=== PATIENT | male | born 1970 | race Caucasian/White ===

== ENCOUNTER 2019-08-08 18:19 | Inpatient (IN) | payer MEDICAID, SELFPAY ==
[2019-08-08] VITALS (9 sets, daily range): BP systolic 104–147; BP diastolic 73–96; PULSE 107–118; RESP 22–38; O2SAT 93–97; BMI 34.8
--- NOTE | 2019-08-08 18:52 | ED_ITS ---
Entered by Aisha Chamorro, acting as scribe for Jeff No MD, [facility] [place] HPI - SOB/Dyspnea General: Chief Complaint: Shortness of Breath/Dyspnea Stated Complaint: shortness of breath Time Seen by Provider: 08/08/19 18:45 Source: patient and family Mode of arrival: ambulatory Limitations: no limitations History of Present Illness: HPI Narrative: 49 yo male presents with shortness of breath. pt states this started 3 days ago. pt states his symptoms worsened. pt states walking and exertion makes this better or worse. pt has had sweating episodes. pt states he has had coughing. pt denies any other symptoms at this time. MD elicited complaint: shortness of breath and cough Context: recent illness Timing: constant and progressively worsening Severity: moderate Exacerbating factors: exertion, coughing and deep breaths Relieving factors: nothing Associated symptoms: Reports chest pain, cough and diaphoresis; Deny abdominal pain, nausea, palpitations, polydipsia, polyuria or vomiting Treatment prior to arrival: none Related Data: Home oxygen amount: none Review of Systems General: Reports: 10 or more systems reviewed and unremarkable except in HPI and below Const: Reports: diaphoresis Eyes: Denies: change in vision or blurry vision ENMT: Denies: throat pain, enlarged tonsils, painful swallowing, hoarseness, mouth pain or swelling of lips/tongue Card: Reports: chest pain; Denies: palpitations, irregular heart rhythm, edema or swelling of feet/ankles Resp: Reports: shortness of breath and productive cough GI: Denies: abdominal pain, nausea or vomiting : Denies: flank pain, painful urination, urinary frequency, urinary urgency or urinary hesitancy Musc: Denies: neck pain, back pain or extremity swelling Skin/Breast: Denies: rash, itching or redness Neuro: Denies: headache, numbness in extremities or weakness in extremities Endo: Denies: excessive urination, excessive thirst or tired all the time PFSH ED PFSH: Social History Smoking and tobacco status: current every day smoker Physical Exam Const: COMMON NORMALS: no apparent distress, average body habitus, oriented x3, no limitations, healthy appearing, alert and well nourished HENMT: COMMON NORMALS: normocephalic, head/scalp atraumatic and moist oral mucous membranes HEAD & SCALP: normocephalic and atraumatic Eye: COMMON NORMALS: PERRL, EOMs intact bilaterally, conjunctivae normal and no scleral icterus CONJUNCTIVA: Yes conjunctivae normal PUPIL: Yes PERRL Neck/C-Spine: COMMON NORMALS: full ROM, supple, no meningeal signs, no JVD and no carotid bruits Chest: COMMONS NORMALS: inspection of chest normal and palpation of chest normal Resp: COMMON NORMALS: percussion normal EFFORT & INSPECTION: Yes tachypneic AUSCULTATION: crackles (bilateral lungs) PERCUSSION: percussion normal Cardio: COMMON NORMALS: no JVD, regular rate, regular rhythm, S1 normal heart sound, S2 normal heart sound, no gallops, no clicks, no murmurs, no rub and peripheral pulses 2+ throughout RATE: regular rate RHYTHM: regular rhythm HEART SOUNDS: S1 normal and S2 normal PERIPHERAL PULSES: pulses 2+ throughout GI: COMMON NORMALS: normal to inspection, nondistended, normoactive bowel so unds, soft to palpation, non-tender, no hepatosplenomegaly, no masses and no bruits PALPATION: Yes soft and Yes no hepatosplenomegaly : COMMON NORMALS: Yes no CVA tenderness BLADDER/KIDNEY EXAM: Yes no CVA tenderness Back/Pelvis: COMMON NORMALS: no CVA tenderness Extremity: COMMON NORMALS: normal to inspection, full ROM, normal capillary refill, no calf tenderness and no pedal edema Neuro: COMMON NORMALS: oriented x3 SENSORIUM/ORIENTATION: Yes alert MENINGEAL SIGNS: Yes no meningeal signs Skin: COMMON NORMALS: no rashes or lesions noted, no wounds, skin turgor normal, no jaundice, no petechiae and no mottling GENERAL SKIN EXAM: no rashes or lesions noted and turgor normal Course Consultations: Consultation #1: Dr. Saavedra, kinder teacher. EKG pattern does not suggest ACS. Appears to be more of a pulmonary pattern. Rule out a PE. Time: 19:00 Consultation #2: Dr. Saavedra, kinder teacher. Discussed the results of the CTA of the lungs with him. Also discussed the troponin result which was critically elevated. He still did not feel this warranted an emergent PCI. Patient should be treated as a case of a non-STEMI. Time: 20:00 Consultation #3: Dr. Porras, hospitalist. She kindly accepted the patient to her service Vital Signs: Vital signs: Vital Signs Pulse Rate 108 H 08/08/19 23:36 Respiratory Rate 22 H 08/08/19 23:36 Blood Pressure 104/81 08/08/19 23:36 Pulse Oximetry 94 08/08/19 23:36 MDM - SOB/Dyspnea MDM Narrative: Medical decision making narrative: 49-year-old male who presented to the emergency department with shortness of breath. On arrival to the emergency department he was hypoxic, necessitating 4 to 5 L of oxygen to maintain his saturations. He was also tachycardic and tachypneic. A CTA of his lungs was negative for a PE, he did however show pulmonary edema. Patient has no prior history of CHF. High-sensitivity troponin was markedly elevated on this patient and he did have some EKG changes of ischemia. He is therefore being managed as a case of a non- STEMI and is admitted to the ICU for further evaluation and management. Differential Diagnosis: Shortness of Breath Differential Diagnosis: Likely congestive heart failure, community acquired pneumonia and pulmonary embolism Medical Records: Attestation: I reviewed the patient's medical records. Lab Data: Attestation: I reviewed the patient's lab results. Labs: Lab Results 08/08/19 08/08/19 08/08/19 Range/Units 19:17 19:17 19:17 WBC 22.1 H (4.0-10.0) 10^3/ uL RBC 5.01 (4.1-5.3) 10^6/u L Hgb 14.2 (11.7-16.6) g/dL Hct 43.4 (42.0-52.0) % MCV 86.6 (80-94) fL MCH 28.3 (28.0-34.0) pg MCHC 32.7 (30.0-36.0) g/dL RDW 12.3 (12.1-15.1) % Plt Count 458 H (130-400) 10^3/c mm MPV 8.4 (7.4-10.4) fL Neut % (Auto) 90.7 % Lymph % (Auto) 4.5 % [place] % (Auto) 3.4 % Eos % (Auto) 0.1 % Baso % (Auto) 0.2 % Neut # (Auto) 20.0 H (1.8-7.7) 10^3/u L Lymph # (Auto) 1.0 (0.8-4.8) 10^3/u L [place] # (Auto) 0.7 (0.2-0.9) 10^3/u L Eos # (Auto) 0.0 (0.0-0.8) 10^3/u L Baso # (Auto) 0.0 (0.0-0.1) 10^3/u L Nucleated RBC % (a uto) 0 % Nucleated RBCs # 0.0 /100WBC Sodium 124 L (136-145) mmol/L Potassium 5.2 H (3.5-5.1) mmol/L Chloride 86 L (98-107) mmol/L Carbon Dioxide 23 (22-29) mmol/L Anion Gap 20.2 H (5-19) BUN 19 (6-20) mg/dL Creatinine 1.2 (0.7-1.2) mg/dL GFR Calculation 64.9 L (90-130) mL/min Glucose 544 H* (65-115) mg/dL Lactate 2.2 (0.5-2.2) mmol/L Calcium 9.0 (8.5-10.5) mg/dL Total Bilirubin 0.4 (0.15-1.2) mg/dL AST 22 (0-40) U/L ALT 28 (0-41) U/L Alkaline Phosphata se 131 H (40-130) IU/L Troponin T Baselin e (0-15) ng/mL Troponin T 120 Min [place] (0-15) ng/mL Delta Troponin T (0-10) ABS# NT-Pro-B Natriuret Pep 2485 H (0-125) pg/mL Total Protein 7.0 (6.6-8.7) g/dL Albumin 2.9 L (3.5-5.2) g/dL Globulin 4.1 (1.3-4.6) g/dL 08/08/19 08/08/19 Range/Units 19:17 21:34 WBC (4.0-10.0) 10^3/ uL RBC (4.1-5.3) 10^6/u L Hgb (11.7-16.6) g/dL Hct (42.0-52.0) % MCV (80-94) fL MCH (28.0-34.0) pg MCHC (30.0-36.0) g/dL RDW (12.1-15.1) % Plt Count (130-400) 10^3/c mm MPV (7.4-10.4) fL Neut % (Auto) % Lymph % (Auto) % [place] % (Auto) % Eos % (Auto) % Baso % (Auto) % Neut # (Auto) (1.8-7.7) 10^3/u L Lymph # (Auto) (0.8-4.8) 10^3/u L [place] # (Auto) (0.2-0.9) 10^3/u L Eos # (Auto) (0.0-0.8) 10^3/u L Baso # (Auto) (0.0-0.1) 10^3/u L Nucleated RBC % (a uto) % Nucleated RBCs # /100WBC Sodium (136-145) mmol/L Potassium (3.5-5.1) mmol/L Chloride (98-107) mmol/L Carbon Dioxide (22-29) mmol/L Anion Gap (5-19) BUN (6-20) mg/dL Creatinine (0.7-1.2) mg/dL GFR Calculation (90-130) mL/min Glucose (65-115) mg/dL Lactate (0.5-2.2) mmol/L Calcium (8.5-10.5) mg/dL Total Bilirubin (0.15-1.2) mg/dL AST (0-40) U/L ALT (0-41) U/L Alkaline Phosphata se (40-130) IU/L Troponin T Baselin e 1942 H* (0-15) ng/mL Troponin T 120 Min [place] 1885 H (0-15) ng/mL Delta Troponin T -57 L (0-10) ABS# NT-Pro-B Natriuret Pep (0-125) pg/mL Total Protein (6.6-8.7) g/dL Albumin (3.5-5.2) g/dL Globulin (1.3-4.6) g/dL EKG Data^: EKG 1: Attestation: I personally reviewed and interpreted this EKG as follows: EKG Interpretation Date: 08/08/19 EKG interpretation time: 18:48 Ischemic changes: other (ST depression in leads V1 to V5) Interpretation: Sinus tachycardia. Heart rate [address] depression V1 to V6. EKG 2: Attestation: I personally reviewed and interpreted this EKG as follows: EKG Interpretation Date: 08/08/19 EKG interpretation time: 20:30 Interpretation: Unchanged from earlier EKG EKG 3: Attestation: I personally reviewed and interpreted this EKG as follows: EKG Interpretation Date: 08/08/19 EKG interpretation time: 22:02 Prior EKG tracings: available for review Interpretation: Unchanged EKG Discharge Plan Discharge Patient Disposition: Admitted As Inpatient Admit Provider: Liz Porras Clinical Impression: Non-ST elevated myocardial infarction (non-STEMI), Acute respiratory failure Condition: Stable Interventions: ED Discharge Assessment Last Done: 08/08/19 23:36 Coding Level of Care Code ED Restrooms Or Lounges Maid for Chg Fwd Exam Comprehensive The documentation recorded by the Pedro Pablo chapman Bridget Annette, accurately reflects the service I personally performed and the decisions made by Marybel zhao Adegoke I, MD, [facility] [place] Aug 08, 2019 18:19
--- NOTE | 2019-08-08 18:56 | CTR_ITS ---
PROCEDURE INFORMATION: Exam: CT Angiography Chest With Contrast Exam date and time: 08/08/2019 7:05 PM Age: 49 years old Clinical indication: Cough and tachypnea; Additional info: SOB, tachycardia TECHNIQUE: Imaging protocol: Computed tomographic angiography of the chest with intravenous contrast. 3D rendering: MIP and/or 3D reconstructed images were created by the technologist. Radiation optimization: All CT scans at this facility use at least one of these dose optimization techniques: automated exposure control; mA and/or kV adjustment per patient size (includes targeted exams where dose is matched to clinical indication); or iterative reconstruction. Contrast material: OMNI 350; Contrast volume: 95 ml; Contrast route: IV; COMPARISON: No relevant prior studies available. FINDINGS: Pulmonary arteries: Overall exam quality is moderate to good for evaluating the pulmonary arteries. There is some motion artifact in the lung bases. No intraluminal filling defects are seen to indicate pulmonary embolism. Aorta: Unremarkable. No aortic aneurysm. No aortic dissection. Lungs: Numerous bilateral central patchy and hazy airspace opacities with accompanying diffuse septal thickening occurs in a pattern most consistent with congestive heart failure and pulmonary edema. Pleural space: Bilateral moderate symmetric pleural effusions extend from the lung bases nearly to the apices. Heart: Overall heart size is normal but the left ventricle is slightly enlarged for the patient's age. Scattered calcified plaques are seen in the coronary arteries. Scattered calcified plaques are noted in the left coronary arteries. Liver: The visualized portions of the liver and spleen are unremarkable. Lymph nodes: Central mediastinal nodes are mildly enlarged and likely reactive. For example a prevascular node measures 1.8 cm and the paratracheal node measures 1.8 cm. Bones/joints: Mild degenerative changes are seen in the thoracic spine. Soft tissues: Unremarkable. CT/CT angio chest PE protcl [id number] IMPRESSION: 1. Congestive heart failure with moderate pleural effusions. 2. No pulmonary embolism. Radiation Dose CTDIVOL = (mGy): DLP = 701.39 (mGy-cm)
--- NOTE | 2019-08-08 18:56 | ECG_ITS ---
Measurements Intervals [place] Rate: 122 P: 64 VA: 184 QRS: -42 QRSD: 93 T: 41 QT: 418 QTc: 598 SINUS TACHYCARDIA INFERIOR MYOCARDIAL INFARCTION , POSSIBLY ACUTE [40+ ms Q WAVE AND/OR ST/T ABN ABNORMALITY IN II/aVF] ACUTE [place] No previous ECG available for comparison Electronically Signed On 08-09-2019 13:18:21 STORE STANDARDS ASSOCIATE by Sade Lawrence M.D. [id number]
[2019-08-08 19:28] LABS: Basophils % 0.2 %; Eosinophils % 0.1 %; Hematocrit 43.4 % (42.0-52.0); Hemoglobin 14.2 g/dL (11.7-16.6); Lymphocytes % 4.5 %; Mean Corpuscular HGB Conc 32.7 g/dL (30.0-36.0); Mean Corpuscular Hemoglobin 28.3 pg (28.0-34.0); Mean Corpuscular Volume 86.6 fL (80-94); Mean Platelet Volume 8.4 fL (7.4-10.4); Monocytes # 0.7 10^3/uL (0.2-0.9); Monocytes % 3.4 %; Neutrophils % 90.7 %; Nucleated Red Blood Cells % 0 %; Platelet Count 458 10^3/cmm (130-400); Red Blood Count 5.01 10^6/uL (4.1-5.3); Red Cell Distribution Width 12.3 % (12.1-15.1); White Blood Count 22.1 10^3/uL (4.0-10.0)
[2019-08-08] MEDS: iohexol 350 mg/mL 100 mL Btl 95 ML IV (19:42)
[2019-08-08 19:45] LABS: Lactate (Lactic Acid level) 2.2 mmol/L (0.5-2.2)
[2019-08-08 19:53] LABS: Troponin(5th) Baseline 1942 ng/mL (0-15)
--- NOTE | 2019-08-08 19:53 | PC.NURSE ---
Troponin 194
[2019-08-08 19:55] LABS: Alanine Aminotransferase 28 U/L (0-41); Albumin Level 2.9 g/dL (3.5-5.2); Alkaline Phosphatase 131 IU/L (40-130); Anion Gap 20.2 (5-19); Aspartate Amino Transferase 22 U/L (0-40); Blood Urea Nitrogen 19 mg/dL (6-20); Carbon Dioxide 23 mmol/L (22-29); Chloride 86 mmol/L (98-107); Creatinine Clr Calc Pharmacy 97.4554; Globulin 4.1 g/dL (1.3-4.6); Glomerular Filtration Rate 64.9 mL/min (90-130); NT Pro B Type Natriuretic Pept 2485 pg/mL (0-125); Potassium 5.2 mmol/L (3.5-5.1); Sodium 124 mmol/L (136-145); Total Bilirubin 0.4 mg/dL (0.15-1.2)
[2019-08-08 20:03] LABS: Glucose 544 mg/dL (65-115)
--- NOTE | 2019-08-08 20:03 | PC.NURSE ---
Glucose 544
[2019-08-08] MEDS: aspirin 81 mg Chew Tablet 324 MG PO (20:49)
[2019-08-08] MEDS: FUROsemide 10 mg/mL SDV 4mL 40 MG IVP (20:50)
[2019-08-08] MEDS: enoxaparin 120 mg/0.8 mL Syringe 110 MG SUBCUT (20:52)
--- NOTE | 2019-08-08 20:56 | ECG_ITS ---
Measurements Intervals [place] Rate: 113 P: 58 MO: 200 QRS: -46 QRSD: 97 T: 0 QT: 307 QTc: 422 SINUS TACHYCARDIA POSSIBLE LEFT ATRIAL ENLARGEMENT [-0.1mV P WAVE IN V1/V2] INFERIOR MYOCARDIAL INFARCTION , POSSIBLY ACUTE [40+ ms Q WAVE AND/OR ST/T ABNORMALITY IN II/aVF] ACUTE [place] No previous ECG available for comparison Electronically Signed On 08-09-2019 17:31:18 SAP ARCHITECT by Sade Lawrence M.D. [id number]
[2019-08-08 22:15] LABS: Troponin 5 2HR Delta -57 ABS# (0-10)
[2019-08-08 22:16] LABS: Troponin 5 2HR 1885 ng/mL (0-15)
[2019-08-08 22:33] LABS: Glucose Point of Care 375 mg/dL (70-110)
[2019-08-08 22:52] LABS: Alanine Aminotransferase 29 U/L (0-41); Albumin Level 3.1 g/dL (3.5-5.2); Alkaline Phosphatase 130 IU/L (40-130); Anion Gap 17.9 (5-19); Aspartate Amino Transferase 20 U/L (0-40); Blood Urea Nitrogen 19 mg/dL (6-20); Calcium 9.2 mg/dL (8.5-10.5); Carbon Dioxide 26 mmol/L (22-29); Chloride 89 mmol/L (98-107); Globulin 4.2 g/dL (1.3-4.6); Glomerular Filtration Rate 80.1 mL/min (90-130); Glucose 404 mg/dL (65-115); Potassium 4.9 mmol/L (3.5-5.1); Sodium 128 mmol/L (136-145); Total Bilirubin 0.4 mg/dL (0.15-1.2); Total Protein 7.3 g/dL (6.6-8.7)
--- NOTE | 2019-08-08 23:25 | PM.HP ---
Providers/Chief Complaint Admitting Physician: Liz Porras MD Chief Complaint: nstemi;chf;acute resp failure History of Present Illness Nimesh Prasad is a 49 year old male with a past medical history of hypertension, diabetes mellitus previously on metformin but now noncompliant with medications, chronic smoking, possibly dyslipidemia who is presenting today to the ED complaining of shortness of breath which started on Wednesday(today is Wednesday). Per patient he was in his usual state of health until Wednesday when he started to experience shortness of breath while sitting in his couch watching TV. He does not recall any inciting factor that brought it on. He thought he was having an anxiety attack and called 1 of his friends over. After chatting to this friend and using his albuterol inhaler this feeling subsided within 1 to 2 hours and he remained asymptomatic through Wednesday. He visited with his primary care doctor when he was still feeling well on Wednesday had some blood work done but does not know the results of this testing. On Wednesday he decided to go to work and while fixing himself something to eat, again started to develop similar shortness of breath. He uses inhalers been thinking that this may benefit him, however when he had no relief he decided to present to the ER. Symptoms were eventually relieved after receiving morphine. He denies any complaints of chest pain, however states that on Wednesday his chest felt funny when the symptoms first started. He has additionally noticed increased swelling of his lower extremity which he has never had before. At this present time of my evaluation he denies any feelings of chest pain or shortness of breath. He is saturating 95% on 2 L/min nasal cannula. He is however noted to be tachycardic with heart rate 103. Diagnostics in the ER were significant for ST elevation in leads III and aVF and ST-T depression in leads V1 through V4. His troponins are elevated with baseline at 1900, a 2-hour troponin at 1885 with a delta of -57. Blood sugar upon arrival was at 544, most recent fingerstick at 375 after which he has received 5 units of insulin. Serum ketones are negative. There is no anion gap overall to be suggestive of DKA. BNP is elevated at 2485. Renal and liver functions are within normal range. Thus far he has received aspirin 325, Lovenox subcutaneously and 40 mg of IV Lasix in the ED. He denies any past history of known CAD. Review of systems otherwise negative for cough, expectoration, fever chills, dysuria, nausea vomiting diarrhea or other altered bowel habits. Review of Systems General: Reports: 10 or more systems reviewed and unremarkable except in HPI and below Const: Denies: fever, chills or body aches Eyes: Denies: change in vision, blurry vision or photophobia ENMT: Reports: hoarseness; Denies: throat pain, enlarged tonsils, painful swallowing or nasal congestion Card: Reports: swelling of feet/ankles, shortness of breath on exertion and shortness of breath when lying down; Denies: chest pain, palpitations, irregular heart rhythm, edema, lightheadedness or pre-syncope Resp: Reports: shortness of breath; Denies: productive cough, non-productive cough, wheezing, stridor, pain on inspiration, change in phlegm color, coughing up blood or chest congestion GI: Denies: abdominal pain, nausea, vomiting, vomiting blood, coffee grounds in vomit, difficulty swallowing, heartburn/indigestion, diarrhea, constipation, cramping, change in stool character, blood in stool or black tarry stool : Denies: flank pain, painful urination, urinary frequency, urinary urgency, urinary hesitancy or blood in urine Musc: Denies: neck pain, back pain, extremity pain, joint swelling, joint warmth or deformity Neuro: Denies: headache, numbness in extremities, weakness in extremities, changes in sensation, difficulty walking, frequent falls, dizziness, vertigo, behavioral changes, slurred speech or seizure-like activity Psych: Denies: anxiety, depression, suicidal ideation or homicidal ideation Endo: Denies: excessive urination, excessive thirst, tired all the time, cold intolerance or hot flashes [place]/Lymph: Denies: easy bruising or easy bleeding Medications/Allergies Allergies Allergy/AdvReac Type Severity Reaction Status Date / Time No Known Allergies Allergy Verified 08/08/19 18:34 PFSH Acute PFSH: Medical History (Updated 08/09/19 @ 01:26 by Liz Porras MD) Congestive heart failure Diabetes mellitus Hypertension Family History (Updated 08/09/19 @ 01:26 by Liz Porras MD) Other CAD (coronary artery disease) Cancer Social History Smoking and tobacco status: current every day smoker Vitals/I&O/Wt Last Vital Signs Pulse 117 H 08/08/19 22:00 Resp 38 H 08/08/19 22:00 BP 111/82 08/08/19 22:00 Pulse Ox 96 08/08/19 22:00 Weight last 48 hrs Weight 113.398 kg Physical Exam Narrative: EXAM NARRATIVE: GEN: Awake, alert and oriented, no acute distress, sitting comfortbaly in bed CVS: S1S2 N RS: CTA B/L all areas Abd: Soft, nt/nd , bs+ CARBONATION EQUIPMENT TENDER: no focal neuro deficits EXT: 2+ pitting edema B/L lower extremities Data : 08/08/19 19:17 08/08/19 22:30 Micro: Microbiology 08/08/19 19:15 Blood Culture - Preliminary Blood SPECIMEN COLLECTED 08/08/19 19:17 Blood Culture - Preliminary Blood SPECIMEN COLLECTED A&P Assessment and plan (1) Non-ST elevated myocardial infarction (non-STEMI): Status: Acute Code(s): I21.4 - Non-ST elevation (NSTEMI) myocardial infarction (2) Hypertension: Status: Acute Code(s): I10 - Essential (primary) hypertension (3) Diabetes mellitus: Status: Acute Code(s): E11.9 - Type 2 diabetes mellitus without complications (4) Congestive heart failure: Status: Acute Code(s): I50.9 - Heart failure, unspecified Additional A&P Information Admit to ICU 1. Acute HI as suggested by ST-T changes as noted above and elevated troponins. Already received aspirin 325 mg in the ED. Continue aspirin 81 mg p.o. daily. Start atorvastatin 80 mg now followed by daily Started on full dose Lovenox 110 mg subcutaneous daily Metoprolol 12.5 p.o. twice daily originally ordered, but now being held blood pressure ranging 100/60 Cardiology consult placed in case discussed with mathematician Dr. Saavedra. He is currently being kept n.p.o. overnight in case he needs to go to the [facility] for angiogram in the morning. PRN morphine for pain control 2. Congestive heart failure as evident clinically. Already received 40 mg of IV Lasix with improvement in dyspnea. Start patient on 40 mg IV every 12 hours for now. Echocardiogram ordered. Supplemental O2 to keep SPO2 greater than 92%. 3. Hyperglycemia Patient has previously been diagnosed to have diabetes mellitus and was on metformin, however he has not taken this medication over the past year. Check HbA1c Start insulin aggressive sliding scale for now Serum ketones negative, no anion gap, not currently in DKA therefore holding off on insulin drip. 4.. Leukocytosis with white blood cell count of 22, likely to be reactive, no localizing signs or symptoms of infection at this time. Chest x-ray is without any gross infiltrates. Will send UA and blood culture. Hold off on antibiotics at this time. Repeat CBC in a.m. DVT ppx: on full dose lovenox Full code Attestations Medical Necessity Statement*: Anticipate greater than 2 midnight admission for HI, CHF,hyperglycemia work-up and management. Coding Level of Care Code Acute Manufacturing Engineering Manager for Chester Santos Diagnoses Non-ST elevated myocardial infarction (non-STEMI) I21.4 Hypertension I10 Diabetes mellitus E11.9 Congestive heart failure I50.9
[2019-08-09] VITALS (52 sets, daily range): BP systolic 96–141; BP diastolic 49–103; PULSE 73–114; RESP 13–38; TEMP 36.5–37.2; O2SAT 81–99
[2019-08-09 00:34] LABS: Ketone (Acetest) Serum Negative (Negative)
--- NOTE | 2019-08-09 00:56 | ECG_ITS ---
Measurements Intervals [place] Rate: 114 P: 58 MN: 194 QRS: -49 QRSD: 94 T: 0 QT: 297 QTc: 409 SINUS TACHYCARDIA LEFT ATRIAL ENLARGEMENT [-0.15mV P WAVE IN V1/V2] INFERIOR MYOCARDIAL INFARCTION , OF INDETERMINATE AGE ST DEPRESSION, CONSIDER SUBENDOCARDIAL INJURY [0.1+ mV ST DEPRESSION] No previous ECG available for comparison Electronically Signed On 08-09-2019 17:30:59 GAMING INVESTIGATOR by Sade Lawrence M.D. [id number]
[2019-08-09 00:59] LABS: Thyroid Stimulating Hormone 2.32 uIU/mL (0.27-4.20)
[2019-08-09 01:23] LABS: Troponin 5 6HR 1812 ng/mL (0-15)
--- NOTE | 2019-08-09 03:40 | PC.NURSE ---
patient sitting on aamra of bed c/o being hot and unable to catch breath. resp called to room o2 t 6 liters n/c. sats are wnl. patient is slightly diaphoretic, denies any chest pain. voiding copius amount per urinal. will keep NPO per Dr. Key, for possible cath in am. patient troponins are decreasing.
[2019-08-09 05:07] LABS: Basophils % 0.3 %; Eosinophils % 0.2 %; Hematocrit 43.6 % (42.0-52.0); Hemoglobin 14.4 g/dL (11.7-16.6); Lymphocytes # 2.4 10^3/uL (0.8-4.8); Lymphocytes % 16.4 %; Mean Corpuscular Hemoglobin 28.1 pg (28.0-34.0); Mean Corpuscular Volume 85.2 fL (80-94); Mean Platelet Volume 8.5 fL (7.4-10.4); Monocytes # 0.8 10^3/uL (0.2-0.9); Monocytes % 5.2 %; Neutrophils # 11.5 10^3/uL (1.8-7.7); Neutrophils % 77.4 %; Nucleated Red Blood Cells % 0 %; Platelet Count 495 10^3/cmm (130-400); Red Blood Count 5.12 10^6/uL (4.1-5.3); Red Cell Distribution Width 12.1 % (12.1-15.1); White Blood Count 14.9 10^3/uL (4.0-10.0)
[2019-08-09 05:33] LABS: Anion Gap 17.1 (5-19); Blood Urea Nitrogen 19 mg/dL (6-20); Calcium 9.1 mg/dL (8.5-10.5); Carbon Dioxide 25 mmol/L (22-29); Chloride 94 mmol/L (98-107); Glomerular Filtration Rate 90.4 mL/min (90-130); Glucose 296 mg/dL (65-115); Osmolality Calculated 281 mOsm/kg (285-295); Potassium 4.1 mmol/L (3.5-5.1); Sodium 132 mmol/L (136-145)
[2019-08-09 05:34] LABS: Cholesterol 206 mg/dL (0-200); HDL Cholesterol 29 mg/dL (60-100); LDL Cholesterol Calculated 156 mg/dL (50-129); LDL HDL Ratio 5.38 RATIO (0.00-3.22); Magnesium 2.1 mg/dL (1.7-2.3); Triglycerides 104 mg/dL (0-150)
[2019-08-09 05:36] LABS: Estmated Average Glucose 298
--- NOTE | 2019-08-09 06:44 | PM.CONSULT ---
Providers/Reason For Consult Consulting Physican/Specialty*: Cardiovascular medicine Reason for Consult*: Congestive heart failure Attending Physician: Liz Porras MD History of Present Illness History of Present Illness Nimesh Prasad is a 49 year old male who came to the emergency room late last night due to shortness of breath. Shortness of breath started 3 days ago while he was at home. He was having difficulty breathing. He called his neighbor and used his neighbors inhaler. He did not describe any chest discomfort. 2 days ago he went to see his primary care doctor who angela blood. Apparently an inhaler was prescribed. The shortness of breath would wax and wane. Yesterday he went to work and did not do any heavy lifting or heavy activity. Last evening he became very short of breath again and presented himself to the emergency room. His EKG showed a suggestion of minimal ST segment elevation in the inferior leads with some ST segment depression in leads V1 through V4. At no time has he had any chest pain. A CTA of his chest ruled out a pulmonary embolism. He was given aspirin 325 mg, Lovenox and 40 mg of Lasix. At the end of the history taking he admitted having some cold sweats 2 or 3 times over the last few days. He also states that is been difficult for him to lie flat because of shortness of breath and cough. Once again he reiterates that he is not had any chest pain. His glucose was over 500. He was noted to have some lower extremity edema. His BNP is almost 2500. His first troponin was 1942. He has been admitted and placed on aspirin, statin, full dose Lovenox, insulin, Lasix and a beta-tod. He has a history of hypertension and diabetes. He is a smoker and has been noncompliant. He takes no medications. He has been prescribed medications for diabetes and hypertension in the past but has chosen not to take them. Review of Systems General: Reports: 10 or more systems reviewed and unremarkable except in HPI and below Meds/Allergies Home Medications and Allergies Allergies Allergy/AdvReac Type Severity Reaction Status Date / Time No Known Allergies Allergy Verified 08/08/19 18:34 Current Medications Current Medications Generic Name Dose Route Start Last Admin Trade Name Freq PRN Reason Stop Dose Admin Atorvastatin Calcium 80 mg 08/08/19 23:20 08/09/19 01:45 Lipitor PO Not Given BEDTIME SAMANTHA Enoxaparin Sodium 110 mg 08/08/19 23:30 08/09/19 01:45 Lovenox SUBCUT Not Given Q12H SAMANTHA Furosemide 40 mg 08/08/19 23:30 08/09/19 01:46 Lasix IVP Not Given Q12H SAMANTHA PFSH Acute PFSH: Medical History (Updated 08/09/19 @ 06:53 by Ian Saavedra MD) Congestive heart failure Diabetes mellitus Hypertension Tobacco abuse Family History (Updated 08/09/19 @ 01:26 by Liz Porras MD) Other CAD (coronary artery disease) Cancer Social History Smoking and tobacco status: current every day smoker Vitals/I&O/Wt Last Vital Signs Temp 98.9 F 08/09/19 05:54 Pulse 93 08/09/19 05:54 Resp 18 08/09/19 05:54 BP 128/95 08/09/19 05:54 Pulse Ox 88 L 08/09/19 05:54 08/08/19 08/08/19 08/09/19 14:59 22:59 06:59 Intake Total 60 / 60 Output Total 750 / 750 Balance -690 / -690 Weight last 48 hrs Weight 250 lb Physical Exam Narrative: EXAM NARRATIVE: GENERAL: In general he is comfortable sitting upright but when he lies flat he begins to cough HEENT: Exam within normal limits. NECK: Supple without jugular vein distention. The carotid upstroke is normal without bruits. BACK: Exam normal. LUNGS: Clear. HEART: Regular rate and rhythm. ABDOMEN: Benign without organomegaly or tenderness. EXTREMITIES: No edema. NEUROLOGIC: Exam normal. SKIN: Unremarkable. Data Micro: Micro: Microbiology 08/08/19 19:15 Blood Culture - Pr eliminary Blood SPECIMEN [facility] 08/08/19 19:17 Blood Culture - Pr eliminary Blood SPECIMEN [facility] A&P Assessment and plan (1) Diabetes mellitus: Status: Acute Code(s): E11.9 - Type 2 diabetes mellitus without complications (2) Congestive heart failure: Status: Acute Code(s): I50.9 - Heart failure, unspecified (3) Hypertension: Status: Acute Code(s): I10 - Essential (primary) hypertension (4) Acute respiratory failure: Status: Acute Qualifiers: Respiratory failure complication: hypoxia Qualified Code(s): J96.01 - Acute respiratory failure with hypoxia Code(s): J96.00 - Acute respiratory failure, unspecified whether with hypoxia or hypercapnia (5) Non-ST elevated myocardial infarction (non-STEMI): Status: Acute Code(s): I21.4 - Non-ST elevation (NSTEMI) myocardial infarction (6) Tobacco abuse: Status: Acute Code(s): Z72.0 - Tobacco use Additional A&P Information The infarct was completed at least 3 days ago, perhaps longer. He likely had a silent myocardial infarction in the inferior wall 3 or more days ago. 3 days ago he began to develop symptoms of congestive heart failure. He seems to be better with the Lasix. He will need coronary angiography later this morning if I can get him on the schedule. Consult Attestations Medical Necessity Statement: Not applicable Coding Level of Care Code Acute Residential Manager for [facility] Medical Decision Making Moderate Complexity Diagnoses Diabetes mellitus E11.9 Congestive heart failure I50.9 Hypertension I10 Acute respiratory failure J96.01 Respiratory failure complication: hypoxia Non-ST elevated myocardial infarction (non-STEMI) I21.4 Tobacco abuse Z72.0
[2019-08-09] MEDS: diphenhydrAMINE 50 mg Capsule PO (07:33)
--- NOTE | 2019-08-09 07:37 | XACV_ITS ---
Exam Room: [facility] Ht: 180 cm Wt: 113 kg BSA: 2.42 m2 Gender: Male : 1970 Any Known Allergies: No known allergies Exam Priority: Routine Procedure(s): Procedure Description: Diagnostic procedure Procedure Description: PCI procedure Procedure Description: Left Heart Catheterization Procedure Description: PTCA Procedure Description: Coronary Angiography Diagnostic Cath Status: Urgent Diagnostic Findings 49-year-old male with diabetes, hypertension and tobacco abuse who is noncompliant and takes no medications. 3 days prior to presentation began having symptoms consistent with congestive heart failure. Upon arrival last evening initial troponin 1800. Trended down over the next 2 evaluations. Patient remained in mild congestive heart failure. Suspected the inferior myocardial infarction occurred at least 5 days prior to admission. Angiography recommended to assess coronary anatomy. Procedure done from the right radial artery. Patient has a right dominant system. Left main coronary artery is normal. Circumflex is a relatively small vessel. There is a high marginal branch which contains mild diffuse disease. In the AV groove branch or second marginal branch there is a 95 to 99% stenosis. In the ostium of the third marginal branch there is also an 80% stenosis. The vessels are relatively small typical of diabetic vessels. The LAD is a moderate size vessel and contains mild diffuse luminal irregularities. There are small diagonals and septal branches proximally. In the midportion at the takeoff of a fairly large diagonal branch there is a 90% discrete stenosis of the LAD. The right coronary artery is a large dominant vessel and is occluded beyond the acute margin. There is some concentration of contrast material at the occlusion point suggesting a relatively recent occlusion with thrombus. PCI Status: Urgent PCI LVEF Assessed: No PCI Indication: Other Interventional Findings Patient developed heart failure as a result of the recent MA and severe underlying coronary artery disease. He was short of breath on the table. Given the appearance of the right coronary artery I tried to perform an intervention to see if I can improve his overall left ventricular function. I was able to place a wire down the vessel through the thrombus and into the distal artery. Multiple attempts at balloon angioplasty failed to open the artery aside from being able to see a trickle of flow in the distal vessel. Patient had 2 episodes of ventricular tachycardia during the angiographic and interventional procedure. I decided to end the procedure and not perform ventriculography. Once the heart failure is compensated he will need to be considered for coronary bypass surgery. Decision for PCI with Surgical Consult: No PCI for Multi-vessel Disease: No Conclusions Three-vessel coronary artery disease with 5-day or greater old occlusion of the right coronary artery with left ventricular dysfunction and congestive heart failure. Recommendations Work to compensate congestive heart failure. Subsequently, referral for coronary bypass surgery. Interventional RX Recommendation: CABG Diagnostic RX Recommendation: CABG Anticoagulation: Heparin Pressures Phase:Rest AO : 82 mmHg / 45 mmHg ( 65 mmHg ) @ 2:13:00 AM 102 mmHg / 45 mmHg ( 68 mmHg ) @ 2:13:00 AM 156 mmHg / 84 mmHg ( 113 mmHg ) @ 2:16:00 AM 102 mmHg / 86 mmHg ( 93 mmHg ) @ 2:17:00 AM 76 mmHg / 26 mmHg ( 56 mmHg ) @ 2:18:00 AM 110 mmHg / 70 mmHg ( 86 mmHg ) @ 2:21:00 AM 88 mmHg / 60 mmHg ( 76 mmHg ) @ 2:26:00 AM 86 mmHg / 74 mmHg ( 76 mmHg ) @ 2:27:00 AM 85 mmHg / 69 mmHg ( 70 mmHg ) @ 2:30:00 AM Clinical Evaluation EBL: 5mL-10mL Procedural Details Procedure Consent Obtained. Pre-Procedure Time Out. Identified patient by full name and date of as verbalized by the patient/guarantor. Does the consent match the physician's order: Yes. Accurate & Complete Informed Consent: Yes. Inpatient/Outpatient History & Physical on Chart: Yes. If H&P is completed, is and addenduem needed: N/A; If yes, is the addendum complete: N/A. Visualize and Verify Site with Patient/Guarantor: N/A. Relevant Radiology Images available: Yes. Pre-op teaching completed and patient verbalized understanding. The risks, benefits, and alternatives of sedation and/or procedure were discussed by physician. The patient agrees to continue. Procedure started. PERRLA. Strong, equal hand client account specialist bilaterally. Lungs clear x 5 lobes. IV Site on Arrival: 20 gauge in the left anticubital. IV Fluids: 0.9% NaCl at KVO. 0 mL infused prior to cath lab nurse. Oxygen started at 4liters/min via nasal canula. bilateral groins was prepped with chloroprep then draped in the usual sterile fashion. right radial was prepped with chloroprep then draped in the usual sterile fashion. Physician notified. Baseline sample Acquired. HR: 92 BPM. Equipment: 6F - Radial. [employer] Manifold Kit Model BT 2000. Cardiac Cath Pack. Heparinized Saline (2 units/mL), 1000 mL bag. Physician arrived. Physician scrubbed in. Immediate Pre-Procedure Time Out. Correct Patient: Yes; Correct Procedure: Yes; Correct Site: Yes; Correct Patient Position: Yes; Correct Supplies: Yes; Dried Flammable Prep: Yes; Blood Products Available: No;. Lidocaine 1% infiltrated to the right radial. o2 to 5lpm nc. Arterial access obtained. A 6 icelandic TIG catheter in over wire. AP pads applied to pt. Multiple views taken of left coronary artery. Catheter redirected to the RCA. Multiple views taken of right coronary artery. Catheter out. 6 icelandic JR 4 guide catheter was inserted over the wire. Leonard guidewire was advanced through the guide catheter to lesion in the distal RCA. Balloon inserted to lesion in the distal RCA. Inflation number : 1 A AB TREK 3.00X15 RX BALLOON was prepped and advanced across the Dist RCA , then inflated to 8 VIGNESH for 0:30 seconds. Inflation number: 2 The AB TREK 3.00X15 RX BALLOON was reinflated across the Dist RCA, to 8 VIGNESH for 0:30 seconds. Inflation number: 3 The AB TREK 3.00X15 RX BALLOON was reinflated across the Dist RCA, to 8 VIGNESH for 0:20 seconds. Results checked. Balloon and wire out. Guide catheter out. A TR Band was successful obtaining hemostatsis at the Right Radial artery insertion site. TR band placed. Hemostasis obtained. Post Procedure: Pulses reassessed and unchanged. PERRLA. Strong, equal hand client account specialist bilaterally. No VTE prophylaxis required. Medication's Wasted: Lidocaine 1% = 18 mL. Medication's Wasted: Heparin = 1000 units. Total IV fluids: 100 mL. Fluoro: 9:00. Contrast type used: Omnipaque 300 mgI/mL, 500 mL bottle. [id number]. PCI Indication: NSTE/ACS. Post-op diagnosis: NSTEMI/CHF. Complications: none. Estimated blood loss: 5mL-10mL. Estimated blood loss: 5mL-10mL. Patient transferred by bed to ICU. [facility] Clinical Fraility Score: 4: Vulnerable. Communications Professional Indications: ACS > 24 hours. Chest Pain Symptom Assessment: Atypical Angina. Cardiovascular Instability: Yes, if yes, Ventricular Arrhythmias. Vital chart was stopped. Site: Right Radial artery Sheath Size: 6 Fr Hemostasis Method: TR Band Hemostasis Success: Successful Procedure Medications Start: 8:04 AM Stop: 8:04 AM Medication: Versed Amount: 1 mg Route: I.V. Start: 8:04 AM Stop: 8:04 AM Medication: Fentanyl Amount: 50 mcg Route: I.V. Start: 8:10 AM Stop: 8:10 AM Medication: Verapamil Amount: 5 mg Route: I.A. Start: 8:10 AM Stop: 8:10 AM Medication: Nitrogylcerin Amount: 200 mcg Route: I.A. Start: 8:12 AM Stop: 8:12 AM Medication: Heparin Amount: 5000 units Route: I.V. I, the attending physician, have reviewed and verified all procedure medications. Yes, all medications given per verbal order History/Risk Factors Hypertension: No Dyslipidemia: No Peripheral Arterial Disease (PAD): No Myocardial Infarction (MA): No Obesity: No Renal Disease: No Prior Interventions PCI: No CABG: No Valve Surgery: No Report Signatures Finalized by:Dr. Ian Saavedra MD on 08/09/2019 9:00:10 AM
--- NOTE | 2019-08-09 07:47 | PC.NURSE ---
to director of labor relations
[2019-08-09] MEDS: metoprolol tartrate 25 mg Tablet 12.5 MG PO ×2 (09:09→17:52)
[2019-08-09] MEDS: aspirin 81 mg EC Tablet PO (09:10)
--- NOTE | 2019-08-09 10:23 | PC.NURSE ---
slowly releasing air from tr band. 2cc at a time.
--- NOTE | 2019-08-09 10:39 | PM.PN ---
Subjective Subjective: Interval history: Chart reviewed, AM labs noted, had coronary angiogram done earlier this morning by Dr. Saavedra with noted three-vessel CAD, 5+ days with occlusion of RCA with left ventricular dysfunction and CHF. He is on IV diuresis, so far is at 750 mL urine output. Echo noted below. Patient seen and examined, multiple family members at bedside, sitting up in bed as he cannot maintain even a reclining position due to increased exertional shortness of breath. He is quite diaphoretic and ill-appearing, intermittently tachycardic and tachypneic, currently requiring 5 L nasal cannula. Emphasized need for medication compliance once discharged particularly in light of need for CABG. Medications: Reviewed: Yes Medication Review Details: Current Medications Generic Name Dose Route Start Last Admin Trade Name Aaronq PRN Reason Stop Dose Admin Aspirin 81 mg 08/09/19 09:00 08/09/19 09:10 Aspirin Ec PO 81 mg DAILY SAMANTHA Administration Atorvastatin Calci um 80 mg 08/08/19 23:20 08/09/19 01:45 Lipitor PO Not Given BEDTIME SAMANTHA Furosemide 40 mg 08/08/19 23:30 08/09/19 01:46 Lasix IVP Not Given Q12H SAMANTHA Insulin Aspart 0 unit 08/09/19 08:00 08/09/19 09:10 Novolog SUBCUT 1 unit WM&BEDTIME SAMANTHA Administration Protocol Metoprolol Tartrat e 12.5 mg 08/08/19 23:25 08/09/19 09:09 Lopressor PO 12.5 mg BID SAMANTHA Administration Vitals/I&O/Wt Last Vital Signs Temp 97.7 F 08/09/19 07:30 Pulse 101 H 08/09/19 09:25 Resp 37 H 08/09/19 07:30 BP 96/49 08/09/19 07:30 Pulse Ox 96 08/09/19 09:25 08/08/19 08/09/19 08/09/19 22:59 06:59 14:59 Intake Total 60 / 60 Output Total 750 / 750 Balance -690 / -690 Weight last 48 hrs Weight 113.398 kg Physical Exam Const: COMMON NORMALS: no apparent distress and oriented x3 GENERAL APPEARANCE: cooperative, comfortable, disheveled, ill appearing, appears older than stated age and diaphoretic ORIENTATION/CONSCIOUSNESS: Yes awake HENMT: COMMON NORMALS: normocephalic, head/scalp atraumatic, hearing grossly normal bilaterally and moist oral mucous membranes HEAD & SCALP: normocephalic and atraumatic Eye: COMMON NORMALS: PERRL, EOMs intact bilaterally and conjunctivae normal CONJUNCTIVA: Yes conjunctivae normal PUPIL: Yes PERRL Neck/C-Spine: COMMON NORMALS: full ROM GENERAL: Yes normal visual inspection and Yes trachea midline Resp: COMMON NORMALS: no retractions and no use of accessory muscles EFFORT & INSPECTION: Yes able to speak in complete sentences, Yes symmetric chest movement and Yes tachypneic (Intermittently) AUSCULTATION: crackles OTHER: -Exertional shortness of breath, orthopnea Cardio: COMMON NORMALS: regular rate, regular rhythm, S1 normal heart sound, S2 normal heart sound and no murmurs RATE: regular rate and tachycardic (Intermittently) RHYTHM: regular rhythm HEART SOUNDS: S1 normal and S2 normal GI: COMMON NORMALS: normal to inspection, nondistended, normoactive bowel sounds, soft to palpation and non-tender PALPATION: Yes soft Extremity: COMMON NORMALS: normal to inspection and full ROM; negative for no pedal edema GENERAL: Yes edema (1-2 + pitting edema of bilateral LE) Neuro: COMMON NORMALS: oriented x3, moves all extremities, no focal motor deficits and no sensory deficits noted Psych: COMMON NORMALS: mental status grossly normal, thought process normal, cooperative, affect normal and speech normal APPEARANCE: Yes unkempt SPEECH: Yes normal speech THOUGHT PROCESS: normal thought process Skin: COMMON NORMALS: no rashes or lesions noted, no jaundice, no petechiae and no mottling GENERAL SKIN EXAM: no rashes or lesions noted Data : 08/09/19 04:25 08/09/19 04:25 Micro: Microbiology 08/08/19 19:15 Blood Culture - Preliminary Blood SPECIMEN COLLECTED 08/08/19 19:17 Blood Culture - Preliminary Blood SPECIMEN COLLECTED A&P Assessment and plan (1) Non-ST elevated myocardial infarction (non-STEMI): -Noted to have significantly elevated troponins with ST elevation noted in leads III and aVF on EKG; delta greater than 100 -received full dose ASA, therapeutic Lovenox, statin -s/p coronary angiogram earlier this AM: 3-vessel CAD with 5+ days old occlusion of RCA with LV dysfunction and CHF. Will need referral for CABG once CHF is compensated -Cardiology consult by Dr. Saavedra appreciated -CTA negative for PE; noted moderate bilateral pleural effusions Status: Acute Code(s): I21.4 - Non-ST elevation (NSTEMI) myocardial infarction (2) Congestive heart failure: -Appears to have a new onset, acutely decompensated CHF as evidenced by orthopnea, lower extremity edema, shortness of breath, elevated BNP (2485) and evidence of fluid overload on imaging -Echo: EF=45%, G2DD, + RWMA, moderate-severe MR, trace TR, akinesis of mid inferior wall and inferior base of LV -continue IV diuresis with Lasix; titrate as needed for optimal response -monitor Is & Os, daily weights -monitor renal function, lytes with diuresis -Intermittently hypertensive throughout the night, normotensive currently, continue to monitor vital signs -Supplemental oxygen as needed, continue to monitor respiratory status -Has had minimal urine output so far today even with diuretics on board, will place Barnard catheter in case he has some element of incomplete emptying versus retention particularly with need for continued aggressive diuresis Status: Acute Qualifiers: Heart failure chronicity: acute Heart failure type: combined systolic and diastolic Qualified Code(s): I50.41 - Acute combined systolic (congestive) and diastolic (congestive) heart failure Code(s): I50.9 - Heart failure, unspecified (3) Diabetes mellitus: -Has known history of [id number] diabetes mellitus type 2, previously on metformin which she has been noncompliant with -A1c is 12, will likely require insulin therapy if agreeable on discharge -Accu-Cheks, ISS -Cardiac diabetic diet as tolerated Status: Acute Qualifiers: Diabetes mellitus complication status: without complication Diabetes mellitus terminal manager insulin use: without terminal manager use Diabetes mellitus type: type 2 Qualified Code(s): E11.9 - Type 2 diabetes mellitus without complications Code(s): E11.9 - Type 2 diabetes mellitus without complications (4) Tobacco abuse: -Chronic smoker Status: Acute Code(s): Z72.0 - Tobacco use (5) Hypertension: -has known hx of HTN, non-compliant with meds -continue to monitor vital signs -continue BB Status: Acute Qualifiers: Hypertension type: essential hypertension Qualified Code(s): I10 - Essential (primary) hypertension Code(s): I10 - Essential (primary) hypertension Additional A&P Information -Morbid obesity -hx of polysubstance abuse: THC, benzodiazepines -Clinically quite ill-appearing, diaphoretic, intermittently tachypneic and tachycardic; no evidence of infection on CT chest, pending UA. Decreasing leukocytosis, lactic acid of 2.2 -DVT ppx with SCDs, may add AC once appropriate, received therapeutic Lovenox late last night and heparin during cath -Dispo: home -Code status: FULL code -continue ICU care given recent cath; high risk for decompensation Attestations Medical Necessity Statement*: Patient requires hospitalization for continued management of acutely decompensated CHF, requiring IV diuresis as well as medical management of CAD s/p coronary angiogram showing three-vessel CAD. Time Spent in Patient Care: Greater than 35 minutes (>than 50% of time spent in counselling and/or direct pt care on unit). Critical Care Time: The high probability of a clinically significant, sudden or life threatening deterioration of the patient's [cardiovascular, respiratory] system(s) required my full and direct attention, intervention and personal management. The critical care time is as shown. This time is in addition to time spent performing any reported procedures but includes the following: [x] Data and vital sign review and interpretation [x] Patient assessment, examination and intervention [x] Documentation [x] Medication orders and management Critical Care Time (min): 30 Coding Level of Care Code Acute Accounts Payable Specialist for [facility] Fwd Exam Comprehensive Diagnoses Non-ST elevated myocardial infarction (non-STEMI) I21.4 Congestive heart failure I50.41 Heart failure chronicity: acute Heart failure type: combined systolic and diastolic Diabetes mellitus E11.9 Diabetes mellitus complication status: without complication Diabetes mellitus senior care insulin use: without terminal manager use Diabetes mellitus type: type 2 Tobacco abuse Z72.0 Hypertension I10 Hypertension type: essential hypertension
[2019-08-09] MEDS: FUROsemide 10 mg/mL SDV 4mL 40 MG IVP (10:52)
[2019-08-09 11:01] LABS: Glucose Point of Care 310 mg/dL (70-110)
[2019-08-09] MEDS: LORazepam 2 mg/mL INJ 1 mL 1 MG IVP ×2 (11:21→20:32)
--- NOTE | 2019-08-09 11:32 | PC.RESP ---
Patient was given information on Smoking Cessation and offered a schedule of available classes.
--- NOTE | 2019-08-09 12:04 | PC.CHAP ---
Pastoral Care Encounter/Spiritual Assessment Type of Contact [] Declined employee benefits coordinator visit [] Patient/Family/Request visit [] Outpatient visit [] Follow-up visit [] Physician referral [] Code/Alert [x] Routine visit [] Staff referral [] Actively dying [] Patient sleeping [x] Family support [] [] Out of room [] Palliative care [] [] Receiving care in room [] Pre-surgical visit [] Trauma [] Long length of stay [x] ICU visit [] Other: Relational/Emotional Strength [] Patient feels connected with others/family/visitors/staff [] Distress [] Loneliness/isolation [] Abandonment Spirituality of Patient [x] Person of Tala [] Attends Catholic of their Tala [x] Believes in Prayer [] Reads Bible or Adventism materials [] There are Spiritual issues to be addressed [employer] Interventions [x] Prayer [] Active listening [] Non-anxious presence [] Spiritual/emotional support [] Crisis/trauma care [] Spiritual counseling [] Bereavement support [] Provided bereavement packet [] Provided Bible/devotional materials [] Provided toy/stuffed animal, coloring book to patient or family member [] Provided Communion [] Anointing/[place] [] Salvation [x] Completed spiritual assessment [] Other: Impact on Illness or Injury [] Angry [] Fearful [] Anxious [] Often cries [] Exhaustion [] Unable to work [] Unable to attend anabaptist [] Unable to walk/stand [] Unable to read [] Unable to drive [] Unable to eat/drink [] Unable to sleep [] Unable to be with family [] Patient intubated [] Other: Summary Patients mother and sister present. Time spent with patient 15min
--- NOTE | 2019-08-09 12:51 | PC.NURSE ---
pt. having difficulty breathing joseph. resting back in bed. unable to rest on either side, some diaphoresis. fixed overbed table and propped pt. up on it. has not voided since lasix
--- NOTE | 2019-08-09 13:32 | PC.NURSE ---
dr. irwin here
--- NOTE | 2019-08-09 15:16 | PC.NURSE ---
12 fr. westfall inserted with 8cc to balloon d/t leakage with 5 cc. clear return. 16 fr. met resistance after only 1-2 inch insertion, unable to advance any farther. 250cc immediate return.
[2019-08-09] MEDS: acetaminophen 325 mg Tablet 650 MG PO (15:32)
[2019-08-09] MEDS: nicotine 7 mg Patch 1 PATCH TRANSDERMA (15:33)
[2019-08-09 15:46] LABS: Glucose Point of Care 222 mg/dL (70-110)
--- NOTE | 2019-08-09 16:28 | PC.NURSE ---
0855-back from cathlab. tr . no oozzing at site. cap refil 4sec.band in place
--- NOTE | 2019-08-09 16:31 | PC.NURSE ---
0915- no change in cath site to right wrist.
--- NOTE | 2019-08-09 16:32 | PC.NURSE ---
0930-no change in cath site
--- NOTE | 2019-08-09 16:32 | PC.NURSE ---
0945-no change in cath site
[2019-08-09 16:42] LABS: Glucose Point of Care 125 mg/dL (70-110)
[2019-08-09] MEDS: enoxaparin 40 mg/0.4 mL Syringe SUBCUT (17:51)
--- NOTE | 2019-08-09 18:08 | PC.NURSE ---
1000- no change in cath site. will be going slowly d/t pts. restlessness.
--- NOTE | 2019-08-09 18:09 | PC.NURSE ---
1100-no change in cath site. releasing pressure slowly.
[2019-08-09 19:29] LABS: Glucose Point of Care 246 mg/dL (70-110)
--- NOTE | 2019-08-09 19:34 | XRR_ITS ---
PROCEDURE INFORMATION: Exam: XR Chest, 1 View Exam date and time: 08/09/2019 7:56 PM Age: 49 years old Clinical indication: Dyspnea; Patient HX: Respiratory distress; Additional info: Shortness of breath TECHNIQUE: Imaging protocol: XR of the chest Views: 1 view. COMPARISON: CT angio chest PE protcl [id number] 08/08/2019 7:54 PM FINDINGS: Lungs: Bilateral perihilar and right lower lobe parenchymal density consistent with pulmonary edema. Interstitial congestion is seen in the left lower lobe. Pleural space: Bilateral lower lobe to pleural effusion. This finding was seen on CT examination. No pneumothorax. Heart/Mediastinum: Unremarkable. No cardiomegaly. Bones/joints: Unremarkable. XR/XR chest 1V portable [id number] IMPRESSION: 1. Bilateral hilar and right lower lobe pulmonary edema 2. Bilateral pleural effusion.
[2019-08-09] MEDS: nitroglycerin drip 50 MG/250 ML PREMIX 15 MG IV (19:44)
[2019-08-09] MEDS: morphine 4 mg/mL SDV 1 mL 2 MG IVP (19:45)
[2019-08-09] MEDS: FUROsemide 10 mg/mL SDV 10mL 80 MG IVP (20:30)
[2019-08-09] MEDS: nitroglycerin drip 50 MG/250 ML PREMIX 22.5 MG IV (20:39)
--- NOTE | 2019-08-09 21:19 | ECG_ITS ---
Measurements Intervals [place] Rate: 84 P: 56 MA: 176 QRS: -48 QRSD: 105 T: 89 QT: 397 QTc: 471 SINUS RHYTHM POSSIBLE LEFT ATRIAL ENLARGEMENT [-0.1mV P WAVE IN V1/V2] LOW QRS VOLTAGE IN PRECORDIAL LEADS [QRS DEFLECTION < 1.0 mV IN CHEST LEADS] POSSIBLE RIGHT VENTRICULAR CONDUCTION DELAY [RSR (QR) IN V1/V2] INFERIOR MYOCARDIAL INFARCTION [40+ ms Q WAVE AND/OR ST/T ABNORMALITY IN II/aVF] OF INDETERMINATE AGE WITH POSTERIOR EXTENSION ST DEPRESSION, CONSIDER SUBENDOCARDIAL INJURY [0.1+ mV ST DEPRESSION] INTERPRETATION BASED ON A DEFAULT AGE OF 40 YEARS There is no significant change Electronically Signed On 08-10-2019 19:08:21 SUPERVISOR OF INSTRUCTION by Devante Dunn M.D. [id number]
--- NOTE | 2019-08-09 22:17 | ECG_ITS ---
Measurements Intervals [place] Rate: 89 P: 78 KS: 194 QRS: -72 QRSD: 103 T: 119 QT: 389 QTc: 475 SINUS RHYTHM LOW QRS VOLTAGE IN PRECORDIAL LEADS [QRS DEFLECTION < 1.0 mV IN CHEST LEADS] INFERIOR MYOCARDIAL INFARCTION [40+ ms Q WAVE AND/OR ST/T ABNORMALITY IN II/aVF], POSS INTERPRETATION BASED ON A DEFAULT AGE OF 40 YEARS Compared to ECG 08/08/2019 22:02:20 Low QRS voltage now present Sinus tachycardia no longer present Atrial abnormality no longer present ST (T wave) deviation no longer present Myocardial infarct finding still present Electronically Signed On 08-10-2019 19:08:41 SPORTS CARTOONIST by Devante Dunn M.D. [id number]
--- NOTE | 2019-08-09 23:16 | USCV_ITS ---
Nimesh Prasad Age: 49 Gender: M : 1970 Exam Date: 08/09/2019 07:00 Ordering Phys: Liz Porras MD Technologist: Saurav Palma [place] [facility] [place]: New CHF BP: 94 / 49 HR: 51 Rhythm: Sinus Technical Quality: Suboptimal MEASUREMENTS (Male / Female) Normal Values 2D ECHO LV Diastolic Diameter PLAX 6.4 cm 4.2 - 5.9 / 3.9 - 5.3 cm LV Systolic Diameter PLAX 4.7 cm IVS Diastolic Thickness 1.3 cm 0.6 - 1.0 / 0.6 - 0.9 cm IVS Systolic Thickness 1.4 cm LVPW Diastolic Thickness 1.3 cm 0.6 - 1.0 / 0.6 - 0.9 cm LVPW Systolic Thickness 1.7 cm LVOT Diameter 2.0 cm LV Ejection Fraction 2D Teich 50.5 % LV Ejection Fraction MOD 2C 50.6 % LV Ejection Fraction 2C AL 50.6 % LA Diameter 4.4 cm LA Width 3.7 cm LA Height 6.1 cm RA Width 2.7 cm RA Height 4.7 cm Aorta at Sinotubular Diameter 2.5 cm M-MODE LV Diastolic Diameter MM 6.1 cm 4.2 - 5.9 / 3.9 - 5.3 cm LV Systolic Diameter MM 5.0 cm LV Ejection Fraction MM Teich 38.3 % IVS Diastolic Thickness MM 1.1 cm 0.6 - 1.0 / 0.6 - 0.9 cm IVS Systolic Thickness MM 1.4 cm LVPW Diastolic Thickness MM 1.3 cm 0.6 - 1.0 / 0.6 - 0.9 cm LVPW Systolic Thickness MM 1.6 cm RV Diastolic Diameter MM 2.0 cm Aortic Annulus Diameter 3.1 cm LA Ao Ratio MM 1.4 MV E Point Septal Separation 1.6 cm DOPPLER AV Peak Velocity 127.0 cm/s LVOT Peak Velocity 88.0 cm/s AV Area Cont Eq vti 2.6 cm squared AV Area Cont Eq pk 2.3 cm squared MV Area PHT 5.1 cm squared Mitral E to A Ratio 2.0 MV E' Velocity 6.0 cm/s Mitral E to MV E' Ratio 18.5 Mitral E to LV E' Lateral Ratio 23.1 Mitral E to LV E' Septal Ratio 15.6 TR Peak Velocity 151.0 cm/s TR Peak Gradient 9.2 mmHg Right Atrial Pressure 3.0 mmHg Pulmonary Artery Systolic Pressu 12.1 mmHg PV Peak Velocity 90.0 cm/s FINDINGS Left Ventricle Normal left ventricular cavity size. Normal left ventricular wall thickness. Mildly decreased left ventricular systolic function. Regional wall motion abnormalities (see diagram). Akinesis of the mid inferior wall and inferior base. Grade 2 diastolic dysfunction. Ejection fraction 45%. Right Ventricle Normal right ventricular size and systolic function. Normal right ventricular systolic pressure. Right Atrium The right atrium is normal in size. Left Atrium Mildly increased left atrial size. Mitral Valve Structurally normal mitral valve. Moderate-severe mitral valve regurgitation. Aortic Valve Structurally normal aortic valve without significant sclerosis or stenosis. There is no aortic regurgitation. Tricuspid Valve Structurally normal tricuspid valve. Trace tricuspid valve regurgitation. Pulmonic Valve Pulmonic valve not well visualized. Pericardium Normal pericardium without effusion. Aorta Normal ascending aorta dimension. CONCLUSIONS Normal left ventricular cavity size. Normal left ventricular wall thickness. Mildly decreased left ventricular systolic function. Regional wall motion abnormalities (see diagram). Akinesis of the mid inferior wall and inferior base. Grade 2 diastolic dysfunction. Ejection fraction 45%. Mildly increased left atrial size. Structurally normal mitral valve. Moderate-severe mitral valve regurgitation. There are no prior echocardiogram studies to compare. Dr. Ian Saavedra MD (Electronically Signed) Final Date: 09 August 2019 10:39 S
[2019-08-10] VITALS (54 sets, daily range): BP systolic 84–136; BP diastolic 44–101; PULSE 73–99; RESP 16–43; TEMP 36.5–37; O2SAT 92–97
[2019-08-10] MEDS: metOLazone 5 MG Tablet 10 MG PO
[2019-08-10] MEDS: LORazepam 2 mg/mL INJ 1 mL 1 MG IVP ×2 (01:07→20:16)
--- NOTE | 2019-08-10 03:02 | PC.NURSE ---
194 patient started to because black and ashen in color with marked shortness of breath, unable to sit back in bed. o2 at 8 liters per n/c sats 87%. patient is extremely diaphoretic to the point of dripping and leads having hard time staying in place. tele still is showing st elevation from cath today. lungs are full and wet marked pulmonary edema noted. Dr. Dunn called and is here to evaluate patient due to pain starting in shoulder and neck with radiating effects. patient is so anxious at this time dr ordered morphine and ativan. x ray here to do chest xray. westfall checked for patency urine output is poor. patient received 80mg lasix . Also resp therapy here bipap placed 03/02 60 % EKG done and Dr. Dunn here reading it. patients pain gone and now is resting in bed with bipap in place. nitroglycerine drip initiated. 2219 patient had 8 second pause on monitor, patient was sleeping and aroused with no problem. went baljit to sinus rhythm and is having no pain. westfall has only put out 100 mls of urine at this time. very dark and concentrated. nitroglycerine remains at [address] Dunn called and is on way to see patient. EKG orderd and zaroxalyn [address] Dunn here to see patient no new orders at this time continue morphine for pain and ativan for anxiety. 0200 urine output t total is 600 mls, it is starting to clear up although still poor output. Bladder scnned to wnsure emptying of bladder, scan showed 0 mls in bladder. anxious so 1 mg ativan given patient is resting on bipap.
--- NOTE | 2019-08-10 05:38 | PC.NURSE ---
lab here to draw am labs bipap off n/c applied 5 n/c
--- NOTE | 2019-08-10 06:00 | XR_ITS ---
WS: [id number] XR chest 1V portable [id number] REASON FOR EXAM: progression of pulmonary edema FINDINGS: Comparisons were made to August 09, 2019. There is bilateral pleural effusion now seen in the lower lung porter. The pulmonary edema has resolved in the perihilar areas and upper lung porter. There is no pneumothorax seen. XR/XR chest 1V portable [id number] IMPRESSION: Persistent bilateral pleural effusion Resolution of acute pulmonary edema.
[2019-08-10 06:02] LABS: Basophils % 0.3 %; Eosinophils # 0.1 10^3/uL (0.0-0.8); Eosinophils % 0.4 %; Hematocrit 42.3 % (42.0-52.0); Hemoglobin 13.7 g/dL (11.7-16.6); Lymphocytes # 3.1 10^3/uL (0.8-4.8); Lymphocytes % 23.8 %; Mean Corpuscular HGB Conc 32.4 g/dL (30.0-36.0); Mean Corpuscular Volume 89.6 fL (80-94); Mean Platelet Volume 8.4 fL (7.4-10.4); Monocytes # 0.9 10^3/uL (0.2-0.9); Monocytes % 6.8 %; Neutrophils # 8.8 10^3/uL (1.8-7.7); Nucleated Red Blood Cells % 0 %; Platelet Count 462 10^3/cmm (130-400); Red Blood Count 4.72 10^6/uL (4.1-5.3); Red Cell Distribution Width 12.5 % (12.1-15.1)
[2019-08-10 06:23] LABS: Anion Gap 15.4 (5-19); Blood Urea Nitrogen 25 mg/dL (6-20); Carbon Dioxide 29 mmol/L (22-29); Chloride 94 mmol/L (98-107); Glomerular Filtration Rate 71.8 mL/min (90-130); Glucose 265 mg/dL (65-115); Osmolality Calculated 284 mOsm/kg (285-295); Potassium 4.4 mmol/L (3.5-5.1); Sodium 134 mmol/L (136-145)
[2019-08-10 08:36] LABS: Glucose Point of Care 215 mg/dL (70-110)
[2019-08-10] MEDS: aspirin 81 mg EC Tablet PO (08:57)
[2019-08-10] MEDS: FUROsemide 10 mg/mL SDV 4mL 40 MG IVP (08:57)
[2019-08-10] MEDS: metoprolol tartrate 25 mg Tablet 12.5 MG PO (08:58)
--- NOTE | 2019-08-10 10:32 | PM.PN ---
Subjective Subjective: Interval history: Since the angiogram was completed yesterday morning, Nimesh has had several episodes of profound shortness of breath with diaphoresis. He is not having chest pain. Last evening he was given more Lasix and a dose of metolazone. He is also been given anxiolytics. He struggles to breathe at times. His echo revealed an ejection fraction of about 45% but moderate to severe mitral regurgitation. He finally opened up and has had a fair amount of urine output overnight. He had 2200 mL since yesterday. He is much more comfortable today and is breathing much more easily. He is standing up today wanting to walk around the unit. He was also placed on intravenous nitroglycerin last evening. That continues. No angina today. Medications: Reviewed: Yes Vitals/I&O/Wt Last Vital Signs Temp 97.7 F 08/10/19 05:36 Pulse 82 08/10/19 10:00 Resp 31 H 08/10/19 05:36 BP 116/87 08/10/19 09:30 Pulse Ox 95 08/10/19 09:30 08/09/19 08/10/19 08/10/19 22:59 06:59 14:59 Intake Total 613.75 / 1493.75 780 / 2273.75 420 / 420 Output Total 300 / 300 600 / 900 1300 / 1300 Balance 313.75 / 1193.75 180 / 1373.75 -880 / -880 Weight last 48 hrs Weight 250 lb Physical Exam Narrative: EXAM NARRATIVE: GENERAL: In general he looks and feels much better today HEENT: Exam within normal limits. NECK: Supple without jugular vein distention. The carotid upstroke is normal without bruits. BACK: Exam normal. LUNGS: Clear. HEART: Regular rate and rhythm. ABDOMEN: Benign without organomegaly or tenderness. EXTREMITIES: No edema. NEUROLOGIC: Exam normal. SKIN: Unremarkable. Urinary Catheter Management^: Barnard: Cath Placed During This Visit: no Reason for Continuing Indwelling Catheter: Accurate Measurement of Urinary Output in Critically Ill Patients Data : 08/10/19 05:33 08/10/19 05:33 Micro: Microbiology 08/08/19 19:15 Blood Culture - Preliminary Blood NEGATIVE TO DATE 08/08/19 19:17 Blood Culture - Preliminary Blood NEGATIVE TO DATE A&P Assessment and plan (1) Tobacco abuse: Status: Acute Code(s): Z72.0 - Tobacco use (2) Congestive heart failure: Status: Acute Qualifiers: Heart failure type: combined systolic and diastolic Heart failure chronicity: acute Qualified Code(s): I50.41 - Acute combined systolic (congestive) and diastolic (congestive) heart failure Code(s): I50.9 - Heart failure, unspecified (3) Diabetes mellitus: Status: Acute Qualifiers: Diabetes mellitus type: type 2 Diabetes mellitus roasterman insulin use: without [place] [facility] use Diabetes mellitus complication status: without complication Qualified Code(s): E11.9 - Type 2 diabetes mellitus without complications Code(s): E11.9 - Type 2 diabetes mellitus without complications (4) Hypertension: Status: Acute Qualifiers: Hypertension type: essential hypertension Qualified Code(s): I10 - Essential (primary) hypertension Code(s): I10 - Essential (primary) hypertension (5) Non-ST elevated myocardial infarction (non-STEMI): Status: Acute Code(s): I21.4 - Non-ST elevation (NSTEMI) myocardial infarction (6) Acute respiratory failure: Status: Acute Qualifiers: Respiratory failure complication: hypoxia Qualified Code(s): J96.01 - Acute respiratory failure with hypoxia Code(s): J96.00 - Acute respiratory failure, unspecified whether with hypoxia or hypercapnia Additional A&P Information He is much improved today after the diuresis. His overall ischemic burden is relatively high however his left ventricular function is not bad. The ischemic burden combined with the mitral regurgitation is what is causing the problem with CHF. I think we finally have things stabilized. I am going to add an STEPHON inhibitor for afterload reduction to reduce the mitral regurgitation. I am going to change him over to Lasix by mouth, adjust his beta-tod dose, discontinue the intravenous nitroglycerin, add a p.o. long-acting nitrate. We will see how he does over the next day or so. I will need to review the films with Dr. Chance and see about revascularization. Attestations Medical Necessity Statement*: Not applicable Coding Level of Care Code Established Pt Acute Electromechanical Technologist for Chg Fwd Patient Type Established History Detailed Exam Detailed Medical Decision Making Moderate Complexity Diagnoses Tobacco abuse Z72.0 Congestive heart failure I50.41 Heart failure type: combined systolic and diastolic Heart failure chronicity: acute Diabetes mellitus E11.9 Diabetes mellitus type: type 2 Diabetes mellitus roasterman insulin use: without [place] [facility] use Diabetes mellitus complication status: without complication Hypertension I10 Hypertension type: essential hypertension Non-ST elevated myocardial infarction (non-STEMI) I21.4 Acute respiratory failure J96.01 Respiratory failure complication: hypoxia
[2019-08-10] MEDS: lisinopril 2.5 mg Tablet PO (11:02)
[2019-08-10] MEDS: isosorbide mononitrate ER 30 mg Tablet PO (11:02)
--- NOTE | 2019-08-10 11:18 | P.PN_ITS ---
Subjective Subjective: Interval history: Reviewed overnight nursing documentation including initiation of IV nitroglycerin, extra doses of diuretics given and Ativan. Able to diurese 700 mL of urine overnight. Switch to oral Lasix this morning by Dr. Saavedra. Weaning off nitroglycerin drip. Repeat chest x-ray shows resolution of pulmonary edema, persistent bilateral pleural effusions. Patient seen and examined, in good spirits, sitting up in bed, breathing much more comfortably, no evidence of diaphoresis. Has made remarkable progress overnight and prior documented events. Has been up and ambulatory in the hallway. Medications: Reviewed: Yes Medication Review Details: Active Medications Generic Name Dose Route Start Last Admin Trade Name Freq PRN Reason Stop Dose Admin Acetaminophen 650 mg 08/08/19 23:22 08/09/19 15:32 Tylenol PO 650 mg Q6H PRN Administration Mild/Mod Pain Or Temp >/= 101 Aspirin 81 mg 08/09/19 09:00 08/10/19 08:57 Aspirin Ec PO 81 mg DAILY SAMANTHA Administration Atorvastatin Calci um 80 mg 08/08/19 23:20 08/09/19 20:42 Lipitor PO Not Given BEDTIME SAMANTHA Enoxaparin Sodium 40 mg 08/09/19 16:15 08/09/19 17:51 Lovenox SUBCUT 40 mg Q24H SAMANTHA Administration Furosemide 40 mg 08/11/19 08:00 Lasix PO DAILY@0800 SAMANTHA Dextrose 500 mls @ 100 mls /hr 08/08/19 23:16 D5w IV ONCE PRN Adult Acute Hypog lycemia Prot Protocol Sodium Chloride 1,000 mls @ 100 m ls/hr 08/09/19 09:00 08/10/19 08:41 Sodium Chloride 0.9% IV Not Given .Q10H SAMANTHA Insulin Aspart 0 unit 08/09/19 08:00 08/09/19 22:36 Novolog SUBCUT Not Given WM&BEDTIME SAMANTHA Protocol Isosorbide Mononit rate 30 mg 08/10/19 11:00 08/10/19 11:02 Imdur PO 30 mg DAILY SAMANTHA Administration Lisinopril 2.5 mg 08/10/19 11:00 08/10/19 11:02 Prinivil PO 2.5 mg DAILY SAMANTHA Administration Lorazepam 0.25 mg 08/09/19 11:11 Ativan PO TID PRN ANXIETY Lorazepam 1 mg 08/10/19 00:47 08/10/19 01:07 Ativan IVP 08/11/19 23:59 1 mg Q2H PRN Administration ANXIETY Metoprolol Tartrat e 25 mg 08/10/19 18:00 Lopressor PO BID SAMANTHA Morphine Sulfate 2 mg 08/08/19 23:22 08/09/19 19:45 Morphine IVP 2 mg Q4H PRN Administration SEVERE PAIN Nicotine 1 patch 08/09/19 11:30 08/10/19 10:10 Nicoderm 7 Mg Pa tch TRANSDERMA Not Given DAILY [facility] Nitroglycerin 0.4 mg 08/09/19 09:00 Nitrostat SUBLINGUAL Q5M PRN CHEST PAIN No Known Allergies Allergy (Verified 08/08/19 18:34) Vitals/I&O/Wt Last Vital Signs Temp 97.7 F 08/10/19 05:36 Pulse 82 08/10/19 10:00 Resp 31 H 08/10/19 05:36 BP 116/87 08/10/19 09:30 Pulse Ox 95 08/10/19 09:30 08/09/19 08/10/19 08/10/19 22:59 06:59 14:59 Intake Total 613.75 / 1493.75 780 / 2273.75 420 / 420 Output Total 300 / 300 600 / 900 1300 / 1300 Balance 313.75 / 1193.75 180 / 1373.75 -880 / -880 Weight last 48 hrs Weight 113.398 kg Physical Exam Const: COMMON NORMALS: no apparent distress and oriented x3 GENERAL APPEARANCE: cooperative, comfortable and appears older than stated age; not ill appearing and not diaphoretic ORIENTATION/CONSCIOUSNESS: Yes awake HENMT: COMMON NORMALS: normocephalic, head/scalp atraumatic, hearing grossly normal bilaterally and moist oral mucous membranes HEAD & SCALP: normocephalic and atraumatic Eye: COMMON NORMALS: PERRL, EOMs intact bilaterally and conjunctivae normal CONJUNCTIVA: Yes conjunctivae normal PUPIL: Yes PERRL Neck/C-Spine: COMMON NORMALS: full ROM GENERAL: Yes normal visual inspection and Yes trachea midline Resp: COMMON NORMALS: no retractions and no use of accessory muscles EFFORT & INSPECTION: Yes able to speak in complete sentences, Yes symmetric chest m ovement and Yes tachypneic (Intermittently) AUSCULTATION: crackles OTHER: -Exertional shortness of breath, orthopnea has decreased -air entry has improved Cardio: COMMON NORMALS: regular rate, regular rhythm, S1 normal heart sound, S2 normal heart sound and no murmurs RATE: regular rate RHYTHM: regular rhythm HEART SOUNDS: S1 normal and S2 normal GI: COMMON NORMALS: normal to inspection, nondistended, normoactive bowel sounds, soft to palpation and non-tender PALPATION: Yes soft : BLADDER/KIDNEY EXAM: Yes catheter in place Catheter type (Male): urethral Extremity: COMMON NORMALS: normal to inspection and full ROM; negative for no pedal edema GENERAL: Yes edema (trace pitting edema of bilateral LE) Neuro: COMMON NORMALS: oriented x3, moves all extremities, no focal motor deficits and no sensory deficits noted Psych: COMMON NORMALS: mental status grossly normal, thought process normal, cooperative, affect normal and speech normal SPEECH: Yes normal speech THOUGHT PROCESS: normal thought process Skin: COMMON NORMALS: no rashes or lesions noted, no jaundice, no petechiae an d no mottling GENERAL SKIN EXAM: no rashes or lesions noted Urinary Catheter Management^: Barnard: Cath Placed During This Visit: yes Urethral Indwelling: Yes Reason for Continuing Indwelling Catheter: Accurate Measurement of Urinary Output in Critically Ill Patients Data : 08/10/19 05:33 08/10/19 05:33 Micro: Microbiology 08/08/19 19:15 Blood Culture - Preliminary Blood NEGATIVE TO DATE 08/08/19 19:17 Blood Culture - Preliminary Blood NEGATIVE TO DATE A&P Assessment and plan (1) Non-ST elevated myocardial infarction (non-STEMI): -Noted to have significantly elevated troponins with ST elevation noted in leads III and aVF on EKG; delta greater than 100 -received full dose ASA, therapeutic Lovenox, statin -s/p coronary angiogram earlier this AM: 3-vessel CAD with 5+ days old occlusion of RCA with LV dysfunction and CHF. Will need referral for CABG once CHF is compensated -Cardiology consult by Dr. Saavedra appreciated -CTA negative for PE; noted moderate bilateral pleural effusions -Imdur added, weaning off NTG drip -ACEi added Status: Acute Code(s): I21.4 - Non-ST elevation (NSTEMI) myocardial infarction (2) Congestive heart failure: -Appears to have a new onset, acutely decompensated CHF as evidenced by orthopnea, lower extremity edema, shortness of breath, elevated BNP (2485) and evidence of fluid overload on imaging -Echo: EF=45%, G2DD, + RWMA, moderate-severe MR, trace TR, akinesis of mid inferior wall and inferior base of LV -off IV diuresis; switched to oral Lasix; titrate as needed for optimal response. Received extra dose of Lasix and Metolazone overnight due to worsening SOB -continue to monitor Is & Os, daily weights -continue to monitor renal function, lytes with diuresis -VSS; continue to monitor -Supplemental oxygen as needed, continue to monitor respiratory status -Barnard catheter in place for accurate Is & Os; assess daily for removal Status: Acute Qualifiers: Heart failure chronicity: acute Heart failure type: combined systolic and diastolic Qualified Code(s): I50.41 - Acute combined systolic (congestive) and diastolic (congestive) heart failure Code(s): I50.9 - Heart failure, unspecified (3) Diabetes mellitus: -Has known history of bwt-dgwbhiw-bohjccemd diabetes mellitus type 2, previously on metformin which he has been noncompliant with -A1c is 12, will likely require insulin therapy if agreeable on discharge -Accu-Cheks, ISS -Cardiac diabetic diet as tolerated Status: Chronic Qualifiers: Diabetes mellitus complication status: without complication Diabetes mellitus buttermaker insulin use: without buttermaker use Diabetes mellitus type: type 2 Qualified Code(s): E11.9 - Type 2 diabetes mellitus without complications Code(s): E11.9 - Type 2 diabetes mellitus without complications (4) Tobacco abuse: -Chronic smoker Status: Chronic Code(s): Z72.0 - Tobacco use (5) Hypertension: -has known hx of HTN, non-compliant with meds -continue to monitor vital signs -continue BB Status: Chronic Qualifiers: Hypertension type: essential hypertension Qualified Code(s): I10 - Essential (primary) hypertension Code(s): I10 - Essential (primary) hypertension Additional A&P Information -Morbid obesity -hx of polysubstance abuse: THC, benzodiazepines -Clinically quite ill-appearing, diaphoretic, intermittently tachypneic and tachycardic; no evidence of infection on CT chest, pending UA. Decreasing leukocytosis, lactic acid of 2.2 -DVT ppx with SCDs, Lovenox -Dispo: home -Code status: FULL code -continue ICU care given recent cath; high risk for decompensation Attestations Medical Necessity Statement*: Patient requires hospitalization for continued management of acute CHF exacerbation, CAD, needs continued optimization of medication. Time Spent in Patient Care: Greater than 35 minutes (>than 50% of time spent in counselling and/or direct pt care on unit) . Coding Level of Care Code Acute Superintendent [employer] for [facility] Fwd Exam Comprehensive Diagnoses Non-ST elevated myocardial infarction (non-STEMI) I21.4 Congestive heart failure I50.41 Heart failure chronicity: acute Heart failure type: combined systolic and diastolic Diabetes mellitus E11.9 Diabetes mellitus complication status: without complication Diabetes mellitus half-way insulin use: without half-way use Diabetes mellitus type: type 2 Tobacco abuse Z72.0 Hypertension I10 Hypertension type: essential hypertension
[2019-08-10] MEDS: acetaminophen 325 mg Tablet 650 MG PO (14:45)
[2019-08-10 17:59] LABS: Glucose Point of Care 373 mg/dL (70-110)
[2019-08-10 17:59] LABS: Glucose Point of Care 193 mg/dL (70-110)
[2019-08-10] MEDS: enoxaparin 40 mg/0.4 mL Syringe SUBCUT (18:13)
[2019-08-10] MEDS: metoprolol tartrate 25 mg Tablet PO (18:13)
[2019-08-10] MEDS: atorvastatin 40 mg Tablet 80 MG PO (20:17)
[2019-08-10 20:51] LABS: Add Urine Microscopic? YES; Bilirubin Urine Neg (NEGATIVE); Blood Urine 3+ (Negative); Glucose Urine UA Norm (Normal); Ketones Urine Negative (Negative); Leukocyte Esterase Urine Negative (Negative); Nitrate Urine Negative (Negative); Protein Urine 2+ (Negative); Specific Gravity, Urine 1.025 (1.005-1.030); Urine Appearance Cloudy (CLEAR); Urine Color Dark Yellow (Yellow); Urobilinogen Urine 1 mg/dL (Negative); pH Urine 5 (5-7)
[2019-08-10 21:08] LABS: Bacteria Urine 1+; Hyaline Casts Urine 0-4; Mucus Urine 2+; RBC Urine >100 /hpf (0-2); Squamous Epithelial Cell Urine 0-4 (0-5)
[2019-08-10 21:09] LABS: Add Urine Culture? Yes; Fine Granular Casts Urine 0-4 /lpf
[2019-08-10] MEDS: LORazepam 0.5 mg Tablet 0.25 MG PO (21:37)
[2019-08-10] MEDS: morphine 4 mg/mL SDV 1 mL 2 MG IVP (21:37)
[2019-08-11] VITALS (60 sets, daily range): BP systolic 73–137; BP diastolic 43–100; PULSE 69–102; RESP 9–40; TEMP 36.8–37.1; O2SAT 85–98; BMI 34.9
[2019-08-11] MEDS: acetaminophen 325 mg Tablet 650 MG PO ×2 (01:33→08:47)
[2019-08-11] MEDS: FUROsemide 10 mg/mL SDV 10mL 60 MG IVP (02:06)
--- NOTE | 2019-08-11 02:11 | PC.NURSE ---
patient c/o shortness of breath despite bipap in use with fiO2 @ 40%, spo2@ 85%, assisted to sit up on side of bed, lungs with crackles heard, very diminished lung sounds bilateral lower lobes, RT contacted to also assess patient, FiO2 increased to 50% by RT, patient denies chest pain, skin warm and dry, notified Dr Reza at this time with new order for lasix 60mg IVP stat x 1. Patient informed of MD order and the reason medication is given, Lasix 60mg given IVP at this time. MMorgan RN
--- NOTE | 2019-08-11 02:21 | PC.NURSE ---
patient continues to sit up on side of bed, bipap on with FiO2 @ 50%, spo2 @ 91%, patient states breathing a little easier now. MMorgan RN
--- NOTE | 2019-08-11 04:36 | PC.NURSE ---
Dr Porras called to check patient's status, informed respiratory status had improved with 1000 ml urine output after IV Lasix given, patient breathing much easier with relief stated, also informed her of productive cough with thick freedom brown sputum in which she responded that is probably because of the pulmonary edema patient had experienced. MMorgan RN
[2019-08-11 04:53] LABS: Basophils % 0.2 %; Eosinophils % 0.2 %; Hematocrit 43.4 % (42.0-52.0); Hemoglobin 14.2 g/dL (11.7-16.6); Lymphocytes # 2.3 10^3/uL (0.8-4.8); Lymphocytes % 13.3 %; Mean Corpuscular HGB Conc 32.7 g/dL (30.0-36.0); Mean Corpuscular Hemoglobin 28.1 pg (28.0-34.0); Mean Corpuscular Volume 85.9 fL (80-94); Mean Platelet Volume 8.6 fL (7.4-10.4); Monocytes # 0.9 10^3/uL (0.2-0.9); Neutrophils # 13.7 10^3/uL (1.8-7.7); Neutrophils % 80.8 %; Nucleated Red Blood Cells % 0 %; Platelet Count 488 10^3/cmm (130-400); Red Blood Count 5.05 10^6/uL (4.1-5.3); Red Cell Distribution Width 12.3 % (12.1-15.1)
[2019-08-11 05:12] LABS: Blood Urea Nitrogen 33 mg/dL (6-20); Calcium 9.4 mg/dL (8.5-10.5); Carbon Dioxide 27 mmol/L (22-29); Chloride 86 mmol/L (98-107); Glomerular Filtration Rate 71.8 mL/min (90-130); Glucose 224 mg/dL (65-115); Osmolality Calculated 264 mOsm/kg (285-295); Sodium 125 mmol/L (136-145)
--- NOTE | 2019-08-11 07:38 | PM.PN ---
Subjective Subjective: Interval history: Nimesh has been much less short of breath in the last 24 hours. He was up and around yesterday without any difficulty. His congestive heart failure seems more compensated. Urine output yesterday 3600 mL. I changed him to Lasix by mouth yesterday. Other medications have remained the same. I added low-dose lisinopril for afterload reduction. He would like the Barnard catheter out. Medications: Reviewed: Yes Vitals/I&O/Wt Last Vital Signs Temp 98.4 F 08/11/19 06:00 Pulse 83 08/11/19 07:33 Resp 24 H 08/11/19 06:30 BP 100/55 08/11/19 06:30 Pulse Ox 95 08/11/19 07:33 08/10/19 08/11/19 08/11/19 22:59 06:59 14:59 Intake Total 400 / 1300 360 / 1660 Output Total 550 / 1850 1750 / 3600 Balance -150 / -550 -1390 / -1940 Physical Exam Narrative: EXAM NARRATIVE: GENERAL: In general he is comfortable at rest HEENT: Exam within normal limits. NECK: Supple without jugular vein distention. The carotid upstroke is normal without bruits. BACK: Exam normal. LUNGS: Clear. HEART: Regular rate and rhythm. ABDOMEN: Benign without organomegaly or tenderness. EXTREMITIES: No edema. NEUROLOGIC: Exam normal. SKIN: Unremarkable. Urinary Catheter Management^: Barnard: Cath Placed During This Visit: yes Urethral Indwelling: Yes Reason for Continuing Indwelling Catheter: Accurate Measurement of Urinary Output in Critically Ill Patients Urinary Catheter Date of Insertion: 08/09/19 Data : 08/11/19 04:00 08/11/19 04:00 A&P Assessment and plan (1) Acute respiratory failure: Status: Acute Qualifiers: Respiratory failure complication: hypoxia Qualified Code(s): J96.01 - Acute respiratory failure with hypoxia Code(s): J96.00 - Acute respiratory failure, unspecified whether with hypoxia or hypercapnia (2) Non-ST elevated myocardial infarction (non-STEMI): Status: Acute Code(s): I21.4 - Non-ST elevation (NSTEMI) myocardial infarction (3) Hypertension: Status: Chronic Qualifiers: Hypertension type: essential hypertension Qualified Code(s): I10 - Essential (primary) hypertension Code(s): I10 - Essential (primary) hypertension (4) Diabetes mellitus: Status: Chronic Qualifiers: Diabetes mellitus type: type 2 Diabetes mellitus terminal computer operator insulin use: without half-way use Diabetes mellitus complication status: without complication Qualified Code(s): E11.9 - Type 2 diabetes mellitus without complications Code(s): E11.9 - Type 2 diabetes mellitus without complications (5) Congestive heart failure: Status: Acute Qualifiers: Heart failure type: combined systolic and diastolic Heart failure chronicity: acute Qualified Code(s): I50.41 - Acute combined systolic (congestive) and diastolic (congestive) heart failure Code(s): I50.9 - Heart failure, unspecified (6) Tobacco abuse: Status: Chronic Code(s): Z72.0 - Tobacco use (7) Mitral regurgitation: Status: Acute Code(s): I34.0 - Nonrheumatic mitral (valve) insufficiency Additional A&P Information Today I will sit down with Dr. Chance and review the films. We will come up with an appropriate plan to move forward for revascularization. The choices as I see it are two-vessel intervention of the LAD and circumflex versus three-vessel coronary bypass surgery. He may be transferred out of the ICU today. Currently his medications are appropriate. Attestations Medical Necessity Statement*: Not applicable Coding Level of Care Code Acute Talent Development [facility] Diagnoses Acute respiratory failure J96.01 Respiratory failure complication: hypoxia Non-ST elevated myocardial infarction (non-STEMI) I21.4 Hypertension I10 Hypertension type: essential hypertension Diabetes mellitus E11.9 Diabetes mellitus type: type 2 Diabetes mellitus terminal computer operator insulin use: without half-way use Diabetes mellitus complication status: without complication Congestive heart failure I50.41 Heart failure type: combined systolic and diastolic Heart failure chronicity: acute Tobacco abuse Z72.0 Mitral regurgitation I34.0
[2019-08-11 07:44] LABS: Glucose Point of Care 210 mg/dL (70-110)
[2019-08-11] MEDS: aspirin 81 mg EC Tablet PO (08:37)
[2019-08-11] MEDS: FUROsemide 40 mg Tablet PO (08:37)
[2019-08-11] MEDS: polyethylene glycol 3350 Pkt 17 gm PO (08:38)
[2019-08-11] MEDS: metoprolol tartrate 25 mg Tablet PO (08:38)
[2019-08-11] MEDS: isosorbide mononitrate ER 30 mg Tablet PO (08:38)
[2019-08-11] MEDS: lisinopril 2.5 mg Tablet PO (08:40)
--- NOTE | 2019-08-11 10:22 | PC.CHAP ---
Pastoral Care Encounter/Spiritual Assessment Type of Contact [] Declined licensed real estate broker visit [] Patient/Family/Request visit [] Outpatient visit [] Follow-up visit [] Physician referral [] Code/Alert [x] Routine visit [] Staff referral [] Actively dying [] Patient sleeping [x] Family support [] [] Out of room [] Palliative care [] [] Receiving care in room [] Pre-surgical visit [] Trauma [] Long length of stay [x] ICU visit [] Other: Relational/Emotional Strength [] Patient feels connected with others/family/visitors/staff [] Distress [] Loneliness/isolation [] Abandonment Spirituality of Patient [x] Person of Tala [] Attends Sabianist of their Tala [x] Believes in Prayer [] Reads Bible or Yarsani materials [] There are Spiritual issues to be addressed Deep Submergence Vehicle Operator Interventions [x] Prayer [] Active listening [] Non-anxious presence [] Spiritual/emotional support [] Crisis/trauma care [] Spiritual counseling [] Bereavement support [] Provided bereavement packet [] Provided Bible/devotional materials [] Provided toy/stuffed animal, coloring book to patient or family member [] Provided Communion [] Anointing/Sylva [] Salvation [x] Completed spiritual assessment [] Other: Impact on Illness or Injury [] Angry [] Fearful [] Anxious [] Often cries [] Exhaustion [] Unable to work [] Unable to attend protestant [] Unable to walk/stand [] Unable to read [] Unable to drive [] Unable to eat/drink [] Unable to sleep [] Unable to be with family [] Patient intubated [] Other: Summary [place] familiar with patient. Patient awaiting surgery this afternoon. Family on their way to stay with him. Time spent with patient 10min
[2019-08-11] MEDS: sodium chloride 0.9% 1,000 ML 50 ML IV (11:42)
--- NOTE | 2019-08-11 11:47 | PM.PN ---
Subjective Subjective: Interval history: Received a 60 mg IV dose of Lasix overnight due to increased shortness of breath. Had 2100 mL urine output overnight. Plan for return to [facility] [employer] today by Dr. Saavedra. Had stenting of LAD and OM. Sitting up in bed following return from [facility]. Seems tired, otherwise no complaints currently. Medications: Reviewed: Yes Medication Review Details: Active Medications Generic Name Dose Route Start Last Admin Trade Name Freq PRN Reason Stop Dose Admin Acetaminophen 650 mg 08/08/19 23:22 08/11/19 08:47 Tylenol PO 650 mg Q6H PRN Administration Mild/Mod Pain Or Temp >/= 101 Aspirin 81 mg 08/09/19 09:00 08/11/19 08:37 Aspirin Ec PO 81 mg DAILY SAMANTHA Administration Atorvastatin Calci um 80 mg 08/08/19 23:20 08/10/19 20:17 Lipitor PO 80 mg BEDTIME SAMANTHA Administration Enoxaparin Sodium 40 mg 08/09/19 16:15 08/10/19 18:13 Lovenox SUBCUT 40 mg Q24H SAMANTHA Administration Furosemide 40 mg 08/11/19 08:00 08/11/19 08:37 Lasix PO 40 mg DAILY@0800 SAMANTHA Administration Dextrose 500 mls @ 100 mls /hr 08/08/19 23:16 D5w IV ONCE PRN Adult Acute Hypog lycemia Prot Protocol Sodium Chloride 1,000 mls @ 100 m ls/hr 08/09/19 09:00 08/11/19 01:10 Sodium Chloride 0.9% IV Not Given .Q10H SAMANTHA Sodium Chloride 1,000 mls @ 50 ml s/hr 08/11/19 08:25 08/11/19 11:42 Sodium Chloride 0.9% IV 08/12/19 04:24 50 mls/hr .Q20H ONE Administration Insulin Aspart 0 unit 08/09/19 08:00 08/11/19 08:41 Novolog SUBCUT 8 unit WM&BEDTIME SAMANTHA Administration Protocol Isosorbide Mononit rate 30 mg 08/10/19 11:00 08/11/19 08:38 Imdur PO 30 mg DAILY SAMANTHA Administration Lisinopril 2.5 mg 08/10/19 11:00 08/11/19 08:40 Prinivil PO 2.5 mg DAILY SAMANTHA Administration Lorazepam 0.25 mg 08/09/19 11:11 08/10/19 21:37 Ativan PO 0.25 mg TID PRN Administration ANXIETY Lorazepam 1 mg 08/10/19 00:47 08/10/19 20:16 Ativan IVP 08/11/19 23:59 1 mg Q2H PRN Administration ANXIETY Metoprolol Tartrat e 25 mg 08/10/19 18:00 08/11/19 08:38 Lopressor PO 25 mg BID SAMANTHA Administration Morphine Sulfate 2 mg 08/08/19 23:22 08/10/19 21:37 Morphine IVP 2 mg Q4H PRN Administration SEVERE PAIN Nicotine 1 patch 08/09/19 11:30 08/10/19 10:10 Nicoderm 7 Mg Pa tch TRANSDERMA Not Given DAILY [facility] Nitroglycerin 0.4 mg 08/09/19 09:00 Nitrostat SUBLINGUAL Q5M PRN CHEST PAIN Polyethylene Glyco l 17 gm 08/11/19 09:00 08/11/19 08:38 Miralax PO 17 gm DAILY SAMANTHA Administration No Known Allergies Allergy (Verified 08/08/19 18:34) Vitals/I&O/Wt Last Vital Signs Temp 98.7 F 08/11/19 08:30 Pulse 92 08/11/19 10:00 Resp 19 H 08/11/19 10:00 BP 120/72 08/11/19 10:00 Pulse Ox 97 08/11/19 10:00 08/10/19 08/11/19 08/11/19 22:59 06:59 14:59 Intake Total 400 / 1300 360 / 1660 320 / 320 Output Total 550 / 1850 1750 / 3600 Balance -150 / -550 -1390 / -1940 320 / 320 Weight last 48 hrs Weight 113.511 kg Weight 113.511 kg Physical Exam Const: COMMON NORMALS: no apparent distress and oriented x3 GENERAL APPEARANCE: cooperative, comfortable and appears older than stated age; not ill appearing and not diaphoretic ORIENTATION/CONSCIOUSNESS: Yes awake HENMT: COMMON NORMALS: normocephalic, head/scalp atraumatic, hearing grossly normal bilaterally and moist oral mucous membranes HEAD & SCALP: normocephalic and atraumatic Eye: COMMON NORMALS: PERRL, EOMs intact bilaterally and conjunctivae normal CONJUNCTIVA: Yes conjunctivae normal PUPIL: Yes PERRL Neck/C-Spine: COMMON NORMALS: full ROM GENERAL: Yes normal visual inspection and Yes trachea midline Resp: COMMON NORMALS: no retractions and no use of accessory muscles EFFORT & INSPECTION: Yes able to speak in complete sentences, Yes symmetric chest movement and Yes tachypneic (Intermittently) AUSCULTATION: crackles OTHER: -Exertional shortness of breath, orthopnea has decreased -air entry has improved Cardio: COMMON NORMALS: regular rate, regular rhythm, S1 normal heart sound, S2 normal heart sound and no murmurs RATE: regular rate RHYTHM: regular rhythm HEART SOUNDS: S1 normal and S2 normal GI: COMMON NORMALS: normal to inspection, nondistended, normoactive bowel sounds, soft to palpation and non-tender PALPATION: Yes soft : BLADDER/KIDNEY EXAM: Yes catheter in place Extremity: COMMON NORMALS: normal to inspection and full ROM; negative for no pedal edema GENERAL: Yes edema (trace pitting edema of bilateral LE) OTHER: -has noted thick callues on bilateral great toes; unroofed blister on L anterior great toe Neuro: COMMON NORMALS: oriented x3, moves all extremities, no focal motor deficits and no sensory deficits noted Psych: COMMON NORMALS: mental status grossly normal, thought process normal, cooperative, affect normal and speech normal APPEARANCE: Yes unkempt SPEECH: Yes normal speech THOUGHT PROCESS: normal thought process Skin: COMMON NORMALS: no rashes or lesions noted, no jaundice, no petechiae and no mottling GENERAL SKIN EXAM: no rashes or lesions noted Urinary Catheter Management^: Barnard: Cath Placed During This Visit: yes Urethral Indwelling: Yes Reason for Continuing Indwelling Catheter: Accurate Measurement of Urinary Output in Critically Ill Patients Urinary Catheter Date of Insertion: 08/09/19 Data : 08/11/19 04:00 08/11/19 04:00 A&P Assessment and plan (1) Non-ST elevated myocardial infarction (non-STEMI): -Noted to have significantly elevated troponins with ST elevation noted in leads III and aVF on EKG; delta greater than 100 -received full dose ASA, therapeutic Lovenox, statin -s/p coronary angiogram earlier this AM: 3-vessel CAD with 5+ days old occlusion of RCA with LV dysfunction and CHF. Will need referral for CABG once CHF is compensated -Cardiology consult by Dr. Saavedra appreciated; return to [facility] [facility] today to try for stenting of circumflex and LAD -CTA negative for PE; noted moderate bilateral pleural effusions -Imdur added, weaned off NTG drip -ACEi added Status: Acute Code(s): I21.4 - Non-ST elevation (NSTEMI) myocardial infarction (2) Congestive heart failure: -Appears to have a new onset, acutely decompensated CHF as evidenced by orthopnea, lower extremity edema, shortness of breath, elevated BNP (2485) and evidence of fluid overload on imaging -Echo: EF=45%, G2DD, + RWMA, moderate-severe MR, trace TR, akinesis of mid inferior wall and inferior base of LV -off IV diuresis; switched to oral Lasix; titrate as needed for optimal response. Received extra dose of Lasix and Metolazone overnight due to worsening SOB -continue to monitor Is & Os, daily weights -continue to monitor renal function, lytes with diuresis -VSS; continue to monitor -Supplemental oxygen as needed, continue to monitor respiratory status -Barnard catheter in place for accurate Is & Os; may consider removal today Status: Acute Qualifiers: Heart failure chronicity: acute Heart failure type: combined systolic and diastolic Qualified Code(s): I50.41 - Acute combined systolic (congestive) and diastolic (congestive) heart failure Code(s): I50.9 - Heart failure, unspecified (3) Diabetes mellitus: -Has known history of [id number] diabetes mellitus type 2, previously on metformin which he has been noncompliant with -A1c is 12, will likely require insulin therapy if agreeable on discharge -Accu-Cheks, ISS -Cardiac diabetic diet as tolerated Status: Chronic Qualifiers: Diabetes mellitus complication status: without complication 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 mellitus termite control technician insulin use: without care home use Diabetes mellitus type: type 2 Qualified Code(s): E11.9 - Type 2 diabetes mellitus without complications Code(s): E11.9 - Type 2 diabetes mellitus without complications (4) Tobacco abuse: -Chronic smoker Status: Chronic Code(s): Z72.0 - Tobacco use (5) Hypertension: -has known hx of HTN, non-compliant with meds -continue to monitor vital signs -continue BB Status: Chronic Qualifiers: Hypertension type: essential hypertension Qualified Code(s): I10 - Essential (primary) hypertension Code(s): I10 - Essential (primary) hypertension Additional A&P Information -Morbid obesity: BMI-35 kg/m2 -hx of polysubstance abuse: THC, benzodiazepines -Clinically quite ill-appearing, diaphoretic, intermittently tachypneic and tachycardic; no evidence of infection on CT chest, pending UA. Decreasing leukocytosis, lactic acid of 2.2 -DVT ppx with SCDs, Lovenox -Dispo: home -Code status: FULL code -continue ICU care given recent cath; high risk for decompensation Attestations Medical Necessity Statement*: Patient requires hospitalization for continued management of NSTEMI, CAD, pending cath today with potential stenting. Time Spent in Patient Care: Greater than 35 minutes (>than 50% of time spent in counselling and/or direct pt care on unit). Coding Level of Care Code Acute Laborer Driver for g Fwd Exam Comprehensive Diagnoses Non-ST elevated myocardial infarction (non-STEMI) I21.4 Congestive heart failure I50.41 Heart failure chronicity: acute Heart failure type: combined systolic and diastolic Diabetes mellitus E11.9 Diabetes mellitus complication status: without complication Diabetes mellitus care home insulin use: without termite control technician use Diabetes mellitus type: type 2 Tobacco abuse Z72.0 Hypertension I10 Hypertension type: essential hypertension
[2019-08-11] MEDS: diphenhydrAMINE 50 mg Capsule PO (12:25)
--- NOTE | 2019-08-11 12:26 | XACV_ITS ---
Exam Room: [facility] Ht: 180 cm Wt: 113 kg BSA: 2.42 m2 Gender: Male : 1970 Any Known Allergies: No known allergies Exam Priority: Routine Procedure(s): Procedure Description: Diagnostic procedure Procedure Description: PCI procedure Procedure Description: Drug Eluting Coronary Stent Procedure Description: PTCA Procedure Description: Coronary Angiography Diagnostic Cath Status: Elective Diagnostic Findings Patient was admitted 2 days ago with a completed inferior wall TN which had occurred at least 6 days prior. He developed congestive heart failure and mitral regurgitation 3 days prior to admission. Angiography yesterday morning revealed a occluded distal right coronary artery which is the dominant vessel. Attempts to angioplasty this were unsuccessful due to the significant residual thrombus burden. Patient also had a 95% mid LAD lesion at the takeoff of the diagonal branch and a 95% second obtuse marginal branch and 99% third obtuse marginal branch stenoses. After discussion with cardiac surgery it was decided because of his young age (49), noncompliance, obesity, diabetes and tobacco abuse that we would be better served with intervention to the circumflex distribution and LAD as opposed to attempting coronary bypass surgery. Angiography reveals persistent complete occlusion of the distal right coronary artery. There is severe diffuse disease of the ostial and proximal first obtuse marginal branch, 99% stenosis of the second obtuse marginal branch in the proximal portion and a 99% stenosis of the proximal third obtuse marginal branch. No left ventriculogram was performed. PCI Status: Elective PCI LVEF Assessed: No PCI Indication: NSTE - ACS Interventional Findings First, the third obtuse marginal branch which is a small vessel underwent plain old balloon angioplasty with a 2 mm balloon. Second, the second obtuse marginal branch underwent primary stenting with a 2.75 mm stent. Third, the mid LAD was stented primarily with a 2.75 mm stent. This caused plaque shifting into the adjacent diagonal branch. The diagonal was then angioplastied with a 2.5 mm balloon. All resulted in adequate angiographic appearance. The right coronary artery did not undergo further intervention due to continued complete closure and heavy well-formed thrombus burden. Decision for PCI with Surgical Consult: Yes CV Treatment Decision: Surgery Not Recommended PCI for Multi-vessel Disease: Yes Multi-vessel Procedure Type: Staged PCI Conclusions Angiography of the right coronary artery only reveals continued closure of the distal right. Angioplasty of the third obtuse marginal branch, stenting of the second obtuse marginal branch, stenting of the mid LAD and angioplasty of the first diagonal branch. No ventriculogram performed. Interventional RX Recommendation: medical therapy and/or counseling Diagnostic RX Recommendation: medical therapy and/or counseling Anticoagulation: Heparin Pressures Phase:Rest AO : 94 mmHg / 48 mmHg ( 58 mmHg ) @ 6:56:00 AM Clinical Evaluation EBL: 5mL-10mL Procedural Details Procedure Consent Obtained. Pre-Procedure Time Out. Identified patient by full name and date of as verbalized by the patient/guarantor. Does the consent match the physician's order: Yes. Accurate & Complete Informed Consent: Yes. Inpatient/Outpatient History & Physical on Chart: Yes. If H&P is completed, is and addenduem needed: No; If yes, is the addendum complete: N/A. Visualize and Verify Site with Patient/Guarantor: N/A. Relevant Radiology Images available: Yes. The risks, benefits, and alternatives of sedation and/or procedure were discussed by physician. The patient agrees to continue. Procedure started. Correct patient, site and procedure confirmed by cath team. Current diagnosis: Chest Pain. PERRLA. Strong, equal hand brush clearing laborer bilaterally. Lungs clear x 5 lobes. IV Site on Arrival: 18 gauge in the right wrist. IV Fluids: 0.9% NaCl at KVO. 0 mL infused prior to rangelands conservation laborer. Pre Procedural Pulses: bilateral dorsalis pedis was Doppled. Pre Procedural Pulses: bilateral posterior tibial was Doppled. Pre Procedural Pulses: bilateral radial was 2+. Oxygen started at 2liters/min via nasal canula. bilateral groins was prepped with chloroprep then draped in the usual sterile fashion. right radial was prepped with chloroprep then draped in the usual sterile fashion. Physician notified. AP pads placed on patient. IV Site on Arrival: 18 gauge in the left forearm. Equipment: 6F - Radial. Cardiac Cath Pack. ACFarecast Manifold Kit Model BT 2000. Heparinized Saline (2 units/mL), 1000 mL bag. Physician arrived. Baseline sample Acquired. HR: 58 BPM. Physician scrubbed in. Immediate Pre-Procedure Time Out. Correct Patient: Yes; Correct Procedure: Yes; Correct Site: Yes; Correct Patient Position: Yes; Correct Supplies: Yes; Dried Flammable Prep: Yes; Blood Products Available: No;. Lidocaine 1% infiltrated to the right radial. Arterial access obtained. 6 faroese XB 3.5 guide catheter was inserted over the wire. Multiple views taken of left coronary artery. No sedation, only local, per MD due to hypotension. Inflation number : 1 A AB MINI TREK 2.00X12 RX BALLOON was prepped and advanced across the 3rd Ob Sandra , then inflated to 10 VIGNESH for 0:32 seconds. Inflation number: 2 The AB MINI TREK 2.00X12 RX BALLOON was reinflated across the 3rd Ob Sandra, to 10 VIGNESH for 0:33 seconds. Balloon out. [place] guidewire was advanced through the guide catheter to lesion in the prox Circ. Inflation Number : 1 A MDT R TAWANA 2.75X12 HUNG -Lot Number# [id number] was prepped and advanced across the 2nd Ob Sandra. The stent was deployed at 12 VIGNESH for 0:46 seconds. Stent expiration date: 04/12/2021. Stent balloon out over wire. Wire redirected. Inflation Number : 1 A MDT R TAWANA 2.75X8 HUNG -Lot Number# [id number] was prepped and advanced across the Mid LAD. The stent was deployed at 15 VIGNESH for 0:47 seconds. Stent expiration date: 02/19/2021. Stent balloon out over wire. Inflation number : 1 A AB TREK 2.50X12 RX BALLOON was prepped and advanced across the 1st Diag , then inflated to 12 VIGNESH for 0:34 seconds. Balloon out. Wire out. Guide catheter out. A 6 faroese JR4 catheter in over wire. Multiple views taken of right coronary artery. Catheter out. TR band placed. Hemostasis obtained. A TR Band was successful obtaining hemostatsis at the Right Radial artery insertion site. Post Procedure: Pulses reassessed and unchanged. PERRLA. Strong, equal hand brush clearing laborer bilaterally. No VTE prophylaxis required. Medication's Wasted: Lidocaine 1% = 18 mL. Medication's Wasted: Heparin = 1000 units. Total IV fluids: 50 mL. Contrast type used: Omnipaque 300 mgI/mL, 500 mL bottle. Post-op diagnosis: CAD. Complications: None. Estimated blood loss: 5mL-10mL. Procedure completed. Patient transferred by wheelchair to ICU. [facility] Clinical Fraility Score: 4: Vulnerable. Senior International Tax Manager Indications: ACS > 24 hours. Chest Pain Symptom Assessment: Typical Angina Symptoms. Cardiovascular Instability: No. PCI Indication: NSTE. Vital chart was stopped. Site: Right Radial artery Sheath Size: 6 Fr Hemostasis Method: TR Band Hemostasis Success: Successful Procedure Medications Start: 12:57 PM Stop: 12:57 PM Medication: Verapamil Amount: 5 mg Route: I.A. Start: 12:59 PM Stop: 12:59 PM Medication: Heparin Amount: 5000 units Route: I.V. Start: 1:40 PM Stop: 1:40 PM Medication: Plavix Amount: 600 mg Route: P.O. I, the attending physician, have reviewed and verified all procedure medications. Yes, all medications given per verbal order History/Risk Factors Hypertension: Yes Dyslipidemia: No Diabetic Therapy: Diet Peripheral Arterial Disease (PAD): No Myocardial Infarction (TN): No Obesity: No Renal Disease: No Tobacco Use: Current/Recent(w/in 1 year) Prior Interventions PCI: No CABG: No Valve Surgery: No Report Signatures Finalized by:Dr. Ian Saavedra MD on 08/11/2019 2:00:48 PM
--- NOTE | 2019-08-11 12:47 | PC.NURSE ---
1230- 18 gauge IV started in left forearm. landscaping and groundskeeping laborer came to take pt. Left as nurse was gathering glucometer. Called Greg at [facility] to notify pt was taken prior to glucose stick. Offered to go to [facility] to check glucose. Dr Saavedra, via Greg, stated it wasn't necessary. Pt was in good spirits and voiced no complaints prior to departure.
[2019-08-11] MEDS: FUROsemide 10 mg/mL SDV 4mL 40 MG IVP (14:19)
[2019-08-11 17:33] LABS: Glucose Point of Care 208 mg/dL (70-110)
[2019-08-11 17:33] LABS: Glucose Point of Care 224 mg/dL (70-110)
[2019-08-11] MEDS: enoxaparin 40 mg/0.4 mL Syringe SUBCUT (17:39)
[2019-08-11] MEDS: EPINEPHrine 2.5 MG in sodium chloride 0.9% 250 ML 12.1 MG IV (18:18)
[2019-08-11] MEDS: nicotine 7 mg Patch 1 PATCH TRANSDERMA (19:43)
--- NOTE | 2019-08-11 19:44 | PC.NURSE ---
Pt requesting to hold off on Nicotine patch until he felt it necessary. Pt requested patch now. Administered per order. Dr Saavedra aware of schedule change. Removed westfall without difficulty per order.
--- NOTE | 2019-08-11 19:50 | PC.NURSE ---
Pt's SBP 90-110's since arrival from [facility]. At 1800 SBP dropped to 60. Repositioned pt and cuff. SBP 80. Pt asymptomatic. No S/S of distress. TR band site looks good. Dr Saavedra notified. Orders received.
[2019-08-11 21:30] LABS: Glucose Point of Care 333 mg/dL (70-110)
[2019-08-11] MEDS: LORazepam 0.5 mg Tablet 0.25 MG PO (21:39)
[2019-08-11] MEDS: atorvastatin 40 mg Tablet 80 MG PO (21:39)
--- NOTE | 2019-08-11 23:01 | PC.NURSE ---
TR completely removed at this time from R wirst. Insertion site w/o hematoma or bruising. Bruising present proximal to insertion site. Site painted with betadine and covered with gauze and tegaderm. Pt reports SOB while laying, states he feels fine when sitting up. Lungs are clear to auscultation, +1 non pitting edema to bilateral legs. Pt denies pain. Epi gtt @ 2 mcg. B/P 90's sys HR 90 sinus.
[2019-08-12] VITALS (52 sets, daily range): BP systolic 84–141; BP diastolic 54–81; PULSE 67–108; RESP 14–38; TEMP 36.6–36.8; O2SAT 89–98
[2019-08-12 04:44] LABS: Basophils % 0.3 %; Eosinophils % 0.1 %; Hematocrit 36.9 % (42.0-52.0); Hemoglobin 12.5 g/dL (11.7-16.6); Lymphocytes # 1.7 10^3/uL (0.8-4.8); Lymphocytes % 14.6 %; Mean Corpuscular HGB Conc 33.9 g/dL (30.0-36.0); Mean Corpuscular Hemoglobin 28.1 pg (28.0-34.0); Mean Corpuscular Volume 82.9 fL (80-94); Mean Platelet Volume 8.7 fL (7.4-10.4); Monocytes # 0.7 10^3/uL (0.2-0.9); Monocytes % 5.8 %; Neutrophils # 9.3 10^3/uL (1.8-7.7); Neutrophils % 78.7 %; Nucleated Red Blood Cells % 0 %; Platelet Count 486 10^3/cmm (130-400); Red Blood Count 4.45 10^6/uL (4.1-5.3); Red Cell Distribution Width 12.1 % (12.1-15.1); White Blood Count 11.9 10^3/uL (4.0-10.0)
[2019-08-12] MEDS: acetaminophen 325 mg Tablet 650 MG PO (05:00)
[2019-08-12 05:14] LABS: Anion Gap 17.6 (5-19); Blood Urea Nitrogen 34 mg/dL (6-20); Calcium 9.1 mg/dL (8.5-10.5); Carbon Dioxide 27 mmol/L (22-29); Chloride 82 mmol/L (98-107); Glomerular Filtration Rate 80.1 mL/min (90-130); Glucose 401 mg/dL (65-115); Osmolality Calculated 270 mOsm/kg (285-295); Potassium 3.6 mmol/L (3.5-5.1); Sodium 123 mmol/L (136-145)
--- NOTE | 2019-08-12 05:42 | PC.NURSE ---
Left great toe has large popped blister, wound bed is white maceration surrounded with red, warm tissue.
[2019-08-12 07:55] LABS: Glucose Point of Care 362 mg/dL (70-110)
[2019-08-12] MEDS: FUROsemide 40 mg Tablet PO (08:00)
[2019-08-12] MEDS: aspirin 81 mg EC Tablet PO (08:00)
[2019-08-12] MEDS: clopidogrel 75 mg Tablet PO (08:00)
[2019-08-12] MEDS: metoprolol tartrate 25 mg Tablet PO ×2 (08:00→18:08)
--- NOTE | 2019-08-12 09:21 | PC.NURSE ---
PATIENT ATTEMPTED TO LAY BACK IN RECLINER AND BECAME SHORT OF BREATH, REQUESTED BIPAP. O2 SAT 98%. PATIENT STATES I CAN'T LAY BACK AT ALL ANYMORE WITHOUT GETTING SUPER SHORT OF BREATH.
--- NOTE | 2019-08-12 09:48 | PM.PN ---
Subjective Subjective: Interval history: Nimesh Prasad is a 49 year old male who was admitted 3 days ago with a completed inferior wall MA, CHF and MR. Angiography revealed occluded distal right coronary artery. Attempts to angioplasty were unsuccessful due to the significant residual thrombus burden. Patient also had a 95% mid LAD lesion at the takeoff of the diagonal branch and a 95% second obtuse marginal branch and 99% third obtuse marginal branch stenoses. After discussion with cardiac surgery it was decided because of his young age (49 yo), noncompliance, obesity, diabetes and tobacco abuse decision of PCI was made. Yesterday, patient underwent repeat coronary angiogram with persistent complete occlusion of distal RCA and underwent angioplasty of OM 3 and D1 and stenting of OM 2 and m LAD. Medications: Reviewed: Yes Medication Review Details: Current Medications Acetaminophen (Tylenol) 650 mg PO Q6H PRN PRN Reason: Mild/Mod Pain Or Temp >/= 101 Last Admin: 08/12/19 05:00 Dose: 650 mg Documented by: Aspirin (Aspirin Ec) 81 mg PO DAILY [facility] Last Admin: 08/12/19 08:00 Dose: 81 mg Documented by: Atorvastatin Calcium (Lipitor) 80 mg PO BEDTIME [facility] Last Admin: 08/11/19 21:39 Dose: 80 mg Documented by: Clopidogrel Bisulfate (Plavix) 75 mg PO DAILY [facility] Last Admin: 08/12/19 08:00 Dose: 75 mg Documented by: Enoxaparin Sodium (Lovenox) 40 mg SUBCUT Q24H [facility] Last Admin: 08/11/19 17:39 Dose: 40 mg Documented by: Furosemide (Lasix) 40 mg PO DAILY@0800 [facility] Last Admin: 08/12/19 08:00 Dose: 40 mg Documented by: Sodium Chloride (Sodium Chloride 0.9%) 1,000 mls @ 100 mls/hr IV .Q10H [facility] Last Admin: 08/11/19 23:46 Dose: Not Given Documented by: Epinephrine HCl 2.5 mg/ Sodium (Chloride) 252.5 mls @ 0 mls/hr IV .Q0M [facility]; Protocol Last Titration: 08/12/19 05:13 Dose: 0 mcg/min, 0 mls/hr Documented by: Insulin Aspart (Novolog) 0 unit SUBCUT WM&BEDTIME [facility]; Protocol Last Admin: 08/12/19 11:55 Dose: 8 unit Documented by: Lisinopril (Prinivil) 2.5 mg PO DAILY [facility] Last Admin: 08/11/19 08:40 Dose: 2.5 mg Documented by: Lorazepam (Ativan) 0.25 mg PO TID PRN PRN Reason: ANXIETY Last Admin: 08/11/19 21:39 Dose: 0.25 mg Documented by: Metoprolol Tartrate (Lopressor) 25 mg PO BID [facility] Last Admin: 08/12/19 08:00 Dose: 25 mg Documented by: Nicotine (Nicoderm 7 Mg Patch) 1 patch TRANSDERMA DAILY [facility] Last Admin: 08/11/19 19:43 Dose: 1 patch Documented by: Nitroglycerin (Nitrostat) 0.4 mg SUBLINGUAL Q5M PRN PRN Reason: CHEST PAIN Nitroglycerin (Nitrostat) 0.4 mg SUBLINGUAL Q5M PRN PRN Reason: CHEST PAIN Polyethylene Glycol (Miralax) 17 gm PO DAILY [facility] Last Admin: 08/12/19 08:04 Dose: Not Given Documented by: Vitals/I&O/Wt Last Vital Signs Temp 98.1 F 08/12/19 05:00 Pulse 82 08/12/19 08:00 Resp 27 H 08/12/19 08:00 BP 112/71 08/12/19 08:00 Pulse Ox 98 08/12/19 04:00 08/11/19 08/12/19 08/12/19 22:59 06:59 14:59 Intake Total 619.891 / 939.891 Output Total 1010 / 1860 1000 / 2860 Balance -1010 / -1540 -380.109 / -1920.109 Weight last 48 hrs Weight 248 lb 6.4 oz Weight 250 lb 4 oz Weight 250 lb 4 oz Physical Exam Const: COMMON NORMALS: no apparent distress, oriented x3 and alert GENERAL APPEARANCE: cooperative, comfortable, well kempt and well hydrated HENMT: COMMON NORMALS: hearing grossly normal bilaterally, external ears normal and moist oral mucous membranes EXTERNAL EAR: Yes external ears normal Eye: COMMON NORMALS: EOMs intact bilaterally and no scleral icterus GENERAL EYE: normal appearance of both eyes Neck/C-Spine: COMMON NORMALS: no lymphadenopathy, supple and no JVD CAROTIDS: Yes normal carotid upstroke Resp: COMMON NORMALS: clear to auscultation bilaterally (except at bilateral bases) AUSCULTATION: clear to auscultation bilaterally (except at bilateral bases), crackles Laterality: bilateral (basal), no rales, no rhonchi and no wheezes Cardio: COMMON NORMALS: no JVD, regular rate, regular rhythm, S1 normal heart sound, S2 normal heart sound and peripheral pulses 2+ throughout PALPATION: normal PMI RATE: regular rate RHYTHM: regular rhythm HEART SOUNDS: S1 normal, S2 normal, no click, no gallops and no murmurs BRUITS: no carotid bruits PERIPHERAL PULSES: pulses 2+ throughout, radial pulses present and dorsalis pedis pulses present Extremity: GENERAL: No clubbing, No cyanosis, Yes edema (trace bilateral edema) and No pallor Neuro: COMMON NORMALS: oriented x3, CN's II-XII intact bilaterally and no focal motor deficits SENSORIUM/ORIENTATION: Yes alert Psych: APPEARANCE: Yes well kempt Urinary Catheter Management^: Barnard: Cath Placed During This Visit: yes Urethral Indwelling: Yes Reason for Continuing Indwelling Catheter: Accurate Measurement of Urinary Output in Critically Ill Patients Urinary Catheter Date of Insertion: 08/09/19 Data : 08/12/19 04:08 08/12/19 04:08 Echo: Radiologist's impression: CONCLUSIONS Normal left ventricular cavity size. Normal left ventricular wall thickness. Mildly decreased left ventricular systolic function. Regional wall motion abnormalities (see diagram). Akinesis of the mid inferior wall and inferior base. Grade 2 diastolic dysfunction. Ejection fraction 45%. Mildly increased left atrial size. Structurally normal mitral valve. Moderate-severe mitral valve regurgitation. There are no prior echocardiogram studies to compare. A&P Assessment and plan (1) Acute respiratory failure: Acute respiratory failure in setting of decompensated congestive heart failure. Currently on oxygen 4 L by nasal cannula and using BiPAP at night. Status: Acute Qualifiers: Respiratory failure complication: hypoxia Qualified Code(s): J96.01 - Acute respiratory failure with hypoxia Code(s): J96.00 - Acute respiratory failure, unspecified whether with hypoxia or hypercapnia (2) Non-ST elevated myocardial infarction (non-STEMI): Status post drug-eluting stent placement to mid LAD and OM 2 with balloon angioplasty of D1 and OM 3. -Continue aspirin, Plavix, statin and metoprolol. Status: Acute Code(s): I21.4 - Non-ST elevation (NSTEMI) myocardial infarction (3) Congestive heart failure: Left ventricle ejection fraction estimated at 45%. Moderate to severe mitral regurgitation noted on echocardiogram likely ischemic. -On low-dose lisinopril. -Currently on Lasix 40 mg p.o. daily with good urine output. -May how to administer additional Lasix depending on his symptoms and urine output. Status: Acute Qualifiers: Heart failure type: combined systolic and diastolic Heart failure chronicity: acute Qualified Code(s): I50.41 - Acute combined systolic (congestive) and diastolic (congestive) heart failure Code(s): I50.9 - Heart failure, unspecified (4) Mitral regurgitation: Status: Acute Qualifiers: Cardiac valve disease etiology: etiology unspecified Qualified Code(s): I34.0 - Nonrheumatic mitral (valve) insufficiency Code(s): I34.0 - Nonrheumatic mitral (valve) insufficiency (5) Diabetes mellitus: Status: Chronic Qualifiers: Diabetes mellitus type: type 2 Diabetes mellitus residential insulin use: without software test engineer use Diabetes mellitus complication status: without complication Qualified Code(s): E11.9 - Type 2 diabetes mellitus without complications Code(s): E11.9 - Type 2 diabetes mellitus without complications (6) Hypertension: Status: Chronic Qualifiers: Hypertension type: essential hypertension Qualified Code(s): I10 - Essential (primary) hypertension Code(s): I10 - Essential (primary) hypertension (7) Tobacco abuse: Status: Chronic Code(s): Z72.0 - Tobacco use Attestations Medical Necessity Statement*: Patient needs hospital stay for management of NSTEMI and congestive heart failure. Coding Level of Care Code Acute [employer] [facility] Diagnoses Acute respiratory failure J96.01 Respiratory failure complication: hypoxia Non-ST elevated myocardial infarction (non-STEMI) I21.4 Congestive heart failure I50.41 Heart failure type: combined systolic and diastolic Heart failure chronicity: acute Mitral regurgitation I34.0 Cardiac valve disease etiology: etiology unspecified Diabetes mellitus E11.9 Diabetes mellitus type: type 2 Diabetes mellitus software test engineer insulin use: without software test engineer use Diabetes mellitus complication status: without complication Hypertension I10 Hypertension type: essential hypertension Tobacco abuse Z72.0
[2019-08-12 11:51] LABS: Glucose Point of Care 219 mg/dL (70-110)
--- NOTE | 2019-08-12 13:11 | PM.PN ---
Subjective Subjective: Interval history: Had 1010 mL urine output overnight, still requiring supplemental oxygen, currently on 4 L. AM labs noted, decreasing leukocytosis, stable renal function. Patient seen and examined, unfortunately has been unable to get comfortable as continues to be unable to lay down. Each time he tries to recline he gets quite short of breath. As such he has not had much rest. He is quite concerned about left great toe ulcer with noted increased purulence and tenderness. Discussed with Dr. Will who will assess the patient tomorrow for further recommendations. Has been off epinephrine since early this AM. Medications: Reviewed: Yes Medication Review Details: Active Medications Generic Name Dose Route Start Last Admin Trade Name Freq PRN Reason Stop Dose Admin Acetaminophen 650 mg 08/08/19 23:22 08/12/19 05:00 Tylenol PO 650 mg Q6H PRN Administration Mild/Mod Pain Or Temp >/= 101 Aspirin 81 mg 08/09/19 09:00 08/12/19 08:00 Aspirin Ec PO 81 mg DAILY [facility] Administration Atorvastatin Calci um 80 mg 08/08/19 23:20 08/11/19 21:39 Lipitor PO 80 mg BEDTIME [facility] Administration Clopidogrel Bisulf ate 75 mg 08/12/19 09:00 08/12/19 08:00 Plavix PO 75 mg DAILY [facility] Administration Enoxaparin Sodium 40 mg 08/09/19 16:15 08/11/19 17:39 Lovenox SUBCUT 40 mg Q24H [facility] Administration Furosemide 40 mg 08/11/19 08:00 08/12/19 08:00 Lasix PO 40 mg DAILY@0800 [facility] Administration Sodium Chloride 1,000 mls @ 100 m ls/hr 08/11/19 14:10 08/11/19 23:46 Sodium Chloride 0.9% IV Not Given .Q10H [facility] Epinephrine HCl 2. 5 mg/ Sodium 252.5 mls @ 0 mls /hr 08/11/19 18:15 08/12/19 05:13 Chloride IV 0 mcg/min .Q0M [facility] 0 mls/hr Titration Protocol Per Protocol Insulin Aspart 0 unit 08/09/19 08:00 08/12/19 11:55 Novolog SUBCUT 8 unit WM&BEDTIME [facility] Administration Protocol Insulin Aspart 10 unit 08/12/19 17:00 Novolog SUBCUT TIDAC [facility] Insulin Glargine 10 unit 08/12/19 21:00 Lantus SUBCUT BEDTIME [facility] Lisinopril 2.5 mg 08/10/19 11:00 08/11/19 08:40 Prinivil PO 2.5 mg DAILY [facility] Administration Lorazepam 0.25 mg 08/09/19 11:11 08/11/19 21:39 Ativan PO 0.25 mg TID PRN Administration ANXIETY Metoprolol Tartrat e 25 mg 08/10/19 18:00 08/12/19 08:00 Lopressor PO 25 mg BID [facility] Administration Nicotine 1 patch 08/11/19 18:30 08/11/19 19:43 Nicoderm 7 Mg Pa tch TRANSDERMA 1 patch DAILY [facility] Administration Nitroglycerin 0.4 mg 08/09/19 09:00 Nitrostat SUBLINGUAL Q5M PRN CHEST PAIN Nitroglycerin 0.4 mg 08/11/19 14:10 Nitrostat SUBLINGUAL Q5M PRN CHEST PAIN Polyethylene Glyco l 17 gm 08/11/19 09:00 08/12/19 08:04 Miralax PO Not Given DAILY [facility] No Known Allergies Allergy (Verified 08/08/19 18:34) Vitals/I&O/Wt Last Vital Signs Temp 98.1 F 08/12/19 05:00 Pulse 74 08/12/19 10:34 Resp 34 H 08/12/19 10:00 BP 97/61 08/12/19 10:00 Pulse Ox 96 08/12/19 10:34 08/11/19 08/12/19 08/12/19 22:59 06:59 14:59 Intake Total 619.891 / 939.891 Output Total 1010 / 1860 1000 / 2860 Balance -1010 / -1540 -380.109 / -1920.109 Weight last 48 hrs Weight 112.672 kg Weight 113.511 kg Weight 113.511 kg Physical Exam Const: COMMON NORMALS: no apparent distress and oriented x3 GENERAL APPEARANCE: cooperative, comfortable and appears older than stated age; not ill appearing and not diaphoretic ORIENTATION/CONSCIOUSNESS: Yes awake HENMT: COMMON NORMALS: normocephalic, head/scalp atraumatic, hearing grossly normal bilaterally and moist oral mucous membranes HEAD & SCALP: normocephalic and atraumatic Eye: COMMON NORMALS: PERRL, EOMs intact bilaterally and conjunctivae normal CONJUNCTIVA: Yes conjunctivae normal PUPIL: Yes PERRL Neck/C-Spine: COMMON NORMALS: full ROM GENERAL: Yes normal visual inspection and Yes trachea midline Resp: COMMON NORMALS: no retractions and no use of accessory muscles EFFORT & INSPECTION: Yes able to speak in complete sentences and Yes symmetric chest movement AUSCULTATION: diminished lung sounds OTHER: -Exertional shortness of breath, orthopnea has decreased -air entry has improved Cardio: COMMON NORMALS: regular rate, regular rhythm, S1 normal heart sound, S2 normal heart sound and no murmurs RATE: regular rate RHYTHM: regular rhythm HEART SOUNDS: S1 normal and S2 normal GI: COMMON NORMALS: normal to inspection, nondistended, normoactive bowel sounds, soft to palpation and non-tender PALPATION: Yes soft : BLADDER/KIDNEY EXAM: Yes catheter in place Extremity: COMMON NORMALS: normal to inspection and full ROM; negative for no pedal edema GENERAL: No edema OTHER: -has noted thick callues on bilateral great toes; unroofed blister on L anterior great toe Neuro: COMMON NORMALS: oriented x3, moves all extremities, no focal motor deficits and no sensory deficits noted Psych: COMMON NORMALS: mental status grossly normal, thought process normal, cooperative, affect normal and speech normal APPEARANCE: Yes unkempt SPEECH: Yes normal speech THOUGHT PROCESS: normal thought process Skin: COMMON NORMALS: no rashes or lesions noted, no jaundice, no petechiae and no mottling GENERAL SKIN EXAM: no rashes or lesions noted OTHER: -L great toe has thick callus with unroofed blister anteriorly with noted maceration, erythema and purulent drainage, minimal tenderness to palpation due to neuropathy Urinary Catheter Management^: Barnard: Cath Placed During This Visit: yes Urethral Indwelling: Yes Reason for Continuing Indwelling Catheter: Accurate Measurement of Urinary Output in Critically Ill Patients Urinary Catheter Date of Insertion: 08/09/19 Data : 08/12/19 04:08 08/12/19 04:08 A&P Assessment and plan (1) Non-ST elevated myocardial infarction (non-STEMI): -Noted to have significantly elevated troponins with ST elevation noted in leads III and aVF on EKG; delta greater than 100 -s/p coronary angiogram earlier this AM: 3-vessel CAD with 5+ days old occlusion of RCA with LV dysfunction and CHF. Decided against CABG given patient's young age, comorbidities and hx of non-compliance -Cardiology consult by Dr. Saavedra appreciated; s/p angioplasty of OM 3 and D 1 as well as stenting of OM 2 and LAD -CTA negative for PE; noted moderate bilateral pleural effusions -Imdur added, weaned off NTG drip -low dose ACEi added -continue ASA, statin, Plavix Status: Acute Code(s): I21.4 - Non-ST elevation (NSTEMI) myocardial infarction (2) Congestive heart failure: -Appears to have a new onset, acutely decompensated CHF as evidenced by orthopnea, lower extremity edema, shortness of breath, elevated BNP (2485) and evidence of fluid overload on imaging -Echo: EF=45%, G2DD, + RWMA, moderate-severe MR, trace TR, akinesis of mid inferior wall and inferior base of LV -off IV diuresis; switched to oral Lasix; titrate as needed for optimal response. Received extra dose of Lasix and Metolazone due to worsening SOB -continue to monitor Is & Os, daily weights -continue to monitor renal function, lytes with diuresis -VSS; continue to monitor -Supplemental oxygen as needed, continue to monitor respiratory status -Barnard catheter in place for accurate Is & Os; may consider removal today Status: Acute Qualifiers: Heart failure chronicity: acute Heart failure type: combined systolic and diastolic Qualified Code(s): I50.41 - Acute combined systolic (congestive) and diastolic (congestive) heart failure Code(s): I50.9 - Heart failure, unspecified (3) Diabetes mellitus: -Has known history of [id number] diabetes mellitus type 2, previously on metformin which he has been noncompliant with -complicated by peripheral neuropathy -A1c is 12, will likely require insulin therapy if agreeable on discharge -will add long acting and meal time insulin for more optimal BG control -Accu-Cheks, ISS -Cardiac diabetic diet as tolerated Status: Chronic Qualifiers: Diabetes mellitus complication status: without complication Diabetes mellitus rat exterminator insulin use: without penitentiary use Diabetes mellitus type: type 2 Qualified Code(s): E11.9 - Type 2 diabetes mellitus without complications Code(s): E11.9 - Type 2 diabetes mellitus without complications (4) Tobacco abuse: -Chronic smoker Status: Chronic Code(s): Z72.0 - Tobacco use (5) Hypertension: -has known hx of HTN, non-compliant with meds -continue to monitor vital signs -continue BB Status: Chronic Qualifiers: Hypertension type: essential hypertension Qualified Code(s): I10 - Essential (primary) hypertension Code(s): I10 - Essential (primary) hypertension Additional A&P Information -Morbid obesity: BMI-35 kg/m2 -hx of polysubstance abuse: THC, benzodiazepines -Clinically no longer ill-appearing, diaphoretic, though remains intermittently tachypneic and tachycardic; no evidence of infection on CT chest, UA negative for infection. Decreasing leukocytosis, lactic acid of 2.2 -L great toe diabetic ulcer; consult by Dr. Will requested, will see patient tomorrow for further recommendations -DVT ppx with SCDs, Lovenox -Dispo: home -Code status: FULL code -continue ICU care given recent cath with intervention; high risk for decompensation Attestations Medical Necessity Statement*: Patient requires hospitalization for continued management of NSTEMI s/p intervention as well as CHF exacerbation, optimization of medications. Time Spent in Patient Care: Greater than 35 minutes (>than 50% of time spent in counselling and/or direct pt care on unit). Coding Level of Care Code Acute [employer] for [facility] Fwd Exam Comprehensive Diagnoses Non-ST elevated myocardial infarction (non-STEMI) I21.4 Congestive heart failure I50.41 Heart failure chronicity: acute Heart failure type: combined systolic and diastolic Diabetes mellitus E11.9 Diabetes mellitus complication status: without complication Diabetes mellitus rat exterminator insulin use: without rat exterminator use Diabetes mellitus type: type 2 Tobacco abuse Z72.0 Hypertension I10 Hypertension type: essential hypertension
[2019-08-12 17:08] LABS: Glucose Point of Care 264 mg/dL (70-110)
[2019-08-12] MEDS: enoxaparin 40 mg/0.4 mL Syringe SUBCUT (17:11)
[2019-08-12] MEDS: nicotine 7 mg Patch 1 PATCH TRANSDERMA (18:08)
[2019-08-12 21:10] LABS: Glucose Point of Care 265 mg/dL (70-110)
[2019-08-12] MEDS: atorvastatin 40 mg Tablet 80 MG PO (21:15)
[2019-08-12] MEDS: insulin glargine 100 units/1 mL 10 UNIT SUBCUT (21:16)
[2019-08-12] MEDS: LORazepam 0.5 mg Tablet 0.25 MG PO (22:40)
[2019-08-13] VITALS (28 sets, daily range): BP systolic 92–123; BP diastolic 54–77; PULSE 35–89; RESP 16–32; TEMP 36.6–36.9; O2SAT 91–99
[2019-08-13 00:45] LABS: Glucose Point of Care 98 mg/dL (70-110)
--- NOTE | 2019-08-13 01:47 | PC.NURSE ---
At 0030 patient stated that he was feeling nauseous at this time. notified and PRN order for zofran was given verbally. patient states that he does not have any chest pain and vital signs are stable at this time. RAMIRO Pearson observed patient to be diaphoretic and checked patients blood sugar. patients blood sugar is 98. a sprite and orange juice was given to patient. 0050 patient states that he is feeling better. patient sitting comfortably in chair with NS on.
[2019-08-13 05:04] LABS: Glucose Point of Care 133 mg/dL (70-110)
[2019-08-13 05:23] LABS: Anion Gap 16.7 (5-19); Blood Urea Nitrogen 27 mg/dL (6-20); Calcium 9.5 mg/dL (8.5-10.5); Carbon Dioxide 30 mmol/L (22-29); Chloride 83 mmol/L (98-107); Glomerular Filtration Rate 80.1 mL/min (90-130); Glucose 119 mg/dL (65-115); Osmolality Calculated 260 mOsm/kg (285-295); Potassium 3.7 mmol/L (3.5-5.1); Sodium 126 mmol/L (136-145)
--- NOTE | 2019-08-13 06:30 | PC.NURSE ---
Urine output Nurse has not noted any urine output in the urinal at bedside. spoke with hospitalist about no UA output. verbal order to bladder scan patient to see residual amount. This nurse bladder scanned patient and got approximately 130mls of urine in the bladder. While doing bladder scanner, patient stated that he has been getting out of bed throughout the night to go to the bathroom and flushing the toilet. Nurse notified patient that he needed to urinate in the urinal at bedside so measurements could be made. patient verbalized this understanding.
[2019-08-13 07:45] LABS: Glucose Point of Care 181 mg/dL (70-110)
[2019-08-13] MEDS: FUROsemide 40 mg Tablet PO (08:01)
[2019-08-13] MEDS: clopidogrel 75 mg Tablet PO (08:01)
[2019-08-13] MEDS: metoprolol tartrate 25 mg Tablet PO ×2 (08:01→17:19)
[2019-08-13] MEDS: aspirin 81 mg EC Tablet PO (08:01)
[2019-08-13] MEDS: nicotine 7 mg Patch 1 PATCH TRANSDERMA (08:29)
--- NOTE | 2019-08-13 10:28 | PM.PN ---
Subjective Subjective: Interval history: No documented urine output overnight though it seems patient was getting up and voiding on his own. VSS. Currently on BiPAP. AM labs noted, improving hyponatremia. Patient seen and examined, on BiPAP. To be seen by Dr. Will this afternoon. Case discussed with Dr. Lawrence, will increase Lasix dose due to continued bouts of acutely worsening SOB requiring BiPAP use. Medications: Reviewed: Yes Medication Review Details: Active Medications Generic Name Dose Route Start Last Admin Trade Name Freq PRN Reason Stop Dose Admin Aspirin 81 mg 08/09/19 09:00 08/13/19 08:01 Aspirin Ec PO 81 mg DAILY SAMANTHA Administration Atorvastatin Calci um 80 mg 08/08/19 23:20 08/12/19 21:15 Lipitor PO 80 mg BEDTIME SAMANTHA Administration Clopidogrel Bisulf ate 75 mg 08/12/19 09:00 08/13/19 08:01 Plavix PO 75 mg DAILY SAMANTHA Administration Enoxaparin Sodium 40 mg 08/09/19 16:15 08/12/19 17:11 Lovenox SUBCUT 40 mg Q24H SAMANTHA Administration Furosemide 40 mg 08/11/19 08:00 08/13/19 08:01 Lasix PO 40 mg DAILY@0800 SAMANTHA Administration Sodium Chloride 1,000 mls @ 100 m ls/hr 08/11/19 14:10 08/13/19 05:57 Sodium Chloride 0.9% IV Not Given .Q10H SAMANTHA Epinephrine HCl 2. 5 mg/ Sodium 252.5 mls @ 0 mls /hr 08/11/19 18:15 08/12/19 05:13 Chloride IV 0 mcg/min .Q0M SAMANTHA 0 mls/hr Titration Protocol Per Protocol Insulin Aspart 0 unit 08/09/19 08:00 08/13/19 08:00 Novolog SUBCUT 8 unit WM&BEDTIME SAMANTHA Administration Protocol Insulin Aspart 10 unit 08/12/19 17:00 08/13/19 08:01 Novolog SUBCUT 10 unit TIDAC SAMANTHA Administration Insulin Glargine 10 unit 08/12/19 21:00 08/12/19 21:16 Lantus SUBCUT 10 unit BEDTIME SAMANTHA Administration Lisinopril 2.5 mg 08/10/19 11:00 08/11/19 08:40 Prinivil PO 2.5 mg DAILY SAMANTHA Administration Lorazepam 0.25 mg 08/09/19 11:11 08/12/19 22:40 Ativan PO 0.25 mg TID PRN Administration ANXIETY Metoprolol Tartrat e 25 mg 08/10/19 18:00 08/13/19 08:01 Lopressor PO 25 mg BID SAMANTHA Administration Nicotine 1 patch 08/11/19 18:30 08/13/19 08:29 Nicoderm 7 Mg Pa tch TRANSDERMA 1 patch DAILY SAMANTHA Administration Nitroglycerin 0.4 mg 08/09/19 09:00 Nitrostat SUBLINGUAL Q5M PRN CHEST PAIN Ondansetron HCl 4 mg 08/13/19 00:31 Zofran IVP Q6H PRN NAUSEA AND VOMITI NG Polyethylene Glyco l 17 gm 08/11/19 09:00 08/13/19 08:05 Miralax PO Not Given DAILY [facility] No Known Allergies Allergy (Verified 08/08/19 18:34) Vitals/I&O/Wt Last Vital Signs Temp 98.2 F 08/13/19 00:00 Pulse 73 08/13/19 10:01 Resp 20 H 08/13/19 09:00 BP 103/62 08/13/19 09:00 Pulse Ox 95 08/13/19 10:01 08/12/19 08/13/19 08/13/19 22:59 06:59 14:59 Intake Total 400 / 700 600 / 1300 360 / 360 Output Total 300 / 875 300 / 300 Balance 100 / -175 600 / 425 60 / 60 Weight last 48 hrs Weight 112.672 kg Physical Exam Const: COMMON NORMALS: no apparent distress and oriented x3 GENERAL APPEARANCE: cooperative, comfortable and appears older than stated age; not ill appearing and not diaphoretic ORIENTATION/CONSCIOUSNESS: Yes awake HENMT: COMMON NORMALS: normocephalic, head/scalp atraumatic, hearing grossly normal bilaterally and moist oral mucous membranes HEAD & SCALP: normocephalic and atraumatic Eye: COMMON NORMALS: PERRL, EOMs intact bilaterally and conjunctivae normal CONJUNCTIVA: Yes conjunctivae normal PUPIL: Yes PERRL Neck/C-Spine: COMMON NORMALS: full ROM GENERAL: Yes normal visual inspection and Yes trachea midline Resp: COMMON NORMALS: no retractions and no use of accessory muscles EFFORT & INSPECTION: Yes able to speak in complete sentences and Yes symmetric chest movement AUSCULTATION: diminished lung sounds OTHER: -Exertional shortness of breath, orthopnea has decreased -air entry has improved -intermittently requiring BiPAP due to acutely worsening bouts of SOB Cardio: COMMON NORMALS: regular rate, regular rhythm, S1 normal heart sound, S2 normal heart sound and no murmurs RATE: regular rate RHYTHM: regular rhythm HEART SOUNDS: S1 normal and S2 normal GI: COMMON NORMALS: normal to inspection, nondistended, normoactive bowel sounds, soft to palpation and non-tender PALPATION: Yes soft : BLADDER/KIDNEY EXAM: Yes catheter in place Extremity: COMMON NORMALS: normal to inspection and full ROM; negative for no pedal edema GENERAL: No edema OTHER: -has noted thick callues on bilateral great toes; unroofed blister on L anterior great toe with surrounding erythema -diminished sensation in bilateral LE Neuro: COMMON NORMALS: oriented x3, moves all extremities and no focal motor deficits Psych: COMMON NORMALS: mental status grossly normal, thought process normal, cooperative, affect normal and speech normal APPEARANCE: Yes unkempt SPEECH: Yes normal speech THOUGHT PROCESS: normal thought process Skin: COMMON NORMALS: no rashes or lesions noted, no jaundice, no petechiae and no mottling GENERAL SKIN EXAM: no rashes or lesions noted OTHER: -L great toe has thick callus with unroofed blister anteriorly with noted maceration, erythema and purulent drainage, minimal tenderness to palpation due to neuropathy Urinary Catheter Management^: Barnard: Cath Placed During This Visit: yes Urethral Indwelling: Yes Reason for Continuing Indwelling Catheter: Accurate Measurement of Urinary Output in Critically Ill Patients Urinary Catheter Date of Insertion: 08/09/19 Data : 08/12/19 04:08 08/13/19 04:44 Micro: Microbiology 08/10/19 20:30 Urine Culture - Final Urine,Clean Catch A&P Assessment and plan (1) Non-ST elevated myocardial infarction (non-STEMI): -Noted to have significantly elevated troponins with ST elevation noted in leads III and aVF on EKG; delta greater than 100 -s/p coronary angiogram earlier this AM: 3-vessel CAD with 5+ days old occlusion of RCA with LV dysfunction and CHF. Decided against CABG given patient's young age, comorbidities and hx of non-compliance -Cardiology consult by Dr. Saavedra appreciated; s/p angioplasty of OM 3 and D 1 as well as stenting of OM 2 and LAD (08/11) -CTA negative for PE; noted moderate bilateral pleural effusions -Imdur added, weaned off NTG drip -low dose ACEi added -continue ASA, statin, Plavix Status: Acute Code(s): I21.4 - Non-ST elevation (NSTEMI) myocardial infarction (2) Congestive heart failure: -Appears to have a new onset, acutely decompensated CHF as evidenced by orthopnea, lower extremity edema, shortness of breath, elevated BNP (2485) and evidence of fluid overload on imaging -Echo: EF=45%, G2DD, + RWMA, moderate-severe MR, trace TR, akinesis of mid inferior wall and inferior base of LV -off IV diuresis; switched to oral Lasix; titrate as needed for optimal response. Received extra dose of Lasix and Metolazone due to worsening SOB -continue to monitor Is & Os, daily weights -continue to monitor renal function, lytes with diuresis -VSS; continue to monitor -Supplemental oxygen as needed, continue to monitor respiratory status -Barnard catheter removed and able to void independently Status: Acute Qualifiers: Heart failure chronicity: acute Heart failure type: combined systolic and diastolic Qualified Code(s): I50.41 - Acute combined systolic (congestive) and diastolic (congestive) heart failure Code(s): I50.9 - Heart failure, unspecified (3) Diabetes mellitus: -Has known history of [id number] diabetes mellitus type 2, previously on metformin which he has been noncompliant with -complicated by peripheral neuropathy -A1c is 12, will likely require insulin therapy if agreeable on discharge -will add long acting and meal time insulin for more optimal BG control -Accu-Cheks, ISS -Cardiac diabetic diet as tolerated Status: Chronic Qualifiers: Diabetes mellitus complication status: without complication Diabetes mellitus exterminator termite insulin use: without fpc use Diabetes mellitus type: type 2 Qualified Code(s): E11.9 - Type 2 diabetes mellitus without complications Code(s): E11.9 - Type 2 diabetes mellitus without complications (4) Tobacco abuse: -Chronic smoker Status: Chronic Code(s): Z72.0 - Tobacco use (5) Hypertension: -has known hx of HTN, non-compliant with meds -continue to monitor vital signs -continue BB Status: Chronic Qualifiers: Hypertension type: essential hypertension Qualified Code(s): I10 - Essential (primary) hypertension Code(s): I10 - Essential (primary) hypertension Additional A&P Information -Morbid obesity: BMI-35 kg/m2 -hx of polysubstance abuse: THC, benzodiazepines -Clinically no longer ill-appearing, diaphoretic, though remains intermittently tachypneic and tachycardic; no evidence of infection on CT chest, UA negative for infection. Decreasing leukocytosis, lactic acid of 2.2 -L great toe diabetic ulcer; consult by Dr. Will requested, will see patient today for further recommendations -DVT ppx with SCDs, Lovenox -Dispo: home -Code status: FULL code -continue ICU care given recent cath with intervention; high risk for decompensation Attestations Medical Necessity Statement*: Patient requires hospitalization for continued management of NSTEMI, CAD s/p stenting, and CHF exacerbation with intermittently worsening episodes of shortness of breath requiring additional diuretics and BiPAP. Time Spent in Patient Care: Greater than 35 minutes (>than 50% of time spent in counselling and/or direct pt care on unit). Coding Level of Care Code Acute Silver Steward for g Fwd Exam Comprehensive Diagnoses Non-ST elevated myocardial infarction (non-STEMI) I21.4 Congestive heart failure I50.41 Heart failure chronicity: acute Heart failure type: combined systolic and diastolic Diabetes mellitus E11.9 Diabetes mellitus complication status: without complication Diabetes mellitus exterminator termite insulin use: without fpc use Diabetes mellitus type: type 2 Tobacco abuse Z72.0 Hypertension I10 Hypertension type: essential hypertension
[2019-08-13 10:59] LABS: Glucose Point of Care 313 mg/dL (70-110)
--- NOTE | 2019-08-13 11:55 | PC.CHAP ---
Pastoral Care Encounter/Spiritual Assessment Type of Contact [] Declined water filter cleaner visit [] Patient/Family/Request visit [] Outpatient visit [] Follow-up visit [] Physician referral [] Code/Alert [] Routine visit [] Staff referral [] Actively dying [] Patient sleeping [] Family support [] [] Out of room [] Palliative care [] [] Receiving care in room [] Pre-surgical visit [] Trauma [] Long length of stay [] ICU visit [] Other: Relational/Emotional Strength [] Patient feels connected with others/family/visitors/staff [] Distress [] Loneliness/isolation [] Abandonment Spirituality of Patient [] Person of Tala [] Attends [employer] of their Tala [] Believes in Prayer [] Reads Bible or Confucianist materials [] There are Spiritual issues to be addressed Lead Generation Representative Interventions [] Prayer [] Active listening [] Non-anxious presence [] Spiritual/emotional support [] Crisis/trauma care [] Spiritual counseling [] Bereavement support [] Provided bereavement packet [] Provided Bible/devotional materials [] Provided toy/stuffed animal, coloring book to patient or family member [] Provided Communion [] Anointing/[place] [] Salvation [] Completed spiritual assessment [] Other: Impact on Illness or Injury [] Angry [] Fearful [] Anxious [] Often cries [] Exhaustion [] Unable to work [] Unable to attend zoroastrianism [] Unable to walk/stand [] Unable to read [] Unable to drive [] Unable to eat/drink [] Unable to sleep [] Unable to be with family [] Patient intubated [] Other: Summary Follow up, patient sleeping. Time spent with patient
[2019-08-13] MEDS: isosorbide mononitrate ER 30 mg Tablet 15 MG PO (12:08)
--- NOTE | 2019-08-13 12:13 | P.PN_ITS ---
Subjective Subjective: Interval history: Nimesh Prasad is a 49 year old male who was admitted 3 days ago with a completed inferior wall ID, CHF and MR. Angiography revealed occluded distal right coronary artery. Attempts to angioplasty were unsuccessful due to the significant residual thrombus burden. Patient also had a 95% mid LAD lesion at the takeoff of the diagonal branch and a 95% second obtuse marginal branch and 99% third obtuse marginal branch stenoses. After discussion with cardiac surgery it was decided because of his young age (49 yo), noncompliance, obesity, diabetes and tobacco abuse decision of PCI was made. He patient underwent repeat coronary angiogram with persistent complete occlusion of distal RCA and underwent angioplasty of OM 3 and D1 and stenting of OM 2 and m LAD. He continues to complain of problems with his toe and as well as intermittent episodes of shortness of breath. He slept better yesterday with BiPAP. He does give history of intermittent episodes of not breathing for a long time. Medications: Reviewed: Yes Medication Review Details: Current Medications Aspirin (Aspirin Ec) 81 mg PO DAILY [facility] Last Admin: 08/13/19 08:01 Dose: 81 mg Documented by: Atorvastatin Calcium (Lipitor) 80 mg PO BEDTIME [facility] Last Admin: 08/12/19 21:15 Dose: 80 mg Documented by: Clopidogrel Bisulfate (Plavix) 75 mg PO DAILY [facility] Last Admin: 08/13/19 08:01 Dose: 75 mg Documented by: Enoxaparin Sodium (Lovenox) 40 mg SUBCUT Q24H [facility] Last Admin: 08/12/19 17:11 Dose: 40 mg Documented by: Furosemide (Lasix) 40 mg PO DAILY@0800 [facility] Last Admin: 08/13/19 08:01 Dose: 40 mg Documented by: Furosemide (Lasix) 20 mg PO DAILY [facility] Epinephrine HCl 2.5 mg/ Sodium (Chloride) 252.5 mls @ 0 mls/hr IV .Q0M [facility]; Protocol Last Titration: 08/12/19 05:13 Dose: 0 mcg/min, 0 mls/hr Documented by: Insulin Aspart (Novolog) 0 unit SUBCUT WM&BEDTIME [facility]; Protocol Last Admin: 08/13/19 11:40 Dose: 14 unit Documented by: Insulin Aspart (Novolog) 10 unit SUBCUT TIDAC [facility] Last Admin: 08/13/19 11:41 Dose: 10 unit Documented by: Insulin Glargine (Lantus) 10 unit SUBCUT BEDTIME [facility] Last Admin: 08/12/19 21:16 Dose: 10 unit Documented by: Isosorbide Mononitrate (Imdur) 15 mg PO DAILY [facility] Last Admin: 08/13/19 12:08 Dose: 15 mg Documented by: Lisinopril (Prinivil) 2.5 mg PO DAILY [facility] Last Admin: 08/11/19 08:40 Dose: 2.5 mg Documented by: Lorazepam (Ativan) 0.25 mg PO TID PRN PRN Reason: ANXIETY Last Admin: 08/12/19 22:40 Dose: 0.25 mg Documented by: Metoprolol Tartrate (Lopressor) 25 mg PO BID [facility] Last Admin: 08/13/19 08:01 Dose: 25 mg Documented by: Nicotine (Nicoderm 7 Mg Patch) 1 patch TRANSDERMA DAILY [facility] Last Admin: 08/13/19 08:29 Dose: 1 patch Documented by: Nitroglycerin (Nitrostat) 0.4 mg SUBLINGUAL Q5M PRN PRN Reason: CHEST PAIN Ondansetron HCl (Zofran) 4 mg IVP Q6H PRN PRN Reason: NAUSEA AND VOMITING Polyethylene Glycol (Miralax) 17 gm PO DAILY [facility] Last Admin: 08/13/19 08:05 Dose: Not Given Documented by: Vitals/I&O/Wt Last Vital Signs Temp 98.2 F 08/13/19 00:00 Pulse 73 08/13/19 10:01 Resp 32 H 08/13/19 10:00 BP 114/70 08/13/19 10:00 Pulse Ox 95 08/13/19 10:01 08/12/19 08/13/19 08/13/19 22:59 06:59 14:59 Intake Total 400 / 700 600 / 1300 360 / 360 Output Total 300 / 875 300 / 300 Balance 100 / -175 600 / 425 60 / 60 Intake & Output 08/11/19 08/12/19 08/13/19 08/14/19 06:59 06:59 06:59 06:59 Intake Total 1660 / 1660 939.891 / 396.341 9242 / 1300 360 / 360 Output Total 3600 / 3600 2860 / 2860 875 / 875 300 / 300 Balance -1940 / -1940 -1920.109 / -192.109 425 / 425 60 / 60 Weight 248 lb 6.4 oz Weight last 48 hrs Weight 248 lb 6.4 oz Physical Exam Narrative: EXAM NARRATIVE: Const COMMON NORMALS: no apparent distress, oriented x3 and alert GENERAL APPEARANCE: cooperative, comfortable, well kempt and well hydrated HENMT COMMON NORMALS: hearing grossly normal bilaterally, external ears normal and moist oral mucous membranes EXTERNAL EAR: Yes external ears normal Eye COMMON NORMALS: EOMs intact bilaterally and no scleral icterus GENERAL EYE: normal appearance of both eyes Neck/C-Spine COMMON NORMALS: no lymphadenopathy, supple and no JVD CAROTIDS: Yes normal carotid upstroke Resp COMMON NORMALS: clear to auscultation bilaterally (except at bilateral bases) AUSCULTATION: clear to auscultation bilaterally (except at bilateral bases), crackles Laterality: bilateral (basal), no rales, no rhonchi and no wheezes Cardio COMMON NORMALS: no JVD, regular rate, regular rhythm, S1 normal heart sound, S2 normal heart sound and peripheral pulses 2+ throughout PALPATION: normal PMI RATE: regular rate RHYTHM: regular rhythm HEART SOUNDS: S1 normal, S2 normal, no click, no gallops and no murmurs BRUITS: no carotid bruits PERIPHERAL PULSES: pulses 2+ throughout, radial pulses present and dorsalis pedis pulses present Extremity GENERAL: No clubbing, No cyanosis, Yes edema (1-2+ bilateral leg edema) and No pallor Neuro COMMON NORMALS: oriented x3, CN's II-XII intact bilaterally and no focal motor deficits SENSORIUM/ORIENTATION: Yes alert Psych APPEARANCE: Yes well kempt Urinary Catheter Management^: Barnard: Cath Placed During This Visit: yes Urethral Indwelling: Yes Reason for Continuing Indwelling Catheter: Accurate Measurement of Urinary Output in Critically Ill Patients Urinary Catheter Date of Insertion: 08/09/19 Data : 08/12/19 04:08 08/13/19 04:44 Micro: Microbiology 08/10/19 20:30 Urine Culture - Final Urine,Clean Catch Other data: Echo: Radiologist's impression: CONCLUSIONS Normal left ventricular cavity size. Normal left ventricular wall thickness. Mildly decreased left ventricular systolic function. Regional wall motion abnormalities (see diagram). Akinesis of the mid inferior wall and inferior base. Grade 2 diastolic dysfunction. Ejection fraction 45%. Mildly increased left atrial size. Structurally normal mitral valve. Moderate-severe mitral valve regurgitation. There are no prior echocardiogram studies to compare. A&P Assessment and plan (1) Non-ST elevated myocardial infarction (non-STEMI): Status post drug-eluting stent placement to mid LAD and OM 2 with balloon angioplasty of D1 and OM 3. -Continue aspirin, Plavix, statin and metoprolol. Status: Acute Code(s): I21.4 - Non-ST elevation (NSTEMI) myocardial infarction (2) Acute respiratory failure: Acute respiratory failure in setting of decompensated congestive heart failure. Currently on oxygen by nasal cannula and using BiPAP at night. Status: Acute Qualifiers: Respiratory failure complication: hypoxia Qualified Code(s): J96.01 - Acute respiratory failure with hypoxia Code(s): J96.00 - Acute respiratory failure, unspecified whether with hypoxia or hypercapnia (3) Congestive heart failure: Left ventricle ejection fraction estimated at 45%. Moderate to severe mitral regurgitation noted on echocardiogram likely ischemic. -On low-dose lisinopril. -Currently on Lasix 40 mg p.o. daily. I will add Lasix 20 mg in the afternoon as well as low-dose Imdur for his intermittent episodes of dyspnea. Status: Acute Qualifiers: Heart failure type: combined systolic and diastolic Heart failure chronicity: acute Qualified Code(s): I50.41 - Acute combined systolic (congestive) and diastolic (congestive) heart failure Code(s): I50.9 - Heart failure, unspecified (4) Mitral regurgitation: Status: Acute Qualifiers: Cardiac valve disease etiology: etiology unspecified Qualified Code(s): I34.0 - Nonrheumatic mitral (valve) insufficiency Code(s): I34.0 - Nonrheumatic mitral (valve) insufficiency (5) Diabetes mellitus: Uncontrolled diabetes mellitus with hemoglobin A1c of 12. Status: Chronic Qualifiers: Diabetes mellitus type: type 2 Diabetes mellitus nursing home insulin use: without bell person use Diabetes mellitus complication status: without complication Qualified Code(s): E11.9 - Type 2 diabetes mellitus without complications Code(s): E11.9 - Type 2 diabetes mellitus without complications (6) Hypertension: Blood pressure running low normal. Status: Chronic Qualifiers: Hypertension type: essential hypertension Qualified Code(s): I10 - Essential (primary) hypertension Code(s): I10 - Essential (primary) hypertension (7) Tobacco abuse: He is a heavy smoker and used to smoke 2 pack/day. Counseled on smoking cessation. Patient seems motivated to quit smoking. Currently using nicotine patch. Status: Chronic Code(s): Z72.0 - Tobacco use Attestations Medical Necessity Statement*: Needs hospital stay for management post ACS and CHF. Coding Level of Care Code Acute Social Science Professor for [facility] Fwd Diagnoses Non-ST elevated myocardial infarction (non-STEMI) I21.4 Acute respiratory failure J96.01 Respiratory failure complication: hypoxia Congestive heart failure I50.41 Heart failure type: combined systolic and diastolic Heart failure chronicity: acute Mitral regurgitation I34.0 Cardiac valve disease etiology: etiology unspecified Diabetes mellitus E11.9 Diabetes mellitus type: type 2 Diabetes mellitus bell person insulin use: without bell person use Diabetes mellitus complication status: without complication Hypertension I10 Hypertension type: essential hypertension Tobacco abuse Z72.0
--- NOTE | 2019-08-13 12:23 | PC.NURSE ---
Addendum entered by Eva Kemp RN 08/13/19 12:28: site cleansed, maxorb applied, covered with gauze, and wrapped with kerlix. Original Note: Dr. Goodman Dr. Will at bedside to assess wound. educated patient on wound care, foot care, and overall health and control of blood glucose. Patient verbalizes understanding.
[2019-08-13] MEDS: FUROsemide 20 mg Tablet PO (15:21)
[2019-08-13] MEDS: enoxaparin 40 mg/0.4 mL Syringe SUBCUT (15:21)
--- NOTE | 2019-08-13 16:24 | P.CONIM_ITS ---
Providers/Reason For Consult Consulting Physican/Specialty*: Dr. Tonia Montilla MD Reason for Consult*: Left hallux wound, right hallux hemorrhagic callus Attending Physician: Tonia Montilla MD History of Present Illness History of Present Illness Nimesh Prasad is a 49 year old poorly controlled diabetic male admitted to the hospital service for non-ST elevated myocardial infarction. He experienced shortness of breath last Wednesday while sedentary watching TV and reported to the emergency department. He also complains of a wound to his left great toe and a large callus to his right great toe. Left great toe wound began draining recently. He is not well-established with a primary care, does not manage his health or perform routine follow-up with a healthcare provider. [place] a [employer] spends long hours on his feet. He does not wear diabetic shoes, last A1c 12.0 performed August 09, 2019. He denies history of poor healing wounds at his feet. Denies history of revascularization of the lower extremities. He does endorse recent onset of swelling of both legs. Review of Systems General: Reports: 10 or more systems reviewed and unremarkable except in HPI and below Const: Denies: fever or chills Card: Denies: chest pain or palpitations Resp: Denies: productive cough GI: Denies: abdominal pain, nausea or vomiting : Denies: flank pain Musc: Reports: extremity swelling, joint pain, joint stiffness, limited range of motion and deformity Skin/Breast: Reports: sores, nail changes and change in hair; Denies: rash Neuro: Reports: numbness in extremities and changes in sensation; Denies: difficulty walking Psych: Denies: suicidal ideation Olegario/Lymph: Denies: easy bruising Meds/Allergies Home Medications and Allergies Allergies Allergy/AdvReac Type Severity Reaction Status Date / Time No Known Allergies Allergy Verified 08/08/19 18:34 Current Medications Current Medications Generic Name Dose Route Start Last Admin Trade Name Freq PRN Reason Stop Dose Admin Aspirin 81 mg 08/09/19 09:00 08/13/19 08:01 Aspirin Ec PO 81 mg DAILY SAMANTHA Administration Atorvastatin Calcium 80 mg 08/08/19 23:20 08/12/19 21:15 Lipitor PO 80 mg BEDTIME SAMANTHA Administration Clopidogrel Bisulfate 75 mg 08/12/19 09:00 08/13/19 08:01 Plavix PO 75 mg DAILY SAMANTHA Administration Enoxaparin Sodium 40 mg 08/09/19 16:15 08/13/19 15:21 Lovenox SUBCUT 40 mg Q24H SAMANTHA Administration Furosemide 40 mg 08/11/19 08:00 08/13/19 08:01 Lasix PO 40 mg DAILY@0800 SAMANTHA Administration Furosemide 20 mg 08/13/19 15:00 08/13/19 15:21 Lasix PO 20 mg DAILY SAMANTHA Administration Epinephrine HCl 2.5 mg/ Sodium 252.5 mls @ 0 mls/hr 08/11/19 18:15 08/12/19 05:13 Chloride IV 0 mcg/min .Q0M SAMANTHA 0 mls/hr Titration Protocol Per Protocol Insulin Aspart 0 unit 08/09/19 08:00 08/13/19 11:40 Novolog SUBCUT 14 unit WM&BEDTIME SAMANTHA Administration Protocol Insulin Aspart 10 unit 08/12/19 17:00 08/13/19 11:41 Novolog SUBCUT 10 unit TIDAC SAMANTHA Administration Insulin Glargine 10 unit 08/12/19 21:00 08/12/19 21:16 Lantus SUBCUT 10 unit BEDTIME SAMANTHA Administration Isosorbide Mononitrate 15 mg 08/13/19 12:00 08/13/19 12:08 Imdur PO 15 mg DAILY SAMANTHA Administration Lisinopril 2.5 mg 08/10/19 11:00 08/11/19 08:40 Prinivil PO 2.5 mg DAILY SAMANTHA Administration Lorazepam 0.25 mg 08/09/19 11:11 08/12/19 22:40 Ativan PO 0.25 mg TID PRN Administration ANXIETY Metoprolol Tartrate 25 mg 08/10/19 18:00 08/13/19 08:01 Lopressor PO 25 mg BID SAMANHTA Administration Nicotine 1 patch 08/11/19 18:30 08/13/19 08:29 Nicoderm 7 Mg Patch TRANSDERMA 1 patch DAILY SAMANTHA Administration Polyethylene Glycol 17 gm 08/11/19 09:00 08/13/19 08:05 Miralax PO Not Given DAILY SAMANTHA PFSH Acute PFSH: Medical History (Updated 08/13/19 @ 16:59 by Carlos Will DPM) Congestive heart failure Diabetes mellitus Hypertension Mitral regurgitation Tobacco abuse Family History (Updated 08/09/19 @ 01:26 by Liz Porras MD) Other CAD (coronary artery disease) Cancer Social History Smoking and tobacco status: current every day smoker Vitals/I&O/Wt Last Vital Signs Temp 98.2 F 08/13/19 16:00 Pulse 71 08/13/19 16:00 Resp 16 08/13/19 16:00 BP 92/64 08/13/19 16:00 Pulse Ox 96 08/13/19 16:00 08/13/19 08/13/19 08/13/19 06:59 14:59 22:59 Intake Total 600 / 1300 360 / 360 Output Total 300 / 300 Balance 600 / 425 60 / 60 Weight last 48 hrs Weight 248 lb 6.4 oz Physical Exam Narrative: EXAM NARRATIVE: GENERAL: Patient is alert and oriented ?3 and in no acute distress. The following is a focused bilateral lower extremity exam. VASCULAR: Dorsalis pedis and posterior tibial arteries at palpable. Capillary refill time less than 3 seconds to the distal hallux bilaterally. Calf is supple and nontender proximally and distally. Decreased pedal hair growth bilaterally. Edema to the lower extremities. NEUROLOGICAL: Protective sensation intact 7/10 sites, tested with [place] Sera monofilament to bilateral feet. +2 Achilles reflex bilaterally. DERMATOLOGICAL: Hemorrhagic hyperkeratotic buildup at the plantar medial aspect of the right hallux interphalangeal joint. Hyperkeratotic buildup with ulceration at plantar medial aspect of left hallux interphalangeal joint with serous drainage. Does not probe to tendon, capsule or bone. Fat layer exposed. No periwound erythema, no purulence, no proximal lymphangitic streaking, no tunneling or undermining. MUSCULOSKELETAL: First metatarsal phalangeal joint dorsiflexion 20 degrees bilaterally this is decreased when loading the first ray consistent with functional hallux limitus. Ankle joint dorsiflexion to neutral bilaterally. No significant pain to palpation or with debridement of calluses and wound secondary to neuropathy. Muscle strength is 5 out of 5 in all 3 cardinal planes to bilateral foot and ankle. 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: without mcc use Diabetes mellitus complication status: without complication Qualified Code(s): E11.9 - Type 2 diabetes mellitus without complications Code(s): E11.9 - Type 2 diabetes mellitus without complications (2) Chronic ulcer of great toe of left foot with fat layer exposed: Status: Acute Code(s): L97.522 - Non-pressure chronic ulcer of other part of left foot with fat layer exposed (3) Hallux rigidus of both feet: Status: Acute Code(s): M20.21 - Hallux rigidus, right foot; M20.22 - Hallux rigidus, left foot Patient examined and evaluated, findings and treatment options were discussed with patient at length. Wound to left hallux was sharply debrided with a dermal curette this was excisional in nature including and down to level subcutaneous tissue. Hemostasis achieved via manual pressure. No anesthesia required secondary to neuropathy. Wound was debrided of a hyperkeratotic buildup, fibrin, slough and biofilm down to granular base. Actual wound post debridement measures 3 mm x 3 mm x 2 mm at the plantar medial aspect of the left hallux interphalangeal joint without clinical signs of infection. Dressed with alginate and gauze, this will continue with daily dressing change. Will order x-ray of the left hallux for a baseline evaluation. Callus at right hallux sharply pared with a dermal curette without incident. Discussed with patient the importance of establishing with a primary care doctor with routine follow-up to manage his diabetes. Educated him on the progression of calluses at his feet in the presence of neuropathy that put him at risk for wound formation and infection. He expressed good understanding. At this time he does not have insurance, social work is involved during this hospitalization to assist with insurance applications. Patient would benefit from extra-depth diabetic shoes with molded inserts to help offload his left and right hallux due to hallux rigidus. Patient to follow-up in podiatry clinic within 2 weeks of discharge from this hospitalization. Will send a prescription to his pharmacy of choice electronically for mupirocin, he is to apply this twice daily with a Band-Aid to his left great toe wound until his follow-up in podiatry clinic. Consult Attestations Medical Necessity Statement: Uncontrolled diabetic male with wound exposed to fat layer left hallux Coding Level of Care Code Acute Char Conveyor Tender Cellar for Chg Fwd Diagnoses Diabetes mellitus E11.9 Diabetes mellitus type: type 2 Diabetes mellitus mcc insulin use: without mcc use Diabetes mellitus complication status: without complication Chronic ulcer of great toe of left foot with fat layer exposed L97.522 Hallux rigidus of both feet M20.21; M20.22 Comment CPT code 26056 CPT code 69993 Callus paring CPT code 30991
--- NOTE | 2019-08-13 16:41 | XR_ITS ---
WS: [id number] FOOT LEFT TECHNIQUE: 3 views of the left foot CLINICAL INFORMATION: left hallux ulcer, non infected COMPARISON: None. FINDINGS: No evidence of acute fracture or dislocation. Normal tarsal metatarsal alignment. Normal calcaneus. N ormal visualized talar dome. Mild soft tissue edema. No evidence of osteomyelitis. IMPRESSION: Mild soft tissue edema. No evidence of osteomyelitis.
[2019-08-13 17:12] LABS: Glucose Point of Care 173 mg/dL (70-110)
[2019-08-13] MEDS: atorvastatin 40 mg Tablet 80 MG PO (20:34)
[2019-08-13] MEDS: LORazepam 0.5 mg Tablet 0.25 MG PO (20:34)
[2019-08-13] MEDS: insulin glargine 100 units/1 mL 10 UNIT SUBCUT (20:51)
[2019-08-13] MEDS: trazodone 50 mg Tablet PO (22:19)
[2019-08-14] VITALS (12 sets, daily range): BP systolic 98–123; BP diastolic 51–83; PULSE 65–85; RESP 16–31; TEMP 36.9; O2SAT 94–100
[2019-08-14 05:10] LABS: Anion Gap 14.8 (5-19); Basophils % 0.3 %; Blood Urea Nitrogen 23 mg/dL (6-20); Calcium 9.1 mg/dL (8.5-10.5); Carbon Dioxide 29 mmol/L (22-29); Chloride 84 mmol/L (98-107); Eosinophils # 0.1 10^3/uL (0.0-0.8); Glomerular Filtration Rate 80.1 mL/min (90-130); Glucose 217 mg/dL (65-115); Hematocrit 39.6 % (42.0-52.0); Hemoglobin 13.3 g/dL (11.7-16.6); Lymphocytes # 2.6 10^3/uL (0.8-4.8); Lymphocytes % 22.8 %; Mean Corpuscular HGB Conc 33.6 g/dL (30.0-36.0); Mean Corpuscular Hemoglobin 29.2 pg (28.0-34.0); Mean Corpuscular Volume 86.8 fL (80-94); Mean Platelet Volume 8.6 fL (7.4-10.4); Monocytes # 0.7 10^3/uL (0.2-0.9); Monocytes % 5.9 %; Neutrophils # 7.8 10^3/uL (1.8-7.7); Neutrophils % 69.3 %; Nucleated Red Blood Cells % 0 %; Osmolality Calculated 261 mOsm/kg (285-295); Platelet Count 520 10^3/cmm (130-400); Potassium 3.8 mmol/L (3.5-5.1); Red Blood Count 4.56 10^6/uL (4.1-5.3); Red Cell Distribution Width 12.1 % (12.1-15.1); Sodium 124 mmol/L (136-145); White Blood Count 11.3 10^3/uL (4.0-10.0)
[2019-08-14 07:11] LABS: Glucose Point of Care 242 mg/dL (70-110)
[2019-08-14] MEDS: FUROsemide 40 mg Tablet PO (07:22)
--- NOTE | 2019-08-14 07:30 | P.PN_ITS ---
Subjective Subjective: Interval history: Events of weekend noted. Still having SOB when lying down, requiring BIPAP. EPI gtt was started Wednesday night for hypotension and weaned quickly. Today comfortable as long as sitting up. Now on statin, ASA plavix BB, daily lasix with prn additions, Imdur and low dose lisinopril. BP has been stable. Medications: Reviewed: Yes Vitals/I&O/Wt Last Vital Signs Temp 98 F 08/13/19 20:00 Pulse 74 08/14/19 06:00 Resp 17 08/14/19 06:00 BP 114/73 08/14/19 06:00 Pulse Ox 94 08/13/19 22:26 08/13/19 08/14/19 08/14/19 22:59 06:59 14:59 Intake Total 750 / 1110 Output Total 625 / 925 275 / 1200 Balance 125 / 185 -275 / -90 Physical Exam Const: COMMON NORMALS: no apparent distress and oriented x3 GENERAL APPEARANCE: cooperative NUTRITIONAL APPEARANCE: obese HENMT: COMMON NORMALS: normocephalic HEAD & SCALP: normal to inspection and normocephalic Eye: COMMON NORMALS: PERRL PUPIL: Yes PERRL Neck/C-Spine: COMMON NORMALS: full ROM and no JVD Chest: COMMONS NORMALS: inspection of chest normal Resp: COMMON NORMALS: normal respiratory effort and clear to auscultation bilaterally EFFORT & INSPECTION: Yes able to speak in complete sentences AUSCULTATION: clear to auscultation bilaterally Cardio: COMMON NORMALS: no JVD and regular rhythm JUGULAR VENOUS DISTENTION: no JVD RHYTHM: regular rhythm GI: COMMON NORMALS: normal to inspection, nondistended, normoactive bowel sounds Extremity: COMMON NORMALS: normal to inspection Neuro: COMMON NORMALS: oriented x3 Urinary Catheter Management^: Barnard: Cath Placed During This Visit: yes Urethral Indwelling: Yes Reason for Continuing Indwelling Catheter: Accurate Measurement of Urinary Output in Critically Ill Patients Urinary Catheter Date of Insertion: 08/09/19 Data : 08/14/19 04:07 08/14/19 04:07 Micro: Microbiology 08/08/19 19:15 Blood Culture - Final Blood NO GROWTH AFTER 5 DAYS 08/08/19 19:17 Blood Culture - Final Blood NO GROWTH AFTER 5 DAYS 08/10/19 20:30 Urine Culture - Final Urine,Clean Catch A&P Assessment and plan (1) Mitral regurgitation: Status: Acute Qualifiers: Cardiac valve disease etiology: etiology unspecified Qualified Code(s): I34.0 - Nonrheumatic mitral (valve) insufficiency Code(s): I34.0 - Nonrheumatic mitral (valve) insufficiency (2) Tobacco abuse: Status: Chronic Code(s): Z72.0 - Tobacco use (3) Congestive heart failure: Status: Acute Qualifiers: Heart failure type: combined systolic and diastolic Heart failure chronicity: acute Qualified Code(s): I50.41 - Acute combined systolic (congestive) and diastolic (congestive) heart failure Code(s): I50.9 - Heart failure, unspecified (4) Diabetes mellitus: Status: Chronic Qualifiers: Diabetes mellitus type: type 2 Diabetes mellitus residential insulin use: without oil heaterman use Diabetes mellitus complication status: without complication Qualified Code(s): E11.9 - Type 2 diabetes mellitus without complications Code(s): E11.9 - Type 2 diabetes mellitus without complications (5) Hypertension: Status: Chronic Qualifiers: Hypertension type: essential hypertension Qualified Code(s): I10 - Essential (primary) hypertension Code(s): I10 - Essential (primary) hypertension (6) Non-ST elevated myocardial infarction (non-STEMI): Status: Acute Code(s): I21.4 - Non-ST elevation (NSTEMI) myocardial infarction (7) Acute respiratory failure: Status: Acute Qualifiers: Respiratory failure complication: hypoxia Qualified Code(s): J96.01 - Acute respiratory failure with hypoxia Code(s): J96.00 - Acute respiratory failure, unspecified whether with hypoxia or hypercapnia (8) JIMMY (obstructive sleep apnea): Status: Acute Code(s): G47.33 - Obstructive sleep apnea (adult) (pediatric) (9) COPD (chronic obstructive pulmonary disease): Status: Acute Code(s): J44.9 - Chronic obstructive pulmonary disease, unspecified Additional A&P Information Repaeat CXR. I am sure he has sleep apnea. The SOB is multifactorial (JIMMY, COPD, MR, CAD, smoker). Will likely need BIPAP at home. Attestations Medical Necessity Statement*: Not applicable Coding Level of Care Code Established Pt Acute Radio Division Officer for Chester Santos Patient Type Established History Detailed Exam Comprehensive Medical Decision Making Moderate Complexity Diagnoses Mitral regurgitation I34.0 Cardiac valve disease etiology: etiology unspecified Tobacco abuse Z72.0 Congestive heart failure I50.41 Heart failure type: combined systolic and diastolic Heart failure chronicity: acute Diabetes mellitus E11.9 Diabetes mellitus type: type 2 Diabetes mellitus residential insulin use: without residential use Diabetes mellitus complication status: without complication Hypertension I10 Hypertension type: essential hypertension Non-ST elevated myocardial infarction (non-STEMI) I21.4 Acute respiratory failure J96.01 Respiratory failure complication: hypoxia JIMMY (obstructive sleep apnea) G47.33 COPD (chronic obstructive pulmonary disease) J44.9
--- NOTE | 2019-08-14 07:55 | XR_ITS ---
WS: [id number] CHEST XRAY TECHNIQUE: Portable chest. CLINICAL INFORMATION: CHF, COPD COMPARISON: August 10, 2019 FINDINGS: Heart: Normal cardiac silhouette. Lungs: Improved small bilateral pleural effusions. Stable pulmonary edema. No focal pneumonia. Bones: Normal visualized bony structures. XR/XR chest 1V portable [id number] IMPRESSION: 1. Cardiomegaly with pulmonary edema. 2. Small bilateral pleural effusions with bibasilar atelectasis slightly impro juvencio.
[2019-08-14] MEDS: clopidogrel 75 mg Tablet PO (08:10)
[2019-08-14] MEDS: nicotine 7 mg Patch 1 PATCH TRANSDERMA (08:10)
[2019-08-14] MEDS: metoprolol tartrate 25 mg Tablet PO ×2 (08:11→17:03)
[2019-08-14] MEDS: mupirocin oint 22 gm 1 APPLIC TOPICAL (08:11)
[2019-08-14] MEDS: aspirin 81 mg EC Tablet PO (08:11)
[2019-08-14] MEDS: isosorbide mononitrate ER 30 mg Tablet 15 MG PO (08:11)
[2019-08-14 11:19] LABS: Glucose Point of Care 259 mg/dL (70-110)
--- NOTE | 2019-08-14 11:56 | P.PN_ITS ---
Subjective Subjective: Interval history: Had 550 mL urine output overnight. Hemodynamically stable, still requiring BiPAP off and on. AM labs noted, stable renal function. Repeat CXR noted with evidence of pulmonary edema and small bilateral pleural effusions. Case discussed with Dr. Saavedra this AM. Is currently on RA, denies SOB though was unable to get much sleep last night, required BiPAP. Medications: Reviewed: Yes Medication Review Details: Active Medications Generic Name Dose Route Start Last Admin Trade Name Freq PRN Reason Stop Dose Admin Aspirin 81 mg 08/09/19 09:00 08/14/19 08:11 Aspirin Ec PO 81 mg DAILY SAMANTHA Administration Atorvastatin Calci um 80 mg 08/08/19 23:20 08/13/19 20:34 Lipitor PO 80 mg BEDTIME SAMANTHA Administration Clopidogrel Bisulf ate 75 mg 08/12/19 09:00 08/14/19 08:10 Plavix PO 75 mg DAILY SAMANTHA Administration Enoxaparin Sodium 40 mg 08/09/19 16:15 08/13/19 15:21 Lovenox SUBCUT 40 mg Q24H SAMANTHA Administration Furosemide 40 mg 08/11/19 08:00 08/14/19 07:22 Lasix PO 40 mg DAILY@0800 SAMANTHA Administration Furosemide 20 mg 08/14/19 15:00 Lasix PO DAILY@1500 SAMANTHA Insulin Aspart 0 unit 08/09/19 08:00 08/14/19 11:32 Novolog SUBCUT 10 unit WM&BEDTIME SAMANTHA Administration Protocol Insulin Aspart 10 unit 08/12/19 17:00 08/14/19 11:32 Novolog SUBCUT 10 unit TIDAC SAMANTHA Administration Insulin Glargine 10 unit 08/12/19 21:00 08/13/19 20:51 Lantus SUBCUT 10 unit BEDTIME SAMANTHA Administration Isosorbide Mononit rate 15 mg 08/13/19 12:00 08/14/19 08:11 Imdur PO 15 mg DAILY SAMANTHA Administration Lisinopril 2.5 mg 08/10/19 11:00 08/11/19 08:40 Prinivil PO 2.5 mg DAILY SAMANTHA Administration Lorazepam 0.25 mg 08/09/19 11:11 08/13/19 20:34 Ativan PO 0.25 mg TID PRN Administration ANXIETY Metoprolol Tartrat e 25 mg 08/10/19 18:00 08/14/19 08:11 Lopressor PO 25 mg BID SAMANTHA Administration Mupirocin 1 applic 08/14/19 09:00 08/14/19 08:11 Bactroban TOPICAL 1 applic DAILY SAMANTHA Administration Nicotine 1 patch 08/11/19 18:30 08/14/19 08:10 Nicoderm 7 Mg Pa tch TRANSDERMA 1 patch DAILY SAMANTHA Administration Nitroglycerin 0.4 mg 08/09/19 09:00 Nitrostat SUBLINGUAL Q5M PRN CHEST PAIN Ondansetron HCl 4 mg 08/13/19 00:31 Zofran IVP Q6H PRN NAUSEA AND VOMITI NG Polyethylene Glyco l 17 gm 08/11/19 09:00 08/14/19 08:14 Miralax PO Not Given DAILY SAMANTHA Trazodone HCl 50 mg 08/13/19 19:12 08/13/19 22:19 Desyrel PO 50 mg BEDTIME PRN Administration INSOMNIA No Known Allergies Allergy (Verified 08/08/19 18:34) Vitals/I&O/Wt Last Vital Signs Temp 98.4 F 08/14/19 08:00 Pulse 83 08/14/19 10:00 Resp 19 H 08/14/19 10:00 BP 98/57 08/14/19 10:00 Pulse Ox 94 08/14/19 10:00 08/13/19 08/14/19 08/14/19 22:59 06:59 14:59 Intake Total 750 / 1110 240 / 240 Output Total 625 / 925 275 / 1200 Balance 125 / 185 -275 / -90 240 / 240 Weight last 48 hrs Weight 114.759 kg Physical Exam Const: COMMON NORMALS: no apparent distress and oriented x3 GENERAL APPEARANCE: cooperative, comfortable and appears older than stated age; not ill appearing and not diaphoretic ORIENTATION/CONSCIOUSNESS: Yes awake HENMT: COMMON NORMALS: normocephalic, head/scalp atraumatic, hearing grossly n ormal bilaterally and moist oral mucous membranes HEAD & SCALP: normocephalic and atraumatic Eye: COMMON NORMALS: PERRL, EOMs intact bilaterally and conjunctivae normal CONJUNCTIVA: Yes conjunctivae normal PUPIL: Yes PERRL Neck/C-Spine: COMMON NORMALS: full ROM GENERAL: Yes normal visual inspection and Yes trachea midline Resp: COMMON NORMALS: no retractions and no use of accessory muscles EFFORT & INSPECTION: Yes able to speak in complete sentences and Yes symmetric chest movement AUSCULTATION: diminished lung sounds OTHER: -Exertional shortness of breath, orthopnea has decreased -air entry has improved -intermittently requiring BiPAP due to acutely worsening bouts of SOB Cardio: COMMON NORMALS: regular rate, regular rhythm, S1 normal heart sound, S2 normal heart sound and no murmurs RATE: regular rate RHYTHM: regular rhythm HEART SOUNDS: S1 normal and S2 normal GI: COMMON NORMALS: normal to inspection, nondistended, normoactive bowel sounds, soft to palpation and non-tender PALPATION: Yes soft : BLADDER/KIDNEY EXAM: Yes catheter in place Extremity: COMMON NORMALS: normal to inspection and full ROM; negative for no pedal edema GENERAL: No edema OTHER: -has noted thick callues on bilateral great toes; unroofed blister on L anterior great toe with surrounding erythema -diminished sensation in bilateral LE Neuro: COMMON NORMALS: oriented x3, moves all extremities and no focal motor deficits Psych: COMMON NORMALS: mental status grossly normal, thought process normal, cooperative, affect normal and speech normal APPEARANCE: Yes unkempt SPEECH: Yes normal speech THOUGHT PROCESS: normal thought process Skin: COMMON NORMALS: no rashes or lesions noted, no jaundice, no petechiae and no mottling GENERAL SKIN EXAM: no rashes or lesions noted OTHER: -L great toe has thick callus with unroofed blister anteriorly with noted maceration, erythema and purulent drainage, minimal tenderness to palpation due to neuropathy Urinary Catheter Management^: Barnard: Cath Placed During This Visit: yes Urethral Indwelling: Yes Reason for Continuing Indwelling Catheter: Accurate Measurement of Urinary Output in Critically Ill Patients Urinary Catheter Date of Insertion: 08/09/19 Data : 08/14/19 04:07 08/14/19 04:07 Micro: Microbiology 08/08/19 19:15 Blood Culture - Final Blood NO GROWTH AFTER 5 DAYS 08/08/19 19:17 Blood Culture - Final Blood NO GROWTH AFTER 5 DAYS 08/10/19 20:30 Urine Culture - Final Urine,Clean Catch A&P Assessment and plan (1) Non-ST elevated myocardial infarction (non-STEMI): -Noted to have significantly elevated troponins with ST elevation noted in leads III and aVF on EKG; delta greater than 100 -s/p coronary angiogram earlier this AM: 3-vessel CAD with 5+ days old occlusion of RCA with LV dysfunction and CHF. Decided against CABG given patient's young age, comorbidities and hx of non-compliance -Cardiology consult by Dr. Saavedra appreciated; s/p angioplasty of OM 3 and D 1 as well as stenting of OM 2 and LAD (08/11) -CTA negative for PE; noted moderate bilateral pleural effusions -on Imdur, weaned off NTG drip -on low dose ACEi -continue ASA, statin, Plavix Status: Acute Code(s): I21.4 - Non-ST elevation (NSTEMI) myocardial infarction (2) Congestive heart failure: -Appears to have a new onset, acutely decompensated CHF as evidenced by orthopnea, lower extremity edema, shortness of breath, elevated BNP (2485) and evidence of fluid overload on imaging -Echo: EF=45%, G2DD, + RWMA, moderate-severe MR, trace TR, akinesis of mid inferior wall and inferior base of LV -off IV diuresis; switched to oral Lasix; titrate as needed for optimal response. Received extra dose of Lasix and Metolazone due to worsening SOB -continue to monitor Is & Os, daily weights -continue to monitor renal function, lytes with diuresis -VSS; continue to monitor -Supplemental oxygen as needed, continue to monitor respiratory status -Barnard catheter removed and able to void independently -repeat CXR today shows small bilateral pleural effusions and pulmonary edema Status: Acute Qualifiers: Heart failure chronicity: acute Heart failure type: combined systolic and diastolic Qualified Code(s): I50.41 - Acute combined systolic (congestive) and diastolic (congestive) heart failure Code(s): I50.9 - Heart failure, unspecified (3) Diabetes mellitus: -Has known history of [id number] diabetes mellitus type 2, previously on metformin which he has been noncompliant with -complicated by peripheral neuropathy -A1c is 12, will likely require insulin therapy if agreeable on discharge -on long acting and meal time insulin for more optimal BG control -Accu-Cheks, ISS -Cardiac diabetic diet as tolerated Status: Chronic Qualifiers: Diabetes mellitus complication status: without complication Diabetes mellitus extermination inspector insulin use: without extermination inspector use Diabetes mellitus type: type 2 Qualified Code(s): E11.9 - Type 2 diabetes mellitus without complications Code(s): E11.9 - Type 2 diabetes mellitus without complications (4) Tobacco abuse: -Chronic smoker Status: Chronic Code(s): Z72.0 - Tobacco use (5) Hypertension: -has known hx of HTN, non-compliant with meds -continue to monitor vital signs -continue BB Status: Chronic Qualifiers: Hypertension type: essential hypertension Qualified Code(s): I10 - Essential (primary) hypertension Code(s): I10 - Essential (primary) hypertension Additional A&P Information -Morbid obesity: BMI-35 kg/m2 -hx of polysubstance abuse: THC, benzodiazepines -Clinically no longer ill-appearing, diaphoretic, though remains intermittently tachypneic and tachycardic; no evidence of infection on CT chest, UA negative for infection. Decreasing leukocytosis, lactic acid of 2.2 -L great toe diabetic ulcer; consult by Dr. Will appreciated, wound debrided at bedside, daily dressing change with alginate and gauze -DVT ppx with SCDs, Lovenox -Dispo: home -Code status: FULL code -transfer to CSU once bed available. Attestations Medical Necessity Statement*: Patient requires hospitalization for continued diuresis, monitoring of respiratory and hemodynamic status s/p catherization with intervention. Time Spent in Patient Care: Greater than 35 minutes (>than 50% of time spent in counselling and/or direct pt care on unit) . Coding Level of Care Code Acute Director Information Security for [facility] Fwd Exam Comprehensive Diagnoses Non-ST elevated myocardial infarction (non-STEMI) I21.4 Congestive heart failure I50.41 Heart failure chronicity: acute Heart failure type: combined systolic and diastolic Diabetes mellitus E11.9 Diabetes mellitus complication status: without complication Diabetes mellitus senior care insulin use: without extermination inspector use Diabetes mellitus type: type 2 Tobacco abuse Z72.0 Hypertension I10 Hypertension type: essential hypertension
[2019-08-14] MEDS: FUROsemide 20 mg Tablet PO (15:33)
[2019-08-14] MEDS: enoxaparin 40 mg/0.4 mL Syringe SUBCUT (15:33)
[2019-08-14] MEDS: acetaminophen 325 mg Tablet 650 MG PO (15:53)
[2019-08-14 16:41] LABS: Glucose Point of Care 171 mg/dL (70-110)
[2019-08-14 16:52] LABS: Glucose Point of Care 232 mg/dL (70-110)
--- NOTE | 2019-08-14 17:18 | PC.CHAP ---
Pastoral Care Encounter/Spiritual Assessment Type of Contact [] Declined waitstaff visit [] Patient/Family/Request visit [] Outpatient visit [] Follow-up visit [] Physician referral [] Code/Alert [] Routine visit [] Staff referral [] Actively dying [] Patient sleeping [] Family support [] [] Out of room [] Palliative care [] [x] Receiving care in room [] Pre-surgical visit [] Trauma [] Long length of stay [x] ICU visit [] Other: Relational/Emotional Strength [] Patient feels connected with others/family/visitors/staff [] Distress [] Loneliness/isolation [] Abandonment Spirituality of Patient [] Person of Tlaa [] Attends Taoism of their Tala [] Believes in Prayer [] Reads Bible or Oriental Orthodox materials [] There are Spiritual issues to be addressed Pm Head Cook Interventions [] Prayer [] Active listening [] Non-anxious presence [] Spiritual/emotional support [] Crisis/trauma care [] Spiritual counseling [] Bereavement support [] Provided bereavement packet [] Provided Bible/devotional materials [] Provided toy/stuffed animal, coloring book to patient or family member [] Provided Communion [] Anointing/[place] [] Salvation [] Completed spiritual assessment [] Other: Impact on Illness or Injury [] Angry [] Fearful [] Anxious [] Often cries [] Exhaustion [] Unable to work [] Unable to attend jew [] Unable to walk/stand [] Unable to read [] Unable to drive [] Unable to eat/drink [] Unable to sleep [] Unable to be with family [] Patient intubated [] Other: Summary Patient had nursing staff in the room changing dressings. Referred patient to next waitstaff for a follow up visit. Visit attempted by Pm Head Cook Nimesh Benavidez. Time spent with patient 3 minutes
--- NOTE | 2019-08-14 20:00 | PC.NURSE ---
Shift report Received patient AAOx3. Sitting up in recliner wearing bipap. States that when he sits back without the bipap on he has a continuous cough. Also note at this time that patient is grossly diaphoretic. POC glucose reveals glucose of 98. Pt also c/o feeling shaky. Apple juice given per patient request.
[2019-08-14] MEDS: atorvastatin 40 mg Tablet 80 MG PO (21:37)
[2019-08-14] MEDS: insulin glargine 100 units/1 mL 20 UNIT SUBCUT (21:38)
[2019-08-14] MEDS: trazodone 50 mg Tablet PO (21:49)
--- NOTE | 2019-08-14 22:00 | PC.NURSE ---
POC glucose 168. Diaphoresis and shakiness has resolved. Scheduled Lantus 20 units given however ss insulin not given as patient declined at this time due to earlier s/s of hypoglycemia
[2019-08-15] VITALS (11 sets, daily range): BP systolic 98–118; BP diastolic 56–72; PULSE 69–87; RESP 10–27; TEMP 36.4–37; O2SAT 93–100
[2019-08-15 00:18] LABS: Glucose Point of Care 163 mg/dL (70-110)
[2019-08-15 00:18] LABS: Glucose Point of Care 98 mg/dL (70-110)
[2019-08-15 07:32] LABS: Glucose Point of Care 205 mg/dL (70-110)
[2019-08-15] MEDS: FUROsemide 40 mg Tablet PO ×2 (08:31→17:18)
[2019-08-15] MEDS: isosorbide mononitrate ER 30 mg Tablet 15 MG PO (08:31)
[2019-08-15] MEDS: aspirin 81 mg EC Tablet PO (08:31)
[2019-08-15] MEDS: metoprolol tartrate 25 mg Tablet PO ×2 (08:31→17:19)
[2019-08-15] MEDS: clopidogrel 75 mg Tablet PO (08:31)
[2019-08-15] MEDS: mupirocin oint 22 gm 1 APPLIC TOPICAL (08:35)
[2019-08-15] MEDS: nicotine 7 mg Patch 1 PATCH TRANSDERMA (08:35)
--- NOTE | 2019-08-15 09:08 | PM.PN ---
Subjective Subjective: Interval history: Nimesh is doing okay for the most part. He still struggles at night to breathe and requires the BiPAP mask. Chest x-ray yesterday showed some persistence of the pulmonary edema and small bilateral pleural effusions. Yesterday, he had 2200 mL urine output. His hemoglobin is stable. BUN and creatinine are stable. Blood sugars low to mid 100s. He does not seem to desaturate at night or when he becomes short of breath. Medications: Reviewed: Yes Vitals/I&O/Wt Last Vital Signs Temp 97.6 F 08/15/19 08:44 Pulse 85 08/15/19 08:44 Resp 15 08/15/19 08:44 BP 106/61 08/15/19 08:44 Pulse Ox 94 08/15/19 08:23 08/14/19 08/15/19 08/15/19 22:59 06:59 14:59 Intake Total 1082 / 1442 600 / 2042 240 / 240 Output Total 750 / 750 1150 / 1900 300 / 300 Balance 332 / 692 -550 / 142 -60 / -60 Weight last 48 hrs Weight 253 lb Physical Exam Narrative: EXAM NARRATIVE: GENERAL: In general he looks and feels well. HEENT: Exam within normal limits. NECK: Supple without jugular vein distention. The carotid upstroke is normal without bruits. BACK: Exam normal. LUNGS: Clear. HEART: Regular rate and rhythm. ABDOMEN: Benign without organomegaly or tenderness. EXTREMITIES: No edema. NEUROLOGIC: Exam normal. SKIN: Unremarkable. Urinary Catheter Management^: Barnard: Cath Placed During This Visit: yes Urethral Indwelling: Yes Reason for Continuing Indwelling Catheter: Accurate Measurement of Urinary Output in Critically Ill Patients Urinary Catheter Date of Insertion: 08/09/19 Data : 08/14/19 04:07 08/14/19 04:07 A&P Assessment and plan (1) COPD (chronic obstructive pulmonary disease): Status: Acute Code(s): J44.9 - Chronic obstructive pulmonary disease, unspecified (2) JIMMY (obstructive sleep apnea): Status: Acute Code(s): G47.33 - Obstructive sleep apnea (adult) (pediatric) (3) Mitral regurgitation: Status: Acute Qualifiers: Cardiac valve disease etiology: etiology unspecified Qualified Code(s): I34.0 - Nonrheumatic mitral (valve) insufficiency Code(s): I34.0 - Nonrheumatic mitral (valve) insufficiency (4) Tobacco abuse: Status: Chronic Code(s): Z72.0 - Tobacco use (5) Congestive heart failure: Status: Acute Qualifiers: Heart failure type: combined systolic and diastolic Heart failure chronicity: acute Qualified Code(s): I50.41 - Acute combined systolic (congestive) and diastolic (congestive) heart failure Code(s): I50.9 - Heart failure, unspecified (6) Diabetes mellitus: Status: Chronic Qualifiers: Diabetes mellitus type: type 2 Diabetes mellitus creping machine operator insulin use: without care home use Diabetes mellitus complication status: without complication Qualified Code(s): E11.9 - Type 2 diabetes mellitus without complications Code(s): E11.9 - Type 2 diabetes mellitus without complications (7) Hypertension: Status: Chronic Qualifiers: Hypertension type: essential hypertension Qualified Code(s): I10 - Essential (primary) hypertension Code(s): I10 - Essential (primary) hypertension (8) Non-ST elevated myocardial infarction (non-STEMI): Status: Acute Code(s): I21.4 - Non-ST elevation (NSTEMI) myocardial infarction (9) Acute respiratory failure: Status: Acute Qualifiers: Respiratory failure complication: hypoxia Qualified Code(s): J96.01 - Acute respiratory failure with hypoxia Code(s): J96.00 - Acute respiratory failure, unspecified whether with hypoxia or hypercapnia Additional A&P Information If we can find a bed outside the ICU we should be able to transfer him. He still seems to be somewhat volume overloaded. Need to get him up and around. I will try to diurese him a little bit more by increasing his Lasix in the afternoon. I am going to add some potassium. His blood pressure seems to be tolerating the medications. There is a possibility that the mitral regurgitation is causing the persistent volume overload. If we can get the volume overload cleared up and he still short of breath then we should have pulmonary see him. Attestations Medical Necessity Statement*: Not applicable Coding Level of Care Code Acute Quality Assurance Qa Lab Analyst for [place] Fwd History Detailed Exam Detailed Medical Decision Making Moderate Complexity Diagnoses COPD (chronic obstructive pulmonary disease) J44.9 JIMMY (obstructive sleep apnea) G47.33 Mitral regurgitation I34.0 Cardiac valve disease etiology: etiology unspecified Tobacco abuse Z72.0 Congestive heart failure I50.41 Heart failure type: combined systolic and diastolic Heart failure chronicity: acute Diabetes mellitus E11.9 Diabetes mellitus type: type 2 Diabetes mellitus creping machine operator insulin use: without creping machine operator use Diabetes mellitus complication status: without complication Hypertension I10 Hypertension type: essential hypertension Non-ST elevated myocardial infarction (non-STEMI) I21.4 Acute respiratory failure J96.01 Respiratory failure complication: hypoxia
--- NOTE | 2019-08-15 10:09 | PC.CHAP ---
Pastoral Care Encounter/Spiritual Assessment Type of Contact [] Declined semiconductor technician visit [] Patient/Family/Request visit [] Outpatient visit [] Follow-up visit [] Physician referral [] Code/Alert [x] Routine visit [] Staff referral [] Actively dying [x] Patient sleeping [] Family support [] [] Out of room [] Palliative care [] [] Receiving care in room [] Pre-surgical visit [] Trauma [] Long length of stay [x] ICU visit [] Other: Relational/Emotional Strength [] Patient feels connected with others/family/visitors/staff [] Distress [] Loneliness/isolation [] Abandonment Spirituality of Patient [] Person of Tala [] Attends Sikhism of their Tala [] Believes in Prayer [] Reads Bible or Faith materials [] There are Spiritual issues to be addressed Lap Cutter Interventions [] Prayer [] Active listening [] Non-anxious presence [] Spiritual/emotional support [] Crisis/trauma care [] Spiritual counseling [] Bereavement support [] Provided bereavement packet [] Provided Bible/devotional materials [] Provided toy/stuffed animal, coloring book to patient or family member [] Provided Communion [] Anointing/[place] [] Salvation [x] Completed spiritual assessment [] Other: Impact on Illness or Injury [] Angry [] Fearful [] Anxious [] Often cries [] Exhaustion [] Unable to work [] Unable to attend congregation [] Unable to walk/stand [] Unable to read [] Unable to drive [] Unable to eat/drink [] Unable to sleep [] Unable to be with family [] Patient intubated [] Other: Summary patient resting Time spent with patient
--- NOTE | 2019-08-15 10:54 | P.PN_ITS ---
Subjective Subjective: Interval history: AM labs noted, stable renal function, had 1600 mL urine output overnight, negative fluid balance of 3.2 L. Increased afternoon dose of Lasix for more diuresis per Dr. Saavedra. Intermittently required BiPAP last night, on RA currently. Patient seen and examined, feels well right now, ambulated around the ICU earlier but felt SOB after. Present for dressing change of L great toe which has much less purulence and shaved area is healing well. Will transfer to CSU. Medications: Reviewed: Yes Medication Review Details: Active Medications Generic Name Dose Route Start Last Admin Trade Name Freq PRN Reason Stop Dose Admin Acetaminophen 650 mg 08/14/19 15:45 08/14/19 15:53 Tylenol PO 650 mg Q6H PRN Administration MILD PAIN Aspirin 81 mg 08/09/19 09:00 08/15/19 08:31 Aspirin Ec PO 81 mg DAILY SAMANTHA Administration Atorvastatin Calci um 80 mg 08/08/19 23:20 08/14/19 21:37 Lipitor PO 80 mg BEDTIME SAMANTHA Administration Clopidogrel Bisulf ate 75 mg 08/12/19 09:00 08/15/19 08:31 Plavix PO 75 mg DAILY SAMANTHA Administration Enoxaparin Sodium 40 mg 08/09/19 16:15 08/14/19 15:33 Lovenox SUBCUT 40 mg Q24H SAMANTHA Administration Furosemide 40 mg 08/11/19 08:00 08/15/19 08:31 Lasix PO 40 mg DAILY@0800 SAMANTHA Administration Furosemide 40 mg 08/15/19 15:00 Lasix PO DAILY@1500 SAMANTHA Insulin Aspart 0 unit 08/09/19 08:00 08/15/19 08:32 Novolog SUBCUT Not Given WM&BEDTIME SAMANTHA Protocol Insulin Aspart 15 unit 08/14/19 17:00 08/15/19 08:32 Novolog SUBCUT 15 unit TIDAC SAMANTHA Administration Insulin Glargine 20 unit 08/14/19 21:00 08/14/19 21:38 Lantus SUBCUT 20 unit BEDTIME SAMANTHA Administration Isosorbide Mononit rate 15 mg 08/13/19 12:00 08/15/19 08:31 Imdur PO 15 mg DAILY SAMANTHA Administration Lisinopril 2.5 mg 08/10/19 11:00 08/11/19 08:40 Prinivil PO 2.5 mg DAILY SAMANTHA Administration Lorazepam 0.25 mg 08/09/19 11:11 08/13/19 20:34 Ativan PO 0.25 mg TID PRN Administration ANXIETY Metoprolol Tartrat e 25 mg 08/10/19 18:00 08/15/19 08:31 Lopressor PO 25 mg BID SAMANTHA Administration Mupirocin 1 applic 08/14/19 09:00 08/15/19 08:35 Bactroban TOPICAL 1 applic DAILY SAMANTHA Administration Nicotine 1 patch 08/11/19 18:30 08/15/19 08:35 Nicoderm 7 Mg Pa tch TRANSDERMA 1 patch DAILY SAMANTHA Administration Nitroglycerin 0.4 mg 08/09/19 09:00 Nitrostat SUBLINGUAL Q5M PRN CHEST PAIN Ondansetron HCl 4 mg 08/13/19 00:31 Zofran IVP Q6H PRN NAUSEA AND VOMITI NG Polyethylene Glyco l 17 gm 08/11/19 09:00 08/15/19 08:32 Miralax PO Not Given DAILY SAMANTHA Potassium Chloride 20 meq 08/15/19 09:30 08/15/19 09:40 Klor-Con 10 PO 20 meq DAILY SAMANTHA Administration Trazodone HCl 50 mg 08/13/19 19:12 08/14/19 21:49 Desyrel PO 50 mg BEDTIME PRN Administration INSOMNIA No Known Allergies Allergy (Verified 08/08/19 18:34) Vitals/I&O/Wt Last Vital Signs Temp 97.6 F 08/15/19 08:44 Pulse 80 08/15/19 10:04 Resp 20 H 08/15/19 10:04 BP 107/56 08/15/19 10:04 Pulse Ox 93 08/15/19 10:04 08/14/19 08/15/19 08/15/19 22:59 06:59 14:59 Intake Total 1082 / 1442 600 / 2042 240 / 240 Output Total 750 / 750 1150 / 1900 750 / 750 Balance 332 / 692 -550 / 142 -510 / -510 Weight last 48 hrs Weight 114.759 kg Physical Exam Const: COMMON NORMALS: no apparent distress and oriented x3 GENERAL APPEARANCE: cooperative, comfortable and appears older than stated age; not ill appearing and not diaphoretic ORIENTATION/CONSCIOUSNESS: Yes awake HENMT: COMMON NORMALS: normocephalic, head/scalp atraumatic, hearing grossly normal bilaterally and moist oral mucous membranes HEAD & SCALP: normocephalic and atraumatic Eye: COMMON NORMALS: PERRL, EOMs intact bilaterally and conjunctivae normal CONJUNCTIVA: Yes conjunctivae normal PUPIL: Yes PERRL Neck/C-Spine: COMMON NORMALS: full ROM GENERAL: Yes normal visual inspection and Yes trachea midline Resp: COMMON NORMALS: no retractions and no use of accessory muscles EFFORT & INSPECTION: Yes able to speak in complete sentences and Yes symmetric chest movement AUSCULTATION: diminished lung sounds OTHER: -Exertional shortness of breath, orthopnea has decreased -air entry has improved -intermittently requiring BiPAP due to acutely worsening bouts of SOB Cardio: COMMON NORMALS: regular rate, regular rhythm, S1 normal heart sound, S2 normal heart sound and no murmurs RATE: regular rate RHYTHM: regular rhythm HEART SOUNDS: S1 normal and S2 normal GI: COMMON NORMALS: normal to inspection, nondistended, normoactive bowel sounds, soft to palpation and non-tender PALPATION: Yes soft : BLADDER/KIDNEY EXAM: Yes catheter in place Extremity: COMMON NORMALS: normal to inspection and full ROM; negative for no pedal edema GENERAL: No edema OTHER: -has noted thick callues on bilateral great toes now shaved, healing appropriately with some noted bleeding on R; unroofed blister on L anterior great toe with surrounding erythema now debrided with significantly less purulence -diminished sensation in bilateral LE secondary to neuropathy Neuro: COMMON NORMALS: oriented x3, moves all extremities and no focal motor deficits Psych: COMMON NORMALS: mental status grossly normal, thought process normal, cooperative, affect normal and speech normal APPEARANCE: Yes unkempt SPEECH: Yes normal speech THOUGHT PROCESS: normal thought process Skin: COMMON NORMALS: no rashes or lesions noted, no jaundice, no petechiae and no mottling GENERAL SKIN EXAM: no rashes or lesions noted OTHER: -L great toe has thick callus with unroofed blister anteriorly with noted maceration, erythema and purulent drainage, maceration resolved, minimal erythema and drainage, minimal tenderness to palpation due to neuropathy Urinary Catheter Management^: Barnard: Cath Placed During This Visit: yes Urethral Indwelling: Yes Reason for Continuing Indwelling Catheter: Accurate Measurement of Urinary Output in Critically Ill Patients Urinary Catheter Date of Insertion: 08/09/19 Data : 08/14/19 04:07 08/14/19 04:07 A&P Assessment and plan (1) Non-ST elevated myocardial infarction (non-STEMI): -Noted to have significantly elevated troponins with ST elevation noted in leads III and aVF on EKG; delta greater than 100 -s/p coronary angiogram earlier this AM: 3-vessel CAD with 5+ days old occlusion of RCA with LV dysfunction and CHF. Decided against CABG given patient's young age, comorbidities and hx of non-compliance -Cardiology consult by Dr. Saavedra appreciated; s/p angioplasty of OM 3 and D 1 as well as stenting of OM 2 and LAD (08/11) -CTA negative for PE; noted moderate bilateral pleural effusions -on Imdur, weaned off NTG drip -on low dose ACEi -continue ASA, statin, Plavix Status: Acute Code(s): I21.4 - Non-ST elevation (NSTEMI) myocardial infarction (2) Congestive heart failure: -Appears to have a new onset, acutely decompensated CHF as evidenced by orthopnea, lower extremity edema, shortness of breath, elevated BNP (2485) and evidence of fluid overload on imaging -Echo: EF=45%, G2DD, + RWMA, moderate-severe MR, trace TR, akinesis of mid inferior wall and inferior base of LV -off IV diuresis; switched to oral Lasix; titrate as needed for optimal response. -continue to monitor Is & Os, daily weights -continue to monitor renal function, lytes with diuresis -VSS; continue to monitor -Supplemental oxygen as needed, continue to monitor respiratory status -Barnard catheter removed and able to void independently -repeat CXR (08/14) shows small bilateral pleural effusions and pulmonary edema Status: Acute Qualifiers: Heart failure chronicity: acute Heart failure type: combined systolic and diastolic Qualified Code(s): I50.41 - Acute combined systolic (congestive) and diastolic (congestive) heart failure Code(s): I50.9 - Heart failure, unspecified (3) Diabetes mellitus: -Has known history of [id number] diabetes mellitus type 2, previously on metformin which he has been noncompliant with -complicated by peripheral neuropathy -A1c is 12, will likely require insulin therapy if agreeable on discharge -on long acting and meal time insulin for more optimal BG control -Accu-Cheks, ISS -Cardiac diabetic diet as tolerated Status: Chronic Qualifiers: Diabetes mellitus complication status: without complication Diabetes mellitus assisted insulin use: without assistant terminal manager use Diabetes mellitus type: type 2 Qualified Code(s): E11.9 - Type 2 diabetes mellitus without complications Code(s): E11.9 - Type 2 diabetes mellitus without complications (4) Tobacco abuse: -Chronic smoker Status: Chronic Code(s): Z72.0 - Tobacco use (5) Hypertension: -has known hx of HTN, non-compliant with meds -continue to monitor vital signs -continue BB Status: Chronic Qualifiers: Hypertension type: essential hypertension Qualified Code(s): I10 - Essential (primary) hypertension Code(s): I10 - Essential (primary) hypertension Additional A&P Information -Morbid obesity: BMI-35 kg/m2 -hx of polysubstance abuse: THC, benzodiazepines -Clinically no longer ill-appearing, diaphoretic, though remains intermittently tachypneic; no evidence of infection on CT chest, UA negative for infection. Increasing leukocytosis, lactic acid of 2.2 -L great toe diabetic ulcer; consult by Dr. Will appreciated, wound debrided at bedside, daily dressing change with alginate and gauze -DVT ppx with SCDs, Lovenox -Dispo: home; would not be able to pay for BiPAP (self-pay and expensive) -Code status: FULL code -transfer to CSU once bed available. Attestations Medical Necessity Statement*: Patient requires hospitalization for continued optimization of medication, particularly diuretics given continued bouts of increased shortness of breath requiring BiPAP use. Time Spent in Patient Care: Greater than 35 minutes (>than 50% of time spent in counselling and/or direct pt care on unit) . Coding Level of Care Code Acute Software Development Specialist for g Fwd Exam Comprehensive Diagnoses Non-ST elevated myocardial infarction (non-STEMI) I21.4 Congestive heart failure I50.41 Heart failure chronicity: acute Heart failure type: combined systolic and diastolic Diabetes mellitus E11.9 Diabetes mellitus complication status: without complication Diabetes mellitus assistant terminal manager insulin use: without assistant terminal manager use Diabetes mellitus type: type 2 Tobacco abuse Z72.0 Hypertension I10 Hypertension type: essential hypertension
[2019-08-15 11:35] LABS: Glucose Point of Care 216 mg/dL (70-110)
--- NOTE | 2019-08-15 13:29 | PC.NURSE ---
Transfer to floor Patient transferred to [facility] via wheelchair. Report called to RAMIRO Zaidi. Patient oriented to room and call light within reach. Chart given to nurse including stent placement card. All belongings sent with patient.
[2019-08-15 16:42] LABS: Glucose Point of Care 147 mg/dL (70-110)
[2019-08-15] MEDS: enoxaparin 40 mg/0.4 mL Syringe SUBCUT (17:17)
[2019-08-15] MEDS: LORazepam 0.5 mg Tablet 0.25 MG PO (17:17)
[2019-08-15 20:00] LABS: Glucose Point of Care 254 mg/dL (70-110)
--- NOTE | 2019-08-15 20:27 | XRR_ITS ---
PROCEDURE INFORMATION: Exam: XR Chest, 1 View Exam date and time: 08/15/2019 9:07 PM Age: 49 years old Clinical indication: Shortness of breath; Additional info: Resp distress post stent TECHNIQUE: Imaging protocol: XR of the chest Views: Frontal portable upright view of the chest. COMPARISON: CR XR chest 1V portable [id number] 08/14/2019 8:03 AM FINDINGS: Lungs: Stable heterogeneous air space opacities predominating in the parahilar regions and lung bases, greater on the right. The pulmonary vasculature remains congested. Pleural space: Increased small RIGHT pleural effusion. No pneumothorax. Heart/Mediastinum: The heart is normal in size and contour. Mediastinum: Stable. Bones/joints: Stable. XR/XR chest 1V portable [id number] IMPRESSION: 1. Stable bilateral pulmonary infiltrates, pneumonitis versus atypical pulmonary edema. Clinical correlation is recommended. 2. Persistent pulmonary vascular congestion. 3. Increased small RIGHT pleural effusion.
[2019-08-15 20:37] LABS: ABG PCO2 46.6 mmHg (35-45); ABG PH Result 7.41 (7.35-7.45); Arterial Blood Gas Hematocrit 44.8 % (42-52); Base Excess ABG 3.7 mmol/L (-2.0-2.0); Blood Gas Allen Test Pos; Blood Gas Sample Site Radial, right; Blood Gas Sample Type Arterial; Glucose Point of Care 315 mg/dL (70-110); HCO3 ABG 29.2 mmol/L (22-26); Oxygen Device BIPAP; PO2 ABG 63.7 mmHg (80.0-100.0)
[2019-08-15 20:37] LABS: Glucose Point of Care 266 mg/dL (70-110)
--- NOTE | 2019-08-15 20:46 | P.PNCC_ITS ---
Critical Care Event Note Critical Care Event The high probability of a clinically significant, sudden or life threatening deterioration of the patient's cardiopulmonary system(s) required my full and direct attention, intervention and personal management. The critical care time is as shown. This time is in addition to time spent performing any reported procedures but includes the following: x Data and vital sign review and interpretation x Patient assessment, examination and intervention x Documentation x Medication orders and management Called emergently yo bedside with patient diaphoretic, struggling to breath, ashen in appearance. Came on suddenly. BS around 300. Output last shift was 1900 but only negative about 150 from what I can ascertain. His Lasix was increased today to include 40mg of oral at around 3pm after the 40mg po this am. BP was 146/96, P 69 and 96% on 40% fio2 on bipap. RR 33. Sitting in tripod position. No chest pain. C/O back pain left side without radiation. No nausea but has a headache. Anxious. Stat EKG without obvious acute change on my interpretation but suboptimal quality due to position. Stat labs ordered. Lungs with some bibasilar tales, no wheezes, but is getting up some thick but clear looking yellowish phlegm. Stat ABG 7.406/46.6/63.7/29.2. Chart reviewed. Has had similar events at night while here. I am not sure that this one looks differently. He was moved out of ICU today. CXR . I will give an extra dose of Lasix IV for now. May benefit from some breathing treatments, but without current wheezes not sure the potential benefits outweighs the potential risks including tachycardia and worsening anxiety. Will add as prn only given then thick mucus. A flutter device may help break up the mucus. Clinically seems more volume related. I am going to repeat troponins and EKGs given the severity of the event and recent stent plus angioplasty. Stat CXR per my interpretation with increased opacity in right upper lobe, possibly edema but cannot rule out infiltrate at this point. Right base opacities persist but left base clearer. Still with perihilar fullness. Will cover with oral doxycycline. Had blood cultures collected earlier in hospital stay. No fevers. I did order one time dose of xanax as well. After watching patient for a while, he seems to be calming down and overall doing better though still sob. Sats are stable, respiratory rate into the 20s. Not diaphoretic anymore. Still with some back pain on left, but no acute EKG changes. On lovenox prophylaxis and received last dose around 5pm. Will continue close monitoring on CSU for now. Added strict I&Os to current orders. Weight up ~1 pound from admission. Cumulative I&Os -2849 since admit. Critical Care Time Critical Care Time: Code activated: No Critical Care Time (min): 38 Coding Level of Care Code Acute Inspector And Hand Packager for Chester Santos
--- NOTE | 2019-08-15 20:59 | PC.NURSE ---
At 2029 patient started c/o increased shortness of breath. Called respiratory to assess, patient on BIPAP sitting up in chair. On assessment, patient is extremely diaphoretic denies chest pain. Informed Dr Morris of patient condition. Dr placed orders and came to see patient. Patient remains on bipap and continues to c/o sob however does state, I am feeling better. Patient is coughing of yellow sputum in small amounts at this time. EKG, ABG, labs, and portable chest xray done. Waiting results. Will continue to monitor.
[2019-08-15 21:31] LABS: Lactic Sepsis W/Reflex 1.6 mmol/L (0.5-2.2)
[2019-08-15] MEDS: ALPRAZolam 0.25 mg Tablet PO (21:35)
[2019-08-15] MEDS: insulin glargine 100 units/1 mL 20 UNIT SUBCUT (21:35)
[2019-08-15] MEDS: FUROsemide 10 mg/mL SDV 4mL 40 MG IVP (21:35)
[2019-08-15] MEDS: atorvastatin 40 mg Tablet 80 MG PO (21:35)
[2019-08-15 21:43] LABS: Alanine Aminotransferase 26 U/L (0-41); Alkaline Phosphatase 124 IU/L (40-130); Anion Gap 18.3 (5-19); Aspartate Amino Transferase 18 U/L (0-40); Blood Urea Nitrogen 27 mg/dL (6-20); Calcium 9.4 mg/dL (8.5-10.5); Carbon Dioxide 27 mmol/L (22-29); Chloride 84 mmol/L (98-107); Glomerular Filtration Rate 64.9 mL/min (90-130); Glucose 273 mg/dL (65-115); NT Pro B Type Natriuretic Pept 1948 pg/mL (0-125); Potassium 4.3 mmol/L (3.5-5.1); Sodium 125 mmol/L (136-145); Total Bilirubin 0.4 mg/dL (0.15-1.2)
--- NOTE | 2019-08-15 21:47 | PC.NURSE ---
Patient remains up in chair. Bipap on. Medications given as ordered. Patient less distressed. Will continue to monitor.
[2019-08-15 21:48] LABS: Troponin(5th) Baseline 1514 ng/mL (0-15)
--- NOTE | 2019-08-15 22:28 | ECG_ITS ---
Measurements Intervals [place] Rate: 71 P: 68 WI: 190 QRS: -46 QRSD: 101 T: 0 QT: 389 QTc: 424 SINUS RHYTHM INFERIOR MYOCARDIAL INFARCTION [40+ ms Q WAVE AND/OR ST/T ABNORMALITY IN II/aVF], OF INDETERMINATE AGE Compared to ECG 08/09/2019 22:11:15 No significant changes Electronically Signed On 08-16-2019 15:20:14 TANK FARM OPERATOR by Ian Saavedra M.D. [email or web address]
--- NOTE | 2019-08-15 22:37 | PC.NURSE ---
Patient stood up to pee on the floor. Large volume observed. Housekeeping called.
[2019-08-15] MEDS: acetaminophen 325 mg Tablet 650 MG PO (23:26)
[2019-08-15 23:47] LABS: Troponin 5 2HR 1622 ng/mL (0-15); Troponin 5 2HR Delta 108 ABS# (0-10)
[2019-08-16] VITALS (14 sets, daily range): BP systolic 96–123; BP diastolic 57–81; PULSE 68–82; RESP 17–29; TEMP 36.5–37.2; O2SAT 94–100
--- NOTE | 2019-08-16 00:51 | PC.NURSE ---
Patient continues to sit in chair. Patient is currently off his bipap and on 2.5L O2 via NC with SpO2 at 98%. Patient stated, I am starving now. Provided jello, peanut butter and cracker. RT in to see patient and decreased O2 to 2L NC with SpO2 at 95%. Patient denies increased work of breathing at this time. Will continue to monitor.
--- NOTE | 2019-08-16 02:28 | ECG_ITS ---
Measurements Intervals [place] Rate: 67 P: 34 CA: 163 QRS: -20 QRSD: 97 T: 148 QT: 385 QTc: 408 SINUS RHYTHM LOW QRS VOLTAGE IN EXTREMITY LEADS [QRS DEFLECTION < 0.5 mV IN LIMB LEADS] INFERIOR MYOCARDIAL INFARCTION [40+ ms Q WAVE AND/OR ST/T ABNORMALITY IN II/aVF], OF INDETERMINATE AGE Compared to ECG 08/09/2019 22:11:15 No significant changes Electronically Signed On 08-16-2019 15:22:21 ART HISTORY INSTRUCTOR by Ian Saavedra M.D. [email or web address]
[2019-08-16 03:55] LABS: Basophils % 0.2 %; Eosinophils % 0.3 %; Hematocrit 37.6 % (42.0-52.0); Hemoglobin 12.4 g/dL (11.7-16.6); Lymphocytes # 2.8 10^3/uL (0.8-4.8); Lymphocytes % 21.8 %; Mean Corpuscular Hemoglobin 28.1 pg (28.0-34.0); Mean Corpuscular Volume 85.3 fL (80-94); Mean Platelet Volume 8.7 fL (7.4-10.4); Monocytes # 0.7 10^3/uL (0.2-0.9); Monocytes % 5.6 %; Neutrophils # 9.1 10^3/uL (1.8-7.7); Neutrophils % 71.5 %; Nucleated Red Blood Cells % 0 %; Platelet Count 580 10^3/cmm (130-400); Red Blood Count 4.41 10^6/uL (4.1-5.3); Red Cell Distribution Width 12.1 % (12.1-15.1); White Blood Count 12.8 10^3/uL (4.0-10.0)
--- NOTE | 2019-08-16 03:58 | PC.NURSE ---
Patient up to bathroom. Currently on 2L NC. No distress observed.
[2019-08-16 04:11] LABS: Anion Gap 16.7 (5-19); Blood Urea Nitrogen 26 mg/dL (6-20); Calcium 9.1 mg/dL (8.5-10.5); Carbon Dioxide 26 mmol/L (22-29); Chloride 88 mmol/L (98-107); Glomerular Filtration Rate 90.4 mL/min (90-130); Glucose 197 mg/dL (65-115); Osmolality Calculated 264 mOsm/kg (285-295); Potassium 4.7 mmol/L (3.5-5.1); Sodium 126 mmol/L (136-145)
[2019-08-16 05:44] LABS: Glucose Point of Care 193 mg/dL (70-110)
[2019-08-16] MEDS: LORazepam 0.5 mg Tablet 0.25 MG PO ×3 (05:49→21:29)
[2019-08-16 06:42] LABS: Glucose Point of Care 187 mg/dL (70-110)
[2019-08-16] MEDS: FUROsemide 40 mg Tablet PO ×2 (07:51→16:38)
[2019-08-16] MEDS: aspirin 81 mg EC Tablet PO (07:51)
[2019-08-16] MEDS: clopidogrel 75 mg Tablet PO (07:52)
[2019-08-16] MEDS: doxycycline 100 mg Tablet PO ×2 (07:52→18:26)
[2019-08-16] MEDS: metoprolol tartrate 25 mg Tablet PO ×2 (07:53→18:26)
[2019-08-16] MEDS: nicotine 7 mg Patch 1 PATCH TRANSDERMA (07:53)
--- NOTE | 2019-08-16 08:08 | PM.PN ---
Subjective Subjective: Interval history: Nimesh had another episode of shortness of breath last evening. He was asleep in the chair, had a bad dream and then woke up in a panic. He became short of breath and diaphoretic. Dr. Morris was called. Please see her detailed note in the chart which I appreciate. A blood gas was done which showed a PO2 of 63, PCO2 of 46 and a pH is 7.41.Another set of troponins were done. The baseline was 1514 and the 2-hour troponin was 1622. His admission troponin baseline was 1942, 2-hour was 1885 and the 6-hour was 1812. The BNP from last night was 1948. The chest x-ray last evening did not look quite as bad as the one from early in the morning of the . There was actually less pulmonary vascular redistribution. Medications: Reviewed: Yes Vitals/I&O/Wt Last Vital Signs Temp 97.7 F 08/15/19 23:19 Pulse 71 08/16/19 07:47 Resp 29 H 08/16/19 07:47 BP 96/69 08/16/19 07:47 Pulse Ox 100 08/16/19 07:47 08/15/19 08/16/19 08/16/19 22:59 06:59 14:59 Intake Total 120 / 720 342 / 1062 Balance 120 / -30 342 / 312 Weight last 48 hrs Weight 252 lb Physical Exam Narrative: EXAM NARRATIVE: GENERAL: In general he looks well and feels well sitting up eating breakfast not short of breath HEENT: Exam within normal limits. NECK: Supple without jugular vein distention. The carotid upstroke is normal without bruits. BACK: Exam normal. LUNGS: Clear. HEART: Regular rate and rhythm. ABDOMEN: Benign without organomegaly or tenderness. EXTREMITIES: No edema. NEUROLOGIC: Exam normal. SKIN: Unremarkable. Urinary Catheter Management^: Barnard: Cath Placed During This Visit: yes Urethral Indwelling: Yes Reason for Continuing Indwelling Catheter: Accurate Measurement of Urinary Output in Critically Ill Patients Urinary Catheter Date of Insertion: 08/09/19 Data : 08/16/19 03:03 08/16/19 03:03 A&P Assessment and plan (1) COPD (chronic obstructive pulmonary disease): Status: Acute Code(s): J44.9 - Chronic obstructive pulmonary disease, unspecified (2) JIMMY (obstructive sleep apnea): Status: Acute Code(s): G47.33 - Obstructive sleep apnea (adult) (pediatric) (3) Mitral regurgitation: Status: Acute Qualifiers: Cardiac valve disease etiology: etiology unspecified Qualified Code(s): I34.0 - Nonrheumatic mitral (valve) insufficiency Code(s): I34.0 - Nonrheumatic mitral (valve) insufficiency (4) Tobacco abuse: Status: Chronic Code(s): Z72.0 - Tobacco use (5) Congestive heart failure: Status: Acute Qualifiers: Heart failure type: combined systolic and diastolic Heart failure chronicity: acute Qualified Code(s): I50.41 - Acute combined systolic (congestive) and diastolic (congestive) heart failure Code(s): I50.9 - Heart failure, unspecified (6) Diabetes mellitus: Status: Chronic Qualifiers: Diabetes mellitus type: type 2 Diabetes mellitus residential insulin use: without exterminator helper use Diabetes mellitus complication status: without complication Qualified Code(s): E11.9 - Type 2 diabetes mellitus without complications Code(s): E11.9 - Type 2 diabetes mellitus without complications (7) Non-ST elevated myocardial infarction (non-STEMI): Status: Acute Code(s): I21.4 - Non-ST elevation (NSTEMI) myocardial infarction (8) Hypertension: Status: Chronic Qualifiers: Hypertension type: essential hypertension Qualified Code(s): I10 - Essential (primary) hypertension Code(s): I10 - Essential (primary) hypertension (9) Acute respiratory failure: Status: Acute Qualifiers: Respiratory failure complication: hypoxia Qualified Code(s): J96.01 - Acute respiratory failure with hypoxia Code(s): J96.00 - Acute respiratory failure, unspecified whether with hypoxia or hypercapnia Additional A&P Information I am not entirely certain what to make of these episodes. His initial echo showed an ejection fraction of about 45% without any significant left ventricular dysfunction. He did have 3+ MR. He asked me this morning whether these episodes could be related to anxiety and panic attacks. They do not make a great deal of sense given the degree of left ventricular dysfunction. The only cardiac cause to these could be the mitral regurgitation. This is supported by the chest x-rays which have shown continued volume overload. I am also not certain what to make of the troponins from last night. It is hard to tell whether these represent new troponin leak or whether it continues to come down from the original infarct. Today I am going to repeat his echo to see what his LV function looks like and evaluate the severity of the MR. Perhaps we should have pulmonary see him just to make sure were not missing anything lung maria. It is somewhat interesting that these episodes only occur at night and are worse when he gets in bed but they do also occur when he sitting up in a chair at night. They do not seem to happen when he sitting up in a chair during the day wide-awake. Attestations Medical Necessity Statement*: Not applicable Coding Level of Care Code Acute Mold Cutting Machine Operator for Chg Fwd History Comprehensive Exam Comprehensive Medical Decision Making High Complexity Diagnoses COPD (chronic obstructive pulmonary disease) J44.9 JIMMY (obstructive sleep apnea) G47.33 Mitral regurgitation I34.0 Cardiac valve disease etiology: etiology unspecified Tobacco abuse Z72.0 Congestive heart failure I50.41 Heart failure type: combined systolic and diastolic Heart failure chronicity: acute Diabetes mellitus E11.9 Diabetes mellitus type: type 2 Diabetes mellitus residential insulin use: without exterminator helper use Diabetes mellitus complication status: without complication Non-ST elevated myocardial infarction (non-STEMI) I21.4 Hypertension I10 Hypertension type: essential hypertension Acute respiratory failure J96.01 Respiratory failure complication: hypoxia
--- NOTE | 2019-08-16 08:20 | USCV_ITS ---
Nimesh Prasad Age: 49 Gender: M : 1970 Exam Date: 08/16/2019 08:33 Ordering Phys: Ian Saavedra MD ([email or web address]) Technologist: Saurav Palma [place] [facility] [place] ? MR BP: 96 / 69 HR: 47 Rhythm: Sinus Technical Quality: Adequate MEASUREMENTS (Male / Female) Normal Values 2D ECHO LV Diastolic Diameter PLAX 3.9 cm 4.2 - 5.9 / 3.9 - 5.3 cm LV Systolic Diameter PLAX 2.4 cm IVS Diastolic Thickness 1.0 cm 0.6 - 1.0 / 0.6 - 0.9 cm IVS Systolic Thickness 1.1 cm LVPW Diastolic Thickness 0.9 cm 0.6 - 1.0 / 0.6 - 0.9 cm LVPW Systolic Thickness 1.1 cm LVOT Diameter 2.4 cm LV Ejection Fraction 2D Teich 71.5 % LV Ejection Fraction MOD 2C 29.2 % LV Ejection Fraction 2C AL 29.7 % LA Diameter 4.3 cm LA Width 5.1 cm LA Height 6.6 cm RA Width 3.6 cm RA Height 4.8 cm M-MODE LV Diastolic Diameter MM 5.9 cm 4.2 - 5.9 / 3.9 - 5.3 cm LV Systolic Diameter MM 3.4 cm LV Ejection Fraction MM Teich 71.7 % IVS Diastolic Thickness MM 1.3 cm 0.6 - 1.0 / 0.6 - 0.9 cm IVS Systolic Thickness MM 2.2 cm LVPW Diastolic Thickness MM 1.1 cm 0.6 - 1.0 / 0.6 - 0.9 cm LVPW Systolic Thickness MM 1.7 cm RV Diastolic Diameter MM 1.8 cm Aortic Annulus Diameter 3.6 cm LA Ao Ratio MM 1.2 MV E Point Septal Separation 1.2 cm DOPPLER AV Peak Velocity 129.0 cm/s LVOT Peak Velocity 82.0 cm/s AV Area Cont Eq vti 3.0 cm squared AV Area Cont Eq pk 2.9 cm squared TR Peak Velocity 156.0 cm/s TR Peak Gradient 9.7 mmHg TR Mean Velocity 0.0 cm/s TR Mean Gradient 0.0 mmHg TR Velocity Time Integral 0.0 cm TV Peak E Velocity 64.0 cm/s Right Atrial Pressure 8.0 mmHg Pulmonary Artery Systolic Pressu 17.7 mmHg PV Peak Velocity 72.0 cm/s FINDINGS Left Ventricle Normal left ventricular cavity size. Normal left ventricular wall thickness. Mildly decreased left ventricular systolic function. Regional wall motion abnormalities (see diagram). Grade I/IV diastolic dysfunction (abnormal relaxation filling pattern), normal to mildly elevated filling pressures. Left ventricular ejection fraction is estimated at 45 %. There is severe hypokinesis of the inferior base, mid inferior wall. Right Ventricle Normal right ventricular size and systolic function. Normal right ventricular systolic pressure. Right Atrium The right atrium is normal in size. Left Atrium Mildly increased left atrial size. Mitral Valve Structurally normal mitral valve. Moderate-severe mitral valve regurgitation. Aortic Valve Structurally normal aortic valve without significant sclerosis or stenosis. There is no aortic regurgitation. Tricuspid Valve Structurally normal tricuspid valve. Trace tricuspid valve regurgitation. Pulmonic Valve Pulmonic valve not well visualized. Pericardium Normal pericardium without effusion. Aorta Normal ascending aorta dimension. CONCLUSIONS Normal left ventricular cavity size. Normal left ventricular wall thickness. Mildly decreased left ventricular systolic function. Regional wall motion abnormalities (see diagram). Grade I/IV diastolic dysfunction (abnormal relaxation filling pattern), normal to mildly elevated filling pressures. Left ventricular ejection fraction is estimated at 45 %. There is severe hypokinesis of the inferior base, mid inferior wall. Mildly increased left atrial size. Structurally normal mitral valve. Moderate-severe mitral valve regurgitation. Compared to the previous echo done 1 week ago the left ventricular function is normal and there is persistence of the moderate to severe mitral regurgitation. Dr. Ian Saavedra MD (Electronically Signed) Final Date: 16 August 2019 09:42 S
[2019-08-16] MEDS: ipratropium-albuterol 3 mL Neb INHALATION ×2 (09:02→21:44)
--- NOTE | 2019-08-16 10:22 | PC.NURSE ---
Pt had a run of non-sustained vtach 9 beats Pt is sitting in his chair and complaining of being anxious. Notified. Bipap back on.
--- NOTE | 2019-08-16 10:32 | PM.PN ---
Subjective Subjective: Interval history: Had another episode of increased shortness of breath last night. Required BiPAP and additional diuresis with Lasix. Also received a dose of Ativan. Remains on BiPAP. Case discussed with Dr. Saavedra early this morning, will repeat echo for evaluation of mitral regurgitation and EF. No documentation of overnight urine output. Briefly discussed with Dr. Morris and documentation reviewed and appreciated. Started on doxycycline empirically, chest x-ray shows persistent vascular congestion possible pneumonitis. Slightly increased leukocytosis noted this a.m. He is quite short of breath during my bedside assessment, family is present, hypoxic with saturation in the mid 80s. Visibly appears quite anxious. Placed on BiPAP and given dose of Ativan and finally able to get comfortable. Had a long discussion with family to update them on patient's care plan. It seems that patient has a history of mental health issues and anxiety which is likely playing a role in his symptoms. He does much better during the day with some intermittent use of BiPAP though today seems to be quite anxious. I am unsure if symptoms are all related to his cardiac issues as they seem quite inconsistent. Will discuss case further with Dr. Nguyen to determine if underlying pulmonary issues are playing a role. Medications: Reviewed: Yes Medication Review Details: Active Medications Generic Name Dose Route Start Last Admin Trade Name Freq PRN Reason Stop Dose Admin Acetaminophen 650 mg 08/14/19 15:45 08/15/19 23:26 Tylenol PO 650 mg Q6H PRN Administration MILD PAIN Albuterol/Ipratrop ium 3 ml 08/15/19 21:13 08/16/19 09:02 Duoneb INHALATION 3 ml Q6H.RESPIRATORY P RN Administration SHORTNESS OF JORDYN TH Aspirin 81 mg 08/09/19 09:00 08/16/19 07:51 Aspirin Ec PO 81 mg DAILY SAMANTHA Administration Atorvastatin Calci um 80 mg 08/08/19 23:20 08/15/19 21:35 Lipitor PO 80 mg BEDTIME SAMANTHA Administration Clopidogrel Bisulf ate 75 mg 08/12/19 09:00 08/16/19 07:52 Plavix PO 75 mg DAILY SAMANTHA Administration Doxycycline Monohy drate 100 mg 08/16/19 09:00 08/16/19 07:52 Vibramycin PO 100 mg BID SAMANTHA Administration Protocol Enoxaparin Sodium 40 mg 08/09/19 16:15 08/15/19 17:17 Lovenox SUBCUT 40 mg Q24H SAMANTHA Administration Furosemide 40 mg 08/11/19 08:00 08/16/19 07:51 Lasix PO 40 mg DAILY@0800 SAMANTHA Administration Furosemide 40 mg 08/15/19 15:00 08/15/19 17:18 Lasix PO 40 mg DAILY@1500 SAMANTHA Administration Insulin Aspart 0 unit 08/09/19 08:00 08/16/19 07:49 Novolog SUBCUT 8 unit WM&BEDTIME SAMANTHA Administration Protocol Insulin Aspart 15 unit 08/14/19 17:00 08/16/19 05:49 Novolog SUBCUT 15 unit TIDAC [facility] Administration Insulin Glargine 20 unit 08/14/19 21:00 08/15/19 21:35 Lantus SUBCUT 20 unit BEDTIME [facility] Administration Isosorbide Mononit rate 15 mg 08/13/19 12:00 08/15/19 08:31 Imdur PO 15 mg DAILY SAMANTHA Administration Lisinopril 2.5 mg 08/10/19 11:00 08/11/19 08:40 Prinivil PO 2.5 mg DAILY [facility] Administration Lorazepam 0.25 mg 08/09/19 11:11 08/16/19 05:49 Ativan PO 0.25 mg TID PRN Administration ANXIETY Metoprolol Tartrat e 25 mg 08/10/19 18:00 08/16/19 07:53 Lopressor PO 25 mg BID [facility] Administration Mupirocin 1 applic 08/14/19 09:00 08/15/19 08:35 Bactroban TOPICAL 1 applic DAILY [facility] Administration Nicotine 1 patch 08/11/19 18:30 08/16/19 07:53 Nicoderm 7 Mg Pa tch TRANSDERMA 1 patch DAILY [facility] Administration Nitroglycerin 0.4 mg 08/09/19 09:00 Nitrostat SUBLINGUAL Q5M PRN CHEST PAIN Ondansetron HCl 4 mg 08/13/19 00:31 Zofran IVP Q6H PRN NAUSEA AND VOMITI NG Polyethylene Glyco l 17 gm 08/11/19 09:00 08/16/19 09:19 Miralax PO Not Given DAILY [facility] Potassium Chloride 20 meq 08/15/19 09:30 08/16/19 07:54 Klor-Con 10 PO 20 meq DAILY [facility] Administration Trazodone HCl 50 mg 08/13/19 19:12 08/14/19 21:49 Desyrel PO 50 mg BEDTIME PRN Administration INSOMNIA No Known Allergies Allergy (Verified 08/08/19 18:34) Vitals/I&O/Wt Last Vital Signs Temp 97.7 F 08/15/19 23:19 Pulse 71 08/16/19 09:13 Resp 25 H 08/16/19 09:11 BP 96/69 08/16/19 07:47 Pulse Ox 99 08/16/19 09:11 08/15/19 08/16/19 08/16/19 22:59 06:59 14:59 Intake Total 120 / 720 342 / 1062 240 / 240 Balance 120 / -30 342 / 312 240 / 240 Weight last 48 hrs Weight 114.305 kg Physical Exam Const: COMMON NORMALS: no apparent distress and oriented x3 GENERAL APPEARANCE: cooperative, comfortable and appears older than stated age; not ill appearing and not diaphoretic ORIENTATION/CONSCIOUSNESS: Yes awake HENMT: COMMON NORMALS: normocephalic, head/scalp atraumatic, hearing grossly normal bilaterally and moist oral mucous membranes HEAD & SCALP: normocephalic and atraumatic Eye: COMMON NORMALS: PERRL, EOMs intact bilaterally and conjunctivae normal CONJUNCTIVA: Yes conjunctivae normal PUPIL: Yes PERRL Neck/C-Spine: COMMON NORMALS: full ROM GENERAL: Yes normal visual inspection and Yes trachea midline Resp: COMMON NORMALS: no retractions and no use of accessory muscles EFFORT & INSPECTION: Yes able to speak in complete sentences and Yes symmetric chest movement AUSCULTATION: diminished lung sounds OTHER: -Exertional shortness of breath, orthopnea has decreased -air entry has improved -intermittently requiring BiPAP due to acutely worsening bouts of SOB Cardio: COMMON NORMALS: regular rate, regular rhythm, S1 normal heart sound, S2 normal heart sound and no murmurs RATE: regular rate RHYTHM: regular rhythm HEART SOUNDS: S1 normal and S2 normal GI: COMMON NORMALS: normal to inspection, nondistended, normoactive bowel sounds, soft to palpation and non-tender PALPATION: Yes soft : BLADDER/KIDNEY EXAM: Yes catheter in place Extremity: COMMON NORMALS: normal to inspection and full ROM; negative for no pedal edema GENERAL: No edema OTHER: -has noted thick callues on bilateral great toes now shaved, healing appropriately with some noted bleeding on R; unroofed blister on L anterior great toe with surrounding erythema now debrided with significantly less purulence -diminished sensation in bilateral LE secondary to neuropathy Neuro: COMMON NORMALS: oriented x3, moves all extremities and no focal motor deficits Psych: COMMON NORMALS: mental status grossly normal, thought process normal, cooperative, affect normal and speech normal APPEARANCE: Yes unkempt SPEECH: Yes normal speech THOUGHT PROCESS: normal thought process Skin: COMMON NORMALS: no rashes or lesions noted, no jaundice, no petechiae and no mottling GENERAL SKIN EXAM: no rashes or lesions noted OTHER: -L great toe has thick callus with unroofed blister anteriorly with noted maceration, erythema and purulent drainage, maceration resolved, minimal erythema and drainage, minimal tenderness to palpation due to neuropathy Urinary Catheter Management^: Barnard: Cath Placed During This Visit: yes Urethral Indwelling: Yes Reason for Continuing Indwelling Catheter: Accurate Measurement of Urinary Output in Critically Ill Patients Urinary Catheter Date of Insertion: 08/09/19 Data : 08/16/19 03:03 08/16/19 03:03 A&P Assessment and plan (1) Non-ST elevated myocardial infarction (non-STEMI): -Noted to have significantly elevated troponins with ST elevation noted in leads III and aVF on EKG; delta greater than 100 -s/p coronary angiogram earlier this AM: 3-vessel CAD with 5+ days old occlusion of RCA with LV dysfunction and CHF. Decided against CABG given patient's young age, comorbidities and hx of non-compliance -Cardiology consult by Dr. Saavedra appreciated; s/p angioplasty of OM 3 and D 1 as well as stenting of OM 2 and LAD (08/11) -CTA negative for PE; noted moderate bilateral pleural effusions -on Imdur, weaned off NTG drip -on low dose ACEi -continue ASA, statin, Plavix Status: Acute Code(s): I21.4 - Non-ST elevation (NSTEMI) myocardial infarction (2) Dyspnea on minimal exertion: -Continues to have this intermittent episodes of acutely worsening shortness of breath with minimal exertion, seems to be an issue at night has had some episodes during the day as well. Improved with use of BiPAP and additional diuresis -Definite component of anxiety as well; continue anxiolytics as needed -Unclear if this is cardiac related or multifactorial, likely the latter. Will discuss case with Dr. Nguyen later today to determine if underlying lung disease is playing a role in his symptoms. -Noted possible pneumonitis on chest x-ray (08/15), so started on empiric doxycycline -Pulmonary toilet, neb treatments as needed -Continued close monitoring of respiratory status, supplemental oxygen as needed Status: Acute Code(s): R06.09 - Other forms of dyspnea (3) Congestive heart failure: -Appears to have a new onset, acutely decompensated CHF as evidenced by orthopnea, lower extremity edema, shortness of breath, elevated BNP (5) and evidence of fluid overload on imaging. Repeat BNP-1947 -Echo: EF=45%, G2DD, + RWMA, moderate-severe MR, trace TR, akinesis of mid inferior wall and inferior base of LV. Repeat echo done earlier today shows ejection fraction of 45%, G1DD, +RWMA, moderate-severe TR, trace TR, severe hypokinesis of the inferior base, mid inferior wall -off IV diuresis; switched to oral Lasix; titrate as needed for optimal response. He has intermittently required IV Lasix overnight -continue to monitor Is & Os, daily weights -continue to monitor renal function, lytes with diuresis -VSS; continue to monitor -Supplemental oxygen as needed, continue to monitor respiratory status -Barnard catheter removed and able to void independently -repeat CXR (08/15) shows stable bilateral pulmonary infiltrates, pneumonitis vs. atypical pulmonary edema. Per my review, improved pulmonary vascular congestion -Doxycycline added for empiric coverage of pneumonitis Status: Acute Qualifiers: Heart failure chronicity: acute Heart failure type: combined systolic and diastolic Qualified Code(s): I50.41 - Acute combined systolic (congestive) and diastolic (congestive) heart failure Code(s): I50.9 - Heart failure, unspecified (4) Diabetes mellitus: -Has known history of [id number] diabetes mellitus type 2, previously on metformin which he has been noncompliant with -complicated by peripheral neuropathy -A1c is 12, will likely require insulin therapy if agreeable on discharge -on long acting and meal time insulin for more optimal BG control -Accu-Cheks, ISS -Cardiac diabetic diet as tolerated Status: Chronic Qualifiers: Diabetes mellitus complication status: without complication Diabetes mellitus jail insulin use: without lobsterman use Diabetes mellitus type: type 2 Qualified Code(s): E11.9 - Type 2 diabetes mellitus without complications Code(s): E11.9 - Type 2 diabetes mellitus without complications (5) Tobacco abuse: -Chronic smoker Status: Chronic Code(s): Z72.0 - Tobacco use (6) Hypertension: -has known hx of HTN, non-compliant with meds -continue to monitor vital signs -continue BB Status: Chronic Qualifiers: Hypertension type: essential hypertension Qualified Code(s): I10 - Essential (primary) hypertension Code(s): I10 - Essential (primary) hypertension Additional A&P Information -Morbid obesity: BMI-35 kg/m2 -hx of polysubstance abuse: THC, benzodiazepines -Clinically no longer ill-appearing, diaphoretic, though remains intermittently tachypneic; no evidence of infection on CT chest, UA negative for infection. Increasing leukocytosis, lactic acid of 2.2. -L great toe diabetic ulcer; consult by Dr. Will appreciated, wound debrided at bedside, daily dressing change with alginate and gauze -DVT ppx with SCDs, Lovenox -Dispo: home; would not be able to pay for BiPAP (self-pay and expensive) -Code status: FULL code Attestations Medical Necessity Statement*: Patient requires hospitalization for continued optimization of medication given continued bout of pulmonary edema, recent NSTEMI s/p intervention. Time Spent in Patient Care: Greater than 35 minutes (>than 50% of time spent in counselling and/or direct pt care on unit). Coding Level of Care Code Acute Hatchery Manager for [facility] Fwd Exam Comprehensive Diagnoses Non-ST elevated myocardial infarction (non-STEMI) I21.4 Dyspnea on minimal exertion R06.09 Congestive heart failure I50.41 Heart failure chronicity: acute Heart failure type: combined systolic and diastolic Diabetes mellitus E11.9 Diabetes mellitus complication status: without complication Diabetes mellitus jail insulin use: without jail use Diabetes mellitus type: type 2 Tobacco abuse Z72.0 Hypertension I10 Hypertension type: essential hypertension
[2019-08-16 11:34] LABS: Glucose Point of Care 291 mg/dL (70-110)
--- NOTE | 2019-08-16 11:43 | PC.CHAP ---
Pastoral Care Encounter/Spiritual Assessment Type of Contact [] Declined generating plant superintendent visit [] Patient/Family/Request visit [] Outpatient visit [] Follow-up visit [] Physician referral [] Code/Alert [x] Routine visit [] Staff referral [] Actively dying [] Patient sleeping [x] Family support [] [] Out of room [] Palliative care [] [] Receiving care in room [] Pre-surgical visit [] Trauma [] Long length of stay [] ICU visit [] Other: Relational/Emotional Strength [] Patient feels connected with others/family/visitors/staff [] Distress [] Loneliness/isolation [] Abandonment Spirituality of Patient [] Person of Tala [] Attends Hinduism of their Tala [x] Believes in Prayer [] Reads Bible or Tenriism materials [] There are Spiritual issues to be addressed Injection Molding Machine Offbearer Interventions [x] Prayer [] Active listening [] Non-anxious presence [] Spiritual/emotional support [] Crisis/trauma care [] Spiritual counseling [] Bereavement support [] Provided bereavement packet [] Provided Bible/devotional materials [] Provided toy/stuffed animal, coloring book to patient or family member [] Provided Communion [] Anointing/[place] [] Salvation [x] Completed spiritual assessment [] Other: Impact on Illness or Injury [] Angry [] Fearful [] Anxious [] Often cries [] Exhaustion [] Unable to work [] Unable to attend yazidi [] Unable to walk/stand [] Unable to read [] Unable to drive [] Unable to eat/drink [] Unable to sleep [] Unable to be with family [] Patient intubated [] Other: Summary Patient moved from ICU to Step Down. Patient now on respirator Time spent with patient 10 min
--- NOTE | 2019-08-16 12:00 | PC.NURSE ---
Family members at bedside Pt started to complain of can't catch his breath. He is sitting in the chair. Diaphoretic, SOB noted during talking. O2sat is 84%-86%. He is stating his upper shoulders and back are tense up. Dr. Randall at bedside during this episode. PRN Ativan PO as prescribed given. BIPAP back on. O2sat is back up to 94-98%. Reassured pt at bedside. Will monitor.
[2019-08-16] MEDS: lisinopril 2.5 mg Tablet PO (12:07)
[2019-08-16] MEDS: isosorbide mononitrate ER 30 mg Tablet 15 MG PO (12:08)
--- NOTE | 2019-08-16 13:16 | PC.RESP ---
Applied 3L/min O2 Pt is resting in chair right now. still short of breath during conversation.
[2019-08-16 16:33] LABS: Glucose Point of Care 131 mg/dL (70-110)
[2019-08-16] MEDS: enoxaparin 40 mg/0.4 mL Syringe SUBCUT (16:38)
[2019-08-16] MEDS: atorvastatin 40 mg Tablet 80 MG PO (21:29)
[2019-08-16] MEDS: insulin glargine 100 units/1 mL 20 UNIT SUBCUT (21:30)
[2019-08-16 21:39] LABS: Glucose Point of Care 125 mg/dL (70-110)
[2019-08-17] VITALS (14 sets, daily range): BP systolic 92–122; BP diastolic 52–71; PULSE 64–81; RESP 14–34; TEMP 36.6–36.8; O2SAT 90–99
[2019-08-17 03:57] LABS: Basophils % 0.3 %; Eosinophils # 0.1 10^3/uL (0.0-0.8); Eosinophils % 0.7 %; Hematocrit 40.6 % (42.0-52.0); Hemoglobin 13.1 g/dL (11.7-16.6); Lymphocytes # 2.7 10^3/uL (0.8-4.8); Lymphocytes % 22.9 %; Mean Corpuscular HGB Conc 32.3 g/dL (30.0-36.0); Mean Corpuscular Hemoglobin 29.2 pg (28.0-34.0); Mean Corpuscular Volume 90.6 fL (80-94); Mean Platelet Volume 8.5 fL (7.4-10.4); Monocytes # 0.7 10^3/uL (0.2-0.9); Monocytes % 6.1 %; Neutrophils # 8.2 10^3/uL (1.8-7.7); Neutrophils % 69.6 %; Nucleated Red Blood Cells % 0 %; Platelet Count 548 10^3/cmm (130-400); Red Blood Count 4.48 10^6/uL (4.1-5.3); Red Cell Distribution Width 12.2 % (12.1-15.1); White Blood Count 11.7 10^3/uL (4.0-10.0)
[2019-08-17 04:28] LABS: Anion Gap 15.4 (5-19); Blood Urea Nitrogen 23 mg/dL (6-20); Carbon Dioxide 29 mmol/L (22-29); Chloride 91 mmol/L (98-107); Glomerular Filtration Rate 80.1 mL/min (90-130); Glucose 158 mg/dL (65-115); Osmolality Calculated 272 mOsm/kg (285-295); Potassium 4.4 mmol/L (3.5-5.1); Sodium 131 mmol/L (136-145)
[2019-08-17 06:38] LABS: Glucose Point of Care 147 mg/dL (70-110)
--- NOTE | 2019-08-17 07:57 | PM.PN ---
Subjective Subjective: Interval history: For the first time overnight, Nimesh did not have an episode of agitation, diaphoresis and shortness of breath. He said he slept pretty well. He did sleep in the chair and did not try to get in bed. He has used the BiPAP overnight. This morning he sitting up eating breakfast feeling fine. He is not short of breath. No chest pain. The echo yesterday basically looked the same as the previous echo which revealed an ejection fraction of about 45% and moderate to severe mitral regurgitation. Urine output 1050 mL. Medications: Reviewed: Yes Vitals/I&O/Wt Last Vital Signs Temp 98 F 08/17/19 05:00 Pulse 74 08/17/19 05:00 Resp 14 08/17/19 05:00 BP 99/62 08/17/19 05:00 Pulse Ox 97 08/17/19 05:00 08/16/19 08/17/19 08/17/19 22:59 06:59 14:59 Intake Total 564 / 1044 200 / 1244 Output Total 400 / 400 650 / 1050 Balance 164 / 644 -450 / 194 Physical Exam Narrative: EXAM NARRATIVE: GENERAL: In general he looks and feels well HEENT: Exam within normal limits. NECK: Supple without jugular vein distention. The carotid upstroke is normal without bruits. BACK: Exam normal. LUNGS: Clear. HEART: Regular rate and rhythm. ABDOMEN: Benign without organomegaly or tenderness. EXTREMITIES: No edema. NEUROLOGIC: Exam normal. SKIN: Unremarkable. Urinary Catheter Management^: Barnard: Cath Placed During This Visit: yes Urethral Indwelling: Yes Reason for Continuing Indwelling Catheter: Accurate Measurement of Urinary Output in Critically Ill Patients Urinary Catheter Date of Insertion: 08/09/19 Data : 08/17/19 03:47 08/17/19 03:47 A&P Assessment and plan (1) COPD (chronic obstructive pulmonary disease): Status: Acute Code(s): J44.9 - Chronic obstructive pulmonary disease, unspecified (2) JIMMY (obstructive sleep apnea): Status: Acute Code(s): G47.33 - Obstructive sleep apnea (adult) (pediatric) (3) Mitral regurgitation: Status: Acute Qualifiers: Cardiac valve disease etiology: etiology unspecified Qualified Code(s): I34.0 - Nonrheumatic mitral (valve) insufficiency Code(s): I34.0 - Nonrheumatic mitral (valve) insufficiency (4) Tobacco abuse: Status: Chronic Code(s): Z72.0 - Tobacco use (5) Congestive heart failure: Status: Acute Qualifiers: Heart failure type: combined systolic and diastolic Heart failure chronicity: acute Qualified Code(s): I50.41 - Acute combined systolic (congestive) and diastolic (congestive) heart failure Code(s): I50.9 - Heart failure, unspecified (6) Diabetes mellitus: Status: Chronic Qualifiers: Diabetes mellitus type: type 2 Diabetes mellitus terminal carman insulin use: without terminal carman use Diabetes mellitus complication status: without complication Qualified Code(s): E11.9 - Type 2 diabetes mellitus without complications Code(s): E11.9 - Type 2 diabetes mellitus without complications (7) Hypertension: Status: Chronic Qualifiers: Hypertension type: essential hypertension Qualified Code(s): I10 - Essential (primary) hypertension Code(s): I10 - Essential (primary) hypertension (8) Non-ST elevated myocardial infarction (non-STEMI): Status: Acute Code(s): I21.4 - Non-ST elevation (NSTEMI) myocardial infarction (9) Acute respiratory failure: Status: Acute Qualifiers: Respiratory failure complication: hypoxia Qualified Code(s): J96.01 - Acute respiratory failure with hypoxia Code(s): J96.00 - Acute respiratory failure, unspecified whether with hypoxia or hypercapnia Additional A&P Information I think these episodes of shortness of breath are multifactorial but I do agree with him that there is some anxiety and panic involved which exacerbates these episodes. He does have moderate to severe mitral regurgitation but otherwise mild left ventricular dysfunction. It is not common for this degree of left ventricular dysfunction and mitral regurgitation to cause these episodes. I think the shortness of breath is multifactorial to include volume overload from mitral regurgitation, COPD, anxiety and sleep apnea. I think it is clear that he has sleep apnea and he will ultimately need a sleep study. I do not know if we will be able to get him a BiPAP machine upon discharge since he is completely uninsured. I think he is better today. If he does well today and tonight we should be able to get him home tomorrow. We are limited in the medications we can push due to his rather soft blood pressure. His systolic blood pressure hovers around 100 mmHg. His heart rate is fine. I think we currently have him on the correct medications. If anything needs to be discontinued due to low blood pressure I would stop the Imdur. His right remains closed and the other 2 vessels should be adequately revascularized with stents. Attestations Medical Necessity Statement*: Not applicable Coding Level of Care Code Established Pt Acute Track Mechanic for Chg Fwd Patient Type Established History Detailed Exam Detailed Medical Decision Making Moderate Complexity Diagnoses COPD (chronic obstructive pulmonary disease) J44.9 JIMMY (obstructive sleep apnea) G47.33 Mitral regurgitation I34.0 Cardiac valve disease etiology: etiology unspecified Tobacco abuse Z72.0 Congestive heart failure I50.41 Heart failure type: combined systolic and diastolic Heart failure chronicity: acute Diabetes mellitus E11.9 Diabetes mellitus type: type 2 Diabetes mellitus terminal carman insulin use: without terminal carman use Diabetes mellitus complication status: without complication Hypertension I10 Hypertension type: essential hypertension Non-ST elevated myocardial infarction (non-STEMI) I21.4 Acute respiratory failure J96.01 Respiratory failure complication: hypoxia
--- NOTE | 2019-08-17 08:11 | P.PN_ITS ---
Subjective Subjective: Interval history: Hemodynamically stable, had 650 mL urine output overnight, decreasing leukocytosis, stable renal function. Seemed to have had a good night, used BiPAP, no reported episode of acutely worsening SOB. Sitting in chair, family at bedside, seems comfortable, no overt SOB, on RA currently. Discussed need for compliance with medications, smoking cessation, potential need for oxygen, sleep study to evaluate for JIMMY. Medications: Reviewed: Yes Medication Review Details: Active Medications Generic Name Dose Route Start Last Admin Trade Name Freq PRN Reason Stop Dose Admin Acetaminophen 650 mg 08/14/19 15:45 08/15/19 23:26 Tylenol PO 650 mg Q6H PRN Administration MILD PAIN Albuterol/Ipratrop ium 3 ml 08/15/19 21:13 08/16/19 21:44 Duoneb INHALATION 3 ml Q6H.RESPIRATORY P RN Administration SHORTNESS OF JORDYN TH Aspirin 81 mg 08/09/19 09:00 08/16/19 07:51 Aspirin Ec PO 81 mg DAILY SAMANTHA Administration Atorvastatin Calci um 80 mg 08/08/19 23:20 08/16/19 21:29 Lipitor PO 80 mg BEDTIME SAMANTHA Administration Clopidogrel Bisulf ate 75 mg 08/12/19 09:00 08/16/19 07:52 Plavix PO 75 mg DAILY SAMANTHA Administration Enoxaparin Sodium 40 mg 08/09/19 16:15 08/16/19 16:38 Lovenox SUBCUT 40 mg Q24H SAMANTHA Administration Furosemide 40 mg 08/11/19 08:00 08/16/19 07:51 Lasix PO 40 mg DAILY@0800 SAMANTHA Administration Furosemide 40 mg 08/15/19 15:00 08/16/19 16:38 Lasix PO 40 mg DAILY@1500 SAMANTHA Administration Insulin Aspart 0 unit 08/09/19 08:00 08/16/19 21:25 Novolog SUBCUT Not Given WM&BEDTIME SAMANTHA Protocol Insulin Aspart 15 unit 08/14/19 17:00 08/17/19 06:45 Novolog SUBCUT 15 unit TIDAC SAMANTHA Administration Insulin Glargine 20 unit 08/14/19 21:00 08/16/19 21:30 Lantus SUBCUT 20 unit BEDTIME SAMANTHA Administration Isosorbide Mononit rate 15 mg 08/13/19 12:00 08/16/19 12:08 Imdur PO 15 mg DAILY SAMANTHA Administration Levofloxacin 750 mg 08/17/19 09:00 Levaquin PO DAILY [facility] Protocol Lisinopril 2.5 mg 08/10/19 11:00 08/16/19 12:07 Prinivil PO 2.5 mg DAILY SAMANTHA Administration Lorazepam 0.25 mg 08/09/19 11:11 08/16/19 21:29 Ativan PO 0.25 mg TID PRN Administration ANXIETY Metoprolol Tartrat e 25 mg 08/10/19 18:00 08/16/19 18:26 Lopressor PO 25 mg BID SAMANTHA Administration Mupirocin 1 applic 08/14/19 09:00 08/16/19 12:19 Bactroban TOPICAL Not Given DAILY [facility] Nicotine 1 patch 08/11/19 18:30 08/16/19 07:53 Nicoderm 7 Mg Pa tch TRANSDERMA 1 patch DAILY [facility] Administration Nitroglycerin 0.4 mg 08/09/19 09:00 Nitrostat SUBLINGUAL Q5M PRN CHEST PAIN Ondansetron HCl 4 mg 08/13/19 00:31 Zofran IVP Q6H PRN NAUSEA AND VOMITI NG Polyethylene Glyco l 17 gm 08/11/19 09:00 08/16/19 09:19 Miralax PO Not Given DAILY [facility] Potassium Chloride 20 meq 08/15/19 09:30 08/16/19 07:54 Klor-Con 10 PO 20 meq DAILY [facility] Administration Trazodone HCl 50 mg 08/13/19 19:12 08/14/19 21:49 Desyrel PO 50 mg BEDTIME PRN Administration INSOMNIA No Known Allergies Allergy (Verified 08/08/19 18:34) Vitals/I&O/Wt Last Vital Signs Temp 98 F 08/17/19 05:00 Pulse 78 08/17/19 07:56 Resp 24 H 08/17/19 07:56 BP 102/57 08/17/19 07:56 Pulse Ox 95 08/17/19 07:56 08/16/19 08/17/19 08/17/19 22:59 06:59 14:59 Intake Total 564 / 1044 200 / 1244 Output Total 400 / 400 650 / 1050 Balance 164 / 644 -450 / 194 Physical Exam Const: COMMON NORMALS: no apparent distress and oriented x3 GENERAL APPEARANCE: cooperative, comfortable and appears older than stated age; not ill appearing and not diaphoretic ORIENTATION/CONSCIOUSNESS: Yes awake HENMT: COMMON NORMALS: normocephalic, head/scalp atraumatic, hearing grossly normal bilaterally and moist oral mucous membranes HEAD & SCALP: normocephalic and atraumatic Eye: COMMON NORMALS: PERRL, EOMs intact bilaterally and conjunctivae normal CONJUNCTIVA: Yes conjunctivae normal PUPIL: Yes PERRL Neck/C-Spine: COMMON NORMALS: full ROM GENERAL: Yes normal visual inspection and Yes trachea midline Resp: COMMON NORMALS: no retractions and no use of accessory muscles EFFORT & INSPECTION: Yes able to speak in complete sentences and Yes symmetric chest movement AUSCULTATION: diminished lung sounds OTHER: -Exertional shortness of breath, orthopnea has decreased -air entry has improved -intermittently requiring BiPAP due to acutely worsening bouts of SOB Cardio: COMMON NORMALS: regular rate, regular rhythm, S1 normal heart sound, S2 normal heart sound and no murmurs RATE: regular rate RHYTHM: regular rhythm HEART SOUNDS: S1 normal and S2 normal GI: COMMON NORMALS: normal to inspection, nondistended, normoactive bowel sounds, soft to palpation and non-tender PALPATION: Yes soft : BLADDER/KIDNEY EXAM: Yes catheter in place Extremity: COMMON NORMALS: normal to inspection and full ROM; negative for no pedal edema GENERAL: No edema OTHER: -has noted thick callues on bilateral great toes now shaved, healing appropriately with some noted bleeding on R; unroofed blister on L anterior great toe with surrounding erythema now debrided with significantly less purulence -diminished sensation in bilateral LE secondary to neuropathy Neuro: COMMON NORMALS: oriented x3, moves all extremities and no focal motor deficits Psych: COMMON NORMALS: mental status grossly normal, thought process normal, cooperative, affect normal and speech normal APPEARANCE: Yes unkempt SPEECH: Yes normal speech THOUGHT PROCESS: normal thought process Skin: COMMON NORMALS: no rashes or lesions noted, no jaundice, no petechiae and no mottling GENERAL SKIN EXAM: no rashes or lesions noted OTHER: -L great toe has thick callus with unroofed blister anteriorly with noted mace ration, erythema and purulent drainage, maceration resolved, minimal erythema and drainage, minimal tenderness to palpation due to neuropathy Urinary Catheter Management^: Barnard: Cath Placed During This Visit: yes Urethral Indwelling: Yes Reason for Continuing Indwelling Catheter: Accurate Measurement of Urinary Output in Critically Ill Patients Urinary Catheter Date of Insertion: 08/09/19 Data : 08/17/19 03:47 08/17/19 03:47 A&P Assessment and plan (1) Non-ST elevated myocardial infarction (non-STEMI): -Noted to have significantly elevated troponins with ST elevation noted in leads III and aVF on EKG; delta greater than 100 -s/p coronary angiogram earlier this AM: 3-vessel CAD with 5+ days old occlusion of RCA with LV dysfunction and CHF. Decided against CABG given patient's young age, comorbidities and hx of non-compliance -Cardiology consult by Dr. Saavedra appreciated; s/p angioplasty of OM 3 and D 1 as well as stenting of OM 2 and LAD (08/11) -CTA negative for PE; noted moderate bilateral pleural effusions -on Imdur, weaned off NTG drip -on low dose ACEi -continue ASA, statin, Plavix Status: Acute Code(s): I21.4 - Non-ST elevation (NSTEMI) myocardial infarction (2) Dyspnea on minimal exertion: -Continues to have this intermittent episodes of acutely worsening shortne ss of breath with minimal exertion, seems to be an issue at night has had some episodes during the day as well. Improved with use of BiPAP and additional diuresis -Definite component of anxiety as well; continue anxiolytics as needed -Unclear if this is cardiac related or multifactorial, likely the latter. Will discuss case with Dr. Nguyen later today to determine if underlying lung disease is playing a role in his symptoms. -Noted possible pneumonitis on chest x-ray (08/15), so started on empiric doxycycline -Pulmonary toilet, neb treatments as needed -Continued close monitoring of respiratory status, supplemental oxygen as needed Status: Acute Code(s): R06.09 - Other forms of dyspnea (3) Congestive heart failure: -Appears to have a new onset, acutely decompensated CHF as evidenced by orthopnea, lower extremity edema, shortness of breath, elevated BNP (2485) and evidence of fluid overload on imaging. Repeat BNP-1947 -Echo: EF=45%, G2DD, + RWMA, moderate-severe MR, trace TR, akinesis of mid inferior wall and inferior base of LV. Repeat echo done earlier today shows ejection fraction of 45%, G1DD, +RWMA, moderate-severe TR, trace TR, severe h ypokinesis of the inferior base, mid inferior wall -off IV diuresis; switched to oral Lasix; titrate as needed for optimal response. He has intermittently required IV Lasix overnight -continue to monitor Is & Os, daily weights -continue to monitor renal function, lytes with diuresis -VSS; continue to monitor -Supplemental oxygen as needed, continue to monitor respiratory status -Barnard catheter removed and able to void independently -repeat CXR (08/15) shows stable bilateral pulmonary infiltrates, pneumonitis vs. atypical pulmonary edema. Per my review, improved pulmonary vascular congestion -Levaquin added for empiric coverage of pneumonitis -hyponatremia persists though is improved today -JEREMY rivera Status: Acute Qualifiers: Heart failure chronicity: acute Heart failure type: combined systolic and diastolic Qualified Code(s): I50.41 - Acute combined systolic (congestive) and diastolic (congestive) heart failure Code(s): I50.9 - Heart failure, unspecified (4) Diabetes mellitus: -Has known history of [id number] diabetes mellitus type 2, previously on metformin which he has been noncompliant with -complicated by peripheral neuropathy -A1c is 12, will likely require insulin therapy if agreeable on discharge -on long acting and meal time insulin for more optimal BG control; better controlled -Accu-Cheks, ISS -Cardiac diabetic diet as tolerated Status: Chronic Qualifiers: Diabetes mellitus complication status: without complication Diabetes mellitus intermediate project manager insulin use: without correction use Diabetes mellitus type: type 2 Qualified Code(s): E11.9 - Type 2 diabetes mellitus without complications Code(s): E11.9 - Type 2 diabetes mellitus without complications (5) Tobacco abuse: -Chronic smoker Status: Chronic Code(s): Z72.0 - Tobacco use (6) Hypertension: -has known hx of HTN, non-compliant with meds -continue to monitor vital signs -continue BB Status: Chronic Qualifiers: Hypertension type: essential hypertension Qualified Code(s): I10 - Essential (primary) hypertension Code(s): I10 - Essential (primary) hypertension Additional A&P Information -Morbid obesity: BMI-35 kg/m2 -hx of polysubstance abuse: THC, benzodiazepines -Clinically no longer ill-appearing, diaphoretic, though remains intermittently tachypneic; no evidence of infection on CT chest, UA negative for infection. Increasing leukocytosis, lactic acid of 2.2. -L great toe diabetic ulcer; consult by Dr. Will appreciated, wound debrided at bedside, daily dressing change with alginate and gauze -DVT ppx with SCDs, Lovenox -Dispo: home; would not be able to pay for BiPAP (self-pay and expensive) -Code status: FULL code Attestations Medical Necessity Statement*: Patient requires hospitalization for continued optimization of medication for managment of CHF and CAD s/p stenting. Time Spent in Patient Care: Greater than 35 minutes (>than 50% of time spent in counselling and/or direct pt care on unit) . Coding Level of Care Code Acute Inspection Engineer for g Fwd Exam Comprehensive Diagnoses Non-ST elevated myocardial infarction (non-STEMI) I21.4 Dyspnea on minimal exertion R06.09 Congestive heart failure I50.41 Heart failure chronicity: acute Heart failure type: combined systolic and diastolic Diabetes mellitus E11.9 Diabetes mellitus complication status: without complication Diabetes mellitus correction insulin use: without correction use Diabetes mellitus type: type 2 Tobacco abuse Z72.0 Hypertension I10 Hypertension type: essential hypertension
[2019-08-17] MEDS: ipratropium-albuterol 3 mL Neb INHALATION ×2 (09:16→16:15)
[2019-08-17] MEDS: nicotine 7 mg Patch 1 PATCH TRANSDERMA (09:44)
[2019-08-17] MEDS: mupirocin oint 22 gm 1 APPLIC TOPICAL (09:45)
[2019-08-17] MEDS: FUROsemide 40 mg Tablet PO ×2 (09:45→15:19)
[2019-08-17] MEDS: aspirin 81 mg EC Tablet PO (09:45)
[2019-08-17] MEDS: lisinopril 2.5 mg Tablet PO (09:45)
[2019-08-17] MEDS: levoFLOXacin 750 mg Tablet PO (09:46)
[2019-08-17] MEDS: clopidogrel 75 mg Tablet PO (09:46)
[2019-08-17] MEDS: metoprolol tartrate 25 mg Tablet PO ×2 (09:46→17:53)
[2019-08-17] MEDS: isosorbide mononitrate ER 30 mg Tablet 15 MG PO (09:46)
[2019-08-17 11:19] LABS: Glucose Point of Care 222 mg/dL (70-110)
[2019-08-17] MEDS: enoxaparin 40 mg/0.4 mL Syringe SUBCUT (15:19)
[2019-08-17] MEDS: LORazepam 0.5 mg Tablet 0.25 MG PO ×2 (16:00→22:12)
[2019-08-17 16:42] LABS: Glucose Point of Care 99 mg/dL (70-110)
[2019-08-17] MEDS: trazodone 50 mg Tablet PO (20:19)
[2019-08-17] MEDS: atorvastatin 40 mg Tablet 80 MG PO (20:19)
[2019-08-17] MEDS: insulin glargine 100 units/1 mL 20 UNIT SUBCUT (21:44)
[2019-08-18 00:44] VITALS: BP 96/64; PULSE 74; RESP 31; TEMP 36.6; O2SAT 97
[2019-08-18 00:52] LABS: Glucose Point of Care 227 mg/dL (70-110)
[2019-08-18 01:35] VITALS: PULSE 69; RESP 28; O2SAT 94
[2019-08-18 05:00] VITALS: BP 113/73; PULSE 78; RESP 28; TEMP 36.6; O2SAT 92
[2019-08-18 06:28] LABS: Glucose Point of Care 230 mg/dL (70-110)
--- NOTE | 2019-08-18 06:45 | P.DS_ITS ---
Discharge Providers Date of Admission: 08/08/19 22:00 Date of Discharge: August 18, 2019 Attending Provider at Admission: Liz Porras MD Attending Provider at Discharge: Tonia Montilla MD Diagnoses at Discharge Discharge Diagnosis (1) Non-ST elevated myocardial infarction (non-STEMI): Status: Acute Problem details: -Noted to have significantly elevated troponins with ST elevation noted in l marli III and aVF on EKG; delta greater than 100 -s/p coronary angiogram earlier this AM: 3-vessel CAD with 5+ days old occlusion of RCA with LV dysfunction and CHF. Decided against CABG given patient's young age, comorbidities and hx of non-compliance -Cardiology consult by Dr. Saavedra appreciated; s/p angioplasty of OM 3 and D 1 as well as stenting of OM 2 and LAD (08/11) -CTA negative for PE; noted moderate bilateral pleural effusions -on Imdur, weaned off NTG drip -on low dose ACEi -continue ASA, statin, Plavix (2) Dyspnea on minimal exertion: Status: Acute Problem details: -Continues to have this intermittent episodes of acutely worsening shortness of breath with minimal exertion, seems to be an issue at night has had some episodes during the day as well. Improved with use of BiPAP and additional diuresis -Definite component of anxiety as well; continue anxiolytics as needed -Unclear if this is cardiac related or multifactorial, likely the latter. Will discuss case with Dr. Nguyen later today to determine if underlying lung disease is playing a role in his symptoms. -Noted possible pneumonitis on chest x-ray (08/15), so started on empiric doxycycline -Pulmonary toilet, neb treatments as needed -Continued close monitoring of respiratory status, supplemental oxygen as needed (3) Congestive heart failure: Status: Acute Problem details: -Appears to have a new onset, acutely decompensated CHF as evidenced by orthopnea, lower extremity edema, shortness of breath, elevated BNP (2485) and evidence of fluid overload on imaging. Repeat BNP-1947 -Echo: EF=45%, G2DD, + RWMA, moderate-severe MR, trace TR, akinesis of mid inferior wall and inferior base of LV. Repeat echo done earlier today shows ejection fraction of 45%, G1DD, +RWMA, moderate-severe TR, trace TR, severe hypokinesis of the inferior base, mid inferior wall -off IV diuresis; switched to oral Lasix; titrate as needed for optimal response. He has intermittently required IV Lasix overnight -continue to monitor Is & Os, daily weights -continue to monitor renal function, lytes with diuresis -VSS; continue to monitor -Supplemental oxygen as needed, continue to monitor respiratory status -Barnard catheter removed and able to void independently -repeat CXR (08/15) shows stable bilateral pulmonary infiltrates, pneumonitis vs. atypical pulmonary edema. Per my review, improved pulmonary vascular congestion -Levaquin added for empiric coverage of pneumonitis -hyponatremia persists though is improved today -JEREMY rivera Qualifiers: Heart failure chronicity: acute Heart failure type: combined systolic and diastolic Qualified Code(s): I50.41 - Acute combined systolic (congestive) and diastolic (congestive) heart failure (4) Diabetes mellitus: Status: Chronic Problem details: -Has known history of sbf-jazfhua-mkyxsvwgv diabetes mellitus type 2, previously on metformin which he has been noncompliant with -complicated by peripheral neuropathy -A1c is 12, will likely require insulin therapy if agreeable on discharge -on long acting and meal time insulin for more optimal BG control; better controlled -Accu-Cheks, ISS -Cardiac diabetic diet as tolerated Qualifiers: Diabetes mellitus complication status: without complication 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: without usp use Diabetes mellitus type: type 2 Qualified Code(s): E11.9 - Type 2 diabetes mellitus without complications (5) Tobacco abuse: Status: Chronic Problem details: -Chronic smoker (6) Hypertension: Status: Chronic Problem details: -has known hx of HTN, non-compliant with meds -continue to monitor vital signs -continue BB Qualifiers: Hypertension type: essential hypertension Qualified Code(s): I10 - Essential (primary) hypertension Other Information Additional DC diagnoses/information: -Morbid obesity: BMI-35 kg/m2 -hx of polysubstance abuse: THC, benzodiazepines -Clinically no longer ill-appearing, diaphoretic, though remains intermittently tachypneic; no evidence of infection on CT chest, UA negative for infection. Increasing leukocytosis, lactic acid of 2.2. -L great toe diabetic ulcer; consult by Dr. Will appreciated, wound debrided at bedside, daily dressing change with alginate and gauze Reason for Visit Reason for Visit: Reason For Visit: nstemi;chf;acute resp failure Hospital Course Hospital Course: Patient was admitted to ICU initially due to noted LA with elevated troponins and EKG changes. He was also found to have significant acute CHF exacerbation. He was started on treatment with aspirin, Plavix, therapeutic Lovenox, IV diuresis. Cardiology was consulted and patient had a cath done with noted three-vessel CAD and occlusion of RCA with left ventricular dysfunction and CHF. Patient was continued on diuresis and discussion was had to determine options for further management including CABG. Dr. Saavedra discussed the case with Dr. Chance and decision was made to try for stenting given patient's young age and pre-existing medical conditions as well as a history of noncompliance. He had a second angiogram with stenting of OM 3 and D1, OM 2 and LAD. Echo was done with noted moderate to severe mitral regurgitation, EF of 45% with grade 2 diastolic dysfunction. He continued to have episodes that were concerning for flashes of pulmonary edema requiring additional diuresis though he continued to have good urine output consistently. Because of these episodes of acutely worsening shortness of breath he required BiPAP intermittently particularly at night. He was found to have A1c of 13 and has been on insulin therapy with appropriate titration to allow for appropriate glycemic control. He likely has underlying JIMMY and outpatient sleep study has been ordered. He has intermittently required supplemental oxygen so will have home oxygen evaluation done prior to discharge and he did not qualify for this. Once better clinically compensated he was switched to oral diuretics. He was eventually transitioned off ICU to the cardiac stepdown unit. He did develop an acutely infected left great toe diabetic ulcer for which I consulted Dr. Will. He had some debridement done as well as shaving of calluses. He will require continued follow-up with Dr. Will and has been educated on need for appropriate wound care. Patient has significantly limited financial resources so will likely be unable to afford insulin despite his poorly controlled diabetes with associated peripheral neuropathy. As such I have prescribed metformin and glipizide. He has done well over the past 48 hours with no noted episodes of acutely worsening shortness of breath. He was found to have some CXR findings indicative of pneumonitis so was started on empiric antibiotics that he will need to continue for a few more days to complete the treatment course. He is at very high risk for readmission given his multiple comorbidities, hx of non-compliance, chronic smoking. We have had multiple discussions on need for medication compliance, smoking cessation including with his family members. Discharge Summary: -Patient to follow-up with primary care provider as soon as care can be established -Patient to follow-up with Dr. Will in 1 week -Patient to follow-up with Dr. Saavedra -Patient to have outpatient sleep study done as soon as next available appointment Physical Exam Const: COMMON NORMALS: no apparent distress and oriented x3 GENERAL APPEARANCE: cooperative, comfortable and appears older than stated age; not ill appearing and not diaphoretic ORIENTATION/CONSCIOUSNESS: Yes awake HENMT: COMMON NORMALS: normocephalic, head/scalp atraumatic, hearing grossly normal bilaterally and moist oral mucous membranes HEAD & SCALP: normocephalic and atraumatic Eye: COMMON NORMALS: PERRL, EOMs intact bilaterally and conjunctivae normal CONJUNCTIVA: Yes conjunctivae normal PUPIL: Yes PERRL Neck/C-Spine: COMMON NORMALS: full ROM GENERAL: Yes normal visual inspection and Yes trachea midline Resp: COMMON NORMALS: no retractions and no use of accessory muscles EFFORT & INSPECTION: Yes able to speak in complete sentences and Yes symmetric chest movement AUSCULTATION: diminished lung sounds OTHER: -Exertional shortness of breath, orthopnea has decreased -air entry has improved -intermittently requiring BiPAP due to acutely worsening bouts of SOB; on RA Cardio: COMMON NORMALS: regular rate, regular rhythm, S1 normal heart sound, S2 normal heart sound and no murmurs RATE: regular rate RHYTHM: regular rhythm HEART SOUNDS: S1 normal and S2 normal GI: COMMON NORMALS: normal to inspection, nondistended, normoactive bowel sounds, soft to palpation and non-tender PALPATION: Yes soft : BLADDER/KIDNEY EXAM: Yes catheter in place Extremity: COMMON NORMALS: normal to inspection and full ROM; negative for no pedal edema GENERAL: No edema OTHER: -has noted thick callues on bilateral great toes now shaved, healing appropriately with some noted bleeding on R; unroofed blister on L anterior great toe with surrounding erythema now debrided with significantly less purulence -diminished sensation in bilateral LE secondary to neuropathy Neuro: COMMON NORMALS: oriented x3, moves all extremities and no focal motor deficits Psych: COMMON NORMALS: mental status grossly normal, thought process normal, cooperative, affect normal and speech normal APPEARANCE: Yes unkempt SPEECH: Yes normal speech THOUGHT PROCESS: normal thought process Skin: COMMON NORMALS: no rashes or lesions noted, no jaundice, no petechiae and no mottling GENERAL SKIN EXAM: no rashes or lesions noted OTHER: -L great toe has thick callus with unroofed blister anteriorly with noted maceratio n, erythema and purulent drainage, maceration resolved, minimal erythema and drainage, minimal tenderness to palpation due to neuropathy Urinary Catheter Management^: Barnard: Cath Placed During This Visit: yes Urethral Indwelling: Yes Reason for Continuing Indwelling Catheter: Accurate Measurement of Urinary Output in Critically Ill Patients Urinary Catheter Date of Insertion: 08/09/19 Discharge Data Data Completed and Pending: Completed Studies During Hospitalization Category Date Time Status CT angio chest PE protcl [id number] Stat Cat Scan 08/08/19 18:56 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 request for service Routin e Exams 08/09/19 07:37 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 request for service Routin e Exams 08/11/19 12:26 Completed CXRP [XR chest 1V portable [id number]] S tat Exams 08/09/19 19:34 Completed XR chest 1V sukhi ble [id number] Routine Exams 08/10/19 06:00 Completed XR chest 1V sukhi ble [id number] Routine Exams 08/14/19 07:55 Completed XR chest 1V sukhi ble [id number] Routine Exams 08/15/19 20:27 Completed XR foot LT min 3V * [id number] Routine Exams 08/13/19 16:41 Completed CV echo complete* [id number] Routine Ultrasound 08/09/19 23:16 Completed CV echo complete* [id number] Routine Ultrasound 08/16/19 08:20 Completed Labs from last 24 hours 08/18/19 08/17/19 08/17/19 06:13 21:13 16:29 POC Glucose 230 227 99 08/17/19 10:56 POC Glucose 222 Vitals: Last Vital Signs Temp 98 F 08/18/19 05:00 Pulse 78 08/18/19 05:00 Resp 28 H 08/18/19 05:00 BP 113/73 08/18/19 05:00 Pulse Ox 92 08/18/19 05:00 Discharge Plan Discharge Patient Disposition: Home, Self-Care Condition: Stable Prescriptions: New furosemide 40 mg Tablet 40 mg PO BID 30 Days Qty: 60 RF: 0 atorvastatin 40 mg Tablet 80 mg PO BEDTIME 30 Days Qty: 60 RF: 0 trazodone 50 mg Tablet 50 mg PO BEDTIME PRN (Reason: Insomnia) 30 Days Qty: 30 RF: 0 isosorbide mononitrate 30 mg Tablet Extended Release 24 Hr 15 mg PO DAILY 30 Days Qty: 15 RF: 0 potassium chloride 10 mEq Tablet Extended Release 20 meq PO DAILY 30 Days Qty: 60 RF: 0 clopidogrel 75 mg Tablet 75 mg PO DAILY 30 Days Qty: 30 RF: 0 aspirin 81 mg Tablet,Delayed Release (Dr/Ec) 81 mg PO DAILY 30 Days Qty: 30 RF: 0 lorazepam 0.5 mg Tablet 0.25 mg PO TID PRN (Reason: Anxiety) Qty: 30 RF: 0 mupirocin 2 % Ointment 1 applic topical DAILY Qty: 22 RF: 0 levofloxacin 750 mg Tablet 750 mg PO DAILY 5 Days Qty: 5 RF: 0 lisinopril 2.5 mg Tablet 2.5 mg PO DAILY 30 Days Qty: 30 RF: 0 metoprolol tartrate 25 mg Tablet 25 mg PO BID 30 Days Qty: 60 RF: 0 metformin 500 mg tablet 500 mg PO BID 30 Days Qty: 60 RF: 0 glipizide 5 mg tablet 5 mg PO DAILY 30 Days Qty: 30 RF: 0 Continued albuterol sulfate 90 mcg/actuation HFA aerosol inhaler 1 inh INHALATION Q6H PRN (Reason: Shortness Of Breath) RF: 0 Discharge Orders: Discharge Order (Routine); Ordered 08/18/19 Ordered By: Tonia Montilla Other Ambulatory Orders: Sleep Study W Sleep Stage (Routine) Timeframe: 1 Week Location: None Selected Ordered By: Tonia Montilla Referrals: Ian Saavedra MD [Physician] - 1 month (Post-hospital discharge follow up. ) EDITA ALEJO FNP [Referring] - 08/18/19 10:00 am (You need to bring to the appointment 2018 taxes or any form of income. ) Carlos Will DPM [Physician] - 1 week (Post-hospital discharge follow up) Leslee Cunningham FNP [Nurse Practitioner] - 7-10 days (Needs R radial artery check and CMP) Discharge Diet: Cardiac and Diabetic Discharge Activity: Resume usual activity and Return to work/school after cleared by PCP/Specialist Patient Instructions: COPD, Metoprolol (By mouth), Trazodone (By mouth), Sleep Apnea Syndrome (DC), Post Angiogram Home Care Instructions Activity Restrictions/Additional Instructions: -Please note that you are excused from work for 2 weeks, will be following up with Dr. Saavedra to determine if need for further extension. Discharge Attestations Time Spent in Discharge Care*: greater than 30 min Specific Discharge Activities: Specific discharge activities: educating patient, educating and/or supporting family/caregiver, discussing with pcp/other providers, discussing with complex case manager/social workers/dc planners, documenting/other paperwork and evaluating patient/reviewing data Time Spent in Smoking Cessation: Time spent discussing smoking cessation with patient: 3 to 10 minutes Status at Discharge: Cognitive status at discharge: cognitively intact , Behavioral status at discharge: cooperative , Functional status at discharge: independent ambulation Overall status at discharge: patient is back to baseline Quality Metrics Clinical Quality Measures During this hospital stay, did patient experience: AMI Clinical Trial Participant: No Contraindication to aspirin (AMI): Aspirin given Contraindication to statin: Statin prescribed Contraindication to PCI: PCI performed Coding Level of Care Code 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
[2019-08-18] MEDS: LORazepam 0.5 mg Tablet 0.25 MG PO ×2 (07:34→13:13)
[2019-08-18] MEDS: FUROsemide 40 mg Tablet PO (07:34)
--- NOTE | 2019-08-18 07:42 | P.PN_ITS ---
Subjective Subjective: Interval history: Nimesh had a relatively uneventful night. No more episodes of extreme shortness of breath. He is sleeping in a chair however. He does use the BiPAP at night. The last 2 mornings, he has been much more comfortable. I think these episodes were worsened by anxiety. He is anxious to go home today. He was asking about going back to work. 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 He is completely uninsured so we will have to try to keep his medicines generic. Medications: Reviewed: Yes Vitals/I&O/Wt Last Vital Signs Temp 98 F 08/18/19 05:00 Pulse 78 08/18/19 05:00 Resp 28 H 08/18/19 05:00 BP 113/73 08/18/19 05:00 Pulse Ox 92 08/18/19 05:00 08/17/19 08/18/19 08/18/19 22:59 06:59 14:59 Intake Total 1360 / 2195 150 / 2345 Output Total 1275 / 2125 Balance 85 / 70 150 / 220 Weight last 48 hrs Weight 249 lb Physical Exam Narrative: EXAM NARRATIVE: GENERAL: In general he is comfortable looks and feels well today HEENT: Exam within normal limits. NECK: Supple without jugular vein distention. The carotid upstroke is normal without bruits. BACK: Exam normal. LUNGS: Clear. HEART: Regular rate and rhythm. ABDOMEN: Benign without organomegaly or tenderness. EXTREMITIES: No edema. NEUROLOGIC: Exam normal. SKIN: Unremarkable. Urinary Catheter Management^: Barnard: Cath Placed During This Visit: yes Urethral Indwelling: Yes Reason for Continuing Indwelling Catheter: Accurate Measurement of Urinary Output in Critically Ill Patients Urinary Catheter Date of Insertion: 08/09/19 Data : 08/17/19 03:47 08/17/19 03:47 A&P Assessment and plan (1) COPD (chronic obstructive pulmonary disease): Status: Acute Code(s): J44.9 - Chronic obstructive pulmonary disease, unspecified (2) JIMMY (obstructive sleep apnea): Status: Acute Code(s): G47.33 - Obstructive sleep apnea (adult) (pediatric) (3) Tobacco abuse: Status: Chronic Code(s): Z72.0 - Tobacco use (4) Congestive heart failure: Status: Acute Qualifiers: Heart failure type: combined systolic and diastolic Heart failure chronicity: acute Qualified Code(s): I50.41 - Acute combined systolic (c ongestive) and diastolic (congestive) heart failure Code(s): I50.9 - Heart failure, unspecified (5) Diabetes mellitus: Status: Chronic Qualifiers: Diabetes mellitus type: type 2 Diabetes mellitus fdc insulin use: without fdc use Diabetes mellitus complication status: without complication Qualified Code(s): E11.9 - Type 2 diabetes mellitus without complications Code(s): E11.9 - Type 2 diabetes mellitus without complications (6) Hypertension: Status: Chronic Qualifiers: Hypertension type: essential hypertension Qualified Code(s): I10 - Essential (primary) hypertension Code(s): I10 - Essential (primary) hypertension (7) Non-ST elevated myocardial infarction (non-STEMI): Status: Acute Code(s): I21.4 - Non-ST elevation (NSTEMI) myocardial infarction (8) Acute respiratory failure: Status: Acute Qualifiers: Respiratory failure complication: hypoxia Qualified Code(s): J96.01 - Acute respiratory failure with hypoxia Code(s): J96.00 - Acute respiratory failure, unspecified whether with hypoxia or hypercapnia (9) Mitral regurgitation: Status: Acute Qualifiers: Cardiac valve disease etiology: etiology unspecified Qualified Code(s): I34.0 - Nonrheumatic mitral (valve) insufficiency Code(s): I34.0 - Nonrheumatic mitral (valve) insufficiency Additional A&P Information I think he can safely go home today. He should stay off work for 2 weeks. We should see him in the office in 7 to 10 days for a right radial artery check and chemistry panel and to make sure that he is tolerating his medicines. We can make a determination about return to work at that time. He should go home on atorvastatin, metoprolol tartrate, furosemide, potassium, isosorbide and clopidogrel. I would consider decreasing the furosemide dose to 40 mg once a day. I would continue the potassium 20 mEq daily. I would leave the lisinopril at 2.5 mg daily. The only 1 of his medications which may be more than 3 or $4 for a month supply would be the clopidogrel. The other should also be very ine xpensive. He obviously needs a sleep study as an outpatient but as long as he is uninsured he probably will not be able to get it. I would imagine he can go back to work in a couple of weeks. 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
[2019-08-18] MEDS: clopidogrel 75 mg Tablet PO (08:48)
[2019-08-18] MEDS: isosorbide mononitrate ER 30 mg Tablet 15 MG PO (08:48)
[2019-08-18] MEDS: levoFLOXacin 750 mg Tablet PO (08:48)
[2019-08-18] MEDS: lisinopril 2.5 mg Tablet PO (08:48)
[2019-08-18] MEDS: metoprolol tartrate 25 mg Tablet PO (08:48)
[2019-08-18] MEDS: aspirin 81 mg EC Tablet PO (08:48)
[2019-08-18] MEDS: nicotine 7 mg Patch 1 PATCH TRANSDERMA (08:49)
[2019-08-18] MEDS: mupirocin oint 22 gm 1 APPLIC TOPICAL (08:50)
[2019-08-18 09:00] VITALS: BP 95/57; PULSE 82; RESP 20; TEMP 36.8; O2SAT 95
[2019-08-18 09:32] VITALS: O2SAT 92; O2SAT 94
[2019-08-18 12:23] LABS: Glucose Point of Care 130 mg/dL (70-110)
[2019-08-18 14:04] VITALS: BP 95/57; PULSE 82; RESP 20; TEMP 36.8; O2SAT 95
== END 2019-08-18 14:51 | disposition home or self-care (01) | DRG 246 ==
LOC: ER 21:42 → ICU 22:49 → CSU 08-15 13:22
PROVIDERS: Hospitalist; Internal Medicine Cardiovascular Disease; Admitting Provider Student in an Organized Health Care Education/Training Program; Emergency Provider Family Medicine; Visit Provider Family Medicine
PROC: B2111ZZ Fluoroscopy of Multiple Coronary Arteries using Low Osmolar Contrast (ICD-10-PCS; principal; 2019-08-09 10:00)
PROC: B2111ZZ Fluoroscopy of Multiple Coronary Arteries using Low Osmolar Contrast (ICD-10-PCS; 2019-08-09 10:00)
PROC: 027135Z Dilation of Coronary Artery, Two Arteries with Two Drug-eluting Intraluminal Devices, Percutaneous Approach (ICD-10-PCS; principal; 2019-08-11 12:30)
DX: I21.4 Non-ST elevation (NSTEMI) myocardial infarction (principal); I50.41 Acute combined systolic (congestive) and diastolic (congestive) heart failure; J96.01 Acute respiratory failure with hypoxia; I47.2 Ventricular tachycardia; I11.0 Hypertensive heart disease with heart failure; E11.65 Type 2 diabetes mellitus with hyperglycemia; E11.621 Type 2 diabetes mellitus with foot ulcer; L97.522 Non-pressure chronic ulcer of other part of left foot with fat layer exposed; G47.33 Obstructive sleep apnea (adult) (pediatric); J44.9 Chronic obstructive pulmonary disease, unspecified; I34.0 Nonrheumatic mitral (valve) insufficiency; E66.01 Morbid (severe) obesity due to excess calories; Z68.35 Body mass index [BMI] 35.0-35.9, adult; I25.10 Atherosclerotic heart disease of native coronary artery without angina pectoris; E78.5 Hyperlipidemia, unspecified; F17.210 Nicotine dependence, cigarettes, uncomplicated; Z91.128 Patient's intentional underdosing of medication regimen for other reason; M20.22 Hallux rigidus, left foot; M20.21 Hallux rigidus, right foot
CPT/HCPCS: 12345; 36415; 36416; 36600; 51702; 71045; 71275; 73630; 80048; 80053; 80061; 81001; 82009; 82803; 82962; 83036; 83605; 83735; 83880; 84443; 84484; 85025; 87040; 87086; 92920; 93005; 93306; 93454; 94640; 94660; 94664; 96372; 96375; 97161; 99283; C1725; C1769; C1874; C1887; C1894; C9600; C9601; J0171; J1644; J1650; J1815; J1940; J2001; J2060; J2250; J2270; J3010; J3490; J7030; J7050; Q0163; Q9967

== ENCOUNTER 2019-08-19 10:00 | Inpatient (IN) | payer MEDICAID, SELFPAY ==
[2019-08-19] VITALS (75 sets, daily range): BP systolic 80–143; BP diastolic 48–108; PULSE 54–118; RESP 18–44; TEMP 36.5–36.7; O2SAT 76–100; BMI 34.8
--- NOTE | 2019-08-19 10:15 | ED_ITS ---
Entered by Aisha Chamorro, acting as scribe for HPI - SOB/Dyspnea General: Chief Complaint: Shortness of Breath/Dyspnea Stated Complaint: RESP DISTRESS Time Seen by Provider: 08/19/19 10:18 Source: patient and EMS Mode of arrival: EMS Limitations: no limitations History of Present Illness: HPI Narrative: 49 yo male presents with shortness of breath. pt states he woke up this morning with shortness of breath. pt states he had a stent placed 2 days ago. pt denies any other symptoms at this time. He is not having any chest pain. He woke up this morning with this shortness of breath. Reviewing his old records he had very similar episodes while he was hospitalized and did have a fairly large AL and has a significantly diminished ejection fraction and congestive heart failure has been an issue for him. MD elicited complaint: shortness of breath Pertinent past history: congestive heart failure and other (stent placed two days ago per ems) Onset (ago): day(s) (today) Timing: progressively worsening Severity: moderate Exacerbating factors: deep breaths Relieving factors: nothing Associated symptoms: Reports orthopnea; Deny abdominal pain, chest pain, dizziness, fever(s), nausea, palpitations, polydipsia, polyuria, syncope or vomiting Treatment prior to arrival: oxygen (per EMS) and other Related Data: Home oxygen amount: none Review of Systems Const: Denies: fever, chills, body aches, fatigue, malaise or night sweats Eyes: Denies: photophobia ENMT: Denies: enlarged tonsils Card: Reports: edema, shortness of breath on exertion and shortness of breath when lying down; Denies: chest pain, palpitations, irregular heart rhythm, syncope or leg pain with exertion Resp: Reports: shortness of breath GI: Denies: abdominal pain, nausea, vomiting, vomiting blood, coffee grounds in vomit, difficulty swallowing, heartburn/indigestion, diarrhea, constipation, cramping, blood in stool or black tarry stool : Denies: flank pain, difficulty urinating, painful urination, urinary frequency, urinary urgency, urinary incontinence or blood in urine Musc: Denies: joint warmth Skin/Breast: Denies: rash, itching or redness Neuro: Denies: headache, numbness in extremities, weakness in extremities, changes in sensation, lack of coordination, difficulty walking, frequent falls, dizziness, vertigo or confusion Psych: Denies: anxiety, depression, loss of interest, visual hallucinations, auditory hallucinations, suicidal ideation or homicidal ideation Endo: Denies: excessive urination, excessive thirst, tired all the time or cold intolerance Olegario/Lymph: Denies: easy bruising, easy bleeding, petechiae, enlarged lymph nodes or tender lymph nodes PFSH ED PFSH: Medical History Acute on chronic diastolic (congestive) heart failure Congestive heart failure COPD (chronic obstructive pulmonary disease) Diabetes mellitus Hypertension Mitral regurgitation JIMMY (obstructive sleep apnea) Tobacco abuse Type 2 diabetes mellitus not at goal Surgical History History of heart artery stent Family History Other CAD (coronary artery disease) Cancer Social History Smoking and tobacco status: current every day smoker Alcohol intake: current Alcohol intake frequency: holidays/special occasions only Substance/Drug Use: current Other substance/drug use details: Patient states that he uses marijuana, he uses his friend's Xanax, used methamphetamine a month ago Physical Exam Const: COMMON NORMALS: average body habitus, oriented x3 and alert GENERAL APPEARANCE: cooperative and well developed NUTRITIONAL APPEARANCE: obese ORIENTATION/CONSCIOUSNESS: Yes awake, Yes oriented to person and Yes oriented to place HENMT: COMMON NORMALS: normocephalic, head/scalp atraumatic, external ears normal, EAC's normal, TM's normal bilaterally, external nose normal, moist oral mucous membranes and oropharynx normal HEAD & SCALP: normocephalic and atraumatic NOSE: external nose normal EXTERNAL EAR: Yes external ears normal EXTERNAL AUDITORY CANAL: EAC's normal TYMPANIC MEMBRANE: TM's normal bilaterally MOUTH: oral and palatal mucosa normal, lip normal and tongue normal THROAT: posterior oropharynx normal and tonsils normal Eye: COMMON NORMALS: PERRL, EOMs intact bilaterally, conjunctivae normal and no scleral icterus CONJUNCTIVA: Yes conjunctivae normal PUPIL: Yes PERRL Neck/C-Spine: COMMON NORMALS: full ROM, no lymphadenopathy, supple, no meningeal signs and thyroid normal THYROID: thyroid normal and asymmetrical Lymph: LYMPHATIC: no lymphadenopathy noted Resp: EFFORT & INSPECTION: Yes tachypneic and Yes uses accessory muscles AUSCULTATION: rales (At the bases.) bilateral Cardio: COMMON NORMALS: regular rhythm RHYTHM: regular rhythm HEART SOUNDS: murmur (Grade 4 diastolic murmur) diastolic GI: COMMON NORMALS: normal to inspection, nondistended, normoactive bowel sounds, soft to palpation and no hepatosplenomegaly AUSCULTATION: Yes normoactive bowel sounds PALPATION: Yes soft and Yes no hepatosplenomegaly : COMMON NORMALS: Yes no CVA tenderness BLADDER/KIDNEY EXAM: Yes no CVA tenderness Back/Pelvis: COMMON NORMALS: no CVA tenderness LUMBAR SPINE/LOWER BACK: Yes normal to inspection Extremity: COMMON NORMALS: no clubbing, cyanosis or edema, no calf tenderness and no pedal edema Neuro: COMMON NORMALS: oriented x3 SENSORIUM/ORIENTATION: Yes alert, Yes oriented to person and Yes oriented to place MENINGEAL SIGNS: Yes no meningeal signs Skin: COMMON NORMALS: no rashes or lesions noted and skin turgor normal GENERAL SKIN EXAM: no rashes or lesions noted and turgor normal Course ED course: Patient is again in congestive heart failure evidently he was not able to get some his medication discussed with Dr. Saavedra patient will be admitted to hospitalist and consult Dr. Saavedra was given Lasix in the emergency room. There is some aspect of anxiety associated with this as well. His delta troponin is up by 102 is now 20% increase from his baseline she reportedly was decreasing from his recent AL suspect some of this may be related to heart strain with his heart failure have discussed Dr. Saavedra as well. Vital Signs: Vital signs: Vital Signs Temperature 98.1 F 08/22/19 02:57 Pulse Rate 69 08/22/19 15:25 Respiratory Rate 16 08/22/19 15:25 Blood Pressure 100/58 08/22/19 15:25 Pulse Oximetry 93 08/22/19 15:25 MDM - SOB/Dyspnea Lab Data: Labs: Lab Results 08/19/19 08/19/19 08/19/19 Range/Units 10:03 10:29 10:29 WBC 15.0 H (4.0-10.0) 10^3/ uL RBC 4.62 (4.1-5.3) 10^6/u L Hgb 13.3 (11.7-16.6) g/dL Hct 41.2 L (42.0-52.0) % MCV 89.2 (80-94) fL MCH 28.8 (28.0-34.0) pg MCHC 32.3 (30.0-36.0) g/dL RDW 12.4 (12.1-15.1) % Plt Count 685 H (130-400) 10^3/c mm MPV 8.4 (7.4-10.4) fL Neut % (Auto) 81.0 % Lymph % (Auto) 13.6 % [place] % (Auto) 4.1 % Eos % (Auto) 0.3 % Baso % (Auto) 0.2 % Neut # (Auto) 12.1 H (1.8-7.7) 10^3/u L Lymph # (Auto) 2.0 (0.8-4.8) 10^3/u L [place] # (Auto) 0.6 (0.2-0.9) 10^3/u L Eos # (Auto) 0.0 (0.0-0.8) 10^3/u L Baso # (Auto) 0.0 (0.0-0.1) 10^3/u L Nucleated RBC % (a uto) 0 % Nucleated RBCs # 0.0 /100WBC Specimen Type Arterial Sample Site Radial, left ABG pH 7.31 L (7.35-7.45) ABG pCO2 50.5 H (35-45) mmHg ABG pO2 47.2 L (80.0-100.0) mmH g ABG HCO3 25.6 (22-26) mmol/L ABG O2 Saturation 78.1 ABG Base Excess -1.2 (-2.0-2.0) mmol/ L Evaristo Test Pos A-a O2 Gradient 596.9 H (5-10) mmHg Hematocrit 42.7 (42-52) % Hgb O2 Saturation 76.6 L (95-100) % Carboxyhemoglobin 1.0 (0.4-20.1) %THgb Methemoglobin 0.9 (0.4-1.5) % Total Hemoglobin 13.9 L (14-18) g/dL Sodium 129.0 L 129 L (131-143) mmol/L Potassium 4.5 5.0 (3.5-5.0) mmol/L Glucose 361.0 H 315 H (70-115) mg/dL Ionized Calcium 1.2 (1.1-1.4) mmol/L O2 Delivery Device Cpap FiO2 100.0 % CPAP 10.0 cmH20 Scheduling Representative ID cak Chloride 93 L (98-107) mmol/L Carbon Dioxide 21 L (22-29) mmol/L Anion Gap 20.0 H (5-19) BUN 18 (6-20) mg/dL Creatinine 1.0 (0.7-1.2) mg/dL GFR Calculation 80.1 L (90-130) mL/min Calcium 9.3 (8.5-10.5) mg/dL Phosphorus (2.5-4.5) mg/dL Magnesium (1.7-2.3) mg/dL Total Bilirubin 0.7 (0.15-1.2) mg/dL AST 43 H (0-40) U/L ALT 41 (0-41) U/L Alkaline Phosphata se 185 H (40-130) IU/L Troponin T Baselin e (0-15) ng/mL Troponin T 120 Min [place] (0-15) ng/mL Delta Troponin T (0-10) ABS# C-Reactive Protein (0.0-4.9) mg/L NT-Pro-B Natriuret Pep (0-125) pg/mL Total Protein 7.1 (6.6-8.7) g/dL Albumin 3.5 (3.5-5.2) g/dL Globulin 3.6 (1.3-4.6) g/dL Procalcitonin (0-0.5) ng/mL Urine Color (Yellow) Urine Appearance (CLEAR) Urine pH (5-7) Ur Specific Gravit y (1.005-1.030) Urine Protein (Negative) Urine Glucose (UA) (Normal) Urine Ketones (Negative) Urine Blood (Negative) Urine Nitrate (Negative) Urine Bilirubin (NEGATIVE) Urine Urobilinogen (Negative) mg/dL Ur Leukocyte Vanessa ase (Negative) Urine RBC (0-2) /hpf Urine WBC (0-5) /hpf Ur Squamous Epith Cells (0-5) Urine Bacteria (NONE) Hyaline Casts Urine Mucus Urine Opiates Scre en (Negative) ng/mL Ur Barbiturates Sc reen (Negative) ng/mL Ur Phencyclidine S crn (Negative) ng/mL Ur Amphetamines Sc reen (Negative) ng/mL U Benzodiazepines Scrn (Negative) ng/mL Urine Cocaine Scre en (Negative) ng/mL U Marijuana (THC) Screen (Negative) ng/mL 08/19/19 08/19/19 08/19/19 Range/Units 10:29 10:29 11:58 WBC (4.0-10.0) 10^3/ uL RBC (4.1-5.3) 10^6/u L Hgb (11.7-16.6) g/dL Hct (42.0-52.0) % MCV (80-94) fL MCH (28.0-34.0) pg MCHC (30.0-36.0) g/dL RDW (12.1-15.1) % Plt Count (130-400) 10^3/c mm MPV (7.4-10.4) fL Neut % (Auto) % Lymph % (Auto) % [place] % (Auto) % Eos % (Auto) % Baso % (Auto) % Neut # (Auto) (1.8-7.7) 10^3/u L Lymph # (Auto) (0.8-4.8) 10^3/u L [place] # (Auto) (0.2-0.9) 10^3/u L Eos # (Auto) (0.0-0.8) 10^3/u L Baso # (Auto) (0.0-0.1) 10^3/u L Nucleated RBC % (a uto) % Nucleated RBCs # /100WBC Specimen Type Arterial Sample Site Radial, right ABG pH 7.40 (7.35-7.45) ABG pCO2 39.8 (35-45) mmHg ABG pO2 123.0 H (80.0-100.0) mmH g ABG HCO3 24.9 (22-26) mmol/L ABG O2 Saturation 98.9 ABG Base Excess 0.1 (-2.0-2.0) mmol/ L Evaristo Test Pos A-a O2 Gradient 249.6 H (5-10) mmHg Hematocrit 39.2 L (42-52) % Hgb O2 Saturation 98.0 (95-100) % Carboxyhemoglobin 0.6 (0.4-20.1) %THgb Methemoglobin 0.4 (0.4-1.5) % Total Hemoglobin 12.8 L (14-18) g/dL Sodium 129.0 L (131-143) mmol/L Potassium 4.9 (3.5-5.0) mmol/L Glucose 238.0 H (70-115) mg/dL Ionized Calcium 1.2 (1.1-1.4) mmol/L O2 Delivery Device Bipap FiO2 60.0 % CPAP cmH20 Scheduling Representative ID jmn Chloride (98-107) mmol/L Carbon Dioxide (22-29) mmol/L Anion Gap (5-19) BUN (6-20) mg/dL Creatinine (0.7-1.2) mg/dL GFR Calculation (90-130) mL/min Calcium (8.5-10.5) mg/dL Phosphorus 4.5 (2.5-4.5) mg/dL Magnesium 2.2 (1.7-2.3) mg/dL Total Bilirubin (0.15-1.2) mg/dL AST (0-40) U/L ALT (0-41) U/L Alkaline Phosphata se (40-130) IU/L Troponin T Baselin e 904 H* (0-15) ng/mL Troponin T 120 Min [place] (0-15) ng/mL Delta Troponin T (0-10) ABS# C-Reactive Protein (0.0-4.9) mg/L NT-Pro-B Natriuret Pep (0-125) pg/mL Total Protein (6.6-8.7) g/dL Albumin (3.5-5.2) g/dL Globulin (1.3-4.6) g/dL Procalcitonin (0-0.5) ng/mL Urine Color (Yellow) Urine Appearance (CLEAR) Urine pH (5-7) Ur Specific Gravit y (1.005-1.030) Urine Protein (Negative) Urine Glucose (UA) (Normal) Urine Ketones (Negative) Urine Blood (Negative) Urine Nitrate (Negative) Urine Bilirubin (NEGATIVE) Urine Urobilinogen (Negative) mg/dL Ur Leukocyte Vanessa ase (Negative) Urine RBC (0-2) /hpf Urine WBC (0-5) /hpf Ur Squamous Epith Cells (0-5) Urine Bacteria (NONE) Hyaline Casts Urine Mucus Urine Opiates Scre en (Negative) ng/mL Ur Barbiturates Sc reen (Negative) ng/mL Ur Phencyclidine S crn (Negative) ng/mL Ur Amphetamines Sc reen (Negative) ng/mL U Benzodiazepines Scrn (Negative) ng/mL Urine Cocaine Scre en (Negative) ng/mL U Marijuana (THC) Screen (Negative) ng/mL 08/19/19 08/19/19 08/19/19 Range/Units 12:26 12:26 12:44 WBC (4.0-10.0) 10^3/ uL RBC (4.1-5.3) 10^6/u L Hgb (11.7-16.6) g/dL Hct (42.0-52.0) % MCV (80-94) fL MCH (28.0-34.0) pg MCHC (30.0-36.0) g/dL RDW (12.1-15.1) % Plt Count (130-400) 10^3/c mm MPV (7.4-10.4) fL Neut % (Auto) % Lymph % (Auto) % [place] % (Auto) % Eos % (Auto) % Baso % (Auto) % Neut # (Auto) (1.8-7.7) 10^3/u L Lymph # (Auto) (0.8-4.8) 10^3/u L [place] # (Auto) (0.2-0.9) 10^3/u L Eos # (Auto) (0.0-0.8) 10^3/u L Baso # (Auto) (0.0-0.1) 10^3/u L Nucleated RBC % (a uto) % Nucleated RBCs # /100WBC Specimen Type Sample Site ABG pH (7.35-7.45) ABG pCO2 (35-45) mmHg ABG pO2 (80.0-100.0) mmH g ABG HCO3 (22-26) mmol/L ABG O2 Saturation ABG Base Excess (-2.0-2.0) mmol/ L Evaristo Test A-a O2 Gradient (5-10) mmHg Hematocrit (42-52) % Hgb O2 Saturation (95-100) % Carboxyhemoglobin (0.4-20.1) %THgb Methemoglobin (0.4-1.5) % Total Hemoglobin (14-18) g/dL Sodium (131-143) mmol/L Potassium (3.5-5.0) mmol/L Glucose (70-115) mg/dL Ionized Calcium (1.1-1.4) mmol/L O2 Delivery Device FiO2 % CPAP cmH20 Scheduling Representative ID Chloride (98-107) mmol/L Carbon Dioxide (22-29) mmol/L Anion Gap (5-19) BUN (6-20) mg/dL Creatinine (0.7-1.2) mg/dL GFR Calculation (90-130) mL/min Calcium (8.5-10.5) mg/dL Phosphorus (2.5-4.5) mg/dL Magnesium (1.7-2.3) mg/dL Total Bilirubin (0.15-1.2) mg/dL AST (0-40) U/L ALT (0-41) U/L Alkaline Phosphata se (40-130) IU/L Troponin T Baselin e (0-15) ng/mL Troponin T 120 Min [place] 1006 H (0-15) ng/mL Delta Troponin T 102 H* (0-10) ABS# C-Reactive Protein 6.7 H (0.0-4.9) mg/L NT-Pro-B Natriuret Pep 2390 H (0-125) pg/mL Total Protein (6.6-8.7) g/dL Albumin (3.5-5.2) g/dL Globulin (1.3-4.6) g/dL Procalcitonin 0.07 (0-0.5) ng/mL Urine Color Yellow (Yellow) Urine Appearance Clear (CLEAR) Urine pH 6 (5-7) Ur Specific Gravit y 1.020 (1.005-1.030) Urine Protein 2+ H (Negative) Urine Glucose (UA) 4+ H (Normal) Urine Ketones Negative (Negative) Urine Blood Neg (Negative) Urine Nitrate Negative (Negative) Urine Bilirubin Neg (NEGATIVE) Urine Urobilinogen Norm (Negative) mg/dL Ur Leukocyte Vanessa ase Negative (Negative) Urine RBC None (0-2) /hpf Urine WBC Rare (0-5) /hpf Ur Squamous Epith Cells Rare (0-5) Urine Bacteria Trace (NONE) Hyaline Casts 0-4 H Urine Mucus Trace Urine Opiates Scre en (Negative) ng/mL Ur Barbiturates Sc reen (Negative) ng/mL Ur Phencyclidine S crn (Negative) ng/mL Ur Amphetamines Sc reen (Negative) ng/mL U Benzodiazepines Scrn (Negative) ng/mL Urine Cocaine Scre en (Negative) ng/mL U Marijuana (THC) Screen (Negative) ng/mL 08/19/19 Range/Units 12:44 WBC (4.0-10.0) 10^3/ uL RBC (4.1-5.3) 10^6/u L Hgb (11.7-16.6) g/dL Hct (42.0-52.0) % MCV (80-94) fL MCH (28.0-34.0) pg MCHC (30.0-36.0) g/dL RDW (12.1-15.1) % Plt Count (130-400) 10^3/c mm MPV (7.4-10.4) fL Neut % (Auto) % Lymph % (Auto) % [place] % (Auto) % Eos % (Auto) % Baso % (Auto) % Neut # (Auto) (1.8-7.7) 10^3/u L Lymph # (Auto) (0.8-4.8) 10^3/u L [place] # (Auto) (0.2-0.9) 10^3/u L Eos # (Auto) (0.0-0.8) 10^3/u L Baso # (Auto) (0.0-0.1) 10^3/u L Nucleated RBC % (a uto) % Nucleated RBCs # /100WBC Specimen Type Sample Site ABG pH (7.35-7.45) ABG pCO2 (35-45) mmHg ABG pO2 (80.0-100.0) mmH g ABG HCO3 (22-26) mmol/L ABG O2 Saturation ABG Base Excess (-2.0-2.0) mmol/ L Evaristo Test A-a O2 Gradient (5-10) mmHg Hematocrit (42-52) % Hgb O2 Saturation (95-100) % Carboxyhemoglobin (0.4-20.1) %THgb Methemoglobin (0.4-1.5) % Total Hemoglobin (14-18) g/dL Sodium (131-143) mmol/L Potassium (3.5-5.0) mmol/L Glucose (70-115) mg/dL Ionized Calcium (1.1-1.4) mmol/L O2 Delivery Device FiO2 % CPAP cmH20 Scheduling Representative ID Chloride (98-107) mmol/L Carbon Dioxide (22-29) mmol/L Anion Gap (5-19) BUN (6-20) mg/dL Creatinine (0.7-1.2) mg/dL GFR Calculation (90-130) mL/min Calcium (8.5-10.5) mg/dL Phosphorus (2.5-4.5) mg/dL Magnesium (1.7-2.3) mg/dL Total Bilirubin (0.15-1.2) mg/dL AST (0-40) U/L ALT (0-41) U/L Alkaline Phosphata se (40-130) IU/L Troponin T Baselin e (0-15) ng/mL Troponin T 120 Min [place] (0-15) ng/mL Delta Troponin T (0-10) ABS# C-Reactive Protein (0.0-4.9) mg/L NT-Pro-B Natriuret Pep (0-125) pg/mL Total Protein (6.6-8.7) g/dL Albumin (3.5-5.2) g/dL Globulin (1.3-4.6) g/dL Procalcitonin (0-0.5) ng/mL Urine Color (Yellow) Urine Appearance (CLEAR) Urine pH (5-7) Ur Specific Gravit y (1.005-1.030) Urine Protein (Negative) Urine Glucose (UA) (Normal) Urine Ketones (Negative) Urine Blood (Negative) Urine Nitrate (Negative) Urine Bilirubin (NEGATIVE) Urine Urobilinogen (Negative) mg/dL Ur Leukocyte Vanessa ase (Negative) Urine RBC (0-2) /hpf Urine WBC (0-5) /hpf Ur Squamous Epith Cells (0-5) Urine Bacteria (NONE) Hyaline Casts Urine Mucus Urine Opiates Scre en Negative (Negative) ng/mL Ur Barbiturates Sc reen Negative (Negative) ng/mL Ur Phencyclidine S crn Negative (Negative) ng/mL Ur Amphetamines Sc reen Negative (Negative) ng/mL U Benzodiazepines Scrn Negative (Negative) ng/mL Urine Cocaine Scre en Negative (Negative) ng/mL U Marijuana (THC) Screen Positive H (Negative) ng/mL Discharge Plan Discharge Patient Disposition: Admitted As Inpatient Admit Provider: Chito Gibson Clinical Impression: Congestive heart failure, Acute respiratory failure with hypoxia and hypercapnia, Type 2 diabetes mellitus not at goal, Mitral regurgitation, Hypertension, Acute on chronic diastolic (congestive) heart failure, Recent non- ST elevation myocardial infarction Condition: Stable Discharge Orders: Discharge Order (Routine); Ordered 08/19/19 Ordered By: Nicholas Galarza Discharge Diet: Advance as tolerated Discharge Activity: Increase activity as tolerated Interventions: ED Discharge Assessment Last Done: 08/19/19 13:41 Discharge Date/Time: 08/19/19 13:57 Coding Level of Care Code ED Spectrographic Analyst for Chg Fwd Exam Comprehensive The documentation recorded by the Pedro Pablo chapman Bridget Annette, accurately reflects the service I personally performed and the decisions made by Geovanni zhao Curtis L, DO Aug 19, 2019 10:00
--- NOTE | 2019-08-19 10:19 | XRR_ITS ---
PROCEDURE INFORMATION: Exam: XR Chest, 1 View Exam date and time: 08/19/2019 10:20 AM Age: 49 years old Clinical indication: Shortness of breath; Additional info: Dyspnea/cough TECHNIQUE: Imaging protocol: XR of the chest Views: 1 view. COMPARISON: CR XR chest 1V portable [id number] 08/15/2019 8:58 PM FINDINGS: Lungs: Prominently perihilar airspace opacities are not significantly changed compared with 08/15/2019. Residual pulmonary congestion is not significantly changed. Pleural space: Bilateral pleural effusions are probably not significantly changed from 08/15/2019. Heart/Mediastinum: Heart is within normal limits of size. Bones/joints: Unremarkable. XR/XR chest 1V portable [id number] IMPRESSION: 1. Stable pulmonary infiltrates 2. No change in pulmonary congestion. 3. Bilateral pleural effusions not significantly changed.
--- NOTE | 2019-08-19 10:19 | ECG_ITS ---
Measurements Intervals [place] Rate: 95 P: 55 MI: 193 QRS: -16 QRSD: 93 T: 142 QT: 348 QTc: 438 SINUS RHYTHM POSSIBLE LEFT ATRIAL ENLARGEMENT [-0.1mV P WAVE IN V1/V2] Diffuse nonspecific ST-T changes LOW QRS VOLTAGE IN EXTREMITY LEADS [QRS DEFLECTION < 0.5 mV IN LIMB LEADS] INFERIOR MYOCARDIAL INFARCTION , OF INDETERMINATE AGE [40+ ms Q WAVE AND/OR ST/T ABNORMALITY IN II/aVF] Compared to ECG 08/16/2019 02:19:34 No significant changes Electronically Signed On 08-19-2019 20:26:32 PHOTOVOLTAIC SOLAR CELL DESIGNER by Wendy Mendoza M.D. [email or web address]
[2019-08-19 10:46] LABS: Basophils % 0.2 %; Eosinophils % 0.3 %; Hematocrit 41.2 % (42.0-52.0); Hemoglobin 13.3 g/dL (11.7-16.6); Lymphocytes % 13.6 %; Mean Corpuscular HGB Conc 32.3 g/dL (30.0-36.0); Mean Corpuscular Hemoglobin 28.8 pg (28.0-34.0); Mean Corpuscular Volume 89.2 fL (80-94); Mean Platelet Volume 8.4 fL (7.4-10.4); Monocytes # 0.6 10^3/uL (0.2-0.9); Monocytes % 4.1 %; Neutrophils # 12.1 10^3/uL (1.8-7.7); Nucleated Red Blood Cells % 0 %; Platelet Count 685 10^3/cmm (130-400); Red Blood Count 4.62 10^6/uL (4.1-5.3); Red Cell Distribution Width 12.4 % (12.1-15.1)
[2019-08-19 10:51] LABS: ABG PCO2 50.5 mmHg (35-45); ABG PH Result 7.31 (7.35-7.45); Alveolar-Arterial Oxygen Gradi 596.9 mmHg (5-10); Arterial Blood Gas Hematocrit 42.7 % (42-52); Base Excess ABG -1.2 mmol/L (-2.0-2.0); Blood Gas Allen Test Pos; Blood Gas Sample Site Radial, left; Blood Gas Sample Type Arterial; HCO3 ABG 25.6 mmol/L (22-26); HGB O2 Sat 76.6 % (95-100); Ionized Calcium Level - ABG 1.2 mmol/L (1.1-1.4); Methemoglobin 0.9 % (0.4-1.5); Oxygen Saturation ABG 78.1; PO2 ABG 47.2 mmHg (80.0-100.0); Potassium Level - ABG 4.5 mmol/L (3.5-5.0); Total Hemoglobin 13.9 g/dL (14-18)
[2019-08-19 10:56] LABS: Alanine Aminotransferase 41 U/L (0-41); Albumin Level 3.5 g/dL (3.5-5.2); Alkaline Phosphatase 185 IU/L (40-130); Aspartate Amino Transferase 43 U/L (0-40); Blood Urea Nitrogen 18 mg/dL (6-20); Calcium 9.3 mg/dL (8.5-10.5); Carbon Dioxide 21 mmol/L (22-29); Chloride 93 mmol/L (98-107); Globulin 3.6 g/dL (1.3-4.6); Glomerular Filtration Rate 80.1 mL/min (90-130); Glucose 315 mg/dL (65-115); Sodium 129 mmol/L (136-145); Total Bilirubin 0.7 mg/dL (0.15-1.2); Total Protein 7.1 g/dL (6.6-8.7)
[2019-08-19 10:59] LABS: Troponin(5th) Baseline 904 ng/mL (0-15)
[2019-08-19 11:49] LABS: Oxygen Device CPAP
[2019-08-19 12:12] LABS: ABG PCO2 39.8 mmHg (35-45); Alveolar-Arterial Oxygen Gradi 249.6 mmHg (5-10); Arterial Blood Gas Hematocrit 39.2 % (42-52); Base Excess ABG 0.1 mmol/L (-2.0-2.0); Blood Gas Allen Test Pos; Blood Gas Sample Site Radial, right; Blood Gas Sample Type Arterial; Carboxyhemoglobin 0.6 %THgb (0.4-20.1); HCO3 ABG 24.9 mmol/L (22-26); Ionized Calcium Level - ABG 1.2 mmol/L (1.1-1.4); Methemoglobin 0.4 % (0.4-1.5); Oxygen Device BIPAP; Oxygen Saturation ABG 98.9; Potassium Level - ABG 4.9 mmol/L (3.5-5.0); Total Hemoglobin 12.8 g/dL (14-18)
--- NOTE | 2019-08-19 12:19 | ECG_ITS ---
Measurements Intervals [place] Rate: 79 P: 56 CO: 189 QRS: -7 QRSD: 90 T: 0 QT: 357 QTc: 411 SINUS RHYTHM INFERIOR MYOCARDIAL INFARCTION , PROBABLY OLD [40+ ms Q WAVE AND/OR ST/T ABNORMALITY IN II/aVF] Compared to ECG 08/16/2019 02:19:34 No significant changes Electronically Signed On 08-19-2019 20:35:41 PLODDING MACHINE OPERATOR by Wendy Mendoza M.D. [email or web address]
[2019-08-19 12:58] LABS: Troponin 5 2HR 1006 ng/mL (0-15); Troponin 5 2HR Delta 102 ABS# (0-10)
[2019-08-19 13:04] LABS: Blood Urine Neg (Negative); Glucose Urine UA 4+ (Normal); Ketones Urine Negative (Negative); Protein Urine 2+ (Negative); Urine Appearance Clear (CLEAR); Urine Color Yellow (Yellow); pH Urine 6 (5-7)
[2019-08-19 13:05] LABS: Add Urine Microscopic? YES; Bilirubin Urine Neg (NEGATIVE); Leukocyte Esterase Urine Negative (Negative); Nitrate Urine Negative (Negative); Urobilinogen Urine Norm (Negative)
[2019-08-19 13:11] LABS: Add Urine Culture? No; Bacteria Urine TRACE; Hyaline Casts Urine 0-4; Mucus Urine TRACE; Squamous Epithelial Cell Urine RARE (0-5); WBC Urine RARE /hpf (0-5)
[2019-08-19] MEDS: bumetanide 0.25 mg/mL SDV 10 mL 1 MG IV (15:09)
[2019-08-19] MEDS: metOLazone 5 MG Tablet PO (15:10)
[2019-08-19] MEDS: enoxaparin 120 mg/0.8 mL Syringe 110 MG SUBCUT (15:10)
--- NOTE | 2019-08-19 15:21 | PM.HP ---
Providers/Chief Complaint Admitting Physician: Chito Gibson MD Primary Care Provider: EDITA ALEJO Chief Complaint: RESP DISTRESS History of Present Illness Nimesh Prasad is a 49 year old male with a past medical history of CAD status post stenting OM 2 and mid LAD, COPD not on oxygen therapy, hypertension, hyperlipidemia, [id number] type 2 diabetes mellitus, mitral regurg, systolic heart failure who presents to the emergency room after being discharged yesterday for chest pressure and shortness of breath. Patient states that he was discharged last night from the hospital, he got home, was uneventful, stated that it was hard for him to fall asleep, he was having trouble with finding a good position to fall asleep in bed, slept on the floor. This morning he woke up with shortness of breath, and chest pressure,. Patient states that chest pressure was substernal, nonradiating, no lightheadedness, no dizziness, no nausea, no vomiting, but associate with shortness of breath, no fevers, no chills, has a chronic cough, no sinus congestion, no sinus tenderness. Patient stated that he had persistent shortness of breath, and significant shortness of breath with minimal exertion thus he had his nieces and nephews call the EMS. Patient states that he has a greater than [id number] history of smoking, denies smoking at home, denies using illicit drugs at home. Patient does report that last night he did take 1 of his friend's Xanax's. He does have a history of methamphetamine use in the last month. Denies any other drug use. Patient states that he will works in a [employer], exposed to sawdust. No history of radiation exposure. Review of Systems Const: Denies: fever, chills, fatigue or malaise Eyes: Denies: change in vision or blurry vision ENMT: Denies: nasal congestion Card: Reports: chest pain and shortness of breath on exertion Resp: Reports: shortness of breath and non-productive cough; Denies: productive cough or wheezing GI: Denies: abdominal pain, nausea, vomiting, vomiting blood, diarrhea, constipation, blood in stool or black tarry stool : Denies: flank pain, difficulty urinating, painful urination or urinary frequency Musc: Denies: neck pain or back pain Skin/Breast: Denies: rash Neuro: Denies: headache, dizziness or vertigo Psych: Denies: anxiety or depression Endo: Denies: excessive urination or excessive thirst Medications/Allergies Allergies Allergy/AdvReac Type Severity Reaction Status Date / Time No Known Allergies Allergy Verified 08/08/19 18:34 Additional Medication Information Additional Medication Information: Lasix 40 mg p.o. twice daily Atorvastatin 80 be at bedtime Trazodone 50 at bedtime as needed Imdur 15 mg p.o. daily Potassium 20 mEq daily Plavix 75 mg once daily Aspirin 81 mg Lorazepam 0.25 3 times daily Levaquin 750 p.o. daily Lisinopril 2.5 mg p.o. daily Metoprolol 25 mg p.o. twice daily Metformin 500 twice daily Glipizide 5 mg p.o. daily Albuterol PFSH Acute PFSH: Medical History (Updated 08/19/19 @ 15:50 by Chito Gibson MD) Congestive heart failure -Appears to have a new onset, acutely decompensated CHF as evidenced by orthopnea, lower extremity edema, shortness of breath, elevated BNP (2485) and evidence of fluid overload on imaging. Repeat BNP-1947 -Echo: EF=45%, G2DD, + RWMA, moderate-severe MR, trace TR, akinesis of mid inferior wall and inferior base of LV. Repeat echo done earlier today shows ejection fraction of 45%, G1DD, +RWMA, moderate-severe TR, trace TR, severe hypokinesis of the inferior base, mid inferior wall -off IV diuresis; switched to oral Lasix; titrate as needed for optimal response. He has intermittently required IV Lasix overnight -continue to monitor Is & Os, daily weights -continue to monitor renal function, lytes with diuresis -VSS; continue to monitor -Supplemental oxygen as needed, continue to monitor respiratory status -Barnard catheter removed and able to void independently -repeat CXR (08/15) shows stable bilateral pulmonary infiltrates, pneumonitis vs. atypical pulmonary edema. Per my review, improved pulmonary vascular congestion -Levaquin added for empiric coverage of pneumonitis -hyponatremia persists though is improved today -JEREMY rivera COPD (chronic obstructive pulmonary disease) Diabetes mellitus -Has known history of ivt-kvoomab-snpizesvg diabetes mellitus type 2, previously on metformin which he has been noncompliant with -complicated by peripheral neuropathy -A1c is 12, will likely require insulin therapy if agreeable on discharge -on long acting and meal time insulin for more optimal BG control; better controlled -Accu-Cheks, ISS -Cardiac diabetic diet as tolerated Hypertension -has known hx of HTN, non-compliant with meds -continue to monitor vital signs -continue BB Mitral regurgitation JIMMY (obstructive sleep apnea) Tobacco abuse -Chronic smoker Surgical History (Updated 08/19/19 @ 15:38 by Chito Gibson MD) History of heart artery stent Family History (Updated 08/09/19 @ 01:26 by Liz Porras MD) Other CAD (coronary artery disease) Cancer Social History (Updated 08/19/19 @ 15:39 by Chito Gibson MD) Smoking and tobacco status: current every day smoker Alcohol intake: current Alcohol intake frequency: holidays/special occasions only Substance/Drug Use: current Other substance/drug use details: Patient states that he uses marijuana, he uses his friend's Xanax, used methamphetamine a month ago Vitals/I&O/Wt Last Vital Signs Temp 98.0 F 08/19/19 13:41 Pulse 92 08/19/19 15:11 Resp 36 H 08/19/19 15:11 BP 125/108 08/19/19 15:11 Pulse Ox 90 08/19/19 15:11 Weight last 48 hrs Weight 113.398 kg Physical Exam Const: COMMON NORMALS: oriented x3 GENERAL APPEARANCE: cooperative, comfortable, anxious and diaphoretic HENMT: COMMON NORMALS: normocephalic HEAD & SCALP: normocephalic Eye: COMMON NORMALS: PERRL, EOMs intact bilaterally and no papilledema GENERAL EYE: normal appearance of both eyes PUPIL: Yes PERRL DIRECT OPHTHALMOSCOPY: Yes no papilledema Neck/C-Spine: COMMON NORMALS: full ROM, no lymphadenopathy, no JVD and thyroid normal THYROID: thyroid normal Lymph: LYMPHATIC: no lymphadenopathy noted Resp: COMMON NORMALS: normal respiratory effort, no retractions and no use of accessory muscles EFFORT & INSPECTION: Yes other (Diminished breath sounds bilateral lung bases) AUSCULTATION: clear to auscultation bilaterally Cardio: COMMON NORMALS: no JVD, regular rate, regular rhythm, S1 normal heart sound, S2 normal heart sound, no gallops, no clicks and no murmurs RATE: regular rate RHYTHM: regular rhythm HEART SOUNDS: S1 normal and S2 normal GI: COMMON NORMALS: normal to inspection, nondistended, normoactive bowel sounds, soft to palpation, non-tender and no hepatosplenomegaly PALPATION: Yes soft and Yes no hepatosplenomegaly Extremity: COMMON NORMALS: normal to inspection, full ROM and no pedal edema Neuro: COMMON NORMALS: oriented x3, CN's II-XII intact bilaterally, moves all extremities and no focal motor deficits Psych: COMMON NORMALS: mental status grossly normal, thought process normal and cooperative THOUGHT PROCESS: normal thought process Data : 08/19/19 10:29 08/19/19 10:29 A&P Assessment and plan (1) Acute respiratory failure with hypoxia and hypercapnia: -Patient's ABG on admission showed a pH of 7.31, PCO2 of 50.5, PO2 of 47.2 on CPAP 1000% FiO2 -Patient was placed on BiPAP, 60% FiO2, pH 7.4, PCO2 39.8, PO2 223 -Currently patient is complaining of shortness of breath at rest, is much mildly diaphoretic, decreased breath sounds bilateral lung bases -Bnp 2390, chest x-ray shows pulmonary vascular congestion and pleural effusions -Procalcitonin 0.07, white blood cell count 15, no fevers, does have a chronic productive cough, unlikely pneumonia -Patient's initial intake shows influenza A, but no influenza test was sent down? We will retest for influenza -In the emergency room patient got 125 mg of Solu-Medrol, 60 mg of Lasix Plan: -Strict I's and O's, monitor urine output, fluid restrictions, daily weights -Bumex 1 mg every 12 hours with metolazone -Telemetry monitoring -Monitor respiratory status closely -Sputum culture, viral respiratory panel, urine bacterial antigens, influenza -Duo nebs, oxygen therapy Status: Acute Code(s): J96.01 - Acute respiratory failure with hypoxia; J96.02 - Acute respiratory failure with hypercapnia (2) NSTEMI (non-ST elevated myocardial infarction): -On last admission angiography showed: -Patient also had a 95% mid LAD lesion at the takeoff of the diagonal branch and a 95% second obtuse marginal branch and 99% third obtuse marginal branch stenoses -Given patient's noncompliance, decision was made for stenting - repeat coronary angiogram with persistent complete occlusion of distal RCA and underwent angioplasty of OM 3 and D1 and stenting of OM 2 and m LAD. -Patient had chest pressure this morning, patient does have mild ST elevation in lead III and aVF which seem chronic since August 16, 2018, no other acute ST-T wave changes -No active chest pain -Baseline troponin is 900, 120-minute is 1006, delta of 102 Plan: -Continue aspirin, Plavix, therapeutic Lovenox -Continue telemetry monitoring, serial EKGs, monitor for chest pain -Continue Imdur, nitro for chest pain Status: Acute Code(s): I21.4 - Non-ST elevation (NSTEMI) myocardial infarction (3) Dyspnea on minimal exertion: Status: Acute Code(s): R06.09 - Other forms of dyspnea (4) Mitral regurgitation: Status: Acute Qualifiers: Cardiac valve disease etiology: etiology unspecified Qualified Code(s): I34.0 - Nonrheumatic mitral (valve) insufficiency Code(s): I34.0 - Nonrheumatic mitral (valve) insufficiency (5) Tobacco abuse: Status: Chronic Code(s): Z72.0 - Tobacco use (6) Congestive heart failure: Status: Acute Qualifiers: Heart failure type: combined systolic and diastolic Heart failure chronicity: acute Qualified Code(s): I50.41 - Acute combined systolic (congestive) and diastolic (congestive) heart failure Code(s): I50.9 - Heart failure, unspecified (7) Diabetes mellitus: Mild dose sliding scale Status: Chronic Qualifiers: Diabetes mellitus type: type 2 Diabetes mellitus emt intermediate insulin use: without [place] [facility] use Diabetes mellitus complication status: without complication Qualified Code(s): E11.9 - Type 2 diabetes mellitus without complications Code(s): E11.9 - Type 2 diabetes mellitus without complications (8) Hypertension: Status: Chronic Qualifiers: Hypertension type: essential hypertension Qualified Code(s): I10 - Essential (primary) hypertension Code(s): I10 - Essential (primary) hypertension Attestations Medical Necessity Statement*: Patient requires hospitalization, inpatient, greater than 2 midnights for acute respiratory failure,nstemi Coding Level of Care Code Acute [facility] for [facility] Diagnoses Acute respiratory failure with hypoxia and hypercapnia J96.01; J96.02 NSTEMI (non-ST elevated myocardial infarction) I21.4 Dyspnea on minimal exertion R06.09 Mitral regurgitation I34.0 Cardiac valve disease etiology: etiology unspecified Tobacco abuse Z72.0 Congestive heart failure I50.41 Heart failure type: combined systolic and diastolic Heart failure chronicity: acute Diabetes mellitus E11.9 Diabetes mellitus type: type 2 Diabetes mellitus emt intermediate insulin use: without [place] [facility] use Diabetes mellitus complication status: without complication Hypertension I10 Hypertension type: essential hypertension
[2019-08-19 15:34] LABS: Magnesium 2.2 mg/dL (1.7-2.3); Phosphorus 4.5 mg/dL (2.5-4.5)
[2019-08-19 15:36] LABS: NT Pro B Type Natriuretic Pept 2390 pg/mL (0-125); Procalcitonin 0.07 ng/mL (0-0.5)
[2019-08-19] MEDS: LORazepam 2 mg/mL INJ 1 mL 1 MG IVP (15:40)
[2019-08-19 15:57] LABS: Glucose Point of Care 320 mg/dL (70-110)
[2019-08-19 16:05] LABS: C Reactive Protein 6.7 mg/L (0.0-4.9)
--- NOTE | 2019-08-19 16:19 | ECG_ITS ---
Measurements Intervals [place] Rate: 100 P: 60 KS: 205 QRS: -31 QRSD: 83 T: 140 QT: 321 QTc: 414 SINUS TACHYCARDIA POSSIBLE LEFT ATRIAL ENLARGEMENT [-0.1mV P WAVE IN V1/V2] LOW QRS VOLTAGE IN EXTREMITY LEADS [QRS DEFLECTION < 0.5 mV IN LIMB LEADS] POSSIBLE ANTERIOR MYOCARDIAL INFARCTION [30 ms Q WAVE IN V3/V4, OR R < 0.2 mV IN V4], PROBABLY OLD INFERIOR MYOCARDIAL INFARCTION [40+ ms Q WAVE AND/OR ST/T ABNORMALITY IN II/aVF], OF INDETERMINATE AGE INTERPRETATION BASED ON A DEFAULT AGE OF 40 YEARS Compared to ECG 08/16/2019 02:19:34 Sinus rhythm no longer present Myocardial infarct finding still present Electronically Signed On 08-19-2019 20:36:03 RESIDENTIAL DIRECTOR by Wendy Mendoza M.D. [email or web address]
[2019-08-19 16:26] LABS: Amphetamines Screen Urine Negative (Negative); Barbiturates Screen Urine Negative (Negative); Benzodiazepines Screen Urine Negative (Negative); Cocaine Screen Urine Negative (Negative); Opiate Screen Urine Negative (Negative); PCP Screen Urine Negative (Negative); THC Screen Urine Positive (Negative)
[2019-08-19] MEDS: nitroglycerin drip 50 MG/250 ML PREMIX IV (16:28)
[2019-08-19 17:12] LABS: Troponin 5 6HR 808.8 ng/mL (0-15)
[2019-08-19 17:23] LABS: Influenza A by IFA Negative (Negative)
[2019-08-19 17:24] LABS: Influenza B by IFA Negative (Negative)
[2019-08-19] MEDS: metoprolol tartrate 25 mg Tablet PO (17:27)
[2019-08-19 17:43] LABS: Erythrocyte Sedimentation Rate 38 mm/hr (0-10)
--- NOTE | 2019-08-19 17:49 | P.CONIM_ITS ---
Providers/Reason For Consult Consulting Physican/Specialty*: NISHA Mendoza MD/cardiology Reason for Consult*: Patient with a recent multivessel PCI, presenting with acute shortness of breath and elevated troponin T Attending Physician: Chito Gibson MD Primary Care Provider: EDITA ALEJO History of Present Illness History of Present Illness Nimesh Prasad is a 49 year old male with a history of coronary disease and recent multivessel PCI, was discharged from the hospital early yesterday. Last night the patient could not sleep well. This morning, he woke up with acute worsening of the shortness of breath. He was brought to the emergency room by ambulance. He was found to be in features of acute pulmonary edema. He is admitted to the hospital for further evaluation management. He was admitted to the hospital a week ago with a more or less similar symptoms. He was found to have moderately severe mitral regurgitation by echocardiogram. His LV ejection fraction was around 45%. He had a features of acute inferior wall myocardial infarction. The cardiac catheterization revealed total occlusion of the mid RCA. He had a high-grade lesions in the ostium of all the 3 obtuse marginal arteries. The mid LAD also was found to have a high-grade stenosis. He und erwent PCI of 2 of the obtuse marginal lesions and the mid LAD lesion. The diagonal artery which was jailed from the LAD intervention also was intervened. Patient apparently was stable with no significant symptoms at the time of his discharge. However through the night, he started getting restless again. His shortness of breath acutely got worse early this morning. He did not have any chest pain. No fever or chills. He has been having a cough with blood-tinged sputum. He has a history of type 2 diabetes, high blood pressure, obesity, smoking abuse and possible COPD. At the time of my examination, patient is on a BiPAP. He is slightly tachypneic. His shortness of breath is better. Denies any abdominal pain or dysuria. No headache or blurring of vision. No other specific complaints. The most recent cardiac catheterization and echocardiogram findings are as mentioned below Review of Systems Narrative: CONSTITUTIONAL: No fever or chills. Worsening shortness of breath EYES: No blurring of vision or other visual disturbances lately. ENT: No hoarseness of voice, auditory disturbances or sore throat. CARDIOVASCULAR: As mentioned above. RESPIRATORY: As mentioned above. Has been having a cough with blood-tinged sputum GASTROINTESTINAL: No hematemesis or melena. GENITOURINARY: No dysuria or hematuria. INTEGUMENTARY: No skin rashes or history of skin cancer. NEURO: No transient ischemic attacks or amaurosis. PSYCHIATRIC: No history of psychosis or major depression. HEMATOLOGIC: No bleeding disorders or significant anemia. ENDOCRINE: Has type 2 diabetes MUSCULOSKELETAL: No recent joint pain or swelling. ALLERGY/IMMUNOLOGY: As mentioned above. Meds/Allergies Home Medications and Allergies Home Medications Medication Instructions Recorded Confirmed Type albuterol sulfate 1 inh INHALATION Q6H PRN 08/14/19 08/19/19 History Allergies Allergy/AdvReac Type Severity Reaction Status Date / Time No Known Allergies Allergy Verified 08/08/19 18:34 Current Medications Current Medications Acetaminophen (Tylenol) 650 mg PO Q6H PRN PRN Reason: Mild/Mod Pain Or Temp >/= 101 Aspirin (Aspirin Ec) 81 mg PO DAILY [facility] Atorvastatin Calcium (Lipitor) 80 mg PO BEDTIME [facility] Bumetanide (Bumex) 1 mg IV Q12H [facility] Last Admin: 08/19/19 15:09 Dose: 1 mg Documented by: Clopidogrel Bisulfate (Plavix) 75 mg PO DAILY [facility] Dextrose (D50w) 25 ml IVP ONCE PRN; Protocol PRN Reason: hypoglycemia protocol Dextrose (D50w) 50 ml IVP PRN PRN; Protocol PRN Reason: hypoglycemia protocol Enoxaparin Sodium (Lovenox) 110 mg SUBCUT Q12H [facility] Last Admin: 08/19/19 15:10 Dose: 110 mg Documented by: Glucagon (Glucagen) 1 mg IM ONCE PRN; Protocol PRN Reason: Adult Acute Hypoglycemia Prot. Dextrose (D5w) 500 mls @ 100 mls/hr IV ONCE PRN; Protocol PRN Reason: Adult Acute Hypoglycemia Prot Nitroglycerin/Dextrose (Nitroglycerin Drip) 50 mg in 250 mls @ 0 mls/hr IV .Q0M [facility]; Protocol Last Titration: 08/19/19 17:32 Dose: 15 mcg/min, 4.5 mls/hr Documented by: Insulin Aspart (Novolog) 0 unit SUBCUT TIDWM [facility]; Protocol Last Admin: 08/19/19 17:26 Dose: 12 unit Documented by: Isosorbide Mononitrate (Imdur) 15 mg PO DAILY [facility] Lisinopril (Prinivil) 2.5 mg PO DAILY [facility] Lorazepam (Ativan) 1 mg IVP Q12H PRN PRN Reason: ANXIETY Last Admin: 08/19/19 15:40 Dose: 1 mg Documented by: Metolazone (Zaroxolyn) 5 mg PO DAILY [facility] Last Admin: 08/19/19 15:10 Dose: 5 mg Documented by: Metoprolol Tartrate (Lopressor) 25 mg PO BID [facility] Last Admin: 08/19/19 17:27 Dose: 25 mg Documented by: Ondansetron HCl (Zofran) 4 mg IVP Q6H PRN PRN Reason: NAUSEA AND VOMITING Potassium Chloride (Klor-Con 10) 20 meq PO DAILY [facility] Trazodone HCl (Desyrel) 50 mg PO BEDTIME PRN PRN Reason: Insomnia PFSH Acute PFSH: Medical History (Updated 08/19/19 @ 18:25 by Wendy Mendoza MD) Congestive heart failure COPD (chronic obstructive pulmonary disease) Diabetes mellitus Hypertension Mitral regurgitation Nonrheumatic mitral valve regurgitation JIMMY (obstructive sleep apnea) Tobacco abuse -Chronic smoker Type 2 diabetes mellitus not at goal Surgical History History of heart artery stent Family History Other CAD (coronary artery disease) Cancer Social History Smoking and tobacco status: current every day smoker Alcohol intake: current Alcohol intake frequency: holidays/special occasions only Substance/Drug Use: current Other substance/drug use details: Patient states that he uses marijuana, he uses his friend's Xanax, used methamphetamine a month ago Vitals/I&O/Wt Last Vital Signs Temp 98.0 F 08/19/19 13:41 Pulse 93 08/19/19 16:20 Resp 31 H 08/19/19 16:20 BP 133/90 08/19/19 16:20 Pulse Ox 98 08/19/19 15:50 08/19/19 08/19/19 08/19/19 06:59 14:59 22:59 Intake Total 3.2 / 3.2 Output Total 400 / 400 Balance -396.8 / -396.8 Weight last 48 hrs Weight 250 lb Physical Exam Narrative: EXAM NARRATIVE: GENERAL: The patient is alert and oriented times three. Moderate respiratory distress. Has cold and clammy extremities HEENT: Minimal pallor, icterus or lymphadenopathy. The pupils are reactant to light. Oral cavity: There are no mucous membrane lesions. Funduscopic examination: The fundus is not visualized NECK: Trachea appears to be central. No masses noted. No JVD or thyromegaly appreciated. No carotid bruit. RESPIRATORY: Chest is symmetrical. No intercostals muscle retraction or any accessory muscle activation. There is no chest wall tenderness. Breath sounds are diminished in the bases. Scattered fine rales and rhonchi. BREASTS: Deferred. HEART: T the PMI could not be palpated. No palpable precordial events. S1 and S2 are normal. No S3 or S4 heard. No pericardial rub or any click heard. Systolic murmur grade 3/6 in the left sternal border. No diastolic murmurs. No pericardial rub. ABDOMEN: No vessel pulsations or distention. No tenderness. No organomegaly appreciated. No abdominal bruit. Bowel sounds are normally heard. : Deferred. RECTAL: Deferred. LYMPHATIC: No lymphadenopathy noted in the neck or groin. EXTREMITIES: No edema or cyanosis. No clubbing. The pulses are symmetrical bilaterally. The radial, femoral, dorsalis pedis and the posterior tibial pulses are palpated but of low volume and amplitude. Cold and clammy extremities MUSCULOSKELETAL: No acute joint deformities or swelling SKIN: There are no significant rashes noted NEUROPSYCHIATRIC: The patient is alert and oriented x3. No focal motor deficits. Data Imaging^: Cardiac catheterization: My impression: Patient has a right dominantsystem. Left main coronary artery is normal. Circumflex is a relatively small vessel. There is a high marginal branch which contains mild diffuse disease. In the AV groove branch or second marginal branch there is a 95 to 99% stenosis. In the ostium of the third marginal branch there is also an 80% stenosis. The vessels are relatively small typical of diabetic vessels. The LAD is a moderate size vessel and contains mild diffuse luminal irregularities. There are small diagonals and septal branches proximally. In the midportion at the takeoff of a fairly large diagonal branch there is a 90% discrete stenosis of the LAD. The right coronary artery is a large dominant vessel and is occluded beyond the acute margin. There is some concentration of contrast material at the occlusion point suggesting a relatively recent occlusion with thrombus. Echo: My impression: Echocardiogram on 08/09/2019 revealed normal left ventricular cavity size. Normal left ventricular wall thickness. Mildly decreased left ventricular systolic function. Regional wall motion abnormalities (see diagram). Akinesis of the mid inferior wall and inferior base. Grade 2 diastolic dysfunction. Ejection fraction 45%. Mildly increased left atrial size. Structurally normal mitral valve. Moderate-severe mitral valve regurgitation. There are no prior echocardiogram studies to compare. CXR: My impression: Moderate cardiomegaly. Bilateral airspace densities. Increased pulmonary venous markings. Small bilateral pleural effusion. Some atelectatic changes in the right lower lobe area. EKG^: EKG 1: My Interpretation: The EKG from 08/16/2019 revealed sinus rhythm with a features of recent inferior myocardial infarction and some nonspecific ST-T changes. EKG 2: My Interpretation: The EKG from today revealed a sinus rhythm with features of a recent inferior myocardial infarction. Prominent diffuse nonspecific ST-T abarca es A&P Assessment and plan (1) NSTEMI (non-ST elevated myocardial infarction): Patient's clinical features are consistent with an acute non-ST elevation myocardial infarction, complicated with acute diastolic heart failure. He has features of acute pulmonary edema. Currently he is on a BiPAP with a 50% oxygen. Oxygen saturations are 96%. Shortness of breath is somewhat better. He may be continued on the Plavix, aspirin, statin and Lovenox. Status: Acute Code(s): I21.4 - Non-ST elevation (NSTEMI) myocardial infarction (2) Acute respiratory failure with hypoxia and hypercapnia: Most likely related to the acute pulmonary edema. Possibility for pneumonia cannot be excluded. Bronchodilator treatment as per the primary Status: Acute Code(s): J96.01 - Acute respiratory failure with hypoxia; J96.02 - Acute respiratory failure with hypercapnia (3) Nonrheumatic mitral valve regurgitation: The echocardiogram on 08/09/2019 revealed a moderately severe mitral regurgitation. This could be partly causing the decompensated heart failure. I may consider a transesophageal echocardiogram, to reevaluate the mitral valve, once his respiratory status is stable. Status: Acute Code(s): I34.0 - Nonrheumatic mitral (valve) insufficiency (4) Hypertension: Patient is a stage II. May continue on the current medications. Status: Chronic Qualifiers: Hypertension type: essential hypertension Qualified Code(s): I10 - Essential (primary) hypertension Code(s): I10 - Essential (primary) hypertension (5) Type 2 diabetes mellitus not at goal: Patient's compliance with diet is questionable. Diabetes. Status: Acute Code(s): E11.9 - Type 2 diabetes mellitus without complications (6) Tobacco abuse: He continues to smoke. Strongly advised to quit smoking Status: Chronic Code(s): Z72.0 - Tobacco use Additional A&P Information I will be reviewing the cardiac catheterization data from the recent angiogram. Possibility of occlusion of one of the obtuse marginal arteries is a concern. Based on the clinical progress and the results of the above, further recommendations will be made. Coding Level of Care Code Acute [employer]visor [employer] [facility] Diagnoses NSTEMI (non-ST elevated myocardial infarction) I21.4 Acute respiratory failure with hypoxia and hypercapnia J96.01; J96.02 Nonrheumatic mitral valve regurgitation I34.0 Hypertension I10 Hypertension type: essential hypertension Type 2 diabetes mellitus not at goal E11.9 Tobacco abuse Z72.0
[2019-08-19] MEDS: ipratropium-albuterol 3 mL Neb INHALATION (19:35)
--- NOTE | 2019-08-19 20:08 | PC.NURSE ---
Sitting on side of bed watching television and drinking diet Sprite. Denies any discomfort at this time. Respirations even and unlabored. Will monitor.
--- NOTE | 2019-08-19 20:11 | PC.NURSE ---
Dressings to bilateral legs intact with no drainage noted. Big toe bandaged. Did not remove dressings at this time.
[2019-08-19 20:18] LABS: Glucose Point of Care 266 mg/dL (70-110)
[2019-08-19] MEDS: levofloxacin-dextrose 5 % 750 MG/150 ML PREMIX 150 MG IV (20:47)
[2019-08-19] MEDS: atorvastatin 40 mg Tablet 80 MG PO (20:47)
--- NOTE | 2019-08-19 21:22 | PC.NURSE ---
Patient sitting up in bed watching television. Denies complaints at this time. Oxygen saturation 98-100% via cannula. Denies pain or discomfort at this time. Thin, orange colored sputum noted in container at bedside;however, patient had been eating red jello earlier. Sample sent to lab via previous shift. Will monitor.
--- NOTE | 2019-08-19 21:43 | PC.NURSE ---
Nitro drip decreased secondary to BP of 87/67. Nitro drip down to 13.3 mcq or 4ml/hr. BP increased to 90/64. Patient placed on bi-pap per his request. Will monitor.
[2019-08-19] MEDS: acetaminophen 325 mg Tablet 650 MG PO (23:07)
[2019-08-20] VITALS (21 sets, daily range): BP systolic 84–118; BP diastolic 59–75; PULSE 66–90; RESP 17–33; TEMP 36.6–36.7; O2SAT 94–100
--- NOTE | 2019-08-20 00:10 | PC.NURSE ---
Lying supine in bed with HOB elevated, watching television. Denies complaints at this time. Will monitor.
[2019-08-20] MEDS: enoxaparin 120 mg/0.8 mL Syringe 110 MG SUBCUT ×2 (01:45→14:18)
[2019-08-20] MEDS: bumetanide 0.25 mg/mL SDV 10 mL 1 MG IV ×2 (01:46→14:18)
[2019-08-20 04:58] LABS: Basophils % 0.2 %; Eosinophils % 0.1 %; Hematocrit 38.6 % (42.0-52.0); Hemoglobin 12.3 g/dL (11.7-16.6); Lymphocytes # 2.8 10^3/uL (0.8-4.8); Lymphocytes % 18.3 %; Mean Corpuscular HGB Conc 31.9 g/dL (30.0-36.0); Mean Corpuscular Hemoglobin 28.1 pg (28.0-34.0); Mean Corpuscular Volume 88.3 fL (80-94); Mean Platelet Volume 8.6 fL (7.4-10.4); Monocytes % 6.2 %; Neutrophils # 11.5 10^3/uL (1.8-7.7); Neutrophils % 74.6 %; Nucleated Red Blood Cells % 0 %; Platelet Count 611 10^3/cmm (130-400); Red Blood Count 4.37 10^6/uL (4.1-5.3); Red Cell Distribution Width 12.2 % (12.1-15.1); White Blood Count 15.4 10^3/uL (4.0-10.0)
[2019-08-20 05:14] LABS: Alanine Aminotransferase 28 U/L (0-41); Albumin Level 2.9 g/dL (3.5-5.2); Alkaline Phosphatase 123 IU/L (40-130); Anion Gap 15.7 (5-19); Aspartate Amino Transferase 16 U/L (0-40); Blood Urea Nitrogen 18 mg/dL (6-20); Calcium 9.4 mg/dL (8.5-10.5); Carbon Dioxide 25 mmol/L (22-29); Chloride 90 mmol/L (98-107); Globulin 4.1 g/dL (1.3-4.6); Glomerular Filtration Rate 71.8 mL/min (90-130); Glucose 207 mg/dL (65-115); Magnesium 1.9 mg/dL (1.7-2.3); Potassium 4.7 mmol/L (3.5-5.1); Sodium 126 mmol/L (136-145); Total Bilirubin 0.7 mg/dL (0.15-1.2)
[2019-08-20 06:05] LABS: Glucose Point of Care 185 mg/dL (70-110)
--- NOTE | 2019-08-20 06:56 | PC.NURSE ---
Patient sitting on side of bed playing a game. Denies discomfort at this time. Would like to eat. This nurse explained to patient that it would be up to physician. Patient voices understanding. BP cuff found on floor. Patient states, Lab took it off when they took blood......she must have forgot about it. BP cuff reapplied. Will monitor.
--- NOTE | 2019-08-20 08:00 | XRR_ITS ---
PROCEDURE INFORMATION: Exam: XR Chest, 1 View Exam date and time: 08/20/2019 8:46 AM Age: 49 years old Clinical indication: Shortness of breath; Additional info: SOB TECHNIQUE: Imaging protocol: XR of the chest Views: 1 view. COMPARISON: CR XR chest 1V portable [id number] 08/19/2019 10:53 AM FINDINGS: Lungs: Bilateral perihilar opacities are not significantly changed. Pleural space: Bilateral pleural effusions are not significantly changed. There is no discernible pneumothorax. Heart/Mediastinum: Unchanged. Bones/joints: Unremarkable for technique. XR/XR chest 1V portable [id number] IMPRESSION: 1. No significant interval change when compared to the CR XR chest 1V portable [id number] 08/19/2019 10:53 AM.
[2019-08-20] MEDS: lisinopril 2.5 mg Tablet PO (08:42)
[2019-08-20] MEDS: metoprolol tartrate 25 mg Tablet PO ×2 (08:42→17:12)
[2019-08-20] MEDS: aspirin 81 mg EC Tablet PO (08:42)
[2019-08-20] MEDS: clopidogrel 75 mg Tablet PO (08:42)
[2019-08-20] MEDS: metOLazone 5 MG Tablet PO (08:42)
[2019-08-20] MEDS: ipratropium-albuterol 3 mL Neb INHALATION ×6 (09:47→23:01)
[2019-08-20] MEDS: isosorbide mononitrate ER 30 mg Tablet 15 MG PO (10:14)
--- NOTE | 2019-08-20 10:25 | P.PN_ITS ---
Subjective Subjective: Interval history: Patient is doing well this morning, is a bit irritable about being on a clear liquid diet, he has had 5300 urine output in the last 24 hours, no fevers, no chills, shortness of breath has significantly improved, no chest pressure patient's, patient's serum sodium levels have decreased to 126 likely secondary to diuresis, no headaches, no blurry vision, n o seizure-like episodes, will continue to monitor, I advised that he is doing well, his troponins have trended down, is on aspirin, Plavix, Lovenox, no bloody or black stools Vitals/I&O/Wt Last Vital Signs Temp 97.8 F 08/20/19 04:00 Pulse 87 08/20/19 09:53 Resp 18 08/20/19 09:50 BP 118/75 08/20/19 07:32 Pulse Ox 98 08/20/19 09:50 08/19/19 08/20/19 08/20/19 22:59 06:59 14:59 Intake Total 824.025 / 081.499 1649 / 2774.025 600 / 600 Output Total 2049 / 2049 2750 / 4800 500 / 500 Balance -1225.975 / -1225.975 -800 / -2025.975 100 / 100 Weight last 48 hrs Weight 113.398 kg Physical Exam Const: COMMON NORMALS: no apparent distress and oriented x3 HENMT: COMMON NORMALS: normocephalic HEAD & SCALP: normocephalic Neck/C-Spine: COMMON NORMALS: no JVD Resp: COMMON NORMALS: normal respiratory effort, no retractions, no use of accessory muscles and clear to auscultation bilaterally AUSCULTATION: clear to auscultation bilaterally Cardio: COMMON NORMALS: no JVD, regular rate, regular rhythm, S1 normal heart sound and S2 normal heart sound RATE: regular rate RHYTHM: regular rhythm HEART SOUNDS: S1 normal and S2 normal GI: COMMON NORMALS: normal to inspection, nondistended, normoactive bowel sounds, soft to palpation, non-tender, no hepatosplenomegaly, no masses and no bruits PALPATION: Yes soft and Yes no hepatosplenomegaly Extremity: COMMON NORMALS: normal capillary refill, no clubbing, cyanosis or edema, no calf tenderness and no pedal edema Neuro: COMMON NORMALS: oriented x3 Psych: COMMON NORMALS: mental status grossly normal Data : 08/20/19 04:20 08/20/19 04:20 Micro: Microbiology 08/19/19 16:25 Gram Stain - Final Sputum - Expectorated Sputum 08/19/19 12:44 Bacterial Antigens - Final Urine,Voided A&P Assessment and plan (1) Acute respiratory failure with hypoxia and hypercapnia: -Patient's ABG on admission showed a pH of 7.31, PCO2 of 50.5, PO2 of 47.2 on CPAP 1000% FiO2 -Patient was placed on BiPAP, 60% FiO2, pH 7.4, PCO2 39.8, PO2 223 -Currently patient is complaining of shortness of breath at rest, is much mildly diaphoretic, decreased breath sounds bilateral lung bases -Bnp 2390, chest x-ray shows pulmonary vascular congestion and pleural effusions -Procalcitonin 0.07, white blood cell count 15, no fevers, does have a chronic productive cough, unlikely pneumonia -Patient's initial intake shows influenza A, but no influenza test was sent down? We will retest for influenza -In the emergency room patient got 125 mg of Solu-Medrol, 60 mg of Lasix Plan: -Strict I's and O's, monitor urine output, fluid restrictions, daily weights -Bumex 1 mg every 12 hours with metolazone -Telemetry monitoring -Monitor respiratory status closely -Sputum culture, viral respiratory panel, urine bacterial antigens, influenza -Duo nebs, oxygen therapy -Start Levaquin 750 mg once daily, although I think infectious etiology is very unlikely given his pro-Sheldon 0.07, he is afebrile, mild neutrophilic leukocytosis of 15.4 Status: Acute Code(s): J96.01 - Acute respiratory failure with hypoxia; J96.02 - Acute respiratory failure with hypercapnia (2) NSTEMI (non-ST elevated myocardial infarction): -On last admission angiography showed: -Patient also had a 95% mid LAD lesion at the takeoff of the diagonal branch and a 95% second obtuse marginal branch and 99% third obtuse marginal branch stenoses -Given patient's noncompliance, decision was made for stenting - repeat coronary angiogram with persistent complete occlusion of distal RCA and underwent angioplasty of OM 3 and D1 and stenting of OM 2 and m LAD. -Patient had chest pressure this morning, patient does have mild ST elevation in lead III and aVF which seem chronic since August 16, 2018, no other acute ST-T wave changes -No active chest pain -Baseline troponin is 900, 120-minute is 1006, delta of 102 Plan: -Continue aspirin, Plavix, therapeutic Lovenox -Continue telemetry monitoring, serial EKGs, monitor for chest pain -Follow cardiology recommendation, currently on a nitro drip Status: Acute Code(s): I21.4 - Non-ST elevation (NSTEMI) myocardial infarction (3) Dyspnea on minimal exertion: Status: Acute Code(s): R06.09 - Other forms of dyspnea (4) Mitral regurgitation: Status: Acute Qualifiers: Cardiac valve disease etiology: etiology unspecified Qualified Code(s): I34.0 - Nonrheumatic mitral (valve) insufficiency Code(s): I34.0 - Nonrheumatic mitral (valve) insufficiency (5) Tobacco abuse: Status: Chronic Code(s): Z72.0 - Tobacco use (6) Congestive heart failure: Status: Acute Qualifiers: Heart failure type: combined systolic and diastolic Heart failure chronicity: acute Qualified Code(s): I50.41 - Acute combined systolic (conges tive) and diastolic (congestive) heart failure Code(s): I50.9 - Heart failure, unspecified (7) Diabetes mellitus: Mild dose sliding scale Status: Chronic Qualifiers: Diabetes mellitus type: type 2 Diabetes mellitus intermission coordinator insulin use: without residential use Diabetes mellitus complication status: without complication Qualified Code(s): E11.9 - Type 2 diabetes mellitus without complications Code(s): E11.9 - Type 2 diabetes mellitus without complications (8) Hypertension: Status: Chronic Qualifiers: Hypertension type: essential hypertension Qualified Code(s): I10 - Essential (primary) hypertension Code(s): I10 - Essential (primary) hypertension (9) Hyponatremia: Acute on chronic hyponatremia Chronic hyponatremia likely due to underlying heart failure Acute worsening given diuresis, will continue to monitor serum sodiums closely, patient encouraged to drink Gatorade electrolyte balance fluids Status: Acute Code(s): E87.1 - Hypo-osmolality and hyponatremia Attestations Medical Necessity Statement*: Patient requires hospitalization due to acute respiratory failure Coding Level of Care Code Acute Se[employer] for [facility] Diagnoses Acute respiratory failure with hypoxia and hypercapnia J96.01; J96.02 NSTEMI (non-ST elevated myocardial infarction) I21.4 Dyspnea on minimal exertion R06.09 Mitral regurgitation I34.0 Cardiac valve disease etiology: etiology unspecified Tobacco abuse Z72.0 Congestive heart failure I50.41 Heart failure type: combined systolic and diastolic Heart failure chronicity: acute Diabetes mellitus E11.9 Diabetes mellitus type: type 2 Diabetes mellitus residential insulin use: without residential use Diabetes mellitus complication status: without complication Hypertension I10 Hypertension type: essential hypertension Hyponatremia E87.1
[2019-08-20 11:24] LABS: Glucose Point of Care 309 mg/dL (70-110)
[2019-08-20 13:34] LABS: Blood Urea Nitrogen 21 mg/dL (6-20); Calcium 9.1 mg/dL (8.5-10.5); Carbon Dioxide 27 mmol/L (22-29); Chloride 87 mmol/L (98-107); Glomerular Filtration Rate 71.8 mL/min (90-130); Glucose 327 mg/dL (65-115); Osmolality Calculated 267 mOsm/kg (285-295); Sodium 124 mmol/L (136-145)
[2019-08-20 16:06] LABS: Glucose Point of Care 283 mg/dL (70-110)
[2019-08-20] MEDS: acetaminophen 325 mg Tablet 650 MG PO (17:22)
--- NOTE | 2019-08-20 18:42 | P.PN_ITS ---
Subjective Subjective: Interval history: Patient is feeling much better. Still has a cough bringing out scanty yellowish and blood-tinged sputum. No hemoptysis. No fever or chills. White cell count is still elevated. Medications: Medication Review Details: Current Medications Acetaminophen (Tylenol) 650 mg PO Q6H PRN PRN Reason: Mild/Mod Pain Or Temp >/= 101 Last Admin: 08/20/19 17:22 Dose: 650 mg Documented by: Albuterol/Ipratropium (Duoneb) 3 ml INHALATION Q4H.RESPIRATORY SAMANTHA Last Admin: 08/20/19 17:00 Dose: 3 ml Documented by: Aspirin (Aspirin Ec) 81 mg PO DAILY [facility] Last Admin: 08/20/19 08:42 Dose: 81 mg Documented by: Atorvastatin Calcium (Lipitor) 80 mg PO BEDTIME [facility] Last Admin: 08/19/19 20:47 Dose: 80 mg Documented by: Bumetanide (Bumex) 1 mg IV Q12H [facility] Last Admin: 08/20/19 14:18 Dose: 1 mg Documented by: Clopidogrel Bisulfate (Plavix) 75 mg PO DAILY [facility] Last Admin: 08/20/19 08:42 Dose: 75 mg Documented by: Dextrose (D50w) 25 ml IVP ONCE PRN; Protocol PRN Reason: hypoglycemia protocol Dextrose (D50w) 50 ml IVP PRN PRN; Protocol PRN Reason: hypoglycemia protocol Enoxaparin Sodium (Lovenox) 110 mg SUBCUT Q12H [facility] Last Admin: 08/20/19 14:18 Dose: 110 mg Documented by: Glucagon (Glucagen) 1 mg IM ONCE PRN; Protocol PRN Reason: Adult Acute Hypoglycemia Prot. Dextrose (D5w) 500 mls @ 100 mls/hr IV ONCE PRN; Protocol PRN Reason: Adult Acute Hypoglycemia Prot Levofloxacin/Dextrose (Levaquin-D5w) 750 mg in 150 mls @ 150 mls/hr IV Q24H [facility]; Protocol Last Infusion: 08/19/19 23:11 Dose: Infused Documented by: Insulin Aspart (Novolog) 0 unit SUBCUT WM&BEDTIME [facility]; Protocol Last Admin: 08/20/19 17:10 Dose: 12 unit Documented by: Isosorbide Mononitrate (Imdur) 15 mg PO DAILY [facility] Last Admin: 08/20/19 10:14 Dose: 15 mg Documented by: Lisinopril (Prinivil) 2.5 mg PO DAILY [facility] Last Admin: 08/20/19 08:42 Dose: 2.5 mg Documented by: Lorazepam (Ativan) 1 mg IVP Q12H PRN PRN Reason: ANXIETY Last Admin: 08/19/19 15:40 Dose: 1 mg Documented by: Metolazone (Zaroxolyn) 5 mg PO DAILY [facility] Last Admin: 08/20/19 08:42 Dose: 5 mg Documented by: Metoprolol Tartrate (Lopressor) 25 mg PO BID [facility] Last Admin: 08/20/19 17:12 Dose: 25 mg Documented by: Ondansetron HCl (Zofran) 4 mg IVP Q6H PRN PRN Reason: NAUSEA AND VOMITING Potassium Chloride (Klor-Con 10) 20 meq PO DAILY [facility] Last Admin: 08/20/19 08:42 Dose: 20 meq Documented by: Trazodone HCl (Desyrel) 50 mg PO BEDTIME PRN PRN Reason: Insomnia Vitals/I&O/Wt Last Vital Signs Temp 97.8 F 08/20/19 04:00 Pulse 84 08/20/19 17:07 Resp 20 H 08/20/19 17:01 BP 102/59 08/20/19 15:34 Pulse Ox 97 08/20/19 17:01 08/20/19 08/20/19 08/20/19 06:59 14:59 22:59 Intake Total 1950 / 2774.025 600 / 600 240 / 840 Output Total 2750 / 4800 500 / 500 1050 / 1550 Balance -800 / -2025.975 100 / 100 -810 / -710 Weight last 48 hrs Weight 250 lb Physical Exam Narrative: EXAM NARRATIVE: GENERAL: The patient is alert and oriented times three. Moderate respiratory distress. Has cold and clammy extremities HEENT: Minimal pallor, icterus or lymphadenopathy. NECK: Trachea appears to be central. No masses noted. No JVD or thyromegaly appreciated. No carotid bruit. RESPIRATORY: Chest is symmetrical. No intercostals muscle retraction or any accessory muscle activation. There is no chest wall tenderness. Breath sounds are diminished in the bases. No rales or rhonchi BREASTS: Deferred. HEART: The PMI could not be palpated. No palpable precordial events. S1 and S2 are normal. No S3 or S4 heard. No pericardial rub or any click heard. Systolic murmur grade 3/6 in the left sternal border. No diastolic murmurs. No pericardial rub. ABDOMEN: No vessel pulsations or distention. No tenderness. Slightly obese. No organomegaly appreciated. No abdominal bruit. Bowel sounds are normally heard. : Deferred. RECTAL: Deferred. LYMPHATIC: No lymphadenopathy noted in the neck or groin. EXTREMITIES: No edema or cyanosis. No clubbing. The pulses are symmetrical bilaterally. The radial, femoral, dorsalis pedis and the posterior tibial pulses are palpated but of low volume and amplitude. Cold and clammy extremities MUSCULOSKELETAL: No acute joint deformities or swelling SKIN: There are no significant rashes noted NEUROPSYCHIATRIC: The patient is alert and oriented x3. No focal motor deficits. Data : 08/20/19 04:20 08/20/19 12:48 Micro: Microbiology 08/19/19 16:25 Gram Stain - Final Sputum - Expectorated Sputum 08/19/19 12:44 Bacterial Antigens - Final Urine,Voided A&P Assessment and plan (1) Acute on chronic diastolic (congestive) heart failure: Patient apparently has recurrent decompensated diastolic heart failure. The etiology is not clear. Possibility of mitral valve disease, coronary ischemia, arrhythmia etc. causing this are considerations. Currently he seems to be compensated. Status: Acute Code(s): I50.33 - Acute on chronic diastolic (congestive) heart failure (2) Recent non-ST elevation myocardial infarction: The troponin she is trending down. 1942, 1514 and 904. No evidence of any recurrent myocardial injury. Status post PCI of the circumflex and diagonal artery lesions. Status: Acute (3) Acute respiratory failure with hypoxia and hypercapnia: Most likely related to the acute pulmonary edema. Possibility for pneumonia cannot be excluded. Bronchodilator treatment as per the primary. Currently he is off the BiPAP. On oxygen by nasal cannula-2 L/min O2 saturation was 97% Status: Acute Code(s): J96.01 - Acute respiratory failure with hypoxia; J96.02 - Acute respiratory failure with hypercapnia (4) Nonrheumatic mitral valve regurgitation: The echocardiogram on 08/09/2019 revealed a moderately severe mitral regurgitation. This could be a major contributing factor for his recurrent heart failure. This was discussed with the patient in detail. For further evaluation of his mitral valve, a CARLO would be appropriate. The risk of aspiration, bleeding, soft tissue injury, perforation of the stomach/esophagus and other concomitant complications were explained to the patient in detail. The patient understood this well and consented to proceed Status: Acute Code(s): I34.0 - Nonrheumatic mitral (valve) insufficiency (5) Hypertension: Patient is a stage II. May continue on the current medications. Status: Chronic Qualifiers: Hypertension type: essential hypertension Qualified Code(s): I10 - Essential (primary) hypertension Code(s): I10 - Essential (primary) hypertension (6) Type 2 diabetes mellitus not at goal: Patient's compliance with diet is questionable. Blood sugar still remains uncontrolled. This needs to be closely monitored Status: Acute Code(s): E11.9 - Type 2 diabetes mellitus without complications (7) Tobacco abuse: He continues to smoke. Strongly advised to quit smoking Status: Chronic Code(s): Z72.0 - Tobacco use Additional A&P Information The coronary angiogram was reviewed. The mid circumflex lesion and the lesion in the OM 2 were intervened. The first obtuse marginal and the third obtuse marginal arteries have high-grade lesions. But these arteries relatively small caliber vessels. The LAD/diagonal lesions also were intervened. The mid righ t coronary artery is totally occluded with collaterals from left to right. Based on the angiogram findings, the chances of him developing recurrent ischemic heart failure may be low. At this point it might be appropriate to reevaluate the mitral valve lesion. I may go ahead and schedule him for a CARLO tomorrow. 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
[2019-08-20] MEDS: levofloxacin-dextrose 5 % 750 MG/150 ML PREMIX 150 MG IV (19:48)
[2019-08-20 20:28] LABS: Glucose Point of Care 277 mg/dL (70-110)
[2019-08-20] MEDS: atorvastatin 40 mg Tablet 80 MG PO (20:39)
[2019-08-20] MEDS: trazodone 50 mg Tablet PO (22:40)
[2019-08-21] VITALS (9 sets, daily range): BP systolic 94–110; BP diastolic 51–65; PULSE 70–86; RESP 15–28; TEMP 36.4–36.6; O2SAT 92–98
[2019-08-21] MEDS: enoxaparin 120 mg/0.8 mL Syringe 110 MG SUBCUT ×2 (02:16→14:44)
[2019-08-21] MEDS: bumetanide 0.25 mg/mL SDV 10 mL 1 MG IV ×2 (02:17→14:45)
[2019-08-21] MEDS: ipratropium-albuterol 3 mL Neb INHALATION (03:35)
[2019-08-21 04:22] LABS: Basophils # 0.1 10^3/uL (0.0-0.1); Basophils % 0.6 %; Eosinophils # 0.1 10^3/uL (0.0-0.8); Eosinophils % 0.6 %; Hemoglobin 11.8 g/dL (11.7-16.6); Lymphocytes # 3.1 10^3/uL (0.8-4.8); Lymphocytes % 31.1 %; Mean Corpuscular HGB Conc 32.8 g/dL (30.0-36.0); Mean Corpuscular Hemoglobin 27.9 pg (28.0-34.0); Mean Corpuscular Volume 85.1 fL (80-94); Mean Platelet Volume 8.5 fL (7.4-10.4); Monocytes # 0.6 10^3/uL (0.2-0.9); Monocytes % 6.3 %; Neutrophils # 6.1 10^3/uL (1.8-7.7); Neutrophils % 60.8 %; Nucleated Red Blood Cells % 0 %; Platelet Count 605 10^3/cmm (130-400); Red Blood Count 4.23 10^6/uL (4.1-5.3); Red Cell Distribution Width 12.4 % (12.1-15.1); White Blood Count 10.1 10^3/uL (4.0-10.0)
[2019-08-21 04:30] LABS: Alanine Aminotransferase 23 U/L (0-41); Albumin Level 3.1 g/dL (3.5-5.2); Alkaline Phosphatase 114 IU/L (40-130); Aspartate Amino Transferase 11 U/L (0-40); Blood Urea Nitrogen 19 mg/dL (6-20); Calcium 9.6 mg/dL (8.5-10.5); Carbon Dioxide 29 mmol/L (22-29); Chloride 90 mmol/L (98-107); Creatinine Clr Calc Pharmacy 97.4554; Glomerular Filtration Rate 64.9 mL/min (90-130); Glucose 161 mg/dL (65-115); Magnesium 1.8 mg/dL (1.7-2.3); Sodium 130 mmol/L (136-145); Total Bilirubin 0.7 mg/dL (0.15-1.2); Total Protein 7.1 g/dL (6.6-8.7)
[2019-08-21 06:18] LABS: Glucose Point of Care 156 mg/dL (70-110)
[2019-08-21] MEDS: metOLazone 5 MG Tablet PO (10:12)
[2019-08-21] MEDS: lisinopril 2.5 mg Tablet PO (10:12)
[2019-08-21] MEDS: metoprolol tartrate 25 mg Tablet PO ×2 (10:12→17:51)
[2019-08-21] MEDS: isosorbide mononitrate ER 30 mg Tablet 15 MG PO (10:12)
[2019-08-21] MEDS: acetaminophen 325 mg Tablet 650 MG PO (10:18)
--- NOTE | 2019-08-21 10:56 | PC.RESP ---
Patient given information on Smoking Cessation and Pulmonary Rehab.
[2019-08-21 11:17] LABS: Glucose Point of Care 166 mg/dL (70-110)
[2019-08-21] MEDS: clopidogrel 75 mg Tablet PO (12:47)
[2019-08-21] MEDS: aspirin 81 mg EC Tablet PO (12:47)
--- NOTE | 2019-08-21 16:57 | P.PN_ITS ---
Subjective Subjective: Interval history: Not surprisingly, Nimesh was readmitted over the weekend after being out of the hospital only 24 hours. He had another episode of acute shortness of breath. He was hypercarbic and hypoxic. There still is a suspicion of congestive heart failure. I have thought all along that this is related to mitral regurgitation. His left ventricular function is not that bad. The only other possibility would be a pulmonary cause. He does not seem to be wheezing or having any other problems. This is more consistent with acute pulmonary edema. We are now having roadblocks everywhere return. The CARLO was scheduled for today but he has a loose tooth. There is no one in the community that has hospital privileges to remove the tooth. Patient does not have a dentist because he does not see a dentist and is uninsured so cannot afford to see 1. We cannot do the CARLO as long as the tooth is loose. He cannot go home because he will continue to have these episodes until some solution is found. No chest pain. Medications: Reviewed: Yes Vitals/I&O/Wt Last Vital Signs Temp 97.8 F 08/21/19 15:54 Pulse 72 08/21/19 15:54 Resp 28 H 08/21/19 15:54 BP 110/65 08/21/19 15:54 Pulse Ox 97 08/21/19 15:54 08/21/19 08/21/19 08/21/19 06:59 14:59 22:59 Intake Total 360 / 360 Output Total 1950 / 4250 650 / 650 575 / 1225 Balance -1950 / -3410 -290 / -290 -575 / -865 Physical Exam Narrative: EXAM NARRATIVE: GENERAL: Comfortable at rest HEENT: Exam within normal limits. NECK: Supple without jugular vein distention. The carotid upstroke is normal without bruits. BACK: Exam normal. LUNGS: Clear. HEART: Regular rate and rhythm. ABDOMEN: Benign without organomegaly or tenderness. EXTREMITIES: No edema. NEUROLOGIC: Exam normal. SKIN: Unremarkable. Data : 08/21/19 03:44 08/21/19 03:44 Micro: Microbiology 08/19/19 16:25 Gram Stain - Final Sputum - Expectorated Sputum Sputum Culture - Preliminary A&P Assessment and plan (1) Congestive heart failure: Status: Acute Qualifiers: Heart failure type: combined systolic and diastolic Heart failure chronicity: acute Qualified Code(s): I50.41 - Acute combined systolic (congestive) and diastolic (congestive) heart failure Code(s): I50.9 - Heart failure, unspecified (2) Tobacco abuse: Status: Chronic Code(s): Z72.0 - Tobacco use (3) Mitral regurgitation: Status: Acute Qualifiers: Cardiac valve disease etiology: etiology unspecified Qualified Code(s): I34.0 - Nonrheumatic mitral (valve) insufficiency Code(s): I34.0 - Nonrheumatic mitral (valve) insufficiency (4) Dyspnea on minimal exertion: Status: Acute Code(s): R06.09 - Other forms of dyspnea (5) Diabetes mellitus: Status: Chronic Qualifiers: Diabetes mellitus type: type 2 Diabetes mellitus terminal clerk insulin use: without alf use Diabetes mellitus complication status: without complication Qualified Code(s): E11.9 - Type 2 diabetes mellitus without complications Code(s): E11.9 - Type 2 diabetes mellitus without complications (6) Hypertension: Status: Chronic Qualifiers: Hypertension type: essential hypertension Qualified Code(s): I10 - Essential (primary) hypertension Code(s): I10 - Essential (primary) hypertension (7) Acute respiratory failure with hypoxia and hypercapnia: Status: Acute Code(s): J96.01 - Acute respiratory failure with hypoxia; J96.02 - Acute respiratory failure with hypercapnia (8) Recent non-ST elevation myocardial infarction: Status: Acute Additional A&P Information I am told he just received a dose of Lovenox. He remains on Plavix. We have to figure out a way to get that tooth out of there in order to proceed with any other diagnostic testing. Otherwise we simply cannot send him home. I am going to hold the Lovenox. I would be careful with the aggressive diuretics in the form of Zaroxolyn and Bumex IV. This will likely dehydrate him. 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 [facility] History Detailed Exam Detailed Medical Decision Making Moderate Complexity Diagnoses Congestive heart failure I50.41 Heart failure type: combined systolic and diastolic Heart failure chronicity: acute Tobacco abuse Z72.0 Mitral regurgitation I34.0 Cardiac valve disease etiology: etiology unspecified Dyspnea on minimal exertion R06.09 Diabetes mellitus E11.9 Diabetes mellitus type: type 2 Diabetes mellitus terminal clerk insulin use: without terminal clerk use Diabetes mellitus complication status: without complication Hypertension I10 Hypertension type: essential hypertension Acute respiratory failure with hypoxia and hypercapnia J96.01; J96.02 Recent non-ST elevation myocardial infarction
[2019-08-21 17:03] LABS: Glucose Point of Care 231 mg/dL (70-110)
--- NOTE | 2019-08-21 17:37 | P.PN_ITS ---
Subjective Subjective: Interval history: This morning patient states that he is doing quite well, his shortness of breath has improved significantly, he is up to the side of a bed, is ambulating without significant symptomatology, no fevers, no chills, no nausea, no vomiting, no chest pain episodes, no lightheadedness, no dizziness, has tolerated diuresis well, is -6.7 L since admission, he states that he feels quite well. Vitals/I&O/Wt Last Vital Signs Temp 97.8 F 08/21/19 15:54 Pulse 72 08/21/19 15:54 Resp 28 H 08/21/19 15:54 BP 110/65 08/21/19 15:54 Pulse Ox 97 08/21/19 15:54 08/21/19 08/21/19 08/21/19 06:59 14:59 22:59 Intake Total 360 / 360 Output Total 1949 / 4250 650 / 650 1025 / 1675 Balance -1950 / -3410 -290 / -290 -1025 / -1315 Physical Exam Const: COMMON NORMALS: no apparent distress and oriented x3 GENERAL APPEARANCE: cooperative, comfortable, anxious and diaphoretic HENMT: COMMON NORMALS: normocephalic HEAD & SCALP: normocephalic Eye: COMMON NORMALS: PERRL, EOMs intact bilaterally and no papilledema GENERAL EYE: normal appearance of both eyes PUPIL: Yes PERRL DIRECT OPHTHALMOSCOPY: Yes no papilledema Neck/C-Spine: COMMON NORMALS: no JVD and thyroid normal THYROID: thyroid normal Lymph: LYMPHATIC: no lymphadenopathy noted Resp: COMMON NORMALS: normal respiratory effort, no retractions, no use of accessory muscles and clear to auscultation bilaterally EFFORT & INSPECTION: Yes other (Diminished breath sounds bilateral lung bases) AUSCULTATION: clear to auscultation bilaterally Cardio: COMMON NORMALS: no JVD, regular rate, regular rhythm, S1 normal heart sound and S2 normal heart sound RATE: regular rate RHYTHM: regular rhythm HEART SOUNDS: S1 normal and S2 normal GI: COMMON NORMALS: normal to inspection, nondistended, normoactive bowel sounds, soft to palpation, non-tender, no hepatosplenomegaly, no masses and no bruits PALPATION: Yes soft and Yes no hepatosplenomegaly Extremity: COMMON NORMALS: normal capillary refill, no clubbing, cyanosis or edema, no calf tenderness and no pedal edema Neuro: COMMON NORMALS: oriented x3 Psych: COMMON NORMALS: mental status grossly normal and thought process normal THOUGHT PROCESS: normal thought process Data : 08/21/19 03:44 08/21/19 03:44 Micro: Microbiology 08/19/19 16:25 Gram Stain - Final Sputum - Expectorated Sputum Sputum Culture - Preliminary A&P Assessment and plan (1) Acute respiratory failure with hypoxia and hypercapnia: -Is -6.67 L since admission, has tolerated diuresis well, his sodium levels is 130, patient feels well, shortness of breath is minimal, chest pain is minimal, is ambulating without significant symptomatology Plan: -Strict I's and O's, monitor urine output, fluid restrictions, daily weights -Bumex 1 mg every 12 hours with metolazone -Telemetry monitoring -Monitor respiratory status closely -Sputum culture, viral respiratory panel, urine bacterial antigens, influenza -Duo nebs, oxygen therapy -Start Levaquin 750 mg once daily, although I think infectious etiology is very unlikely given his pro-Sheldon 0.07, he is afebrile, mild neutrophilic leukocytosis of 15.4 Status: Acute Code(s): J96.01 - Acute respiratory failure with hypoxia; J96.02 - Acute respiratory failure with hypercapnia (2) NSTEMI (non-ST elevated myocardial infarction): -On last admission angiography showed: -Patient also had a 95% mid LAD lesion at the takeoff of the diagonal branch and a 95% second obtuse marginal branch and 99% third obtuse marginal branch stenoses -Given patient's noncompliance, decision was made for stenting - repeat coronary angiogram with persistent complete occlusion of distal RCA and underwent angioplasty of OM 3 and D1 and stenting of OM 2 and m LAD. -Patient had chest pressure this morning, patient does have mild ST elevation in lead III and aVF which seem chronic since August 16, 2018, no other acute ST-T wave changes -No active chest pain -Baseline troponin is 900, 120-minute is 1006, delta of 102 Plan: -Continue aspirin, Plavix, therapeutic Lovenox -Continue telemetry monitoring, serial EKGs, monitor for chest pain -Follow cardiology recommendation Status: Acute Code(s): I21.4 - Non-ST elevation (NSTEMI) myocardial infarction (3) Mitral regurgitation: -There were plans on a transesophageal echocardiogram this morning by Dr. Mendoza due to mitral regurgitation -However patient has a central incisor that is quite loose, and there is a risk of it becoming loose and aspirating during his transesophageal echocardiogram -Unfortunately patient is on aspirin, Plavix, Lovenox, is a high risk of bleed, might require suturing, risk of infections -Unfortunately no physician at [facility] has dental privileges, check to Dr. Ayala does not have dental privileges, I reached out to the ER physician they do not have dental privileges, I reached out to hospital administration and no one has dental privileges -In addition what makes things more difficult this patient does not have adequate insurance -Patient can get outpatient dental extraction through a formerly [facility] in [place], and they are willing to remove it with patient be on aspirin and Plavix -Cardiology needs transesophageal echocardiogram completed as inpatient, the only other option is possible transfer to a facility where they have dental privileges, I will leave this up to cardiology, if I can be of help in any way I can Status: Acute Qualifiers: Cardiac valve disease etiology: etiology unspecified Qualified Code(s): I34.0 - Nonrheumatic mitral (valve) insufficiency Code(s): I34.0 - Nonrheumatic mitral (valve) insufficiency (4) Dyspnea on minimal exertion: Status: Acute Code(s): R06.09 - Other forms of dyspnea (5) Tobacco abuse: Status: Chronic Code(s): Z72.0 - Tobacco use (6) Congestive heart failure: Status: Acute Qualifiers: Heart failure type: combined systolic and diastolic Heart failure chronicity: acute Qualified Code(s): I50.41 - Acute combined systolic (congestive) and diastolic (congestive) heart failure Code(s): I50.9 - Heart failure, unspecified (7) Diabetes mellitus: Mild dose sliding scale Status: Chronic Qualifiers: Diabetes mellitus type: type 2 Diabetes mellitus roasterman insulin use: without roasterman use Diabetes mellitus complication status: without complication Qualified Code(s): E11.9 - Type 2 diabetes mellitus without complications Code(s): E11.9 - Type 2 diabetes mellitus without complications (8) Hypertension: Status: Chronic Qualifiers: Hypertension type: essential hypertension Qualified Code(s): I10 - Essential (primary) hypertension Code(s): I10 - Essential (primary) hypertension (9) Hyponatremia: Acute on chronic hyponatremia Chronic hyponatremia likely due to underlying heart failure Acute worsening given diuresis, will continue to monitor serum sodiums closely, patient encouraged to drink Gatorade electrolyte balance fluids Status: Acute Code(s): E87.1 - Hypo-osmolality and hyponatremia Attestations Medical Necessity Statement*: Patient requires hospitalization due to acute respiratory failure Coding Level of Care Code 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 [facility] Diagnoses Acute respiratory failure with hypoxia and hypercapnia J96.01; J96.02 NSTEMI (non-ST elevated myocardial infarction) I21.4 Mitral regurgitation I34.0 Cardiac valve disease etiology: etiology unspecified Dyspnea on minimal exertion R06.09 Tobacco abuse Z72.0 Congestive heart failure I50.41 Heart failure type: combined systolic and diastolic Heart failure chronicity: acute Diabetes mellitus E11.9 Diabetes mellitus type: type 2 Diabetes mellitus jail insulin use: without jail use Diabetes mellitus complication status: without complication Hypertension I10 Hypertension type: essential hypertension Hyponatremia E87.1
[2019-08-21] MEDS: levofloxacin-dextrose 5 % 750 MG/150 ML PREMIX 150 MG IV (17:52)
[2019-08-21 20:18] LABS: Glucose Point of Care 132 mg/dL (70-110)
[2019-08-21] MEDS: atorvastatin 40 mg Tablet 80 MG PO (21:33)
[2019-08-21] MEDS: trazodone 50 mg Tablet PO (21:33)
[2019-08-22] VITALS (10 sets, daily range): BP systolic 96–109; BP diastolic 58–66; PULSE 63–76; RESP 11–32; TEMP 36.6–36.7; O2SAT 92–97
--- NOTE | 2019-08-22 03:18 | PC.NURSE ---
Notified Dr. Bernstein to see if Bumex may be held according to slurry tank tender recommendation on previous note, order to hold Bumex per Dr. Bernstein. Care Continued.
[2019-08-22] MEDS: acetaminophen 325 mg Tablet 650 MG PO ×2 (03:27→21:01)
[2019-08-22 04:26] LABS: Basophils % 0.5 %; Eosinophils # 0.1 10^3/uL (0.0-0.8); Eosinophils % 0.9 %; Hemoglobin 12.4 g/dL (11.7-16.6); Lymphocytes # 2.1 10^3/uL (0.8-4.8); Lymphocytes % 24.5 %; Mean Corpuscular HGB Conc 33.5 g/dL (30.0-36.0); Mean Corpuscular Hemoglobin 28.3 pg (28.0-34.0); Mean Corpuscular Volume 84.5 fL (80-94); Mean Platelet Volume 8.4 fL (7.4-10.4); Monocytes # 0.5 10^3/uL (0.2-0.9); Neutrophils # 5.9 10^3/uL (1.8-7.7); Neutrophils % 67.5 %; Nucleated Red Blood Cells % 0 %; Platelet Count 572 10^3/cmm (130-400); Red Blood Count 4.38 10^6/uL (4.1-5.3); Red Cell Distribution Width 12.1 % (12.1-15.1); White Blood Count 8.7 10^3/uL (4.0-10.0)
[2019-08-22 04:43] LABS: Alanine Aminotransferase 19 U/L (0-41); Albumin Level 3.2 g/dL (3.5-5.2); Alkaline Phosphatase 105 IU/L (40-130); Anion Gap 16.1 (5-19); Aspartate Amino Transferase 11 U/L (0-40); Blood Urea Nitrogen 17 mg/dL (6-20); Calcium 9.6 mg/dL (8.5-10.5); Carbon Dioxide 30 mmol/L (22-29); Chloride 88 mmol/L (98-107); Creatinine Clr Calc Pharmacy 97.4554; Globulin 3.7 g/dL (1.3-4.6); Glomerular Filtration Rate 64.9 mL/min (90-130); Glucose 165 mg/dL (65-115); Magnesium 1.8 mg/dL (1.7-2.3); Potassium 4.1 mmol/L (3.5-5.1); Sodium 130 mmol/L (136-145); Total Bilirubin 0.8 mg/dL (0.15-1.2); Total Protein 6.9 g/dL (6.6-8.7)
[2019-08-22 06:28] LABS: Glucose Point of Care 169 mg/dL (70-110)
--- NOTE | 2019-08-22 06:55 | P.PN_ITS ---
Subjective Subjective: Interval history: Nimesh has had an uneventful night. No further episodes of acute pulmonary edema or shortness of breath. As mentioned in my note yesterday, we are in a situation where we cannot move forward. The CARLO cannot be done until the tooth is removed and we cannot find anyone to remove the tooth. We cannot move forward with any treatment of his mitral valve di sease until we confirm with a CARLO. Medications: Reviewed: Yes Vitals/I&O/Wt Last Vital Signs Temp 98.1 F 08/22/19 02:57 Pulse 76 08/22/19 02:57 Resp 19 H 08/22/19 02:57 BP 109/66 08/22/19 02:57 Pulse Ox 97 08/22/19 02:57 08/21/19 08/21/19 08/22/19 14:59 22:59 06:59 Intake Total 360 / 360 360 / 720 Output Total 650 / 650 1675 / 2325 1700 / 4025 Balance -290 / -290 -1315 / -1605 -1700 / -3305 Physical Exam Narrative: EXAM NARRATIVE: GENERAL: In general he looks and feels well this morning. HEENT: Exam within normal limits. NECK: Supple without jugular vein distention. The carotid upstroke is normal without bruits. BACK: Exam normal. LUNGS: Clear. HEART: Regular rate and rhythm. ABDOMEN: Benign without organomegaly or tenderness. EXTREMITIES: No edema. NEUROLOGIC: Exam normal. SKIN: Unremarkable. Data : 08/22/19 03:20 08/22/19 03:20 Micro: Microbiology 08/19/19 16:25 Gram Stain - Final Sputum - Expectorated Sputum Sputum Culture - Preliminary A&P Assessment and plan (1) Recent non-ST elevation myocardial infarction: Status: Acute (2) Acute on chronic diastolic (congestive) heart failure: Status: Acute Code(s): I50.33 - Acute on chronic diastolic (congestive) heart failure (3) Type 2 diabetes mellitus not at goal: Status: Acute Code(s): E11.9 - Type 2 diabetes mellitus without complications (4) Acute respiratory failure with hypoxia and hypercapnia: Status: Acute Code(s): J96.01 - Acute respiratory failure with hypoxia; J96.02 - Acute respiratory failure with hypercapnia (5) Mitral regurgitation: Status: Acute Qualifiers: Cardiac valve disease etiology: etiology unspecified Qualified Code(s): I34.0 - Nonrheumatic mitral (valve) insufficiency Code(s): I34.0 - Nonrheumatic mitral (valve) insufficiency (6) Tobacco abuse: Status: Chronic Code(s): Z72.0 - Tobacco use (7) Congestive heart failure: Status: Acute Qualifiers: Heart failure type: combined systolic and diastolic Heart failure chronicity: acute Qualified Code(s): I50.41 - Acute combined systolic (congestive) and diastolic (congestive) heart failure Code(s): I50.9 - Heart failure, unspecified (8) Diabetes mellitus: Status: Chronic Qualifiers: Diabetes mellitus type: type 2 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 Until we do that we cannot move forward. No changes in the meantime. 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 Type Established History Detailed Medical Decision Making Moderate Complexity Diagnoses Recent non-ST elevation myocardial infarction Acute on chronic diastolic (congestive) heart failure I50.33 Type 2 diabetes mellitus not at goal E11.9 Acute respiratory failure with hypoxia and hypercapnia J96.01; J96.02 Mitral regurgitation I34.0 Cardiac valve disease etiology: etiology unspecified Tobacco abuse Z72.0 Congestive heart failure I50.41 Heart failure type: combined systolic and diastolic Heart failure chronicity: acute Diabetes mellitus E11.9 Diabetes mellitus type: type 2 Diabetes mellitus group home 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
--- NOTE | 2019-08-22 07:47 | XR_ITS ---
WS: [id number] Portable AP upright chest, 08/22/2019 Clinical Data: sob Comparison: Portable chest, 08/20/2019. Findings: The pulmonary vascularity is less congested. The heart size is smaller. There are bilateral pleural effusions, more on the left than the right. There is also bibasilar atelectasis. No definite pneumonia seen. There is no pneumothorax. Monitor leads on the chest wall. XR/XR chest 1V portable [id number] Impression: 1. Decrease in pulmonary vascular congestion and decrease in heart size. 2. No change in bilateral pleural effusions and bibasilar atelectasis.
[2019-08-22 08:22] LABS: NT Pro B Type Natriuretic Pept 1591 pg/mL (0-125)
[2019-08-22] MEDS: isosorbide mononitrate ER 30 mg Tablet 15 MG PO (08:45)
[2019-08-22] MEDS: bumetanide 1 mg Tablet PO (08:46)
[2019-08-22] MEDS: metoprolol tartrate 25 mg Tablet PO ×2 (08:46→17:38)
[2019-08-22] MEDS: lisinopril 2.5 mg Tablet PO (08:46)
[2019-08-22] MEDS: clopidogrel 75 mg Tablet PO (08:46)
[2019-08-22] MEDS: aspirin 81 mg EC Tablet PO (08:46)
[2019-08-22 11:33] LABS: Glucose Point of Care 214 mg/dL (70-110)
--- NOTE | 2019-08-22 15:58 | P.PN_ITS ---
Subjective Subjective: Interval history: This morning patient was examined, he states that he is doing well, ambulating around the room appropriately, no significant shortness of breath, no chest pain, no lightheadedness, no dizziness, Vitals/I&O/Wt Last Vital Signs Temp 98.1 F 08/22/19 02:57 Pulse 69 08/22/19 15:25 Resp 16 08/22/19 15:25 BP 100/58 08/22/19 15:25 Pulse Ox 93 08/22/19 15:25 08/22/19 08/22/19 08/22/19 06:59 14:59 22:59 Intake Total 240 / 240 Output Total 1700 / 4025 Balance -1700 / -3305 240 / 240 Physical Exam Const: COMMON NORMALS: no apparent distress and oriented x3 HENMT: COMMON NORMALS: normocephalic HEAD & SCALP: normocephalic Neck/C-Spine: COMMON NORMALS: no JVD Resp: COMMON NORMALS: normal respiratory effort, no retractions, no use of accessory muscles and clear to auscultation bilaterally AUSCULTATION: clear to auscultation bilaterally Cardio: COMMON NORMALS: no JVD, regular rate, regular rhythm, S1 normal heart sound and S2 normal heart sound RATE: regular rate RHYTHM: regular rhythm HEART SOUNDS: S1 normal and S2 normal GI: COMMON NORMALS: normal to inspection, nondistended, normoactive bowel sounds, soft to palpation, non-tender, no hepatosplenomegaly, no masses and no bruits PALPATION: Yes soft and Yes no hepatosplenomegaly Extremity: COMMON NORMALS: normal capillary refill, no clubbing, cyanosis or edema, no calf tenderness and no pedal edema Neuro: COMMON NORMALS: oriented x3 Psych: COMMON NORMALS: mental status grossly normal Data : 08/22/19 03:20 08/22/19 03:20 Micro: Microbiology 08/19/19 16:25 Gram Stain - Final Sputum - Expectorated Sputum Sputum Culture - Final A&P Assessment and plan (1) Acute respiratory failure with hypoxia and hypercapnia: -Is -8350.9 L since admission, has tolerated diuresis well, his sodium levels is 130, patient feels well, shortness of breath is minimal, chest pain is minimal, is ambulating without significant symptomatology Plan: -Strict I's and O's, monitor urine output, fluid restrictions, daily weights -Bumex 1 mg p.o. daily -Telemetry monitoring -Monitor respiratory status closely -Sputum culture, viral respiratory panel, urine bacterial antigens, influenza -Duo nebs, oxygen therapy -Switch to Levaquin 750 p.o., although I think infectious etiology is very unlikely given his pro-Sheldon 0.07, he is afebrile, mild neutrophilic leukocytosis of 15.4 Status: Acute Code(s): J96.01 - Acute respiratory failure with hypoxia; J96.02 - Acute respiratory failure with hypercapnia (2) NSTEMI (non-ST elevated myocardial infarction): -On last admission angiography showed: -Patient also had a 95% mid LAD lesion at the takeoff of the diagonal branch and a 95% second obtuse marginal branch and 99% third obtuse marginal branch stenoses -Given patient's noncompliance, decision was made for stenting - repeat coronary angiogram with persistent complete occlusion of distal RCA and underwent angioplasty of OM 3 and D1 and stenting of OM 2 and m LAD. -Patient had chest pressure this morning, patient does have mild ST elevation in lead III and aVF which seem chronic since August 16, 2018, no other acute ST-T wave changes -No active chest pain -Baseline troponin is 900, 120-minute is 1006, delta of 102 Plan: -Continue aspirin, Plavix, therapeutic Lovenox -Continue telemetry monitoring, serial EKGs, monitor for chest pain -Follow cardiology recommendation Status: Inactive Code(s): I21.4 - Non-ST elevation (NSTEMI) myocardial infarction (3) Mitral regurgitation: -There were plans on a transesophageal echocardiogram this morning by Dr. Mendoza due to mitral regurgitation -However patient has a central incisor that is quite loose, and there is a risk of it becoming loose and aspirating during his transesophageal echocardiogram -Unfortunately patient is on aspirin, Plavix, Lovenox, is a high risk of bleed, might require suturing, risk of infections -Unfortunately no physician at [facility] has dental privileges, check to Dr. Ayala does not have dental privileges, I reached out to the ER physician they do not have dental privileges, I reached out to hospital administration and no one has dental privileges -In addition what makes things more difficult this patient does not have adequ ate insurance -Patient can get outpatient dental extraction through a free health clinic in [place], and they are willing to remove it with patient be on aspirin and Plavix -Cardiology needs transesophageal echocardiogram completed as inpatient, the only other option is possible transfer to a facility where they have dental privileges, I will leave this up to cardiology, if I can be of help in any way I can Status: Acute Qualifiers: Cardiac valve disease etiology: etiology unspecified Qualified Code(s): I34.0 - Nonrheumatic mitral (valve) insufficiency Code(s): I34.0 - Nonrheumatic mitral (valve) insufficiency (4) Dyspnea on minimal exertion: Status: Acute Code(s): R06.09 - Other forms of dyspnea (5) Tobacco abuse: Status: Chronic Code(s): Z72.0 - Tobacco use (6) Congestive heart failure: Status: Acute Qualifiers: Heart failure type: combined systolic and diastolic Heart failure chronicity: acute Qualified Code(s): I50.41 - Acute combined systolic (congestive) and diastolic (congestive) heart failure Code(s): I50.9 - Heart failure, unspecified (7) Diabetes mellitus: Mild dose sliding scale Status: Chronic Qualifiers: Diabetes mellitus type: type 2 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 long-term use Diabetes mellitus complication status: without complication Qualified Code(s): E11.9 - Type 2 diabetes mellitus without complications Code(s): E11.9 - Type 2 diabetes mellitus without complications (8) Hypertension: Status: Chronic Qualifiers: Hypertension type: essential hypertension Qualified Code(s): I10 - Ess ential (primary) hypertension Code(s): I10 - Essential (primary) hypertension (9) Hyponatremia: Acute on chronic hyponatremia Chronic hyponatremia likely due to underlying heart failure Acute worsening given diuresis, will continue to monitor serum sodiums closely, patient encouraged to drink Gatorade electrolyte balance fluids Status: Acute Code(s): E87.1 - Hypo-osmolality and hyponatremia Attestations Medical Necessity Statement*: Requires hospitalization due to his acute respiratory failure Coding Level of Care Code 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[place] [employer] Diagnoses Acute respiratory failure with hypoxia and hypercapnia J96.01; J96.02 NSTEMI (non-ST elevated myocardial infarction) I21.4 Mitral regurgitation I34.0 Cardiac valve disease etiology: etiology unspecified Dyspnea on minimal exertion R06.09 Tobacco abuse Z72.0 Congestive heart failure I50.41 Heart failure type: combined systolic and diastolic Heart failure chronicity: acute Diabetes mellitus E11.9 Diabetes mellitus type: type 2 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
[2019-08-22 16:15] LABS: Glucose Point of Care 207 mg/dL (70-110)
--- NOTE | 2019-08-22 17:45 | PC.PT ---
pt SBA transfers and GT, no PT required at this time. Discussed with physician. D/C PT
[2019-08-22] MEDS: trazodone 50 mg Tablet PO (21:01)
[2019-08-22] MEDS: atorvastatin 40 mg Tablet 80 MG PO (21:01)
[2019-08-22 21:13] LABS: Glucose Point of Care 186 mg/dL (70-110)
[2019-08-22] MEDS: LORazepam 2 mg/mL INJ 1 mL 1 MG IVP (23:27)
[2019-08-23] VITALS (12 sets, daily range): BP systolic 91–115; BP diastolic 59–79; PULSE 56–87; RESP 12–28; TEMP 36.6–36.7; O2SAT 92–96
[2019-08-23] MEDS: ipratropium-albuterol 3 mL Neb INHALATION ×2 (04:06→10:00)
[2019-08-23] MEDS: levoFLOXacin 750 mg Tablet PO (05:16)
[2019-08-23 05:29] LABS: Basophils % 0.5 %; Eosinophils # 0.1 10^3/uL (0.0-0.8); Hematocrit 38.1 % (42.0-52.0); Hemoglobin 12.2 g/dL (11.7-16.6); Lymphocytes # 2.2 10^3/uL (0.8-4.8); Lymphocytes % 28.4 %; Mean Corpuscular Volume 87.6 fL (80-94); Monocytes # 0.6 10^3/uL (0.2-0.9); Monocytes % 7.2 %; Neutrophils # 4.9 10^3/uL (1.8-7.7); Neutrophils % 62.4 %; Nucleated Red Blood Cells % 0 %; Platelet Count 475 10^3/cmm (130-400); Red Blood Count 4.35 10^6/uL (4.1-5.3); Red Cell Distribution Width 12.1 % (12.1-15.1); White Blood Count 7.8 10^3/uL (4.0-10.0)
[2019-08-23 05:45] LABS: Alanine Aminotransferase 20 U/L (0-41); Albumin Level 3.1 g/dL (3.5-5.2); Alkaline Phosphatase 105 IU/L (40-130); Anion Gap 14.9 (5-19); Aspartate Amino Transferase 13 U/L (0-40); Blood Urea Nitrogen 23 mg/dL (6-20); Calcium 9.4 mg/dL (8.5-10.5); Carbon Dioxide 29 mmol/L (22-29); Chloride 90 mmol/L (98-107); Creatinine Clr Calc Pharmacy 97.4554; Globulin 3.3 g/dL (1.3-4.6); Glomerular Filtration Rate 64.9 mL/min (90-130); Glucose 158 mg/dL (65-115); Magnesium 1.9 mg/dL (1.7-2.3); Potassium 3.9 mmol/L (3.5-5.1); Sodium 130 mmol/L (136-145); Total Bilirubin 0.6 mg/dL (0.15-1.2); Total Protein 6.4 g/dL (6.6-8.7)
[2019-08-23 06:21] LABS: Glucose Point of Care 151 mg/dL (70-110)
--- NOTE | 2019-08-23 07:01 | P.PN_ITS ---
Subjective Subjective: Interval history: The tooth was removed yesterday. No bleeding overnight. He cannot sleep. No shortness of breath or any further incidents. Nurses have made him n.p.o. this morning. Medications: Reviewed: Yes Vitals/I&O/Wt Last Vital Signs Temp 97.8 F 08/22/19 19:17 Pulse 79 08/23/19 05:28 Resp 24 H 08/23/19 05:28 BP 106/61 08/23/19 05:28 Pulse Ox 92 08/23/19 05:28 08/22/19 08/23/19 08/23/19 22:59 06:59 14:59 Intake Total 480 / 720 Output Total 1125 / 1125 Balance 480 / 720 -1125 / -405 Physical Exam Narrative: EXAM NARRATIVE: GENERAL: In general he looks and feels well HEENT: Exam within normal limits. NECK: Supple without jugular vein distention. The carotid upstroke is normal without bruits. BACK: Exam normal. LUNGS: Clear. HEART: Regular rate and rhythm. ABDOMEN: Benign without organomegaly or tenderness. EXTREMITIES: No edema. NEUROLOGIC: Exam normal. SKIN: Unremarkable. Data : 08/23/19 05:20 08/23/19 05:20 Micro: Microbiology 08/19/19 16:25 Gram Stain - Final Sputum - Expectorated Sputum Sputum Culture - Final A&P Assessment and plan (1) Recent non-ST elevation myocardial infarction: Status: Acute (2) Acute on chronic diastolic (congestive) heart failure: Status: Acute Code(s): I50.33 - Acute on chronic diastolic (congestive) heart failure (3) Type 2 diabetes mellitus not at goal: Status: Acute Code(s): E11.9 - Type 2 diabetes mellitus without complications (4) Acute respiratory failure with hypoxia and hypercapnia: Status: Acute Code(s): J96.01 - Acute respiratory failure with hypoxia; J96.02 - Acute respiratory failure with hypercapnia (5) Dyspnea on minimal exertion: Status: Acute Code(s): R06.09 - Other forms of dyspnea (6) Mitral regurgitation: Status: Acute Code(s): I34.0 - Nonrheumatic mitral (valve) insufficiency (7) Tobacco abuse: Status: Chronic Code(s): Z72.0 - Tobacco use (8) Hypertension: Status: Chronic Code(s): I10 - Essential (primary) hypertension Additional A&P Information I notified Dr. Mendoza yesterday about the tooth removal. He will schedule the CARLO hopefully today. 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
--- NOTE | 2019-08-23 07:35 | USCV_ITS ---
ShaniceNimesh rivas Age: 49 Gender: M : 1970 Exam Date: 08/23/2019 09:26 Ordering Phys: Wendy Mendoza MD ([email or web address]) Technologist: Angelika Henderson Exam Location: [facility] [place] Indication: MR BP: / HR: Rhythm: Sinus Technical Quality: MEASUREMENTS (Male / Female) Normal Values Medications Patient given IV sedation by anesthesia service, for details please refer to the anesthesia report. Complications None. Proc. Components CARLO was performed at multiple levels.the patient tolerated the procedure well and there were no complications. CARLO was performed in the patient's room FINDINGS Left Ventricle The LV appears to be mildly dilated with a diffuse hypokinesia. LV ejection fraction around 45%. Right Ventricle Normal size and ejection fraction. Right Atrium Appears to be of normal size. Left Atrium Mildly dilated. LA Appendage Normal size with a slightly diminished contractility IA Septum Appears to be intact with no evidence of any ASD or patent foramen ovale. Mitral Valve There is no significant mitral valve prolapse. Moderately severe mitral regurgitation. 2 regurgitant jets were noted. The mitral annulus appears to be dilated. The mitral regurgitant fraction was calculated to be 72%. The LVOT VTI was 13.2. Mitral valve VTI was 18.26. LVOT cross-sectional surface area was 3.14 cm squared. The mitral valve cross-sectional surface area was 8.03 cm squared. No significant chordal pathology noted Aortic Valve Valve appears to be tricuspid with no significant regurgitation. Tricuspid Valve No significant abnormalities. Trace of tricuspid regurgitation. Pulmonic Valve Appears to be normal with no evidence of any stenosis or regurgitation. Pericardium No pericardial effusion. Aorta Size. CONCLUSIONS 1. Features suggestive of severe mitral regurgitation with a regurgitant fraction of 72%. Dilated mitral annulus. No significant mitral valve pathology noted 2. Mildly dilated left ventricle with an ejection fraction of 45%. Diffuse hypokinesia of the ventricle. 3. Mildly dilated left atrium. 4. Trace of tricuspid regurgitation. 5. No intracardiac shunt by color-flow Doppler examination or by saline contrast injection. 6. No intracardiac masses No similar previous studies are available for comparison Dr Wendy Mendoza MD [facility] (Electronically Signed) Final Date: 24 August 2019 08:27 S
--- NOTE | 2019-08-23 08:48 | P.ANESASSM_ITS ---
Pre-Anesthetic Assessment Pre-Anesthetic Assessment: Height/Weight: Height 1.8 m Weight 113.398 kg Temp Pulse Resp BP Pulse Ox 97.8 F 68 28 H 91/59 96 08/23/19 07:19 08/23/19 07:19 08/23/19 07:19 08/23/19 07:19 08/23/19 07:19 Preop Diagnosis: MVR Proposed Procedure: Operation Date: 08/21/19 08:30 Proposed Procedures p CARLO(Not Applicable) - Wendy Mendoza MD Was Beta Tino taken within 24 hours: Yes Last Intake: 23:59 Social: Packs per day: 2 Pack years: 34 Comment: quit 2 weeks Exam: Pre-Anes Outpt Exam: alert, oriented x 3, clear to auscultation bilaterally and regular rate & rhythm Airway: Submandibular: WNL Pulmonary: Pulmonary: COPD CV/HEM: CV/HEM: CAD and HI Comments: 2 weeks ago, followed by 2 stents Metabolic: Metabolic: DM Comments: rx'd x 2 years, does not follow Musc/skel: Musc/skel: Lower Back Pain Comments: intermittent right radiculopathy Neuropsych: Neuropsych: PRICE Comments: last years Anesthetic Plan: ASA status: 4 Anesthesia: MAC Meds/Allergies Current Medications: Current Medications Generic Name Dose Route Start Last Admin Trade Name Micky PRN Reason Stop Dose Admin Acetaminophen 650 mg 08/19/19 14:33 08/22/19 21:01 Tylenol PO 650 mg Q6H PRN Administration Mild/Mod Pain Or Temp >/= 101 Albuterol/Ipratrop ium 3 ml 08/19/19 20:00 08/23/19 04:06 Duoneb INHALATION 3 ml Q4H.RESPIRATORY S [facility] Administration Aspirin 81 mg 08/20/19 09:00 08/22/19 08:46 Aspirin Ec PO 81 mg DAILY SAMANTHA Administration Atorvastatin Calci um 80 mg 08/19/19 21:00 08/22/19 21:01 Lipitor PO 80 mg BEDTIME SAMANTHA Administration Clopidogrel Bisulf ate 75 mg 08/20/19 09:00 08/22/19 08:46 Plavix PO 75 mg DAILY SAMANTHA Administration Insulin Aspart 0 unit 08/20/19 18:00 08/23/19 08:11 Novolog SUBCUT Not Given WM&BEDTIME SAMANTHA Protocol Isosorbide Mononit rate 15 mg 08/20/19 09:00 08/22/19 08:45 Imdur PO 15 mg DAILY SAMANTHA Administration Levofloxacin 750 mg 08/23/19 06:00 08/23/19 05:16 Levaquin PO 750 mg DAILY@0600 [facility] Administration Protocol Lisinopril 2.5 mg 08/20/19 09:00 08/22/19 08:46 Prinivil PO 2.5 mg DAILY SAMANTHA Administration Lorazepam 1 mg 08/19/19 15:08 08/22/19 23:27 Ativan IVP 1 mg Q12H PRN Administration ANXIETY Metoprolol Tartrat e 25 mg 08/19/19 18:00 08/22/19 17:38 Lopressor PO 25 mg BID [facility] Administration Potassium Chloride 20 meq 08/20/19 09:00 08/22/19 08:46 Klor-Con 10 PO 20 meq DAILY [facility] Administration Trazodone HCl 50 mg 08/19/19 14:40 08/22/19 21:01 Desyrel PO 50 mg BEDTIME PRN Administration Insomnia Additional Medication Information: Current Medications Acetaminophen (Tylenol) 650 mg PO Q6H PRN PRN Reason: Mild/Mod Pain Or Temp >/= 101 Last Admin: 08/20/19 17:22 Dose: 650 mg Documented by: Albuterol/Ipratropium (Duoneb) 3 ml INHALATION Q4H.RESPIRATORY [facility] Last Admin: 08/20/19 17:00 Dose: 3 ml Documented by: Aspirin (Aspirin Ec) 81 mg PO DAILY [facility] Last Admin: 08/20/19 08:42 Dose: 81 mg Documented by: Atorvastatin Calcium (Lipitor) 80 mg PO BEDTIME [facility] Last Admin: 08/19/19 20:47 Dose: 80 mg Documented by: Bumetanide (Bumex) 1 mg IV Q12H [facility] Last Admin: 08/20/19 14:18 Dose: 1 mg Documented by: Clopidogrel Bisulfate (Plavix) 75 mg PO DAILY [facility] Last Admin: 08/20/19 08:42 Dose: 75 mg Documented by: Dextrose (D50w) 25 ml IVP ONCE PRN; Protocol PRN Reason: hypoglycemia protocol Dextrose (D50w) 50 ml IVP PRN PRN; Protocol PRN Reason: hypoglycemia protocol Enoxaparin Sodium (Lovenox) 110 mg SUBCUT Q12H [facility] Last Admin: 08/20/19 14:18 Dose: 110 mg Documented by: Glucagon (Glucagen) 1 mg IM ONCE PRN; Protocol PRN Reason: Adult Acute Hypoglycemia Prot. Dextrose (D5w) 500 mls @ 100 mls/hr IV ONCE PRN; Protocol PRN Reason: Adult Acute Hypoglycemia Prot Levofloxacin/Dextrose (Levaquin-D5w) 750 mg in 150 mls @ 150 mls/hr IV Q24H [facility]; Protocol Last Infusion: 08/19/19 23:11 Dose: Infused Documented by: Insulin Aspart (Novolog) 0 unit SUBCUT WM&BEDTIME [facility]; Protocol Last Admin: 08/20/19 17:10 Dose: 12 unit Documented by: Isosorbide Mononitrate (Imdur) 15 mg PO DAILY [facility] Last Admin: 08/20/19 10:14 Dose: 15 mg Documented by: Lisinopril (Prinivil) 2.5 mg PO DAILY [facility] Last Admin: 08/20/19 08:42 Dose: 2.5 mg Documented by: Lorazepam (Ativan) 1 mg IVP Q12H PRN PRN Reason: ANXIETY Last Admin: 08/19/19 15:40 Dose: 1 mg Documented by: Metolazone (Zaroxolyn) 5 mg PO DAILY [facility] Last Admin: 08/20/19 08:42 Dose: 5 mg Documented by: Metoprolol Tartrate (Lopressor) 25 mg PO BID [facility] Last Admin: 08/20/19 17:12 Dose: 25 mg Documented by: Ondansetron HCl (Zofran) 4 mg IVP Q6H PRN PRN Reason: NAUSEA AND VOMITING Potassium Chloride (Klor-Con 10) 20 meq PO DAILY [facility] Last Admin: 08/20/19 08:42 Dose: 20 meq Documented by: Trazodone HCl (Desyrel) 50 mg PO BEDTIME PRN PRN Reason: Insomnia PFSH Anesthesia PFSH: Medical History Acute on chronic diastolic (congestive) heart failure Congestive heart failure COPD (chronic obstructive pulmonary disease) Diabetes mellitus Hypertension Mitral regurgitation JIMMY (obstructive sleep apnea) Tobacco abuse Type 2 diabetes mellitus not at goal Surgical History History of heart artery stent Family History Other CAD (coronary artery disease) Cancer Social History Smoking and tobacco status: current every day smoker Alcohol intake: current Alcohol intake frequency: holidays/special occasions only Substance/Drug Use: current Other substance/drug use details: Patient states that he uses marijuana, he uses his friend's Xanax, used methamphetamine a month ago Data Anesthesia CBC & Chem 7: 08/23/19 05:20 08/23/19 05:20 Other Labs: Laboratory Results - last 48 hr 08/21/19 08/21/19 08/21/19 11:06 16:30 20:06 WBC RBC Hgb Hct MCV MCH MCHC RDW Plt Count MPV Neut % (Auto) Lymph % (Auto) [place] % (Auto) Eos % (Auto) Baso % (Auto) Neut # (Auto) Lymph # (Auto) [place] # (Auto) Eos # (Auto) Baso # (Auto) Nucleated RBC % (auto) Nucleated RBCs # Sodium Potassium Chloride Carbon Dioxide Anion Gap BUN Creatinine GFR Calculation Glucose POC Glucose 166 231 132 Calcium Magnesium Total Bilirubin AST ALT Alkaline Phosphatase NT-Pro-B Natriuret Pep Total Protein Albumin Globulin 08/22/19 08/22/19 08/22/19 03:20 03:20 03:20 WBC 8.7 RBC 4.38 Hgb 12.4 Hct 37.0 L MCV 84.5 MCH 28.3 MCHC 33.5 RDW 12.1 Plt Count 572 H MPV 8.4 Neut % (Auto) 67.5 Lymph % (Auto) 24.5 [place] % (Auto) 6.0 Eos % (Auto) 0.9 Baso % (Auto) 0.5 Neut # (Auto) 5.9 Lymph # (Auto) 2.1 [place] # (Auto) 0.5 Eos # (Auto) 0.1 Baso # (Auto) 0.0 Nucleated RBC % (auto) 0 Nucleated RBCs # 0.0 Sodium 130 L Potassium 4.1 Chloride 88 L Carbon Dioxide 30 H Anion Gap 16.1 BUN 17 Creatinine 1.2 GFR Calculation 64.9 L Glucose 165 H POC Glucose Calcium 9.6 Magnesium 1.8 Total Bilirubin 0.8 AST 11 ALT 19 Alkaline Phosphatase 105 NT-Pro-B Natriuret Pep 1591 H Total Protein 6.9 Albumin 3.2 L Globulin 3.7 08/22/19 08/22/19 08/22/19 06:20 11:30 16:05 WBC RBC Hgb Hct MCV MCH MCHC RDW Plt Count MPV Neut % (Auto) Lymph % (Auto) [place] % (Auto) Eos % (Auto) Baso % (Auto) Neut # (Auto) Lymph # (Auto) [place] # (Auto) Eos # (Auto) Baso # (Auto) Nucleated RBC % (auto) Nucleated RBCs # Sodium Potassium Chloride Carbon Dioxide Anion Gap BUN Creatinine GFR Calculation Glucose POC Glucose 169 214 207 Calcium Magnesium Total Bilirubin AST ALT Alkaline Phosphatase NT-Pro-B Natriuret Pep Total Protein Albumin Globulin 08/22/19 08/23/19 08/23/19 20:34 05:20 05:20 WBC 7.8 RBC 4.35 Hgb 12.2 Hct 38.1 L MCV 87.6 MCH 28.0 MCHC 32.0 RDW 12.1 Plt Count 475 H MPV 8.0 Neut % (Auto) 62.4 Lymph % (Auto) 28.4 [place] % (Auto) 7.2 Eos % (Auto) 1.0 Baso % (Auto) 0.5 Neut # (Auto) 4.9 Lymph # (Auto) 2.2 [place] # (Auto) 0.6 Eos # (Auto) 0.1 Baso # (Auto) 0.0 Nucleated RBC % (auto) 0 Nucleated RBCs # 0.0 Sodium 130 L Potassium 3.9 Chloride 90 L Carbon Dioxide 29 Anion Gap 14.9 BUN 23 H Creatinine 1.2 GFR Calculation 64.9 L Glucose 158 H POC Glucose 186 Calcium 9.4 Magnesium 1.9 Total Bilirubin 0.6 AST 13 ALT 20 Alkaline Phosphatase 105 NT-Pro-B Natriuret Pep Total Protein 6.4 L Albumin 3.1 L Globulin 3.3 08/23/19 06:15 WBC RBC Hgb Hct MCV MCH MCHC RDW Plt Count MPV Neut % (Auto) Lymph % (Auto) [place] % (Auto) Eos % (Auto) Baso % (Auto) Neut # (Auto) Lymph # (Auto) [place] # (Auto) Eos # (Auto) Baso # (Auto) Nucleated RBC % (auto) Nucleated RBCs # Sodium Potassium Chloride Carbon Dioxide Anion Gap BUN Creatinine GFR Calculation Glucose POC Glucose 151 Calcium Magnesium Total Bilirubin AST ALT Alkaline Phosphatase NT-Pro-B Natriuret Pep Total Protein Albumin Globulin Micro: Microbiology 08/19/19 16:25 Gram Stain - Final Sputum - Expectorated Sputum Sputum Culture - Final Cardiac Studies: No Data to Display
[2019-08-23] MEDS: sodium chloride 0.9% 1,000 ML 30 ML IV (09:10)
[2019-08-23] MEDS: metoprolol tartrate 25 mg Tablet PO ×2 (10:30→17:17)
[2019-08-23] MEDS: FUROsemide 40 mg Tablet PO (10:32)
[2019-08-23] MEDS: isosorbide mononitrate ER 30 mg Tablet 15 MG PO (10:32)
[2019-08-23] MEDS: aspirin 81 mg EC Tablet PO (10:33)
[2019-08-23] MEDS: clopidogrel 75 mg Tablet PO (10:33)
[2019-08-23] MEDS: lisinopril 2.5 mg Tablet PO (10:34)
--- NOTE | 2019-08-23 11:04 | PC.NURSE ---
Dr. Luna, Dr. Mendoza This nurse and Saurav Moreno at bed side for planned procedure CARLO Time out performed by this nurse at 0915
[2019-08-23 11:41] LABS: Glucose Point of Care 192 mg/dL (70-110)
[2019-08-23] MEDS: enoxaparin 40 mg/0.4 mL Syringe SUBCUT (12:14)
--- NOTE | 2019-08-23 12:58 | PM.PN ---
Subjective Subjective: Interval history: Patient has no complaints this morning, no bleeding from his tooth extraction site, no fevers, no chills, no nausea, no vomiting, is anxious about his having his transesophageal echocardiogram, no shortness of breath, no chest pain, is quite doing well today, was able to ambulate around the [facility] hallways well Vitals/I&O/Wt Last Vital Signs Temp 97.8 F 08/23/19 11:02 Pulse 87 08/23/19 11:02 Resp 28 H 08/23/19 11:02 BP 107/65 08/23/19 11:02 Pulse Ox 95 08/23/19 11:02 08/22/19 08/23/19 08/23/19 22:59 06:59 14:59 Intake Total 480 / 720 Output Total 1125 / 1125 Balance 480 / 720 -1125 / -405 Physical Exam Const: COMMON NORMALS: no apparent distress and oriented x3 HENMT: COMMON NORMALS: normocephalic HEAD & SCALP: normocephalic Neck/C-Spine: COMMON NORMALS: no JVD Resp: COMMON NORMALS: normal respiratory effort, no retractions, no use of accessory muscles and clear to auscultation bilaterally AUSCULTATION: clear to auscultation bilaterally Cardio: COMMON NORMALS: no JVD, regular rate, regular rhythm, S1 normal heart sound and S2 normal heart sound RATE: regular rate RHYTHM: regular rhythm HEART SOUNDS: S1 normal and S2 normal GI: COMMON NORMALS: normal to inspection, nondistended, normoactive bowel sounds, soft to palpation, non-tender, no hepatosplenomegaly, no masses and no bruits PALPATION: Yes soft and Yes no hepatosplenomegaly Extremity: COMMON NORMALS: normal capillary refill, no clubbing, cyanosis or edema, no calf tenderness and no pedal edema Neuro: COMMON NORMALS: oriented x3 Psych: COMMON NORMALS: mental status grossly normal Data : 08/23/19 05:20 08/23/19 05:20 Micro: Microbiology 08/19/19 16:25 Gram Stain - Final Sputum - Expectorated Sputum Sputum Culture - Final A&P Assessment and plan (1) Acute respiratory failure with hypoxia and hypercapnia: -Is -8350.9 L since admission, has tolerated diuresis well, his sodium levels is 130, patient feels well, shortness of breath is minimal, chest pain is minimal, is ambulating without significant symptomatology Plan: -Strict I's and O's, monitor urine output, fluid restrictions, daily weights -Bumex 1 mg p.o. daily -Telemetry monitoring -Monitor respiratory status closely -Sputum culture, viral respiratory panel, urine bacterial antigens, influenza -Duo nebs, oxygen therapy -Switch to Levaquin 750 p.o., although I think infectious etiology is very unlikely given his pro-Sheldon 0.07, he is afebrile, mild neutrophilic leukocytosis of 15.4 Status: Acute Code(s): J96.01 - Acute respiratory failure with hypoxia; J96.02 - Acute respiratory failure with hypercapnia (2) NSTEMI (non-ST elevated myocardial infarction): -On last admission angiography showed: -Patient also had a 95% mid LAD lesion at the takeoff of the diagonal branch and a 95% second obtuse marginal branch and 99% third obtuse marginal branch stenoses -Given patient's noncompliance, decision was made for stenting - repeat coronary angiogram with persistent complete occlusion of distal RCA and underwent angioplasty of OM 3 and D1 and stenting of OM 2 and m LAD. -Patient had chest pressure this morning, patient does have mild ST elevation in lead III and aVF which seem chronic since August 16, 2018, no other acute ST-T wave changes -No active chest pain -Baseline troponin is 900, 120-minute is 1006, delta of 102 Plan: -Continue aspirin, Plavix, therapeutic Lovenox -Continue telemetry monitoring, serial EKGs, monitor for chest pain -Follow cardiology recommendation Status: Inactive Code(s): I21.4 - Non-ST elevation (NSTEMI) myocardial infarction (3) Mitral regurgitation: Patient will have a transesophageal echocardiogram by Dr. Mendoza this morning Status: Acute Code(s): I34.0 - Nonrheumatic mitral (valve) insufficiency (4) Dyspnea on minimal exertion: Status: Acute Code(s): R06.09 - Other forms of dyspnea (5) Tobacco abuse: Status: Chronic Code(s): Z72.0 - Tobacco use (6) Congestive heart failure: Status: Acute Code(s): I50.9 - Heart failure, unspecified (7) Diabetes mellitus: Mild dose sliding scale Status: Chronic Qualifiers: Diabetes mellitus type: type 2 Diabetes mellitus terminal operations supervisor insulin use: without [place] [facility] use Diabetes mellitus complication status: without complication Qualified Code(s): E11.9 - Type 2 diabetes mellitus without complications Code(s): E11.9 - Type 2 diabetes mellitus without complications (8) Hypertension: Status: Chronic Code(s): I10 - Essential (primary) hypertension (9) Hyponatremia: Acute on chronic hyponatremia Chronic hyponatremia likely due to underlying heart failure Acute worsening given diuresis, will continue to monitor serum sodiums closely, patient encouraged to drink Gatorade electrolyte balance fluids Status: Acute Code(s): E87.1 - Hypo-osmolality and hyponatremia Attestations Medical Necessity Statement*: Requires hospitalization due to acute respiratory failure Coding Level of Care Code Acute Roll Capper for [facility] Diagnoses Acute respiratory failure with hypoxia and hypercapnia J96.01; J96.02 NSTEMI (non-ST elevated myocardial infarction) I21.4 Mitral regurgitation I34.0 Dyspnea on minimal exertion R06.09 Tobacco abuse Z72.0 Congestive heart failure I50.9 Diabetes mellitus E11.9 Diabetes mellitus type: type 2 Diabetes mellitus terminal operations supervisor insulin use: without [place] [facility] use Diabetes mellitus complication status: without complication Hypertension I10 Hyponatremia E87.1
[2019-08-23 17:05] LABS: Glucose Point of Care 224 mg/dL (70-110)
--- NOTE | 2019-08-23 17:47 | USCV_ITS ---
Nimesh Prasad Age: 49 Gender: M : 1970 Exam Date: 08/23/2019 18:01 Ordering Phys: Chito Gibson MD Technologist: Angelika Henderson Exam Location: [facility] [place]_ Indication: NODULE HISTORY: Bruised area on upper left extremity anterior and posterior PROCEDURES: Venous duplex imaging was performed in only the left upper extremity. The following venous structures were evaluated: internal jugular vein, subclavian vein, axillary vein, and brachial veins. In addition, the basilic vein, cephalic vein, radial vein, and ulnar vein. Serial compression, augmentation maneuvers, and spectral Doppler flow evaluation were performed. FINDINGS: Normal 2-D, color Doppler and phasicity noted in the left upper extremity venous system extending from the left internal jugular vein through the main forearm. No thrombosis or occlusion noted. Bruising on anterior and posterior aspects of upper arm are superficial no fluid collection seen within these areas-multiple echolucent areas CONCLUSIONS No evidence of venous thrombosis in the above-mentioned identifiable veins in the left upper extremity. Features of fluid collection in the subcutaneous area Dr Wendy Mendoza MD FACC (Electronically Signed) Final Date: 24 August 2019 09:06 S
[2019-08-23 21:08] LABS: Glucose Point of Care 184 mg/dL (70-110)
[2019-08-23] MEDS: trazodone 50 mg Tablet PO (21:16)
[2019-08-23] MEDS: atorvastatin 40 mg Tablet 80 MG PO (21:16)
[2019-08-23] MEDS: acetaminophen 325 mg Tablet 650 MG PO (21:24)
--- NOTE | 2019-08-23 22:20 | PC.NURSE ---
Patient requesting something for anxiety. I got something last night. Staff looked and patient was given something; however, it was discontinued today. Call placed to Dr. Bernstein. Awaiting return call.
--- NOTE | 2019-08-23 22:21 | PC.NURSE ---
Dr. Bernstein notified that patient is asking for the anxiety medicine they gave me last night to help me sleep. Patient was given PO Ativan last night, but the order was discontinued. Patient takes PO Ativan at home.
[2019-08-23] MEDS: ALPRAZolam 0.25 mg Tablet PO (22:43)
--- NOTE | 2019-08-23 22:53 | PC.NURSE ---
Xanax 0.25mg given x1 as ordered by Dr. Bernstein. Patient lying supine in bed watching television. On bi-pap. Denies complaints of pain at this time. Will monitor.
[2019-08-24] VITALS (8 sets, daily range): BP systolic 94–118; BP diastolic 57–75; PULSE 64–78; RESP 18–90; TEMP 36.6–36.8; O2SAT 94–96
--- NOTE | 2019-08-24 04:14 | PC.NURSE ---
Ambulating in [place]. Gait steady. Ambulated to nurses station and back to room. Snacks given per patient request. Will monitor.
[2019-08-24 04:22] LABS: Basophils # 0.1 10^3/uL (0.0-0.1); Basophils % 0.6 %; Eosinophils # 0.1 10^3/uL (0.0-0.8); Eosinophils % 1.4 %; Hematocrit 39.9 % (42.0-52.0); Hemoglobin 13.1 g/dL (11.7-16.6); Lymphocytes # 2.5 10^3/uL (0.8-4.8); Lymphocytes % 28.4 %; Mean Corpuscular HGB Conc 32.8 g/dL (30.0-36.0); Mean Corpuscular Hemoglobin 29.2 pg (28.0-34.0); Mean Corpuscular Volume 88.9 fL (80-94); Mean Platelet Volume 8.2 fL (7.4-10.4); Monocytes # 0.5 10^3/uL (0.2-0.9); Monocytes % 5.7 %; Neutrophils # 5.6 10^3/uL (1.8-7.7); Neutrophils % 63.3 %; Nucleated Red Blood Cells % 0 %; Platelet Count 511 10^3/cmm (130-400); Red Blood Count 4.49 10^6/uL (4.1-5.3); Red Cell Distribution Width 12.2 % (12.1-15.1); White Blood Count 8.8 10^3/uL (4.0-10.0)
[2019-08-24 04:55] LABS: Alanine Aminotransferase 21 U/L (0-41); Albumin Level 3.1 g/dL (3.5-5.2); Alkaline Phosphatase 119 IU/L (40-130); Anion Gap 17.8 (5-19); Aspartate Amino Transferase 17 U/L (0-40); Blood Urea Nitrogen 18 mg/dL (6-20); Calcium 9.4 mg/dL (8.5-10.5); Carbon Dioxide 27 mmol/L (22-29); Chloride 89 mmol/L (98-107); Creatinine Clr Calc Pharmacy 89.9588; Globulin 4.2 g/dL (1.3-4.6); Glomerular Filtration Rate 59.2 mL/min (90-130); Glucose 159 mg/dL (65-115); Magnesium 2.1 mg/dL (1.7-2.3); Potassium 3.8 mmol/L (3.5-5.1); Sodium 130 mmol/L (136-145); Total Bilirubin 0.6 mg/dL (0.15-1.2); Total Protein 7.3 g/dL (6.6-8.7)
[2019-08-24] MEDS: levoFLOXacin 750 mg Tablet PO (05:32)
[2019-08-24 06:24] LABS: Glucose Point of Care 200 mg/dL (70-110)
--- NOTE | 2019-08-24 07:11 | PM.PN ---
Subjective Subjective: Interval history: Yesterday I switched Nimesh back to Lasix by mouth. He remains on Levaquin. I also decreased his Lovenox to a lower dose once daily. We were able to accomplish the transesophageal echo yesterday. This did not reveal anything more significant than what we saw on the transthoracic echo. That is to say his mitral regurgitation is about 3+. His blood pressure continues to be on the soft side. I am trying to keep low-dose lisinopril on board. He is still on a low dose of a long-acting nitrate and a beta-tod. His urine output has been quite good. So much so that his creatinine has inched up to 1.3. His most recent chest x-ray was 2 days ago which revealed a decrease in the pulmonary edema. The small bilateral pleural effusions are still present. He does very well during the day and does not require oxygen. He is up and around walking. The difficulty continues to be at night. He tried to sleep in bed without the BiPAP last night and was not successful in doing so. He gets short of breath with some pressure in his chest. There are no other new details or developments. Medications: Reviewed: Yes Vitals/I&O/Wt Last Vital Signs Temp 98.3 F 08/24/19 05:02 Pulse 74 08/24/19 05:02 Resp 25 H 08/24/19 05:02 BP 104/58 08/24/19 05:02 Pulse Ox 94 08/24/19 05:02 08/23/19 08/24/19 08/24/19 22:59 06:59 14:59 Intake Total 580 / 820 150 / 970 Output Total 750 / 1250 1550 / 2800 Balance -170 / -430 -1400 / -1830 Weight last 48 hrs Weight 248 lb 1.6 oz Physical Exam Narrative: EXAM NARRATIVE: GENERAL: In general he looks and feels well at rest HEENT: Exam within normal limits. NECK: Supple without jugular vein distention. The carotid upstroke is normal without bruits. BACK: Exam normal. LUNGS: Clear. HEART: Regular rate and rhythm. ABDOMEN: Benign without organomegaly or tenderness. EXTREMITIES: No edema. NEUROLOGIC: Exam normal. SKIN: Unremarkable. Data : 08/24/19 03:35 08/24/19 03:35 A&P Assessment and plan (1) Recent non-ST elevation myocardial infarction: Status: Acute (2) Acute on chronic diastolic (congestive) heart failure: Status: Acute Code(s): I50.33 - Acute on chronic diastolic (congestive) heart failure (3) Type 2 diabetes mellitus not at goal: Status: Acute Code(s): E11.9 - Type 2 diabetes mellitus without complications (4) Acute respiratory failure with hypoxia and hypercapnia: Status: Acute Code(s): J96.01 - Acute respiratory failure with hypoxia; J96.02 - Acute respiratory failure with hypercapnia (5) Dyspnea on minimal exertion: Status: Acute Code(s): R06.09 - Other forms of dyspnea (6) Mitral regurgitation: Status: Acute Code(s): I34.0 - Nonrheumatic mitral (valve) insufficiency (7) Tobacco abuse: Status: Chronic Code(s): Z72.0 - Tobacco use (8) Congestive heart failure: Status: Acute Code(s): I50.9 - Heart failure, unspecified (9) Diabetes mellitus: Status: Chronic Qualifiers: Diabetes mellitus type: type 2 Diabetes mellitus shelter insulin use: without buttermaker helper use Diabetes mellitus complication status: without complication Qualified Code(s): E11.9 - Type 2 diabetes mellitus without complications Code(s): E11.9 - Type 2 diabetes mellitus without complications (10) Hypertension: Status: Chronic Code(s): I10 - Essential (primary) hypertension Additional A&P Information The clinical picture still does not fit the degree of mitral regurgitation. The only cardiac lesion which could be causing this is the mitral regurgitation however. His left ventricular function is not that bad and his ejection fraction is 45%. He does not appear to be getting ischemic. I cannot push his medications any further due to his relatively low blood pressure. If we had some way to get him a BiPAP machine or something equivalent at home he would do okay. The difficulty is his lack of finances. I still have the same fear I did when we send him home the first time and that is that he will go home, have similar episodes and be right back in the hospital within 24 hours which was what occurred before. Perhaps we can have group social worker see him and see whether there is something we can do to get him some kind of device at home. Otherwise, he will be in the hospital for a very lengthy period of time. I am just not at a point where I am ready to commit him to mitral valve surgery as a solution for this. 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 for [facility] Patient Type Established History Detailed Exam Detailed Medical Decision Making Moderate Complexity Diagnoses Recent non-ST elevation myocardial infarction Acute on chronic diastolic (congestive) heart failure I50.33 Type 2 diabetes mellitus not at goal E11.9 Acute respiratory failure with hypoxia and hypercapnia J96.01; J96.02 Dyspnea on minimal exertion R06.09 Mitral regurgitation I34.0 Tobacco abuse Z72.0 Congestive heart failure I50.9 Diabetes mellitus E11.9 Diabetes mellitus type: type 2 Diabetes mellitus buttermaker helper insulin use: without buttermaker helper use Diabetes mellitus complication status: without complication Hypertension I10
[2019-08-24] MEDS: FUROsemide 40 mg Tablet PO (08:53)
[2019-08-24] MEDS: clopidogrel 75 mg Tablet PO (08:53)
[2019-08-24] MEDS: metoprolol tartrate 25 mg Tablet PO ×2 (08:53→18:12)
[2019-08-24] MEDS: lisinopril 2.5 mg Tablet PO (08:53)
[2019-08-24] MEDS: isosorbide mononitrate ER 30 mg Tablet 15 MG PO (08:53)
[2019-08-24] MEDS: aspirin 81 mg EC Tablet PO (08:53)
[2019-08-24 11:37] LABS: Glucose Point of Care 280 mg/dL (70-110)
--- NOTE | 2019-08-24 11:56 | PC.CHAP ---
Pastoral Care Encounter/Spiritual Assessment Type of Contact [] Declined rib knitter visit [] Patient/Family/Request visit [] Outpatient visit [] Follow-up visit [] Physician referral [] Code/Alert [x] Routine visit [] Staff referral [] Actively dying [] Patient sleeping [] Family support [] [] Out of room [] Palliative care [] [] Receiving care in room [] Pre-surgical visit [] Trauma [] Long length of stay [] ICU visit [] Other: Relational/Emotional Strength [x] Patient feels connected with others/family/visitors/staff [] Distress [] Loneliness/isolation [] Abandonment Spirituality of Patient [] Person of Tala [] Attends Yazidism of their Tala [] Believes in Prayer [] Reads Bible or Catholic materials [x] There are Spiritual issues to be addressed Gas Meter Prover Interventions [x] Prayer [x] Active listening [x] Non-anxious presence []x Spiritual/emotional support [] Crisis/trauma care [x] Spiritual counseling [] Bereavement support [] Provided bereavement packet [] Provided Bible/devotional materials [] Provided toy/stuffed animal, coloring book to patient or family member [] Provided Communion [] Anointing/[place] [] Salvation [] Completed spiritual assessment [] Other: Impact on Illness or Injury [] Angry [] Fearful [] Anxious [] Often cries [] Exhaustion [] Unable to work [] Unable to attend taoist [] Unable to walk/stand [] Unable to read [] Unable to drive [] Unable to eat/drink [] Unable to sleep [] Unable to be with family [] Patient intubated [x] Other: Summary Patient knows Kuldeep only intellectually. The Gospel was provided with prayer. Time spent with patient 15 minutes
[2019-08-24] MEDS: enoxaparin 40 mg/0.4 mL Syringe SUBCUT (12:14)
--- NOTE | 2019-08-24 15:34 | PM.DCS ---
Discharge Providers Date of Admission: 08/19/19 12:45 Date of Discharge: August 24, 2019 Attending Provider at Admission: Chito Gibson MD Attending Provider at Discharge: Chito Gibson MD Primary Care Provider: EDITA ALEJO Diagnoses at Discharge Discharge Diagnosis (1) Recent non-ST elevation myocardial infarction: Status: Acute (2) Acute on chronic diastolic (congestive) heart failure: Status: Acute (3) Type 2 diabetes mellitus not at goal: Status: Acute (4) Acute respiratory failure with hypoxia and hypercapnia: Status: Acute (5) Dyspnea on minimal exertion: Status: Acute (6) Mitral regurgitation: Status: Acute (7) Tobacco abuse: Status: Chronic (8) Congestive heart failure: Status: Acute Problem details: (9) Diabetes mellitus: Status: Chronic Problem details: Qualifiers: Diabetes mellitus type: type 2 Diabetes mellitus long-term insulin use: without long-term use Diabetes mellitus complication status: without complication Qualified Code(s): E11.9 - Type 2 diabetes mellitus without complications (10) Hypertension: Status: Chronic Problem details: Reason for Visit Reason for Visit: Reason For Visit: RESP DISTRESS Hospital Course Discharge Summary: Nimesh Prasad is a 49 year old male with a past medical history of CAD status post stenting OM 2 and mid LAD, COPD not on oxygen therapy, hypertension, hyperlipidemia, [id number] type 2 diabetes mellitus, mitral regurg, systolic heart failure who presents to the emergency room after being discharged yesterday for chest pressure and shortness of breath. Patient was admitted for acute respiratory failure with hypoxia and hypercapnia secondary to systolic CHF exacerbation with ejection fraction of 45%, he received inpatient diuresis, he clinically improved, was clinically ambulating without significant symptomatology, was a bit over diuresed roughly 11 L, was discharged with Lasix 40 mg once daily, fluid restrictions of 1500 cc an hour, repeat blood work and follow-up with me next week in clinic. Some component of patient's respiratory failure was thought to be related to a respiratory tract infection pneumonia, although I feel it is unlikely, patient was started on antibiotics, discharged on 5 remaining days of Levaquin. For patient's chest pressure, he was found to have a NSTEMI likely type II supply demand ischemia, no acute ST-T wave changes, he was placed on aspirin, Plavix, Lovenox, his troponins and improved as his respiratory status improved, no repeat episodes of chest pain, patient had recent history of stenting, cardiology decided to medically manage. Patient was discharged on aspirin, statin, Plavix, with a follow-up with cardiology as outpatient. Patient was discharged on aspirin 81 mg once daily, atorvastatin 80 mg at bedtime, Lasix 40 mg at bedtime, Imdur 15 mg p.o. daily, lisinopril 2.5 mg once daily, metoprolol 25 twice daily, Klor-Con 20 mg once daily. For his type 2 diabetes mellitus, discharge metformin 500 twice daily, glipizide 5 mg once daily, In addition given patient's shortness of breath and chest pain, and known history of mitral regurgitation, the thought was that some of patient's recurrent symptoms could be secondary to his valvular disease. Patient was able to undergo a transesophageal echocardiogram which showed severe mitral regurgitation with an regurgitant fraction of 72%, dilated mitral annulus, no significant pathology. After discussion with cardiology, the plan is to discharge the patient on medical interventions including CPAP, if patient fails outpatient therapy, he will likely require surgical interventions for his mitral regurgitation. Patient likely has a history of sleep apnea, patient clinically benefited from a BiPAP as inpatient; in addition BiPAP also significantly helped with preload given his systolic heart failure. Patient states that he could not sleep without the BiPAP machine. Unfortunately patient did not have insurance, so setting up a BiPAP at home or even a sleep study was quite challenging. After the help of our amazing case workers, we were able to get the patient a CPAP machine. I have set the patient for CPAP machine, AutoPap between 18-15, humidified, with all tubing and mask, to be worn nightly. Patient will follow-up with me in clinic, to have a formal sleep study. In addition patient has poor dentition, he has 1 tooth that requires surgical intervention, he is set up with a free dental clinic for an extraction. For patient's type 2 diabetes mellitus, was discharged on metformin 500 twice daily, glipizide 5 mg daily, with close follow-up with me in clinic for blood sugar checks. Physical Exam Const: COMMON NORMALS: no apparent distress and oriented x3 HENMT: COMMON NORMALS: normocephalic HEAD & SCALP: normocephalic Neck/C-Spine: COMMON NORMALS: no JVD Resp: COMMON NORMALS: normal respiratory effort, no retractions, no use of accessory muscles and clear to auscultation bilaterally AUSCULTATION: clear to auscultation bilaterally Cardio: COMMON NORMALS: no JVD, regular rate, regular rhythm, S1 normal heart sound and S2 normal heart sound RATE: regular rate RHYTHM: regular rhythm HEART SOUNDS: S1 normal and S2 normal GI: COMMON NORMALS: normal to inspection, nondistended, normoactive bowel sounds, soft to palpation, non-tender, no hepatosplenomegaly, no masses and no bruits PALPATION: Yes soft and Yes no hepatosplenomegaly Extremity: COMMON NORMALS: normal capillary refill, no clubbing, cyanosis or edema, no calf tenderness and no pedal edema Neuro: COMMON NORMALS: oriented x3 Psych: COMMON NORMALS: mental status grossly normal Discharge Data Data Completed and Pending: Completed Studies During Hospitalization Category Date Time Status XR chest 1V sukhi ble [id number] Routine Exams 08/20/19 08:00 Completed XR chest 1V sukhi ble [id number] Routine Exams 08/22/19 07:47 Completed XR chest 1V sukhi ble [id number] Stat Exams 08/19/19 10:19 Completed CARLO [CV echo turner sesophageal 07374] Routine Ultrasound 08/23/19 07:35 Completed US venous duplex upper extremity LT [CV venous duplex Ultrasound 08/23/19 17:47 [place] [address]] Rout ine Pending at discharge Category Date Time Status Complete Blood Co unt w/Auto AM LABS Lab 08/25/19 04:00 Ordered Comprehensive Met abolic Panel AM LA BS Lab 08/25/19 04:00 Ordered Magnesium AM LABS Lab 08/25/19 04:00 Ordered Respiratory Viral Panel PCR Routine Lab 08/21/19 03:03 Received Labs from last 24 hours 08/24/19 08/24/19 08/24/19 11:14 06:11 03:35 WBC RBC Hgb Hct MCV MCH MCHC RDW Plt Count MPV Neut % (Auto) Lymph % (Auto) [place] % (Auto) Eos % (Auto) Baso % (Auto) Neut # (Auto) Lymph # (Auto) [place] # (Auto) Eos # (Auto) Baso # (Auto) Nucleated RBC % (a uto) Nucleated RBCs # Sodium 130 L Potassium 3.8 Chloride 89 L Carbon Dioxide 27 Anion Gap 17.8 BUN 18 Creatinine 1.3 H GFR Calculation 59.2 L Glucose 159 H POC Glucose 280 200 Calcium 9.4 Magnesium 2.1 Total Bilirubin 0.6 AST 17 ALT 21 Alkaline Phosphata se 119 Total Protein 7.3 Albumin 3.1 L Globulin 4.2 08/24/19 08/23/19 08/23/19 03:35 20:30 16:49 WBC 8.8 RBC 4.49 Hgb 13.1 Hct 39.9 L MCV 88.9 MCH 29.2 MCHC 32.8 RDW 12.2 Plt Count 511 H MPV 8.2 Neut % (Auto) 63.3 Lymph % (Auto) 28.4 [place] % (Auto) 5.7 Eos % (Auto) 1.4 Baso % (Auto) 0.6 Neut # (Auto) 5.6 Lymph # (Auto) 2.5 [place] # (Auto) 0.5 Eos # (Auto) 0.1 Baso # (Auto) 0.1 Nucleated RBC % (a uto) 0 Nucleated RBCs # 0.0 Sodium Potassium Chloride Carbon Dioxide Anion Gap BUN Creatinine GFR Calculation Glucose POC Glucose 184 224 Calcium Magnesium Total Bilirubin AST ALT Alkaline Phosphata se Total Protein Albumin Globulin Vitals: Last Vital Signs Temp 98.0 F 08/24/19 14:54 Pulse 75 08/24/19 14:54 Resp 20 H 08/24/19 14:54 BP 110/65 08/24/19 14:54 Pulse Ox 96 08/24/19 14:54 Discharge Plan Discharge Patient Disposition: Home, Self-Care Condition: Stable Prescriptions: Continued albuterol sulfate 90 mcg/actuation HFA aerosol inhaler 1 inh INHALATION Q6H PRN (Reason: Shortness Of Breath) RF: 0 atorvastatin 40 mg Tablet 80 mg PO BEDTIME 30 Days Qty: 60 RF: 0 trazodone 50 mg Tablet 50 mg PO BEDTIME PRN (Reason: Insomnia) 30 Days Qty: 30 RF: 0 isosorbide mononitrate 30 mg Tablet Extended Release 24 Hr 15 mg PO DAILY 30 Days Qty: 15 RF: 0 potassium chloride 10 mEq Tablet Extended Release 20 meq PO DAILY 30 Days Qty: 60 RF: 0 clopidogrel 75 mg Tablet 75 mg PO DAILY 30 Days Qty: 30 RF: 0 aspirin 81 mg Tablet,Delayed Release (Dr/Ec) 81 mg PO DAILY 30 Days Qty: 30 RF: 0 mupirocin 2 % Ointment 1 applic topical DAILY Qty: 22 RF: 0 levofloxacin 750 mg Tablet 750 mg PO DAILY 5 Days Qty: 5 RF: 0 lisinopril 2.5 mg Tablet 2.5 mg PO DAILY 30 Days Qty: 30 RF: 0 metoprolol tartrate 25 mg Tablet 25 mg PO BID 30 Days Qty: 60 RF: 0 metformin 500 mg tablet 500 mg PO BID 30 Days Qty: 60 RF: 0 glipizide 5 mg tablet 5 mg PO DAILY 30 Days Qty: 30 RF: 0 Changed furosemide 40 mg Tablet 40 mg PO DAILY 30 Days Qty: 60 RF: 0 lorazepam 0.5 mg Tablet 0.25 mg PO BID PRN (Reason: Anxiety) Qty: 30 RF: 0 Discharge Orders: Discharge Order (Routine); Ordered 08/19/19 Ordered By: Nicholas Galarza Other Ambulatory Orders: DME: CPAP (Order) Location: None Selected Ordered By: Chito Gibson Referrals: [facility] [Other] - 1-3 days (Please arrive early am at this clinic to fill out paperwork for sliding scale and be seen to have extractions on the two teeth recommended by Dr Gibson. It is first come first serve. They are open Wednesday- Wednesday 7a-6p. To ensure you will be seen please arrive early in the morning. You will need to have proof of income with you. Please call the number listed to verify if any additional information is needed prior to you driving to the clinic. Please do this as soon as possible so further needed medical care can be provided.) Ian Saavedra MD [Physician] - 7-10 days (You have a cardiology followup at [facility] on Wednesday, August 31 at 10:15am with Dr. Saavedra. Please, If you need to change this aapointment, give them a call at [phone]) Chito Gibson MD [Hospitalist] - 4-7 days ([facility] will be calling you to set up a hospital followup with Dr. Gibson to be seen either this coming Wednesday or Wednesday! If you don't hear from them by wednesday afternoon, please call them at [phone]) Discharge Diet: Advance as tolerated Discharge Activity: Increase activity as tolerated Patient Instructions: Heart Failure (DC), How to Check Your Blood Sugar (DC), Diabetes Mellitus Type 2 in Adults (DC), CPAP (GEN) Activity Restrictions/Additional Instructions: -Please follow-up with me in clinic in 1 week -Please take medication as prescribed -When you follow-up with me in 1 week we will recheck blood work -If you are worsening shortness of breath, please come back to the emergency room -Please use CPAP as prescribed Discharge Attestations Time Spent in Discharge Care*: less than 30 min Status at Discharge: Cognitive status at discharge: cognitively intact, Behavioral status at discharge: cooperative, Quality Metrics Clinical Quality Measures During this hospital stay, did patient experience: None Coding Level of Care Code 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
[2019-08-24 17:18] LABS: Glucose Point of Care 145 mg/dL (70-110)
--- NOTE | 2019-08-24 18:29 | PC.NURSE ---
patient discharged home at this time discharge instructions given an explained to patient and family member, patient and family verbalized understanding patient ambulated to private vehicle with discharge instructions and all other belongings in hand
[2019-08-25 12:02] LABS: Adenovirus Not Detected (Not Detected); Human Metapneumovirus Not Detected (Not Detected); Human Parainflu Virus 1 Not Detected (Not Detected); Human Parainflu Virus 2 Not Detected (Not Detected); Human Parainflu Virus 3 Not Detected (Not Detected); Human Rsv A Not Detected (Not Detected); Influenza A Not Detected (Not Detected); Influenza B Not Detected (Not Detected); Rhinovirus/Enterovirus Not Detected (Not Detected)
== END 2019-08-24 18:20 | disposition home or self-care (01) | DRG 189 ==
LOC: ER 12:26 → CSU 13:04
PROVIDERS: Internal Medicine Cardiovascular Disease; Admitting Provider Family Medicine; Emergency Provider Family Medicine; PCP Nurse Practitioner Family; Visit Provider Family Medicine
PROC: (CPT 93312; principal; 2019-08-21 08:30)
DX: J96.01 Acute respiratory failure with hypoxia (principal); I21.A1 Myocardial infarction type 2; J18.9 Pneumonia, unspecified organism; I50.41 Acute combined systolic (congestive) and diastolic (congestive) heart failure; E87.1 Hypo-osmolality and hyponatremia; J96.02 Acute respiratory failure with hypercapnia; E11.9 Type 2 diabetes mellitus without complications; F17.200 Nicotine dependence, unspecified, uncomplicated; G47.33 Obstructive sleep apnea (adult) (pediatric); I11.0 Hypertensive heart disease with heart failure; I08.1 Rheumatic disorders of both mitral and tricuspid valves; J44.9 Chronic obstructive pulmonary disease, unspecified; Z95.820 Peripheral vascular angioplasty status with implants and grafts; Z99.81 Dependence on supplemental oxygen; Z79.84 Long term (current) use of oral hypoglycemic drugs; Z79.899 Other long term (current) drug therapy; Z79.811 Long term (current) use of aromatase inhibitors; Z79.82 Long term (current) use of aspirin; Z79.51 Long term (current) use of inhaled steroids
CPT/HCPCS: 12345; 36415; 36416; 36600; 71045; 80048; 80051; 80053; 80306; 80307; 81001; 82810; 82962; 83735; 83880; 83986; 84100; 84145; 84484; 85025; 85651; 86140; 86403; 87070; 87205; 87804; 93005; 93312; 93320; 93325; 93971; 94640; 94660; 96372; 96375; 99283; J1650; J1815; J1956; J2060; J2930; J3490; J7030

== ENCOUNTER 2019-08-28 01:06 | Emergency (ER) | payer MEDICAID, SELFPAY ==
[2019-08-28] MEDS: EPINEPHrine 0.1 mg/mL SYR 10 mL 1 MG IVP (01:10)
[2019-08-28] MEDS: sodium bicarbonate 8.4% 1 mEq/mL 50mL Syr 50 MEQ IVP (01:11)
--- NOTE | 2019-08-28 01:20 | ED_ITS ---
Entered by Pauline Gonzalez, acting as scribe for Aug 28, 2019 01:06 HPI - CPR General: Chief Complaint: Cardiac Arrest/CPR Stated Complaint: cpr in progress Time Seen by Provider: 08/28/19 01:21 Source: EMS Mode of arrival: EMS Limitations: language barrier History of Present Illness: HPI narrative: 49 yo m came to the er by [facility] for CPR in progress. Onset was 1 hour 30 min ago. Ems states that the family told them that he was hot and sweaty prior, and complaining of shortness of breath, and had been in respiratory distress. He lost consciousness in front of the shipping clerk crating. Patient was already down when EMS found him. 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) Timing confirmed by: family member Place: home Bystander CPR performed: Yes AED applied by bystander/shipping clerk crating: Yes Shock advised: No Initial findings in the field: unresponsive Associated injuries: No Treatments prior to arrival: intubation and chest compressions Review of Systems General: Reports: ROS unobtainable due to endotracheal tube Resp: Reports: shortness of breath PFSH ED PFSH: Social History Smoking and tobacco status: current every day smoker Alcohol intake: current Alcohol intake frequency: holidays/special occasions only Physical Exam Const: EXAM LIMITATIONS: altered mental status (GCS 3) HENMT: HEAD & SCALP: cyanosis of lips/distal nose FACE & SINUS: acrocyanosis present Eye: PUPIL: Yes not reactive Resp: AUSCULTATION: diminished lung sounds Cardio: RATE: other (no pulse) OTHER: pulseless GI: COMMON NORMALS: soft to palpation INSPECTION: Yes abdominal distension PALPATION: Yes soft Extremity: GENERAL: Yes cyanosis and Yes edema Neuro: NILSA COMA SCALE: document GCS findings Nilsa coma scale eye opening: None Nilsa coma scale verbal response: None [place] coma scale motor response: None Nilsa coma scale total score: 3 Course Vital Signs: Vital signs: Vital Signs Pulse Rate 0 L 08/28/19 01:57 Respiratory Rate 0 L 08/28/19 01:57 Blood Pressure 0/0 08/28/19 01:57 Pulse Oximetry 0 L 08/28/19 01:57 MDM - Cardiac Arrest/CPR MDM Narrative: Medical decision making narrative: 49-year-old male comes in in asystole. He had been down well over an hour prior to arrival. Evidently, there was a brief period of sinus bradycardia with a thready pulse, lasting less than 30 seconds for that hour trip here. He had received epinephrine, amiodarone, prior to arrival. The patient was given several doses of epinephrine for asystole here. At 2 different points during the code, it appeared that there was some fibrillation on the monitor at pulse check. The patient was defibrillated twice, both without generation of pulse or rhythm. He was given amiodarone here as well, with no result. Chest x-ray during the code revealed florid pulmonary edema without pneumothorax, tracheal deviation, or effusion. We spoke with the family, and let them know that any further resuscitative efforts were futile at this point. Time of was called at 1:22 Critical Care Time Critical Care Time: Critical Care Time: Yes Total Critical Care Time: 30 Attestation: This case required my full and direct attention, intervention and personal management, due to ACLS resuscitation effort. Discharge Plan Discharge Patient Disposition: Clinical Impression: Cardiac arrest Congestive heart failure Qualifiers: Heart failure type: unspecified Heart failure chronicity: acute on chronic Qualified Code(s): I50.9 - Heart failure, unspecified Discharge Date/Time: 08/28/19 03:40 Probable Cause of Probable cause of : Cardiac arrest Coding Level of Care Code ED Software Performance Engineer for [facility] Santos The documentation recorded by the Carlos chapman Stephanie Lyn, accurately reflects the service I personally performed and the decisions made by Kameron zhao Jeremy John, DO Aug 28, 2019 01:06
[2019-08-28 01:22] VITALS: PULSE 0; RESP 0; BMI 36.2
--- NOTE | 2019-08-28 01:37 | PC.NURSE ---
[facility] Complaint Analyst notified of .
[2019-08-28 01:57] VITALS: BP 0/0; PULSE 0; RESP 0; O2SAT 0
[2019-08-28] MEDS: EPINEPHrine 0.1 mg/mL SYR 10 mL 4 MG IVP (02:11)
--- NOTE | 2019-08-28 04:18 | XR_ITS ---
WS: [id number] CHEST XRAY TECHNIQUE: Portable chest. CLINICAL INFORMATION: cardiac arrest COMPARISON: None. FINDINGS: Endotracheal tube with tip above the johana. Enteric tube with tip below the diaphragm. Cardiomegaly. Perihilar interstitial edema/infiltrates. Left lung incompletely visualized XR/XR chest 1V portable [id number] IMPRESSION: 1. Endotracheal tube with tip above the johana and enteric tube with tip below the diaphragm. 2. Perihilar interstitial edema/infiltrates.
== END 2019-08-28 03:40 | disposition expired ==
PROVIDERS: Emergency Provider Emergency Medicine
DX: I50.9 Heart failure, unspecified (principal); I46.2 Cardiac arrest due to underlying cardiac condition; F17.200 Nicotine dependence, unspecified, uncomplicated; R40.2432 Glasgow coma scale score 3-8, at arrival to emergency department
CPT/HCPCS: 12345; 71045; 96374; 96375; 99283; 99285; J0171; J0282